=== PATIENT | male | born 1990 | race African-American/Black ===

== ENCOUNTER 2019-09-16 14:11 | Emergency (ER) | payer BC ==
--- OUTSIDE RECORDS SUMMARY | 2019-09-16 14:32 | XMS REPORT | Continuity of Care Document ---
:1990 Author Organization [facility] t Address [address] [place] [address] Care Team Providers Name Role Phone Unavailable Unavailable Unavailable Problems Condition Condition Condition Status Onset Resolution Last Treating Co mments Source Name Details Category Date Date Treatment Clinician Date Morbid Morbid Problem Active [facility] (severe) (severe[facility] obesity obesity Memoria due to due to l excess excess Outpati calories calories ent Clinics Sleep Sleep Problem Active [facility] apnea, apnea, [facility] - unspecifie unspecifie Me moria d type d type l [facility] Body mass Body mass Problem Active [facility] index index [facility] - (BMI) (BMI) Memoria 60.0-69.9, 60.0-69.9, l adult adult Outpati ent Clinics Essential Essential Problem Active [facility] hypertensi hypertensi Sharifa kes - on on Memoria l Outpati ent Clinics Type 2 Type [address] [facility] diabetes diabetes [facility] - mellitus mellitus Memori a with other with other l diabetic diabetic Outpat i kidney kidney ent complicati complicati Cl inics on on [employer] Problem Active [facility] (current) (current) [facility] - use of use of Memoria insulin insulin l Outpati ent Clinics Mixed Mixed Problem Active [facility] hyperlipid hyperlipid Sharifa kes - emia emia [facility]oria l [facility] Allergies, Adverse Reactions, Alerts This patient has no known allergies or adverse reactions. Medications Ordered Filled Start Stop Current Ordering Indication Dosage Frequency Signature Comments Components Source Medication Medication Date Date Medication? Clinician (SIG) Name Name Lisinopril Lisinopril 2020-0 Yes Akash [address] [facility] 08-25 [facility] - 00:00: [facility] 00 l [facility] Lipitor Lipitor 2020-0 Yes Akash [address] 7-09 [facility] - 00:00: Memoria 00 l Outpati ent Clinics Synjardy XR Synjardy XR 2020-0 2020- Yes Akash [address] [facility] 711-23 Pearson with [facility] - 00:00: 00:00 breakfast Memoria 00 :00 l Outpati ent Clinics Carvedilol Carvedilol Yes Akash [address] [facility] Pearson with food [facility] Outpati ent Clinics Amlodipine Amlodipine Yes Akash [address] [facility] Besylate Besylate [facility] Outpati ent Clinics Metoprolol Metoprolol Yes Akash [address] [facility] Tartrate Tartrate Pearson with food L [facility] - [facility] Outpati ent Clinics Procedures This patient has no known procedures. Encounters Start End Encounter Admission Attending Care Care Encounter Source Date/Time Date/Time Type Type Clinicians Facility Department ID 2019-09-14 2019-09-14 Outpatient Austin Caldwell [id number] [facility] 15:48:00 15:48:00 [employer] [facility] Medicine Outpati ent Clinics 2019-08-27 2019-08-27 Outpatient Austin Caldwell [id number] [facility] 13:17:00 13:17:00 [employer] [facility] Medicine Outpati ent Clinics 2019-08-27 2019-08-27 Outpatient Austin Caldwell [id number] [facility] 10:45:00 10:45:00 [employer] [facility] Medicine Outpati ent Clinics 2019-08-06 2019-08-06 Outpatient Austin Caldwell [address] [facility] 10:00:00 10:00:00 [employer] [facility] Medicine Outpati ent Clinics Results This patient has no known results.
--- OUTSIDE RECORDS SUMMARY | 2019-09-16 14:32 | XMS REPORT ---
:1990 Author Organization e[employer] Care Team Providers Name Role Phone Akash Pearson Provider Role Unavailable Allergies, Adverse Reactions, Alerts Substance Reaction Event Type N.K.D.A. Info Not Available Non Drug Allergy Problems Problem Type Condition Code Onset Dates Condition Statu s Assessment Morbid (severe) obesity due to E66.01 Active excess calories Assessment Sleep apnea, unspecified type G47.30 Active Assessment Fatigue, unspecified type R53.83 Ac tive Assessment History of atrial fibrillation Z86.79 Active Assessment Body mass index (BMI) 60.0-69.9, Z68.44 Active adult Problem Morbid (severe) obesity due to E66.01 Active excess calories Problem Body mass index (BMI) 60.0-69.9, Z68.44 Active adult Problem Essential hypertension I10 Activ e Assessment Well adult on routine health check Z00.00 Active Assessment Essential hypertension I10 Activ e Problem Sleep apnea, unspecified type G47.30 Active Medications Medication Code Code Instructions Start End Date Status Dosage System Date Carvedilol [facility] 66927885131 6.25 MG Orally Active 1 tablet Twice a day with food Amlodipine ND 47694992999 10 MG Orally Active 1 ta blet Besylate Once a day Metoprolol [facility] 89088650263 25 MG Orally Active 1 ta blet Tartrate Twice a day with food Results No Known Results Summary Purpose eClinicalWorks Submission
--- OUTSIDE RECORDS SUMMARY | 2019-09-16 14:33 | XMS REPORT ---
:1990 Author Organization [employer] Care Team Providers Name Role Phone Akash Pearson Provider Role Unavailable Allergies, Adverse Reactions, Alerts Substance Reaction Event Type N.K.D.A. Info Not Available Non Drug Allergy Problems Problem Type Condition Code Onset Dates Condition Statu s Assessment Essential hypertension I10 Activ e Assessment Type 2 diabetes mellitus with other E11.29 Active diabetic kidney complication Problem Type 2 diabetes mellitus with other E11.29 Active diabetic kidney complication Problem [employer] (current) use of insulin Z79.4 Active Problem Mixed hyperlipidemia E78.2 Active Problem Morbid (severe) obesity due to E66.01 Active excess calories Problem Body mass index (BMI) 60.0-69.9, Z68.44 Active adult Problem Sleep apnea, unspecified type G47.30 Active Problem Essential hypertension I10 Activ e Assessment History of atrial fibrillation Z86.79 Active Assessment Fatigue, unspecified type R53.83 Ac tive Assessment Gross hematuria R31.0 Active Assessment Mixed hyperlipidemia E78.2 Active Assessment Morbid (severe) obesity due to E66.01 Active excess calories Assessment Proteinuria, unspecified R80.9 Act isael Assessment Body mass index (BMI) 60.0-69.9, Z68.44 Active adult Assessment Sleep apnea, unspecified type G47.30 Active Medications Medication Code Code Instructions Start End Status Dosage System Date Date Lisinopril [facility] 00372338993 5 MG Orally August 25, Active 1 ta blet Once a day 2019 Metoprolol ND 82321301732 25 MG Orally Active 1 ta blet Tartrate Twice a day with food Lipitor ND 26655114697 10 MG Orally August 25, Active 1 tabl et Once a day 2019 Carvedilol [facility] 36408341445 6.25 MG Orally Inactive 1 tablet Twice a day with food Amlodipine ND 67334112580 10 MG Orally Active 1 ta blet Besylate Once a day Synjardy XR [facility] 39028447600 10-1000 MG August 25, Nov 23, Active 1 ta blet Orally Once a 2020 2019 with day breakfast Results No Known Results Summary Purpose eClinicalWorks Submission
--- OUTSIDE RECORDS SUMMARY | 2019-09-16 14:33 | XMS REPORT ---
:1990 Author Organization [employer] Care Team Providers Name Role Phone Michel Akash Provider Role Unavailable Allergies No Known Allergies Problems Problem Type Condition Code Onset Dates Condition Statu s Problem Type 2 diabetes mellitus with other E11.29 Active diabetic kidney complication Problem [facility] (current) use of insulin Z79.4 Active Problem Mixed hyperlipidemia E78.2 Active Problem Morbid (severe) obesity due to E66.01 Active excess calories Problem Body mass index (BMI) 60.0-69.9, Z68.44 Active adult Problem Sleep apnea, unspecified type G47.30 Active Problem Essential hypertension I10 Activ e Medications No Known Medications Results No Known Results Summary Purpose eClinicalWorks Submission
--- OUTSIDE RECORDS SUMMARY | 2019-09-16 14:33 | XMS REPORT ---
:1990 Author Organization [employer] Care Team Providers Name Role Phone Michel Akash Provider Role Unavailable Allergies No Known Allergies Problems Problem Type Condition Code Onset Dates Condition Statu s Problem Type 2 diabetes mellitus with other E11.29 Active diabetic kidney complication Problem [place] (current) use of insulin Z79.4 Active Problem Mixed hyperlipidemia E78.2 Active Problem Morbid (severe) obesity due to E66.01 Active excess calories Problem Body mass index (BMI) 60.0-69.9, Z68.44 Active adult Problem Sleep apnea, unspecified type G47.30 Active Problem Essential hypertension I10 Activ e Medications No Known Medications Results No Known Results Summary Purpose eClinicalWorks Submission
[2019-09-16 15:29] LABS: Absolute Lymphocytes (CBC) 2.2 K/uL (0.7-4.9); Basophils % 0.6 % (0-1.3); Lymphocytes % 33.9 % (15.3-44.8); MPV 11.5 fL (7.6-11.3); RBC Red Blood Cell Count 5.96 M/uL (4.33-5.43)
[2019-09-16 15:34] LABS: Albumin 3.8 g/dL (3.4-5.0); Bilirubin Direct 0.2 mg/dL (0-0.2); Bilirubin Total 0.5 mg/dL (0.2-1.0); Potassium 4.1 mmol/L (3.5-5.1); Protein, Total 7.7 g/dL (6.4-8.2)
[2019-09-16] MEDS ORDERED: INSULIN -REGULAR HUMAN 50 UNIT/0.5 ML ML ONE (15:34)
[2019-09-16] MEDS ORDERED: NA CHLORIDE 0.9% 1,000 ML ONE (15:36)
[2019-09-16] MEDS ORDERED: MORPHINE 4 MG/ML SYR ONE (15:36)
[2019-09-16] MEDS ORDERED: ONDANSETRON 4 MG/2 ML VIAL ONE (15:36)
--- NOTE | 2019-09-16 16:06 | RAD REPORT ---
EXAM DESCRIPTION: US - Abdomen Exam Limited - 09/16/2019 3:58 pm CLINICAL HISTORY: GB pain;Abd pain COMPARISON: No comparisons FINDINGS: The gallbladder demonstrates no gallstones. No pericholecystic fluid or gallbladder wall t hickening. The common bile duct is normal measuring 2 mm. The liver demonstrates no findings of intrahepatic biliary dilatation. IMPRESSION: Unremarkable examination.
[2019-09-16 16:10] LABS: Urine Blood 1+ (NEG); Urine Glucose 2+ (NEG); Urine Protein 3+ (NEG); Urine Specific Gravity 1.015 (1.005-1.030)
--- NOTE | 2019-09-16 17:29 | ER ---
Nurse's Notes [facility] Name: Huber Field Age: 28 yrs Sex: Male : 1990 Arrival Date: 09/16/2019 Time: 14:13 Bed 19 Private MD: Diagnosis: Generalized abdominal pain;Diarrhea, unspecified Presentation: 09/15 14:25 Chief complaint: Patient states: headache, pain to RUQ, sneezed and felt a pop in RUQ, iw has been vomiting for three days, not tolerating fluids, mouth is very dry, heart rate has been fast. Coronavirus screen: Patient denies a cough. Patient reports shortness of breath or difficulty breathing. Patient denies measured and/or subjective temperature greater than 100.4F prior to today's visit. Patient denies travel on a cruise ship or to a country the [facility] currently lists as an affected area. Patient denies contact with known and/or suspected case of COVID-19. Ebola Screen: Patient negative for fever greater than or equal to 101.5 degrees Fahrenheit, and additional compatible Ebola Virus Disease symptoms Patient denies exposure to infectious person. Patient denies travel to an Ebola-affected area in the 21 days before illness onset. No symptoms or risks identified at this time. Initial Sepsis Screen: Does the patient meet any 2 criteria? HR > 90 bpm. Does the patient have a suspected source of infection? No. Patient's initial sepsis screen is negative. Risk Assessment: Do you want to hurt yourself or someone else? Patient reports no desire to harm self or others. Onset of symptoms was September 13, 2019. 14:25 Method Of Arrival: Ambulatory iw 14:25 Acuity: DARCY 3 iw Historical: - Allergies: 14:30 fish; iw - Home Meds: 14:30 metoprolol tartrate 25 mg Oral tab 1 tab 2 times per day [Active]; atorvastatin 10 mg iw oral tab 1 tab once daily [Active]; amlodipine 10 mg tab 1 tab once daily [Active]; lisinopril 5 mg Oral tab 1 tab once daily [Active]; aspirin 325 mg Oral tab 1 tab once daily [Active]; 14:56 multivitamin oral oral [Active]; ProAir HFA inhalation inhalation [Active]; aa5 - PMHx: 14:30 Hypertension; Hyperlipidemia; iw 14:56 Asthma; Diabetes - NIDDM; aa5 - PSHx: 14:30 None; iw - Immunization history:: Adult Immunizations unknown. - Social history:: Smoking status: Patient denies any tobacco usage or history of. Screenin:50 Abuse screen: Denies threats or abuse. Nutritional screening: No deficits noted. aa5 Tuberculosis screening: No symptoms or risk factors identified. Fall Risk None identified. Assessment: 14:50 General: Appears comfortable, Behavior is calm, cooperative. Pain: Complains of pain in aa5 right upper quadrant and epigastric area Pain does not radiate. Pain currently is 5 out of 10 on a pain scale. Quality of pain is described as sharp, Is continuous. Neuro: Level of Consciousness is awake, alert, obeys commands, Oriented to person, place, time, situation. Cardiovascular: Heart tones S1 S2 present Rhythm is regular. Respiratory: Airway is patent Respiratory effort is even, unlabored, Respiratory pattern is regular, symmetrical. GI: Abdomen is obese, Bowel sounds present X 4 quads. Abd is soft X 4 quads Reports diarrhea, nausea, vomiting. : No signs and/or symptoms were reported regarding the genitourinary system. EENT: No signs and/or symptoms were reported regarding the EENT system. Derm: Skin is dry, Skin is normal, Skin temperature is warm. Musculoskeletal: Range of motion: intact in all extremities. 15:30 Neuro: Level of Consciousness is awake, alert, obeys commands, Oriented to person, aa5 place, time, situation. Respiratory: Airway is patent Respiratory effort is even, unlabored, Respiratory pattern is regular, symmetrical. Derm: Skin is dry, Skin is normal, Skin temperature is warm. 15:50 Reassessment: US at bedside . aa5 16:30 Reassessment: Awaiting disposition. . aa5 16:30 Neuro: Level of Consciousness is awake, alert, obeys commands, Oriented to person, aa5 place, time, situation. Respiratory: Airway is patent Respiratory effort is even, unlabored, Respiratory pattern is regular, symmetrical. Derm: Skin is dry, Skin is normal, Skin temperature is warm. 17:35 Neuro: Level of Consciousness is awake, alert, obeys commands, Oriented to person, aa5 place, time, situation. Respiratory: Airway is patent Respiratory effort is even, unlabored, Respiratory pattern is regular, symmetrical. Derm: Skin is dry, Skin is normal, Skin temperature is warm. Vital Signs: 14:25 BP 143 / 98; Pulse 104; Resp 20; Temp 98.2; Pulse Ox 95% on R/A; Weight 190.51 kg; iw Height 6 ft. 1 in. (185.42 cm); Pain 7/10; 15:30 BP 139 / 83; Pulse 98; Resp 22 S; Pulse Ox 97% on R/A; aa5 17:00 BP 138 / 80; Pulse 95; Resp 18 S; Pulse Ox 97% on R/A; aa5 14:25 Body Mass Index 55.41 (190.51 kg, 185.42 cm) iw ED Course: 14:13 Patient arrived in ED. as 14:28 Triage completed. iw 14:30 Arm band placed on. iw 14:37 Alaln Escamilla PA is PHCP. jr8 14:37 Dain Frost MD is Attending Physician. jr8 14:49 Shireen Aponte, RN is Primary Nurse. aa5 14:50 Patient has correct armband on for positive identification. Bed in low position. Call aa5 light in reach. Side rails up X2. Pulse ox on. NIBP on. 14:59 Inserted saline lock: 20 gauge in left antecubital area, using aseptic technique. Blood dh4 collected. 15:58 US Abdomen Limited In Process Unspecified. EDMS 17:28 Enid Walters MD is Referral Physician. jr8 17:35 No provider procedures requiring assistance completed. IV discontinued, intact, aa5 bleeding controlled, No redness/swelling at site. Pressure dressing applied. Administered Medications: 15:30 Drug: NS 0.9% 1000 ml Route: IV; Rate: 1000 ml; Site: right antecubital; aa5 17:49 Follow up: IV Status: Completed infusion; completed at 1630 aa5 15:30 Drug: morphine 4 mg Route: IVP; Site: right antecubital; aa5 15:40 Follow up: Response: No adverse reaction; at 1540 aa5 15:30 Drug: Zofran (Ondansetron) 4 mg Route: IVP; Site: right antecubital; aa5 17:49 Follow up: Response: No adverse reaction; at 1540 aa5 15:30 Drug: Insulin Regular Human 10 units {Co-Signature: aa5 (Shireen Aponte RN).} Route: iw IVP; Site: left antecubital; 15:40 Follow up: Response: No adverse reaction; at 1540 aa5 Intake: Outcome: 17:28 Discharge ordered by MD. culp 17:35 Discharged to home ambulatory. aa5 17:35 Condition: stable 17:35 Discharge instructions given to patient, Instructed on discharge instructions, follow up and referral plans. medication usage, Demonstrated understanding of instructions, follow-up care, medications, Prescriptions given X 4. 17:40 Patient left the ED. aa5 Signatures: Dispatcher [employer] EDMS Shanti Cisneros Irene, RN RN iw Calderon, Audri, RN RN aa5 Allan Escamilla PA PA jr8 Huhn, Donald [facility] Shireen Aponte RN aa5 Corrections: (The following items were deleted from the chart) 17:49 16:30 IV Status: Completed infusion aa5 aa5
--- NOTE | 2019-09-16 17:29 | EDPHYS ---
Physician Documentation [facility] Name: Huber Field Age: 28 yrs Sex: Male : 1990 Arrival Date: 09/16/2019 Time: 14:13 Bed 19 Private MD: ED Physician Dain Frost HPI: 09/15 15:20 This 28 yrs old Black Male presents to ER via Ambulatory with complaints of Epigastric jr8 Pain, Vomiting, dehydration. 15:20 The patient presents with abdominal pain in the epigastric area, in the right upper jr8 quadrant. Onset: The symptoms/episode began/occurred acutely, 3 day(s) ago, and became persistent. The symptoms do not radiate. Associated signs and symptoms: Pertinent positives: nausea, vomiting. The symptoms are described as stabbing. Modifying factors: The symptoms are alleviated by nothing, the symptoms are aggravated by nothing. Severity of pain: At its worst the pain was moderate in the emergency department the pain is unchanged. The patient has not experienced similar symptoms in the past. The patient has not recently seen a physician. 17:05 Patient stated that he has had diarrhea for two weeks and now some nausea and right jr8 upper quadrant and mid abdominal pain . Historical: - Allergies: 14:30 fish; iw - Home Meds: 14:30 metoprolol tartrate 25 mg Oral tab 1 tab 2 times per day [Active]; atorvastatin 10 mg iw oral tab 1 tab once daily [Active]; amlodipine 10 mg tab 1 tab once daily [Active]; lisinopril 5 mg Oral tab 1 tab once daily [Active]; aspirin 325 mg Oral tab 1 tab once daily [Active]; 14:56 multivitamin oral oral [Active]; ProAir HFA inhalation inhalation [Active]; aa5 - PMHx: 14:30 Hypertension; Hyperlipidemia; iw 14:56 Asthma; Diabetes - NIDDM; aa5 - PSHx: 14:30 None; iw - Immunization history:: Adult Immunizations unknown. - Social history:: Smoking status: Patient denies any tobacco usage or history of. ROS: 15:22 Eyes: Negative for injury, pain, redness, and discharge, ENT: Negative for injury, jr8 pain, and discharge, Neck: Negative for injury, pain, and swelling, Cardiovascular: Negative for chest pain, palpitations, and edema, Respiratory: Negative for shortness of breath, cough, wheezing, and pleuritic chest pain, Back: Negative for injury and pain, MS/Extremity: Negative for injury and deformity, Skin: Negative for injury, rash, and discoloration, Neuro: Negative for headache, weakness, numbness, tingling, and seizure. 15:22 Abdomen/GI: Positive for abdominal pain, nausea and vomiting, Negative for diarrhea, constipation, abdominal cramps, abdominal distension. Exam: 15:22 Eyes: Pupils equal round and reactive to light, extra-ocular motions intact. Lids and jr8 lashes normal. Conjunctiva and sclera are non-icteric and not injected. Cornea within normal limits. Periorbital areas with no swelling, redness, or edema. ENT: Nares patent. No nasal discharge, no septal abnormalities noted. Tympanic membranes are normal and external auditory canals are clear. Oropharynx with no redness, swelling, or masses, exudates, or evidence of obstruction, uvula midline. Mucous membranes moist. Neck: Trachea midline, no thyromegaly or masses palpated, and no cervical lymphadenopathy. Supple, full range of motion without nuchal rigidity, or vertebral point tenderness. No Meningismus. Cardiovascular: Regular rate and rhythm with a normal S1 and S2. No gallops, murmurs, or rubs. Normal PMI, no JVD. No pulse deficits. Respiratory: Lungs have equal breath sounds bilaterally, clear to auscultation and percussion. No rales, rhonchi or wheezes noted. No increased work of breathing, no retractions or nasal flaring. Back: No spinal tenderness. No costovertebral tenderness. Full range of motion. Skin: Warm, dry with normal turgor. Normal color with no rashes, no lesions, and no evidence of cellulitis. MS/ Extremity: Pulses equal, no cyanosis. Neurovascular intact. Full, normal range of motion. Neuro: Awake and alert, GCS 15, oriented to person, place, time, and situation. Cranial nerves II-XII grossly intact. Motor strength 5/5 in all extremities. Sensory grossly intact. Cerebellar exam normal. Normal gait. 15:22 Abdomen/GI: Inspection: obese Bowel sounds: active, all quadrants, Palpation: soft, in all quadrants, mild abdominal tenderness, in the epigastric area and right upper quadrant, mass, is not appreciated, rebound tenderness, is not appreciated, voluntary guarding, is not appreciated, involuntary guarding, is not appreciated, no appreciated organomegaly, Indicators: McBurney's point is not tender, Marin's sign is negative, Rovsing's sign is negative, Liver: tenderness, is not appreciated. Vital Signs: 14:25 BP 143 / 98; Pulse 104; Resp 20; Temp 98.2; Pulse Ox 95% on R/A; Weight 190.51 kg; iw Height 6 ft. 1 in. (185.42 cm); Pain 7/10; 15:30 BP 139 / 83; Pulse 98; Resp 22 S; Pulse Ox 97% on R/A; aa5 17:00 BP 138 / 80; Pulse 95; Resp 18 S; Pulse Ox 97% on R/A; aa5 14:25 Body Mass Index 55.41 (190.51 kg, 185.42 cm) iw MDM: 14:38 Patient medically screened. jr8 17:05 Differential diagnosis: appendicitis, bowel obstruction, cholecystitis, Cholelithiasis, jr8 diverticulitis, gastritis, non-specific abd pain, pancreatitis, Peptic Ulcer Disease, Ureterolithiasis. Data reviewed: vital signs, nurses notes, lab test result(s), radiologic studies, ultrasound, and as a result, I will discharge patient. Data interpreted: Pulse oximetry: on room air is 95 %. Interpretation: normal. 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 17:26 Special discussion: Based on the patient's Hx, exam, and Dx evaluation, there is no jr8 indication for emergent surgery or inpatient Tx. It is understood by the patient/guardian that if the Sx's persist or worsen they need to return immediately for re-evaluation. ED course: Patient has had unresolved diarrhea. Benign abdomen with palpation and reassessment. Labs stable. Glucose improved. Will put on Abx. Knows to come back if worse or he starts to run fever. Otherwise will f/u with GI . 09/15 14:38 Order name: Basic Metabolic Panel; Complete Time: 16:40 09/15 14:38 Order name: CBC with Diff; Complete Time: 16:40 09/15 14:38 Order name: Hepatic Function; Complete Time: 16:40 09/15 14:38 Order name: Lipase; Complete Time: 16:40 09/15 15:00 Order name: Urine Dipstick--Ancillary (enter results); Complete Time: 16:40 bd 09/15 15:18 Order name: Glucose, Ancillary Testing; Complete Time: 15:22 EDMS 09/15 14:38 Order name: IV Saline Lock; Complete Time: 14:54 09/15 14:38 Order name: Labs collected and sent; Complete Time: 14:54 09/15 15:23 Order name: US Abdomen Limited; Complete Time: 16:40 Administered Medications: 15:30 Drug: NS 0.9% 1000 ml Route: IV; Rate: 1000 ml; Site: right antecubital; aa5 17:49 Follow up: IV Status: Completed infusion; completed at 1630 aa5 15:30 Drug: morphine 4 mg Route: IVP; Site: right antecubital; aa5 15:40 Follow up: Response: No adverse reaction; at 1540 aa5 15:30 Drug: Zofran (Ondansetron) 4 mg Route: IVP; Site: right antecubital; aa5 17:49 Follow up: Response: No adverse reaction; at 1540 aa5 15:30 Drug: Insulin Regular Human 10 units {Co-Signature: aa5 (Shireen Aponte RN).} Route: iw IVP; Site: left antecubital; 15:40 Follow up: Response: No adverse reaction; at 1540 aa5 Disposition: 09/16 11:36 Co-signature as Attending Physician, Dain Frost MD I agree with the assessment and kdr plan of care. Disposition: 09/16/19 17:28 Discharged to Home. Impression: Generalized abdominal pain, Diarrhea, unspecified. - Condition is Stable. - Discharge Instructions: Diarrhea, Adult. - Prescriptions for Bentyl 20 mg Oral Tablet - take 1 tablet by ORAL route every 6 hours As needed; 20 tablet. Cipro 500 mg Oral Tablet - take 1 tablet by ORAL route every 12 hours for 10 days; 20 tablet. Flagyl 500 mg Oral Tablet - take 1 tablet by ORAL route every 6 hours for 10 days; 40 tablet. Zofran 4 mg Oral Tablet - take 1 tablet by ORAL route every 12 hours As needed; 20 tablet. - Medication Reconciliation Form, Thank You Letter, Antibiotic Education, Prescription Opioid Use form. - Follow up: Enid Walters MD; When: 2 - 3 days; Reason: Recheck today's complaints, Continuance of care, Re-evaluation by your physician. - Problem is new. - Symptoms have improved. Signatures: Dispatcher [employer] EDMS Dain Frost MD MD kdr Barbra Lu RN RN iw Shireen Aponte RN RN aa5 Allan Escamilla PA PA jr8 Shireen Aponte RN aa5 Corrections: (The following items were deleted from the chart) 09/15 17:28 17:05 Differential diagnosis: appendicitis, bowel obstruction, cholecystitis, jr8 Cholelithiasis, diverticulitis, gastritis, jr8 17:40 17:28 09/16/2019 17:28 Discharged to Home. Impression: Generalized abdominal pain; aa5 Diarrhea, unspecified. Condition is Stable. Forms are Medication Reconciliation Form, Thank You Letter, Antibiotic Education, Prescription Opioid Use. Follow up: Enid Walters; When: 2 - 3 days; Reason: Recheck today's complaints, Continuance of care, Re-evaluation by your physician. Problem is new. Symptoms have improved. jr8
[2019-09-16 17:45] VITALS: BP 143/98; TEMP 98.2; O2SAT 95
== END 2019-09-16 17:40 | disposition home or self-care (01) ==
LOC: ER 14:11
DX: R19.7 Diarrhea, unspecified (principal); I10 Essential (primary) hypertension; E78.5 Hyperlipidemia, unspecified; E11.9 Type 2 diabetes mellitus without complications; Z79.82 Long term (current) use of aspirin; Z91.013 Allergy to seafood
CPT/HCPCS: 85025; 80048; 36415; 82947; 80076; 81003; 83690; 76705; 99284; J7030; J2405; 96361; 96374; 96375

== ENCOUNTER 2020-07-19 10:42 | Emergency (ER) | payer BC, SELFPAY ==
--- OUTSIDE RECORDS SUMMARY | 2020-07-19 10:46 | XMS REPORT | Continuity of Care Document ---
:1990 Author Organization [facility] t Address [address] [place] [address] Care Team Providers Name Role Phone Amanda Stiles RN Attending Clinician Adriana Mann Attending Clinician Anjel DUNCAN Attending Clinician Neisha DUNCAN Attending Clinician Pcp, Does Not Have A Attending Clinician Suleiman Young Attending Clinician Ge Montiel MD Attending Clinician Doctor Unassigned, Name Attending Clinician Unavailable Neisha DUNCAN Admitting Clinician Ge Montiel MD Admitting Clinician [phone] Problems This patient has no known problems. Allergies, Adverse Reactions, Alerts This patient has no known allergies or adverse reactions. Medications Ordered Filled Start Stop Current Ordering Indication Dosage Frequency Signature Comments Components Source Medication Medication Date Date Medication? Clinician (SIG) Name Name Lisinopril Lisinopril 2020-0 Yes Akash [address] [facility] Lipitor Lipitor 2020-0 Yes Akash [address] [facility] 08[facility] Synjardy XR Synjardy XR 2019- No Akash [address] [facility] 08[facility] Carvedilol Carvedilol Yes Akash [address] [facility] with [facility] Amlodipine Amlodipine Yes Akash [address] [facility] Besylate Besylate [facility] Metoprolol Metoprolol Yes Akash [address] [facility] Tartrate Tartrate [facility] Procedures This patient has no known procedures. Encounters Start End Encounter Admission Attending Care Care Encounter Source Date/Time Date/Time Type Type Clinicians Facility Department ID 2020-04-07 2020-04-07 Transition Davida Stiles [id number] 00:00:00 00:00:00 of Care Loretta Iglesias [id number] [place] [id number] 2020-03-27 2020-04-05 [facility] Ping Gauthier [id number] 12:27:00 11:30:00 Encounter Socrates Hobbs [id number] [facility] [id number] Socrates Hobbs [id number] 2019-11-12 2019-11-12 [facility] [id number] 2019-10-19 2019-10-19 Letter PEPE Diamond [id number] 00:00:00 00:00:00 (Out) Patient STACY [id number] [facility] [id number] Have A [id number] 2019-09-20 2019-09-22 Emergency Lindsey Solano [facility] [id number] 19:20:00 13:55:00 Tiny Montiel [place] [id number] [place] [id number] [place] [id number] 2019-09-20 2019-09-20 Orders Doctor CANTU [id number] 00:00:00 00:00:00 Only Unassigned, STACY [id number] [place] [id number] 2019-09-16 2019-09-16 [facility] [id number] [facility] 13:28:00 13:28:00 t [employer] [facility] 2019-09-14 2019-09-14 [facility] [id number] [facility] 15:48:00 15:48:00 t [employer] [facility] 2019-08-27 2019-08-27 [facility] [id number] [facility] 13:17:00 13:17:00 [place] [facility] 2019-08-27 2019-08-27 [facility] [id number] [facility] [address] 10:45:00 10:45:00 t [employer] [facility] 2019-08-06 2019-08-06 [facility] [id number] 10:00:00 10:00:00 t [employer] [facility] Results This patient has no known results.
[2020-07-19 11:17] LABS: Absolute Lymphocytes (CBC) 2.6 K/uL (0.7-4.9); Basophils % 0.7 % (0-1.3); Hematocrit 43.2 % (39.6-49.0); Lymphocytes % 28.4 % (15.3-44.8); MPV 9.5 fL (7.6-11.3); RBC Red Blood Cell Count 5.38 M/uL (4.33-5.43)
[2020-07-19 11:18] LABS: Protime INR 1.11
[2020-07-19 11:31] LABS: ALT/SGPT 34 U/L (12-78); AST/SGOT 14 U/L (15-37); Albumin 3.5 g/dL (3.4-5.0); Alkaline Phosphatase 56 U/L (45-117); BUN Blood Urea Nitrogen 17 mg/dL (7-18); Bicarbonate 31 mmol/L (21-32); Bilirubin Direct < 0.1 mg/dL (0-0.2); Bilirubin Total 0.4 mg/dL (0.2-1.0); Glucose Level 109 mg/dL (74-106); Magnesium 2.2 mg/dL (1.8-2.4); NT PRO-BNP 35 pg/mL (<125); Potassium 3.2 mmol/L (3.5-5.1); Protein, Total 7.7 g/dL (6.4-8.2); Sodium Level 140 mmol/L (136-145); Troponin (Emerg Dept Use Only) < 0.02 ng/mL (0.0-0.045)
[2020-07-19] MEDS ORDERED: AMLODIPINE 10 MG TAB ONE (11:32)
--- NOTE | 2020-07-19 12:00 | RAD REPORT ---
EXAM DESCRIPTION: RAD - Chest Single View - 07/19/2020 11:20 am CLINICAL HISTORY: CHEST PAIN Chest pain. COMPARISON: CHEST SINGLE VIEW dated 02/27/2015; CHEST SINGLE VIEW dated 07/05/2014; CHEST SINGLE VIEW dated 07/03/2012 FINDINGS: Portable technique limits examination quality. The lungs are grossly clear. The heart is upper limit of normal in size. No displaced fractures. IMPRESSION: No acute intrathoracic process suspected.
[2020-07-19 12:10] LABS: Urine Blood 2+ (Negative); Urine Glucose Negative (Negative); Urine Protein 3+ (Negative); Urine Specific Gravity >=1.030 (1.005-1.030)
[2020-07-19] MEDS ORDERED: HYDRALAZINE HCL 20 MG/ML VIAL ONE (13:46)
[2020-07-19] MEDS ORDERED: LORazepam 2 MG/ML VIAL ONE (13:46)
--- NOTE | 2020-07-19 14:26 | EDPHYS ---
Physician Documentation [facility] Name: Huber Field Age: 29 yrs Sex: Male : 1990 Arrival Date: 07/19/2020 Time: 10:43 Bed 14 Private MD: ED Physician Glen Ackerman HPI: 07/19 19:36 This 29 yrs old Black Male presents to ER via Ambulatory with complaints of Numbness - kb Hand. 19:36 The patient presents with a history of irregular heart beat. Context: The symptoms kb occur at rest. Onset: The symptoms/episode began/occurred at 02:30. Duration: The patient or guardian reports a single episode. Modifying factors: The symptoms are aggravated by nothing. The symptoms are alleviated by nothing. Associated signs and symptoms: Pertinent positives: anxiety, nausea, SOB. Severity of symptoms: At their worst the symptoms were moderate in the emergency department the symptoms are unchanged. The patient has not experienced similar symptoms in the past. The patient has not recently seen a physician. Pt states "I started feeling bad last night, I vomited 3 times but thought it was something I ate so I went to sleep. I know when I'm in a.fib because I feel the fluttering. I've been in a.fib since 0230.". Historical: - Allergies: 10:53 fish; ph - PMHx: 10:53 Asthma; Diabetes - NIDDM; Hyperlipidemia; Hypertension; ph - PSHx: 10:53 None; ph - Immunization history:: Adult Immunizations not up to date. - Social history:: Smoking status: Patient denies any tobacco usage or history of. Patient uses street drugs, marijuana. ROS: 19:34 Constitutional: Negative for fever, chills, and weight loss. kb 19:34 Cardiovascular: Positive for chest pain, palpitations, Negative for edema, orthopnea, paroxysmal nocturnal dyspnea. 19:34 Respiratory: Positive for shortness of breath, Negative for cough, dyspnea on exertion, hemoptysis, orthopnea, pleurisy, sputum production, wheezing. 19:34 All other systems are negative. 19:36 Constitutional: Positive for fatigue, malaise. kb 19:36 Abdomen/GI: Positive for nausea and vomiting, Negative for abdominal pain, diarrhea, constipation. Exam: 14:25 Constitutional: This is a well developed, well nourished patient who is awake, alert, kb and in no acute distress. Head/Face: Normocephalic, atraumatic. ENT: Moist Mucous membranes Cardiovascular: Regular rate and rhythm with a normal S1 and S2. No gallops, murmurs, or rubs. No pulse deficits. Respiratory: Respirations even and unlabored. No increased work of breathing, no retractions or nasal flaring. Abdomen/GI: Soft, non-tender. No distention Skin: Warm, dry with normal turgor. Normal color. MS/ Extremity: Pulses equal, no cyanosis. Neurovascular intact. Full, normal range of motion. Neuro: Awake and alert, GCS 15, oriented to person, place, time, and situation. Moves all extremities. Normal gait. Psych: Awake, alert, with orientation to person, place and time. Behavior, mood, and affect are within normal limits. 14:25 ECG was reviewed by the Attending Physician. Vital Signs: 10:51 BP 180 / 110; Pulse 81; Resp 18; Temp 97.9; Pulse Ox 97% on R/A; Weight 181.44 kg; ph Height 6 ft. 0 in. (182.88 cm); 11:38 BP 170 / 106; Pulse 76; Resp 20; Pulse Ox 99% on R/A; kg 13:00 BP 176 / 101; Pulse 76; Resp 21; Pulse Ox 99% on R/A; kg 13:25 BP 162 / 110 RA (man/); kg 14:11 BP 150 / 80; Pulse 85; Resp 22; Pulse Ox 96% on R/A; kg 10:51 Body Mass Index 54.25 (181.44 kg, 182.88 cm) ph MDM: 10:51 Patient medically screened. kb 19:33 Data reviewed: vital signs, nurses notes. Data interpreted: Pulse oximetry: on room air kb is 96 %. Interpretation: normal. 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 ED course: significant other states pt has been under a lot of stress lately, got a new job and got "into it" with them there last night. States this all started at the same time and she thinks it is due to anxiety. . 07/19 10:51 Order name: Basic Metabolic Panel kb 07/19 10:51 Order name: CBC with Diff; Complete Time: 11:29 kb 07/19 10:51 Order name: LFT's; Complete Time: 11:36 kb 07/19 10:51 Order name: Magnesium; Complete Time: 11:36 kb 07/19 10:51 Order name: NT PRO-BNP; Complete Time: 11:36 kb 07/19 10:51 Order name: PT-INR; Complete Time: 11:29 kb 07/19 10:51 Order name: Troponin (emerg Dept Use Only); Complete Time: 11:36 kb 07/19 10:51 Order name: XRAY Chest (1 view); Complete Time: 12:03 kb 07/19 10:51 Order name: Basic Metabolic Panel; Complete Time: 11:36 EDMS 07/19 12:10 Order name: Urine Dipstick-Ancillary EDMS 07/19 12:50 Order name: Troponin (emerg Dept Use Only); Complete Time: 13:25 kb 07/19 10:51 Order name: EKG; Complete Time: 10:52 kb 07/19 10:51 Order name: Cardiac monitoring; Complete Time: 11:05 kb 07/19 10:51 Order name: EKG - Nurse/Tech; Complete Time: 11:05 kb 07/19 10:51 Order name: IV Saline Lock; Complete Time: 11:05 kb 07/19 10:51 Order name: Labs collected and sent; Complete Time: 11:05 kb 07/19 10:51 Order name: O2 Per Protocol; Complete Time: 11:05 kb 07/19 10:51 Order name: O2 Sat Monitoring; Complete Time: 11:05 kb 07/19 11:51 Order name: Urine Dipstick-Ancillary (obtain specimen); Complete Time: 14:13 kb 07/19 12:50 Order name: EKG; Complete Time: 12:51 kb 07/19 12:50 Order name: EKG - Nurse/Tech; Complete Time: 14:12 kb EC:25 Rate is 82 beats/min. Rhythm is regular. QRS [place] is Normal. AR interval is normal at kb 180 msec. QRS interval is normal at 98 msec. QT interval is normal at 414 msec. Administered Medications: 11:28 Drug: amLODIPine 10 mg Route: PO; kg 13:32 Follow up: Response: No change in condition; Blood pressure is unchanged kg 13:32 Drug: Ativan (LORazepam) 0.5 mg Route: IVP; Site: right antecubital; kg 14:12 Follow up: Response: No adverse reaction; Anxiety unchanged kg 13:32 Drug: hydrALAZINE 10 mg Route: IVP; Site: right antecubital; kg 14:12 Follow up: Response: No adverse reaction; Marked relief of symptoms; Blood pressure is kg lowered 14:46 Drug: Potassium Chloride 40 mEq Route: PO; kg 14:55 Follow up: Response: No adverse reaction kg Disposition: 18:32 Co-signature as Attending Physician, Glen Ackerman MD I agree with the assessment and tw4 plan of care. Disposition: 07/19/20 14:25 Discharged to Home. Impression: Essential (primary) hypertension, Palpitations. - Condition is Stable. - Discharge Instructions: Hypertension, [id number], Panic Attacks, Ztdf-[id number], Palpitations, Agbt-yr-Bmum. - Medication Reconciliation Form, Thank You Letter, Antibiotic Education, Prescription Opioid Use form. - Follow up: Emergency Department; When: As needed; Reason: Worsening of condition. Follow up: Private Physician; When: 2 - 3 days; Reason: Recheck today's complaints, Continuance of care, Re-evaluation by your physician. Signatures: Dispatcher [employer] [facility] Roseann Gonzales, DON-C ALTERNATIVE FINANCING SPECIALIST-Grecia Gallagher RN RN ph Wadley, Terrence, MD MD tw4 Marilu Duarte kg Corrections: (The following items were deleted from the chart) 14:56 14:25 07/19/2020 14:25 Discharged to Home. Impression: Essential (primary) kg hypertension; Palpitations. Condition is Stable. Forms are Medication Reconciliation Form, Thank You Letter, Antibiotic Education, Prescription Opioid Use. Follow up: Emergency Department; When: As needed; Reason: Worsening of condition. Follow up: Private Physician; When: 2 - 3 days; Reason: Recheck today's complaints, Continuance of care, Re-evaluation by your physician. kb 19:38 19:34 Constitutional: Negative for fever, chills, and weight loss, kb kb
--- NOTE | 2020-07-19 14:26 | ER ---
Nurse's Notes [facility] Name: Huber Field Age: 29 yrs Sex: Male : 1990 Arrival Date: 07/19/2020 Time: 10:43 Bed 14 Private MD: Diagnosis: Essential (primary) hypertension;Palpitations Presentation: 07/19 10:51 Chief complaint: Patient states: " I feel like I'm in a-fib, it's been going on since last night." Reports chest pain, SOB, palpitations, N/V. Taken to exam room 14 and placed on purchasing clerk, HR 81 and regular. Coronavirus screen: Client denies travel out of the [place] in the last 14 days. Ebola Screen: No symptoms or risks identified at this time. Initial Sepsis Screen: Does the patient meet any 2 criteria? No. Patient's initial sepsis screen is negative. Does the patient have a suspected source of infection? No. Patient's initial sepsis screen is negative. Risk Assessment: Do you want to hurt yourself or someone else? Patient reports no desire to harm self or others. Onset of symptoms was July 19, 2020. 10:51 Method Of Arrival: Ambulatory 10:51 Acuity: DARCY 3 ph Historical: - Allergies: 10:53 fish; ph - PMHx: 10:53 Asthma; Diabetes - NIDDM; Hyperlipidemia; Hypertension; ph - PSHx: 10:53 None; ph - Immunization history:: Adult Immunizations not up to date. - Social history:: Smoking status: Patient denies any tobacco usage or history of. Patient uses street drugs, marijuana. Screenin:39 Abuse screen: Denies threats or abuse. Denies injuries from another. Nutritional kg screening: No deficits noted. Tuberculosis screening: No symptoms or risk factors identified. Fall Risk None identified. No fall in past 12 months (0 pts). No secondary diagnosis (0 pts). IV access (20 points). Ambulatory Aid- None/Bed Rest/Nurse Assist (0 pts). Gait- Normal/Bed Rest/Wheelchair (0 pts) Mental Status- Oriented to own ability (0 pts). Total Sanchez Fall Scale indicates No Risk (0-24 pts). Assessment: 11:34 General: Appears in no apparent distress. Behavior is calm, cooperative, appropriate kg for age, quiet. Pain: Complains of pain in anterior aspect of left upper chest, diaphragm and left breast Pain radiates to abdomen Pain currently is 5 out of 10 on a pain scale. at worst was 10 out of 10 on a pain scale. level that patient reports is acceptable is 3 out of 10 on a pain scale. Quality of pain is described as burning, sharp. Neuro: No deficits noted. Level of Consciousness is awake, alert, obeys commands, Oriented to person, place, time, situation, Appropriate for age. Cardiovascular: Reports chest pain, nausea, Denies chest pain, nausea, Heart tones S1 S2 Capillary refill < 3 seconds Pulses are all present. Edema BLE edema non pitting. Respiratory: No deficits noted. Airway is patent Respiratory effort is even, unlabored, relaxed, Respiratory pattern is regular, Breath sounds are clear bilaterally. GI: Reports nausea, vomiting, since last night. Pt reported vomiting bright red blood with clots. : Reports Pt urinating red urine. EENT: No deficits noted. Derm: No deficits noted. Musculoskeletal: No deficits noted. 13:25 Reassessment: Pt called me to the room stating, "I think he's having an anxiety kg attack." I asked the patient how he was feeling, he was shaking and crying a visible upset. He stated, "I haven't slept in like three days. I'm scared that if I fall asleep I'll ." Informed Roseann OCHOA, orders placed in system. . Vital Signs: 10:51 BP 180 / 110; Pulse 81; Resp 18; Temp 97.9; Pulse Ox 97% on R/A; Weight 181.44 kg; ph Height 6 ft. 0 in. (182.88 cm); 11:38 BP 170 / 106; Pulse 76; Resp 20; Pulse Ox 99% on R/A; kg 13:00 BP 176 / 101; Pulse 76; Resp 21; Pulse Ox 99% on R/A; kg 13:25 BP 162 / 110 RA (man/); kg 14:11 BP 150 / 80; Pulse 85; Resp 22; Pulse Ox 96% on R/A; kg 10:51 Body Mass Index 54.25 (181.44 kg, 182.88 cm) ph ED Course: 10:43 Patient arrived in ED. ds1 10:51 Roseann Gonzales FNP-C is [facility]. kb 10:51 Glen Ackerman MD is Attending Physician. kb 10:53 Triage completed. ph 10:53 Arm band placed on Patient placed in an exam room, on a stretcher, on purchasing clerk, ph on pulse oximetry. 11:00 Inserted saline lock: 20 gauge in right antecubital area, using aseptic technique. tw2 Blood collected. 11:05 Marilu Duarte is Primary Nurse. kg 11:20 XRAY Chest (1 view) In Process Unspecified. EDMS 11:41 Patient has correct armband on for positive identification. Bed in low position. Call kg light in reach. Side rails up X2. 14:14 Basic Metabolic Panel Sent. kg 14:54 No provider procedures requiring assistance completed. IV discontinued, intact, kg bleeding controlled, No redness/swelling at site. Pressure dressing applied. Administered Medications: 11:28 Drug: amLODIPine 10 mg Route: PO; kg 13:32 Follow up: Response: No change in condition; Blood pressure is unchanged kg 13:32 Drug: Ativan (LORazepam) 0.5 mg Route: IVP; Site: right antecubital; kg 14:12 Follow up: Response: No adverse reaction; Anxiety unchanged kg 13:32 Drug: hydrALAZINE 10 mg Route: IVP; Site: right antecubital; kg 14:12 Follow up: Response: No adverse reaction; Marked relief of symptoms; Blood pressure is kg lowered 14:46 Drug: Potassium Chloride 40 mEq Route: PO; kg 14:55 Follow up: Response: No adverse reaction kg Outcome: 14:25 Discharge ordered by MD. kb 14:54 Discharged to home ambulatory, with significant other. kg 14:54 Condition: stable 14:54 Discharge instructions given to patient, family, significant other, Instructed on discharge instructions, follow up and referral plans. Demonstrated understanding of instructions, follow-up care. 14:56 Patient left the ED. kg Signatures: Dispatcher [employer] EDMS Roseann Gonzales FNP-C FNP-Lucila De La Rosa ds1 Grecia Gordon, RN RN Savanah Heck RN RN tw2 Marilu Duarte kg
[2020-07-19] MEDS ORDERED: POTASSIUM CL SA 10 MEQ TAB PO ONE (15:04)
[2020-07-19 15:14] VITALS: TEMP 97.9
[2020-07-19 15:21] VITALS: BP 150/80; O2SAT 96
--- NOTE | 2020-07-20 07:53 | EKG ---
Test Date: 2020-07-19 Test Time: 11:56:49 Saturator Operator: IVORY MEASUREMENT RESULTS: Intervals: Rate: 75 NM: 196 QRSD: 104 QT: 404 QTc: 451 [place]: P: 20 NM: 196 QRS: -7 T: 4 INTERPRETIVE STATEMENTS: Normal sinus rhythm Cannot rule out Anterior infarct, age undetermined Abnormal ECG Compared to ECG 02/27/2015 17:13:06 Myocardial infarct finding now present Electronically Signed On 07-20-20 07:50:45 CDT by Rob Negron
--- NOTE | 2020-07-20 07:53 | EKG ---
Test Date: 2020-07-19 Test Time: 13:59:12 Travel Occupational Therapist: IVORY MEASUREMENT RESULTS: Intervals: Rate: 82 VT: 180 QRSD: 98 QT: 414 QTc: 483 [place]: P: 31 VT: 180 QRS: 22 T: 6 INTERPRETIVE STATEMENTS: Normal sinus rhythm Septal infarct, age undetermined Abnormal ECG Compared to ECG 07/19/2020 11:56:49 No significant changes Electronically Signed On 07-20-20 07:50:39 CDT by Rob Negron
== END 2020-07-19 14:56 | disposition home or self-care (01) ==
LOC: ER 10:42
DX: I10 Essential (primary) hypertension (principal); Z91.013 Allergy to seafood
CPT/HCPCS: 36415; 71045; 80048; 80076; 81003; 83735; 83880; 84484; 85025; 85610; 93005; 96374; 96375; 99284; J0360

== ENCOUNTER 2021-01-30 09:25 | Emergency (ER) | payer SELFPAY ==
--- OUTSIDE RECORDS SUMMARY | 2021-01-30 09:34 | XMS REPORT | Continuity of Care Document ---
:1990 Author Organization [facility] t Address [address] [place] [address] Care Team Providers Name Role Phone Adriana Mann Attending Clinician Huber DUNCAN Attending Clinician Lashon DUNCAN Attending Clinician Adriana OSMAN Attending Clinician Unavailable Doctor Unassigned, Name Attending Clinician Unavailable Go JEONG M Attending Clinician Anjel DUNCAN Attending Clinician Neisha DUNCAN Attending Clinician Pcp, Does Not Have A Attending Clinician Suleiman Young Attending Clinician Folyd Ramos MD Attending Clinician [phone] FLOYD RAMOS Attending Clinician Unavailable Lashon DUNCAN Admitting Clinician Neisha DUNCAN Admitting Clinician Floyd Ramos MD Admitting Clinician [phone] FLOYD RAMOS Admitting Clinician Unavailable Payers Payer Name Policy Type Policy Number Effective Date Expiration Date S [facility] - [id number] 2020 00:00:00 OUT OF STATE Problems Condition Condition Condition Status Onset Resolution Last Treating Co mments Source Name Details Category Date Date Treatment Clinician Date MALI on MALI on Disease Active Univers CPAP CPAP 6- ity of 00:00: [place] [facility] Hypertensi Hypertensi Disease Active U nivers ve urgency ve urgency 6- it y of 00:00: [place] [facility] Pneumonia Pneumonia Disease Active Uni vers due to due to 208 ity of COVID-19 COVID-19 00:00: [place] virus virus Medical Branch SOB SOB Disease Active Univers (shortness (shortness 8 it y of of breath) of breath) 00:00: [place] [facility] Morbid Morbid Disease Active 2018-02 Univers obesity obesity 2-28 ity of with body with body 00:00: [facility] s mass index mass index 00 Me dical of 50 or of 50 or Branch higher higher Other Other Disease Active 2018-02 Univers chest pain chest pain 2-28 it y of 00:00: [place] [facility] Essential Essential Disease Active 2018-02 Uni vers hypertensi hypertensi 2-28 it y of on on 00:00: [place] [facility] Hypokalemi Hypokalemi Disease Active 2018-02 U nivers a a 2- ity of 00:00: [place] 00 Medical Branch Type 2 Type 2 Disease Active 2018-02 Univers diabetes diabetes 2-28 ity of mellitus mellitus 00:00: [place] without without 00 Medical complicati complicati Br anch on, on, without without long-term long-term current current use of use of insulin insulin PAF PAF Disease Active 2018-02 Univers (paroxysma (paroxysma 228 it y of l atrial l atrial 00:00: [place] fibrillati fibrillati 00 Me dical on) on) Branch Allergies, Adverse Reactions, Alerts Allergy Allergy Status Severity Reaction(s) Onset Inactive Treating Comm ents Source Name Type Date Date Clinician SEAFOOD/ Food Active Anaphylaxis Uni vers FISH 8- ity of 00:00: [place] 00 Medical Branch Seafood/ Propensi Active Anaphylaxis 2020- U nivers Fish ty to 8 ity of adverse 00:00: [place] reaction 00 Medical s Branch NO KNOWN Drug Active Univers ALLERGIE Class ity of S [place] [facility] Social History Social Habit Start Date Stop Date Quantity Comments Source Exposure to Not sure University of SARS-CoV-2 [place] [facility] (event) Branch History SDNJ 2020-07-19 2020-07-19 15 University o f Education 00:00:00 00:00:00 [facility] Tobacco use and 2020-07-19 2020-07-19 Former user Universi ty of exposure 00:00:00 00:00:00 [facility] Alcohol intake 2020-07-19 2020-07-19 Ex-drinker [facility] 00:00:00 00:00:00 (finding) [place] [facility] History [facility] 2019-02-13 2019-02-13 2 University o f Financial 00:00:00 00:00:00 [place] [facility] History [facility] Food 2019-02-13 2019-02-13 3 Univers ity of Worry 00:00:00 00:00:00 [place] [facility] History [facility] Food 2019-02-13 2019-02-13 3 Univers ity of Scarcity 00:00:00 00:00:00 [place] [facility] History [facility] 2019-02-13 2019-02-13 1 [facility] Med 00:00:00 00:00:00 [place] Medic al [facility] History [facility] 2019-02-13 2019-02-13 1 [facility] Non-Med 00:00:00 00:00:00 [facility] Sex Assigned At [birth year] Universit y of 00:00:00 00:00:00 [facility] Smoking Status Start Date Stop Date Source Current every day 2020-07-19 00:00:00 [facility] smoker [facility] Former smoker 2020-03-28 00:00:00 2020-03-28 00:00:00 Universi ty of [facility] Medications Ordered Filled Start Stop Current Ordering Indication Dosage Frequency Signature Comments Components Source Medication Medication Date Date Medication? Clinician (SIG) Name Name Multivitami Yes Take by Un yelitza ns with 6-04 mouth. ity of Fluoride 18:32: [place] (MULTI-MARIA FERNANDA 53 Medical MIN ORAL) Branch atorvastati Yes 10mg Take 10 mg Univers n 10 mg 6-04 by mouth ity of tablet 18:32: at [place] 53 bedtime. Medical Branch atorvastati Yes 10mg 10 mg, Univ ers n (LIPITOR) 04 Oral, QHS, it y of tablet 10 02:00: [place] mg 00 on [facility] 07/20/20 at Branch 2100, Until Discontinu ed, Routine lisinopriL Yes 20mg 20 mg, Unive rs (PRINIVIL,Z 07-21 Oral, BID, it y of ESTRIL) 01:00: [place] tablet 20 00 (after Medical mg last Branch modificati on) on [facility] 07/20/20 at 2000, Until Discontinu ed, Routine lisinopriL 2020- No [id number] 20mg Take 1 Univers 20 mg 07-21 tablet by ity of tablet 00:00: 04:59 mouth 2 [place] 00 :00 (two) [facility] daily for 30 days. carvediloL 2020- No [id number] 25mg Take 1 Univers 25 mg 07-21 tablet by ity of tablet 00:00: 04:59 mouth 2 [place] 00 :00 (two) [facility] times [place] daily with meals for 30 days. carvediloL Yes 25mg 25 mg, Unive rs (COREG) 07-20 Oral, BID ity of tablet 25 22:00: MEALS, [place] mg 00 First dose Medical on [facility] 07/20/20 at 1700, Until Discontinu ed, Routine sulfur 2020- No [id number] 5mL 5 mL, Unive rs hexafluorid 07-20 06-03 Intravenou i ty of e microsphr 17:00: 17:00 s, ONCE, 1 [place] (LUMASON) 00 :00 dose, [facility] Medic al injection 5 07/20/20 at [facility] mL 1200, Routine
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 approving Restricted medication : BONITA NIÑO amLODIPine Yes 10mg 10 mg, Unive rs (NORVASC) 07-20 Oral, ity of tablet 10 14:00: DAILY, [place] mg 00 First dose Medical on [facility] 07/20/20 at 0900, Until Discontinu ed, Routine aspirin Yes 81mg 81 mg, Univers chewable 07-20 Oral, ity of tablet 81 14:00: DAILY, [place] mg 00 First dose Medical on [place] Branch 07/20/20 at 0900, Until Discontinu ed, Routine enoxaparin Yes 40mg 40 mg, Unive rs (LOVENOX) 07-20 Subcutaneo ity of injection 14:00: us, DAILY, [place] 40 mg 00 First dose Medical on [place] [facility] 07/20/20 at 0900, Until Discontinu ed, Routine metoprolol 2020- No 100mg 100 mg, Un yelitza succinate 07-20 Oral, ity of XL (TOPROL 14:00: 21:59 DAILY, [place] XL) tablet 00 :58 First dose Med ical 100 mg on [facility] Branch 07/20/20 at 0900, Until Discontinu ed, Routine lisinopriL 2020- No 20mg 20 mg, Univ ers (PRINIVIL,Z 07-20 Oral, ity of ESTRIL) 14:00: 21:06 DAILY, [place] tablet 20 00 :11 First dose Medi julia mg on [facility] Branch 07/20/20 at 0900, Until Discontinu ed, Routine benzonatate Yes 100mg 100 mg, Un yelitza (TESSALON 07-20 Oral, ity of PERLES) 08:11: TIDPRN, [place] capsule 100 56 Starting Medi julia mg [facility] 07/20/20 Branch at 0311, Until Discontinu ed, Routine, Cough albuterol Yes 2{puff} 2 Puff, Un yelitza (VENTOLIN) 07-20 Inhalation ity of inhaler 2 08:11: , Q6HPRN, [place] Puff 19 Starting Medical [facility] 07/20/20 Branch at 0311, Until Discontinu ed, Routine, Wheezing, Shortness of Breath
Is this order for a patient with suspected or confirmed COVID-19 infection? No
Does this order have Pulmonary/ Critical Care approval? No ondansetron Yes 4mg 4 mg, Slow Univers (ZOFRAN 07-20 IV Push, ity of (PF)) 03:27: Q6HPRN, [place] injection 4 27 Starting Medi julia mg [facility] 07/19/20 Branch at 2227, Until Discontinu ed, Routine, Nausea and Vomiting (N/V) traMADoL 0 2020- No 50mg 50 mg, Univer s (ULTRAM) 07-2005 Oral, ity of tablet 50 03:27: 03:26 Q8HPRN, [place] mg 10 :10 Starting Medical 07/19/20 Branch at 2227, Until 07/21/20 at 2226, Routine, Pain (scale 4-6) acetaminoph Yes 650mg 650 mg, Un yelitza en 07-20 Oral, ity of (TYLENOL) 03:27: Q6HPRN, [place] tablet 650 08 Starting Medic al mg Fri07/19/20 Branch at 2227, Until Discontinu ed, Routine, Pain (scale 1-3) nitroglycer Yes .4mg 0.4 mg, Uni vers in 07-20 Sublingual ity of (NITROSTAT) 03:04: , Q5MIN [place] sublingual 12 PRN, Medical tablet 0.4 Starting Branc h mg 07/19/20 at 2204, Until Discontinu ed, Routine, Chest pain morpHINE Yes 2mg 2 mg, Slow Uni vers injection 2 07-20 IV Push, ity of mg 03:03: Q4HPRN, [place] 59 Starting Medical [facility] 07/19/20 Branch at 2203, Until Discontinu ed, Routine, Pain (scale 7-10) hydralAZINE Yes 10mg 10 mg, Univ ers (APRESOLINE 07-20 Slow IV ity o f ) injection 03:02: Push, [place] 10 mg 46 Q6HPRN, Medical Starting Branch [facility] 07/19/20 at 2202, Until Discontinu ed, STAT, FOR SBP > 180, DBP > 100
Ind ication: Hypertensi ve Emergency nitroglycer 2020- No .4mg 0.4 mg, Un yelitza in 07-20 Sublingual ity of (NITROSTAT) 01:00: 00:17 , ONCE, 1 [place] sublingual 00 :00 dose, Wed Medi julia tablet 0.4 07/19/20 at Bran ch mg 2000, SUBHA ondansetron 2020- No 4mg 4 mg, Slow Univers (ZOFRAN 07-20 IV Push, ity of (PF)) 01:00: 00:18 ONCE, 1 [place] injection 4 00 :00 dose, Fri Med ical mg 07/19/20 at [place] 1999, SUBHA morpHINE No 4mg 4 mg, Slow Un yelitza injection 4 07-20 IV Push, ity of mg 01:00: 00:19 ONCE, 00 :00 dose, Fri07/19/20 at [place] 1999, STAT aspirin 2020- No 325mg 325 mg, Unive rs tablet 325 07-19 Oral, ity of mg 22:45: 21:56 ONCE, 00 :00 dose, Fri07/19/20 at [place] 1745, STAT nitroglycer No .4mg 0.4 mg, Un yelitza in 07-19 Sublingual ity of (NITROSTAT) 21:40: 22:33 , Q5MIN [place] sublingual 56 :00 PRN, 3 Medical tablet 0.4 doses, Branch mg Starting Fri07/19/20 at 1640, Until Fri07/19/20 at 1733, SUBHA, Chest pain lisinopriL Yes [id number] 20mg Take 1 Univers 20 mg 2-18 [id number] tablet by ity of tablet 00:00: mouth [place] 00 daily. Medical [place] metoprolol Yes [id number] 100mg Take 1 Univers succinate 2-18 [id number] tablet by it y of XL 100 mg 00:00: mouth [place] 24 hr 00 daily. Medical tablet [place] aspirin 81 Yes [id number] 81mg Take 1 Univers mg chewable 2-18 [id number] tablet by ity of tablet 00:00: mouth [place] 00 daily. Medical Branch lisinopriL Yes [id number] 20mg Take 1 Univers 20 mg 2-18 [id number] tablet by ity of tablet 00:00: mouth [place] 00 daily. Medical Branch metoprolol Yes [id number] 100mg Take 1 Univers succinate 2-18 [id number] tablet by it y of XL 100 mg 00:00: mouth [place] 24 hr 00 daily. Medical tablet [place] aspirin 81 Yes [id number] 81mg Take 1 Univers mg chewable 2-18 [id number] tablet by ity of tablet 00:00: mouth [place] 00 daily. Medical Branch lisinopriL Yes [id number] 20mg Take 1 Univers 20 mg 2-18 [id number] tablet by ity of tablet 00:00: mouth [place] 00 daily. Medical Branch metoprolol Yes [id number] 100mg Take 1 Univers succinate 2-18 [id number] tablet by it y of XL 100 mg 00:00: mouth [place] 24 hr 00 daily. Medical tablet Branch aspirin 81 Yes [id number] 81mg Take 1 Univers mg chewable 2-18 [id number] tablet by ity of tablet 00:00: mouth [place] 00 daily. Medical Branch lisinopriL Yes [id number] 20mg Take 1 Univers 20 mg 2-18 [id number] tablet by ity of tablet 00:00: mouth [place] 00 daily. Medical Branch aspirin 81 Yes [id number] 81mg Take 1 Univers mg chewable 2-18 [id number] tablet by ity of tablet 00:00: mouth [place] 00 daily. Medical Branch metoprolol 2020- No [id number] 100mg Take 1 Univers succinate 2-18 06-04 [id number] tablet by i ty of XL 100 mg 00:00: 00:00 mouth [place] 24 hr 00 :00 daily. Medical tablet Branch lisinopriL 2020- No [id number] 20mg Take 1 Univers 20 mg 2-18 -17 [id number] tablet by ity o f tablet 00:00: 00:00 mouth [place] 00 :00 daily. Medical Branch metoprolol 2020- No [id number] 100mg Take 1 Univers succinate 2-18 -17 [id number] tablet by i ty of XL 100 mg 00:00: 00:00 mouth [place] 24 hr 00 :00 daily. Medical tablet Branch aspirin 81 2020- No [id number] 81mg Take 1 Univers mg chewable 2-18 -17 [id number] tablet by ity of tablet 00:00: 00:00 mouth [place] 00 :00 daily for Medical 90 days. Branch Multivitami Yes Take by Un yelitza ns with 2-17 mouth. ity of Fluoride 17:53: [place] (MULTI-MARIA FERNANDA 44 Medical MIN ORAL) Branch atorvastati Yes 10mg Take 10 mg Univers n 10 mg 2-17 by mouth ity of tablet 17:53: at [place] [address] bedtime. Medical Branch Multivitami Yes Take by Un yelitza ns with 2-17 mouth. ity of Fluoride 17:53: [place] (MULTI-MARIA FERNANDA 44 Medical MIN ORAL) Branch atorvastati Yes 10mg Take 10 mg Univers n 10 mg 2-17 by mouth ity of tablet 17:53: at [place] [address] bedtime. Medical Branch Multivitami Yes Take by Un yelitza ns with 2-17 mouth. ity of Fluoride 17:53: [place] (MULTI-MARIA FERNANDA 44 Medical MIN ORAL) Branch atorvastati Yes 10mg Take 10 mg Univers n 10 mg 2-17 by mouth ity of tablet 17:53: at [place] [address] bedtime. Medical Branch albuterol 2020- No 2{puff} Inhale 2 Univers 90 17 02-17 Puffs ity of mcg/actuati 16:58: 00:00 every 6 [place] on inhaler 25 :00 (six) Medical hours as Branch needed for Wheezing or Shortness of Breath. lisinopril 2020- No 5mg Take 5 mg U nivers 5 mg tablet 04-05 by mouth ity of 16:41: 00:00 daily. [place] 18 :00 Medical Branch lisinopriL Yes 20mg 20 mg, Unive rs (PRINIVIL,Z 2-17 Oral, ity of ESTRIL) 15:00: DAILY, [place] tablet 20 00 First dose Medi julia mg (after Branch last modificati on) on Fri04/05/20 at 0900, Until Discontinu ed, Routine albuterol Yes [id number] 2{puff} Inhale 2 Univers 90 2-17 [id number] Puffs ity of mcg/actuati 00:00: every 6 [place] on inhaler 00 (six) Medical hours as Branch needed for Wheezing or Shortness of Breath. benzonatate Yes [id number] 100mg Take 1 Univers 100 mg 2-17 [id number] capsule by ity of capsule 00:00: mouth 3 (three) Medical times Branch daily as needed for Cough. amLODIPine 0 Yes [id number] 10mg Take 1 Univers 10 mg 2-17 tablet by ity of tablet 00:00: mouth [place] 00 daily. Medical Branch albuterol Yes [id number] 2{puff} Inhale 2 Univers 90 2-17 [id number] Puffs ity of mcg/actuati 00:00: every 6 [place] on inhaler 00 (six) Medical hours as Branch needed for Wheezing or Shortness of Breath. benzonatate Yes [id number] 100mg Take 1 Univers 100 mg 2-17 [id number] capsule by ity of capsule 00:00: mouth 3 (three) Medical times Branch daily as needed for Cough. amLODIPine Yes [id number] 10mg Take 1 Univers 10 mg 2-17 tablet by ity of tablet 00:00: mouth 00 daily. Medical Branch albuterol Yes [id number] 2{puff} Inhale 2 Univers 90 2-17 [id number] Puffs ity of mcg/actuati 00:00: every 6 [place] on inhaler 00 (six) Medical hours as Branch needed for Wheezing or Shortness of Breath. benzonatate Yes [id number] 100mg Take 1 Univers 100 mg 2-17 [id number] capsule by ity of capsule 00:00: mouth 3 (three) Medical times Branch daily as needed for Cough. amLODIPine Yes [id number] 10mg Take 1 Univers 10 mg 2-17 tablet by ity of tablet 00:00: mouth [place] 00 daily. Medical Branch albuterol Yes [id number] 2{puff} Inhale 2 Univers 90 2-17 [id number] Puffs ity of mcg/actuati 00:00: every 6 [place] on inhaler 00 (six) Medical hours as Branch needed for Wheezing or Shortness of Breath. benzonatate Yes [id number] 100mg Take 1 Univers 100 mg 2-17 [id number] capsule by ity of capsule 00:00: mouth 3 (three) Medical times Branch daily as needed for Cough. amLODIPine Yes [id number] 10mg Take 1 Univers 10 mg 2-17 tablet by ity of tablet 00:00: mouth [place] 00 daily. Medical Branch benzonatate 2020- No [id number] 100mg Take 1 Univers 100 mg -17 04-05 [id number] capsule by ity of capsule 00:00: 00:00 mouth 3 [place] 00 :00 (three) Medical times Branch daily as needed for Cough. dexamethaso No 4mg 4 mg, IV U nivers ne 04-04 02-20 Piggyback, ity of (DECADRON 19:00: 18:59 Q24H, 4 [place] PHOSPHATE) 00 :00 doses, Medical 4 mg in First dose Branch NaCl 0.9% on Fri (NS) 50 mL 04/04/20 at piggyback 1300, Last dose on Fri04/07/20 at 1300, 50 mL albuterol-i Yes 1{puff} 1 Puff, Univers pratropium -16 Inhalation ity of (COMBIVENT 16:45: , Q6HPRN, [place] RESPIMAT) 00 Starting Medica l 20-100 Fri Branch mcg/actuati 04/04/20 at on inhaler 1045, 1 Puff Until Discontinu ed, Routine, Wheezing, Shortness of Breath
Is this order for a patient with suspected or confirmed COVID-19 infection? Yes hydralAZINE Yes 10mg 10 mg, Univ ers (APRESOLINE 2-15 Slow IV ity o f ) injection 18:16: Push, [place] 10 mg 32 Q6HPRN, Medical Starting Branch 04/03/20 at 1216, Until Discontinu ed, Routine, DBP=>100; SBP=>180<b r>Indicati on: Hypertensi ve Emergency lisinopriL 2020- No 10mg 10 mg, Univ ers (PRINIVIL,Z 2-15 -17 Oral, ity of ESTRIL) 18:15: 13:40 DAILY, [place] tablet 10 00 :39 First dose Medi julia mg on Mon Branch 04/03/20 at 1215, Until Discontinu ed, Routine amLODIPine Yes 10mg 10 mg, Unive rs (NORVASC) 2-15 Oral, ity of tablet 10 15:00: DAILY, [place] mg 00 First dose Medical (after [place] last modificati on) on [facility] 04/03/20 at 0900, Until Discontinu ed, Routine KCL 2020- No 40meq 40 mEq, Univers (KLOR-CON 04-03 Oral, ity of M20) tablet 14:45: 15:15 ONCE, 1 [place] 40 mEq 00 :00 dose, [facility] Medical 04/03/20 at Branch 0845, Routine hydralAZINE 2020- No 10mg 10 mg, Uni vers (APRESOLINE 04-03 Slow IV ity of ) injection 00:45: 23:58 [place], [place] 10 mg 00 :00 ONCE, 1 Medical dose, [facility] 04/02/20 at 1845, STAT
In dication: Hypertensi ve Emergency amLODIPine 2020- No 5mg 5 mg, Unive rs [facility] 04-02 Oral, ity of tablet 5 mg 18:15: 18:21 ONCE, 1 [place] 00 :00 dose, [facility] 04/02/20 at Branch 1215, Routine metoprolol Yes 100mg 100 mg, Uni vers succinate 04-02 Oral, ity of XL (TOPROL 15:00: DAILY, [place] XL) tablet 00 First dose Med ical 100 mg (after [place] last modificati on) on [place] 04/02/20 at 0900, Until Discontinu ed, Routine remdesivir 2020- No 100mg 100 mg, IV Univers 100 mg in 04-01 Infusion, ity of NaCl 0.9% 22:00: 16:13 DAILY AT [place] as (NS) 250 mL 00 :05 1600, 5 Medic al infusion doses, Branch First dose (after last reorder) on 04/01/20 at 1600, Last dose on Fri04/05/20 at 1600, 250 mL
Nicolette ent informed of their inclusion in the [employer] database for 5 years for purposes of emergency use of remdesivir . No
Plea se discuss and complete the [employer] Disaster Informatio n Retention Consent form with the patient: I will discuss and complete the [place] [id number] Disaster Informatio n Retention Consent form with the patient amLODIPine No 5mg 5 mg, [facility] rs (NORVASC) 04-01-14 Oral, ity of tablet 5 mg 16:45: 17:08 DAILY, [place] 00 :13 First dose Medical (after Branch last modificati on) on 04/01/20 at 1045, Until Discontinu ed, Routine hydrOXYzine Yes 25mg 25 mg, [facility] ers (ATARAX) 04-01 Oral, ity of tablet 25 01:34: Q6HPRN, [place] mg 39 Starting Medical Fri Branch 03/31/20 at 1934, Until Discontinu ed, Routine, Anxiety furosemide No 40mg [address], [facility] ers (LASIX) 03-31-12 Slow IV ity of injection 10:19: 11:05 Push, [place] 40 mg 00 :00 ONCE, 1 Medical dose, Fri Branch 03/31/20 at 0430, Routine sodium Yes 1{spray 1 [place], [facility] ers chloride 03-31 } Nasal, ity of (OCEAN MIST 02:03: PRN, [place] NASAL) 0.65 41 Starting Medi julia % nasal Nia Branch spray 1 03/30/20 at [place] 2002, Until Discontinu ed, Routine, nasal irritation benzonatate Yes 100mg 100 mg, Un yelitza (TESSALON 12 Oral, ity of PERLES) 01:54: TIDPRN, [place] capsule 100 50 Starting Medi julia mg Nia Branch 03/30/20 at 1954, Until Discontinu ed, Routine, Cough lactated 2020- No 500mL at 100 [facility] rs ringers IV 03-29 02-10 mL/hr, 500 it y of infusion 17:30: 18:43 mL, IV [place] 500 mL 00 :00 Infusion, Medical ONCE, 1 Branch dose, 03/29/20 at 1130, Routine dexamethaso 2020- No 6mg 6 mg, IV U nivers ne 6 mg in 03-29 02-16 Piggyback, it y of NaCl 0.9% 17:00: 04:36 Q24H, [place] (NS) 25 mL 00 :35 First dose Med ical RTU on Fri03/29/20 at 1100, Until Discontinu ed, 25 mL albuterol-i 2020- No 1{puff} 1 Puff, [facility] pratropium 03-28 Inhalation it y of (COMBIVENT 18:00: 16:40 , Q6H, [place] RESPIMAT) 00 :35 First dose Medi julia 20-100 on Fri mcg/actuati 03/28/20 at on inhaler 1200, 1 Puff Until Discontinu ed, Routine
Is this order for a patient with suspected or confirmed COVID-19 infection? Yes Potassium 2020- No 40meq 40 mEq, Uni vers Bicarb-Citr 03-28 Oral, ity of ic Acid 15:53: 17:01 ONCE, 1 [place] (EFFER-K) 00 :00 dose, [facility] Medic al effervescen 03/28/20 at [facility] t tablet 40 1000, mEq Routine magnesium No 2g 2 g, IV Univ ers sulfate in 03-28 Piggyback, it y of water 2 15:53: 16:58 ONCE, 1 [place] gram/50 mL 00 :00 dose, [facility] Medi julia (4 %) 03/28/20 at [place] infusion 2 1000, g Routine aspirin Yes 81mg 81 mg, Univers chewable 03-28 Oral, ity of tablet 81 15:00: DAILY, [place] mg 00 First dose Medical on Fri03/28/20 at 0900, Until Discontinu ed, Routine enoxaparin Yes 40mg 40 mg, Unive rs (LOVENOX) 03-28 Subcutaneo ity of injection 15:00: us, DAILY, [place] 40 mg 00 First dose Medical on Fri [place] 03/28/20 at 0900, Until Discontinu ed, Routine metoprolol 2020- No 200mg 200 mg, Un yelitza succinate 03-28 Oral, ity of XL (TOPROL 15:00: 19:42 DAILY, [place] XL) tablet 00 :35 First dose Med ical 200 mg on Fri [place] 03/28/20 at 0900, Until Discontinu ed, Routine NaCl 0.9% 2020- No 1000mL at 150 Uni vers (NS) IV 03-28 mL/hr, IV ity of infusion 14:33: 14:51 Infusion, [place] 1,000 mL 00 :00 ONCE, 1 Medical dose, [facility] 03/28/20 at 0845, Routine magnesium 2020- No 1g 1 g, IV [facility] ers sulfate in 03-28 Piggyback, it y of D5W 1 04:30: 07:34 ONCE, 1 [place] gram/100 mL 00 :00 dose, [facility] ical RTU IV 03/27/20 at [place] Piggyback 1 2230, 100 g mL Sliding Yes Subcutaneo [facility] ers Scale 03-28 us, TID ity of Insulin - 03:00: MEALS+HS, [place] as Lispro 00 First dose Medical (HumaLOG) + on [facility] 03/27/20 at Testing 2100, Until Discontinu ed, Routine empaglifloz 2020- No Take by U graceers in-metformi 03-28 mouth. ity o f n (SYNJARDY 02:25: 00:00 [place] XR) 17 :00 Medical 10-1,000 mg Branch TBph dicyclomine 2020- No 20mg Take 20 mg Univers 20 mg 03-28 by mouth 4 ity of tablet 02:25: 00:00 (four) [place] 17 :00 times Medical daily. Branch NaCl 0.9% 2020- No 500mL at 200 Univ ers (NS) IV 03-28 mL/hr, IV ity of infusion 01:45: 03:39 Infusion, [place] 500 mL 00 :00 ONCE, 1 Medical dose, [facility] 03/27/20 at 1945, Routine KCL 2020-2020- No 40meq 40 mEq, Univers (KLOR-CON 03-28 Oral, ity of M20) tablet 01:45: 02:46 ONCE, 1 [place] 40 mEq 00 :00 dose, [facility] 03/27/20 at Branch 1945, Routine guaiFENesin 2020- No 200mg 200 mg, U nivers 100 mg/5 mL 2-09 02-12 Oral, ity of solution 00:35: 01:55 Q4HPRN, [place] 200 mg 14 :33 Starting Medical 03/27/20 Branch at 1835, Until Nia 03/30/20 at 1955, Routine, Cough albuterol Yes 1{puff} 1 Puff, Un yelitza (VENTOLIN) 03-28 Inhalation ity of inhaler 1 00:29: , Q4HPRN, [place] Puff 51 Starting Medical 03/27/20 Branch at 1829, Until Discontinu ed, Routine, Wheezing, Shortness of Breath
Is this order for a patient with suspected or confirmed COVID-19 infection? Yes acetaminoph Yes 650mg 650 mg, Un yelitza en 03-28 Oral, ity of (TYLENOL) 00:11: Q6HPRN, [place] tablet 650 01 Starting Medic al mg [facility] 03/27/20 Branch at 1811, Until Discontinu ed, Routine, Pain (scale 1-3), Fever > 38.0 ibuprofen 2020- No 400mg 400 mg, Uni vers (IBU) 2-08 Oral, ity of tablet 400 21:00: 20:14 ONCE, 1 [place] as mg 00 :00 dose, Mon Medical 03/27/20 at Branch 1500, SUBHA ondansetron 2020- No 4mg 4 mg, Slow Univers (ZOFRAN 03-27 IV Push, ity of (PF)) 20:45: 20:14 ONCE, 1 [place] injection 4 00 :00 dose, Mon Med ical mg 03/27/20 at Branch 1445, SUBHA empaglifloz Yes Take by Un yelitza in-metformi 8-05 mouth. ity of n (SYNJARDY 19:05: [place] XR) 51 Medical 10-1,000 mg Branch TBph dicyclomine 2019-0 Yes 20mg Take 20 mg Univers 20 mg 8-05 by mouth 4 ity of tablet 19:05: (four) [place] 51 times Medical daily. Branch Multivitami 2019-0 Yes Take by Un yelitza ns with 8-05 mouth. ity of Fluoride 19:05: [place] (MULTI-MARIA FERNANDA 51 Medical MIN ORAL) Branch lisinopril 2019-0 Yes 5mg Take 5 mg Un yelitza 5 mg tablet 8-05 by mouth ity of 19:05: daily. [place] [address] Medical Branch albuterol 2020-0 Yes 2{puff} Inhale 2 U nivers 90 8-05 Puffs ity of mcg/actuati 19:05: every 6 [place] as on inhaler 51 (six) Medical hours as Branch needed for Wheezing or Shortness of Breath. atorvastati 2020-0 Yes 10mg Take 10 mg Univers n 10 mg 8-05 by mouth ity of tablet 19:05: at [place] [address] bedtime. Medical Branch empaglifloz 2020-0 Yes Take by Un yelitza in-metformi 8-05 mouth. ity of n (SYNJARDY 19:05: [facility]) Medical 10-1,000 mg Branch TBph dicyclomine 2019-0 Yes 20mg Take 20 mg Univers 20 mg 8-05 by mouth 4 ity of tablet 19:05: (four) [place] [address] times Medical daily. Branch Multivitami 2019-0 Yes Take by Un yelitza ns with 8-05 mouth. ity of Fluoride 19:05: [place] (MULTI-MARIA FERNANDA 51 Medical MIN ORAL) Branch lisinopril 2019-0 Yes 5mg Take 5 mg Un yelitza 5 mg tablet 8-05 by mouth ity of 19:05: daily. [place] [address] Medical Branch albuterol 2019-0 Yes 2{puff} Inhale 2 U nivers 90 8-05 Puffs ity of mcg/actuati 19:05: every 6 [place] as on inhaler 51 (six) Medical hours as Branch needed for Wheezing or Shortness of Breath. atorvastati 2020-0 Yes 10mg Take 10 mg Univers n 10 mg 8-05 by mouth ity of tablet 19:05: at [place] [address] bedtime. Medical Branch metroNIDAZO 2020-0 2020- No 500mg Take 500 Univers LE 500 mg 8-05 08-05 mg by ity of tablet 18:00: 00:00 mouth [place] 01 :00 every 8 Medical (eight) Branch hours. metoprolol 2020-0 2020- No 200mg Take 200 U nivers succinate 8-05 08-05 mg by ity of XL 200 mg 17:19: 00:00 mouth [place] 24 hr 46 :00 daily. Medical tablet Branch ondansetron 2019-0 2020- No 4mg Take 4 mg Univers (ZOFRAN) 4 09-21 by mouth ity of mg tablet 17:19: 00:00 every 8 [place] :00 (eight) Medical hours as Branch needed. metoprolol 2019- No 25mg Take 25 mg Univers tartrate 25 09-21- by mouth 2 i ty of mg tablet 17:19: 00:00 (two) [place] 46 :00 times Medical daily. Branch atorvastati Yes 10mg 10 mg, Univ ers n (LIPITOR) 8-05 Oral, QHS, it y of tablet 10 02:00: [place] dose [place] mg 00 on Fri [facility] 09/21/19 at Branch 2100, Until Discontinu ed, Routine metoprolol 2019- Yes [id number] 200mg Take 1 Univers succinate 8-05 tablet by ity o f XL 200 mg 00:00: mouth [place] 24 hr 00 daily. Medical tablet Branch metoprolol Yes [id number] 200mg Take 1 Univers succinate 8-05 tablet by ity o f XL 200 mg 00:00: mouth [place] 24 hr 00 daily. Medical tablet Branch metoprolol 2020- No [id number] 200mg Take 1 Univers succinate 09-21 02-17 tablet by ity of XL 200 mg 00:00: 00:00 mouth [place] 24 hr 00 :00 daily. Medical tablet Branch benzocaine- Yes 1{lozen 1 Lozenge, Univers menthol 8 ge} Oral, ity of (CEPACOL 20:36: Q4HPRN, [place] SORE THROAT 15 Starting Medi julia (KRISH-MEN)) 09/21/19 Br anch lozenge 1 at 1536, Lozenge Until Discontinu ed, Routine, Sore throat amLODIPine 2019-0 Yes 10mg 10 mg, Unive rs (NORVASC) 8-04 Oral, ity of tablet 10 14:00: DAILY, [place] mg 00 First dose Medical on Fri [place] 09/21/19 at 0900, Until Discontinu ed, Routine lisinopril 2019-0 Yes 20mg 20 mg, Unive rs (PRINIVIL,Z 8-04 Oral, ity of ESTRIL) 14:00: DAILY, [place] tablet 20 00 First dose Medi julia mg on Fri Branch 09/21/19 at 0900, Until Discontinu ed, Routine metoprolol 2019-0 Yes 25mg 25 mg, Unive rs tartrate 09-20 Oral, BID, ity o f (LOPRESSOR) 13:00: First dose [place] tablet 25 00 on Fri Medical mg 09/21/19 at Branch 0800, Until Discontinu ed, Routine Sliding 2020-0 Yes Subcutaneo Univ ers Scale 09-20 us, AC+HS, ity of Insulin-Reg 12:30: First dose [place] ular + Fsbg 00 on Fri Medica l Testing 09/21/19 at Branch 0730, Until Discontinu ed, Routine albuterol 2019-0 Yes 2{puff} 2 Puff, Un yelitza (VENTOLIN) 09-20 Inhalation ity of inhaler 2 10:14: , Q6HPRN, [place] as Puff 59 Starting Medical Fri09/21/19 Branch at 0514, Until Discontinu ed, Routine, Wheezing, Shortness of Breath
Is this order for a patient with suspected or confirmed COVID-19 infection? No
Does this order have Pulmonary/ Critical Care approval? No insulin 2020-0 Yes 10U 10 Units, Unive rs glargine 09-20 Subcutaneo ity o f (LANTUS 07:00: us, DAILY, [place] U-100) 00 First dose Medical injection on Fri Branch 10 Units 09/21/19 at 0200, Until Discontinu ed, Routine hydralAZINE 2019-0 Yes 10mg 10 mg, Univ ers (APRESOLINE 09-20 Intravenou it y of ) injection 06:50: s, Q6HPRN, [place] 10 mg 23 Starting Medical Fri09/21/19 Branch at 0150, Until Discontinu ed, Routine, Hypertensi on glucagon 2019-0 Yes 1mg 1 mg, Univers (GLUCAGEN 09-20 Intramuscu ity of DIAGNOSTIC 06:49: lar, PRN, [place] KIT) 21 Starting Medical injection 1 Fri09/21/19 Br anch mg at 0149, Until Discontinu ed, SUBHA, Blood Glucose < or = 70 mg/dL and patient is unable to swallow or has mental changes. dextrose 50 2020-0 Yes 25mL 25 mL, Univ ers % in water 09-20 Slow IV ity of (D50W) 06:49: Push, PRN, [place] injection 21 Starting Medica l 25 mL 09/21/19 Branch at 0149, Until Discontinu ed, SUBHA, Blood Glucose < or = 70 mg/dL and patient is unable to swallow or has mental status changes. ondansetron 2019-0 Yes 4mg 4 mg, Slow Univers (ZOFRAN 09-20 IV Push, ity of (PF)) 06:32: Q6HPRN, [place] injection 4 28 Starting Medi julia mg Fri09/21/19 Branch at 0132, Until Discontinu ed, Routine, Nausea and Vomiting (N/V) HYDROcodone 2019-0 2020- No 1{tbl} 1 tablet, Univers -acetaminop 09-20 0806 Oral, ity of hen (NORCO 06:32: 06:31 Q6HPRN, [place] as 5) 5-325 mg 15 :15 Starting Medi julia tablet 1 Fri09/21/19 Branc h tablet at 013, Until Nia 09/23/19 at 0131, Routine, Pain (scale 4-6), Hold for SBP<110, DBP<60, RR<12, and/or drowsiness /sedation acetaminoph 2020-0 Yes 650mg 650 mg, Un yelitza en 09-20 Oral, ity of (TYLENOL) 06:31: Q6HPRN, [place] tablet 650 50 Starting Medic al mg [facility] 09/21/19 Branch at 0131, Until Discontinu ed, Routine, Pain (scale 1-3) insulin 2020- No 10U 10 Units, Univ ers regular 09-20- Slow IV ity of human 02:45: 01:59 Push, [place] (HUMULIN R) 00 :00 ONCE, 1 Medic al injection dose, Mon Branc h 10 Units 09/20/19 at 2145, Routine NaCl 0.9% 2019- 2020- No 1000mL at 999 Uni vers (NS) bolus 09-20-04 mL/hr, ity of infusion 01:45: 04:19 1,000 mL, [place] as 1,000 mL 00 :00 IV Medical Infusion, Branch ONCE, 1 dose, 09/20/19 at 2045, SUBHA Lisinopril Lisinopril 2020-0 Yes Akash [address] [facility] Lipitor Lipitor 2019-0 Yes Akash [address] [facility] Synjardy XR Synjardy XR 0 2020- No Akash [address] [facility] - 00:[facility]: 00:00 breakfast Memoria 00 :00 l [facility] amLODIPine 2018-02 Yes [id number] 10mg Take 1 Univers 10 mg 2-28 tablet by ity of tablet 00:00: mouth [place] 00 daily. Medical Branch nitroglycer 2018-[id number] 1 Univers in 0.4 mg 2-28 tablet ity of sublingual 00:00: under the [place] tablet 00 tongue Medical every 5 Branch (five) minutes as needed for Chest pain. nitroglycer 2018-[id number] 1 Univers in 0.4 mg 2-28 tablet ity of sublingual 00:00: under the [place] tablet 00 tongue Medical every 5 Branch (five) minutes as needed for Chest pain. nitroglycer 2018-[id number] 1 Univers in 0.4 mg 2-28 tablet ity of sublingual 00:00: under the [place] tablet 00 tongue Medical every 5 Branch (five) minutes as needed for Chest pain. nitroglycer 2018-[id number] 1 Univers in 0.4 mg 2-28 tablet ity of sublingual 00:00: under the [place] tablet 00 tongue Medical every 5 Branch (five) minutes as needed for Chest pain. nitroglycer 2018-[id number] 1 Univers in 0.4 mg 2-28 tablet ity of sublingual 00:00: under the [place] tablet 00 tongue Medical every 5 Branch (five) minutes as needed for Chest pain. amLODIPine 2018-02 Yes [id number] 10mg Take 1 Univers 10 mg 2-28 tablet by ity of tablet 00:00: mouth [place] 00 daily. Medical Branch carvedilol 2018-02 Yes [id number] 12.5mg Take 1 Univers 12.5 mg 2-28 tablet by ity of tablet 00:00: mouth 2 [place] 00 (two) Medical times Branch daily with meals. nitroglycer 2018-[id number] 1 Univers in 0.4 mg 2-28 tablet ity of sublingual 00:00: under the [place] tablet 00 tongue Medical every 5 Branch (five) minutes as needed for Chest pain. metFORMIN 2018-02 Yes [id number] 500mg Take 1 Univers 500 mg 2-28 tablet by ity of tablet 00:00: mouth 2 [place] 00 (two) Medical times Branch daily with meals. amLODIPine 2018-02 Yes [id number] 10mg Take 1 Univers 10 mg 2-28 tablet by ity of tablet 00:00: mouth [place] 00 daily. Medical Branch nitroglycer 2018-[id number] 1 Univers in 0.4 mg 2-28 tablet ity of sublingual 00:00: under the [place] tablet 00 tongue Medical every 5 Branch (five) minutes as needed for Chest pain. amLODIPine 2018-02- No [id number] 10mg Take 1 Univers 10 mg 2-28 02-17 tablet by ity of tablet 00:00: 00:00 mouth [place] 00 :00 daily. Medical Branch carvedilol 2018-02- No [id number] 12.5mg Take 1 Univers 12.5 mg 2-28 08-05 tablet by ity of tablet 00:00: 00:00 mouth 2 [place] 00 :00 (two) Medical times Branch daily with meals. metFORMIN 2018-02- No [id number] 500mg Take 1 Univers 500 mg 2-28 08-03 tablet by ity of tablet 00:00: 00:00 mouth 2 [place] 00 :00 (two) Medical times Branch daily with meals. Carvedilol Carvedilol Yes Akash [address] [facility] Amlodipine Amlodipine Yes Akash [address] Besylate Besylate [facility] Metoprolol Metoprolol Yes Akash [address] Tartrate Tartrate [facility] with food [facility] Vital Signs Vital Name Observation Time Observation Value Comments Source Systolic blood 2020-07-21 15:34:00 140 mm[Hg] Univer sity of pressure [facility] Diastolic blood 2020-07-21 15:34:00 80 mm[Hg] Unive rsity of pressure [place] [facility] Heart rate 2020-07-21 15:34:00 70 /min Universi ty [facility] [place] [facility] Body temperature 2020-07-21 15:34:00 37.11 Kelley Univ ersity of [place] [facility] Respiratory rate 2020-07-21 15:34:00 20 /min Univ ersity of [place] [facility] Oxygen saturation in 2020-07-21 15:34:00 94 /min University of Arterial blood by [place] [employer] julia Pulse oximetry Branch Body height 2020-07-20 03:29:00 188 cm Universi ty of [place] [facility] Body weight 2020-07-19 21:14:00 226.799 kg Universi ty of [place] [facility] BMI 2020-07-19 21:14:00 64.20 kg/m2 Universi ty [facility] [place] [facility] Systolic blood 2020-04-05 13:18:00 149 mm[Hg] Univer sity of pressure [place] [facility] Diastolic blood 2020-04-05 13:18:00 96 mm[Hg] Unive rsity of pressure [place] [facility] Heart rate 2020-04-05 13:18:00 63 /min Universi ty [facility] [place] [facility] Body temperature 2020-04-05 13:18:00 36.56 [facility] Univ ersity of [place] [facility] Respiratory rate 2020-04-05 13:18:00 18 /min Univ ersity of [place] [facility] Oxygen saturation in 2020-04-05 13:18:00 98 /min University of Arterial blood by [place] [employer] julia Pulse oximetry Branch Body height 2020-03-27 23:51:00 188 cm Universi ty of [place] [facility] Body weight 2020-03-27 23:51:00 195.954 kg Universi ty of [place] [facility] BMI 2020-03-27 23:51:00 55.47 kg/m2 Universi ty of [place] [facility] Systolic blood 2020-04-05 13:18:00 149 mm[Hg] Univer sity of pressure [place] [facility] Diastolic blood 2020-04-05 13:18:00 96 mm[Hg] Unive rsity of pressure [place] [facility] Heart rate 2020-04-05 13:18:00 63 /min Universi ty [facility] [place] [facility] Body temperature 2020-04-05 13:18:00 36.56 [facility] Univ ersity [facility] [place] [facility] Respiratory rate 2020-04-05 13:18:00 18 /min Univ ersity of [place] [facility] Oxygen saturation in 2020-04-05 13:18:00 98 /min University of Arterial blood by [facility] Pulse oximetry Branch Body height 2020-03-27 23:51:00 188 cm Universi ty of [place] [facility] Body weight 2020-03-27 23:51:00 195.954 kg Universi ty [facility] [place] [facility] BMI 2020-03-27 23:51:00 55.47 kg/m2 Universi ty [facility] [place] [facility] Systolic blood 2019-09-22 18:08:00 149 mm[Hg] Univer sity of pressure [place] [facility] Diastolic blood 2019-09-22 18:08:00 85 mm[Hg] Unive rsity of pressure [place] [facility] Heart rate 2019-09-22 17:06:00 78 /min Universi ty [facility] [place] [facility] Body temperature 2019-09-22 17:06:00 36.56 [facility] Univ ersity [facility] [place] [facility] Respiratory rate 2019-09-22 17:06:00 20 /min Univ ersity of [place] [facility] Oxygen saturation in 2019-09-22 17:06:00 98 /min University of Arterial blood by [facility] Pulse oximetry Branch Body weight 2019-09-22 08:31:00 204.482 kg Universi ty [facility] [place] [facility] BMI 2019-09-22 08:31:00 59.48 kg/m2 Universi ty [facility] [place] [facility] Body height 2019-09-21 06:30:00 185.4 cm Universi ty [facility] [place] [facility] Systolic blood 2019-09-22 18:08:00 149 mm[Hg] Univer sity of pressure [place] [facility] Diastolic blood 2019-09-22 18:08:00 85 mm[Hg] Unive rsity of pressure [place] [facility] Heart rate 2019-09-22 17:06:00 78 /min Universi ty [facility] [place] [facility] Body temperature 2019-09-22 17:06:00 36.56 [facility] Univ ersity [facility] [place] [facility] Respiratory rate 2019-09-22 17:06:00 20 /min Univ ersity of [place] [facility] Oxygen saturation in 2019-09-22 17:06:00 98 /min University of Arterial blood by [facility] Pulse oximetry Branch Body weight 2019-09-22 08:31:00 204.482 kg [facility] BMI 2019-09-22 08:31:00 59.48 kg/m2 [facility] Body height 2019-09-21 06:30:00 185.4 cm [facility] Procedures Procedure Date / Time Performing Clinician Source Performed BASIC METABOLIC PANEL 2020-07-21 Reena Polanco [facility] (NA, K, CL, CO2, 10:22:00 Medical Branch GLUCOSE, BUN, CREATININE, CA) CBC WITH DIFF 2020-07-21 Reena Polanco [facility] 10:22:00 [facility] TRANSTHORACIC ECHO (TTE) 2020-07-[facility]/ CONTRAST 16:57:10 Medical [facility] TROPONIN I 2020-07-20 [facility] 07:23:00 [facility] BASIC METABOLIC PANEL 2020-07-20 [facility] (NA, K, CL, CO2, 07:23:00 Medical Branch GLUCOSE, BUN, CREATININE, CA) LIPID PANEL 2020-07-20 [facility] ([id number])(TOTAL 07:23:00 [facility] CHOLESTEROL, TRIGLYCERIDES, HDL) CBC WITH DIFF 2020-07-20 [facility] 07:23:00 [facility] URINALYSIS 2020-07-20 Reena Osman [facility] 01:48:00 [facility] XR CHEST 1 VW 2020-07-[address] [facility] 22:24:55 [facility] COVID-19 (ID NOW RAPID 2020-07-19 Reena Osman [facility] TESTING) 21:54:00 [facility] Branch TROPONIN I 2020-07-19 Reena Osman [facility] 21:52:00 Medical [place] COMP. METABOLIC PANEL 2020-07-19 Reena Osman [facility] ([id number]) 21:52:00 Medical Branch CBC WITH DIFF 2020-07-19 Reena Osman [facility] 21:52:00 Medical Branch PROTHROMBIN TIME / INR 2020-07-19 Reena Osman [facility] 21:52:00 Medical Branch ACTIVATED PARTIAL 2020-07-19 Reena Osman [facility] THRMPLAS ANNETTE 21:52:00 Medical Branch N-TERMINAL PRO-BNP 2020-07-19 Reena Osman [facility] 21:52:00 [facility] Branch HB ECG ROUTINE & RHYTHM 2020-07-19 Reena Osman [facility] STRIP 21:18:23 Medical Branch NOTICE OF PRIVACY 2020-07-19 Doctor Unassigned, No [facility] PRACTICES 21:03:23 Name [facility] CONSENT/REFUSAL FOR 2020-07-19 Doctor Unassigned, No [facility] DIAGNOSIS AND TREATMENT 21:02:36 Name [facility] POCT GLUCOSE (AUTOMATED) 2020-04-05 Anjel [facility] 13:19:00 Medical Branch MAGNESIUM 2020-04-05 [facility] exas 09:46:00 Medical Branch BASIC METABOLIC PANEL 2020-[facility], CL, CO2, 09:46:00 Medical Branch GLUCOSE, BUN, CREATININE, CA) POCT GLUCOSE (AUTOMATED) 2020-04-05 Anjel [facility] 03:02:00 Medical Branch POCT GL[facility]COSE (AUTOMATED) [facility] 23:08[facility] Branch POCT GLUCOSE (AUTOMATED) 2020-04-04 Anjel [facility] 18:22:00 Medical Branch POCT GLUCOSE (AUTOMATED) 2020-04-04 Anjel [facility] 14:44:00 Medical Branch MAGNESIUM 2020-04-04 [facility] exas 09:49:00 Medical Branch BASIC METABOLIC PANEL 2020-04-04 [facility] (NA, K, CL, CO2, 09:49:00 Medical Branch GLUCOSE, BUN, CREATININE, CA) POCT GLUCOSE (AUTOMATED) 2020-04-04 [facility] 02:03[facility]00 Medical Branch POCT GLUCOSE (AUTOMATED) 2020-04-03 [facility] 23:39:00 Medical Branch POCT GLUCOSE (AUTOMATED) 2020-04-03 [facility] 17:49:00 Medical Branch POCT GLUCOSE (AUTOMATED) 2020-04-03 [facility] 13:05:00 Medical Branch MAGNESIUM 2020-04-03 [facility]00 Medical Branch BASIC METABOLIC PANEL 2020-04-03 [facility] ([facility], K, CL, CO2, 10:08:00 Medical Branch GLUCOSE, BUN, CREATININE, CA) POCT GLUCOSE (AUTOMATED) 2020-04-03 [facility] 01:58:00 Medical Branch POCT GLUCOSE (AUTOMATED) 2020-04-02 [facility] 23:26:00 Medical Branch POCT GLUCOSE (AUTOMATED) 2020-04-02 [facility] 17:31:00 Medical Branch POCT GLUCOSE (AUTOMATED) 2020-04-02 [facility] 14:35:00 Medical Branch MAGNESIUM 2020-04-02 [facility] 11[facility]53:00 Medical Branch BASIC METABOLIC PANEL [facility] ([facility], K, CL, CO2, 11:53:00 Medical Branch GLUCOSE, BUN, CREATININE, CA) POCT GLUCOSE (AUTOMATED) 2020-04-02 [facility] 02:36:00 Medical Branch POCT GLUCOSE (AUTOMATED) 2020-04-01 [facility] 23:42:00 Medical Branch POCT GLUCOSE (AUTOMATED) 2020-04-01 [facility] 19:39:00 Medical Branch POCT GLUCOSE (AUTOMATED) 2020-04-01 [facility] 14:34:00 Medical Branch MAGNESIUM 2020-04-01 [facility] 10:02:00 Medical Branch BASIC METABOLIC PANEL 2020[facility]04-[facility] K, CL, CO2, 10:02:00 Medical Branch GLUCOSE, BUN, CREATININE, CA) POCT GLUCOSE (AUTOMATED) 2020-04-01 [facility] 02:21:00 Medical Branch POCT GLUCOSE (AUTOMATED) 2020-03-31 [facility] 23:19:00 Medical Branch POCT GLUCOSE (AUTOMATED) 2020-03-31 [facility] 17:58:00 Medical Branch POCT GLUCOSE (AUTOMATED) 2020-03-31 [facility] 14:10:00 Medical Branch CREATINE KINASE 2020-03-31 [place] Audra [facility] 09:52:00 [facility] Branch MAGNESIUM 2020-03-31 [facility] 09:52:00 [facility] Branch BASIC METABOLIC PANEL 2020-03-31 [facility] (NA, K, CL, CO2, 09:52:00 Medical Branch GLUCOSE, BUN, CREATININE, CA) CBC WITH DIFF 2020-03-31 [facility] 09:52:00 [facility] D-DIMER 2020-03-31 [facility] 09:52:00 [facility] PROCALCITONIN 2020-03-31 [facility] 09:52:00 [facility] XR CHEST 1 VW 2020-03-31 [facility] 09:20:00 Medical Branch POCT GLUCOSE (AUTOMATED) 2020-03-31 [facility] 01:36:00 Medical Branch POCT GLUCOSE (AUTOMATED) 2020-03-30 [facility] 22:31:00 Medical Branch POCT GLUCOSE (AUTOMATED) 2020-03-30 [facility] 17:51:00 Medical Branch POCT GLUCOSE (AUTOMATED) 2020-03-30 [facility] 14:26:00 Medical Branch MAGNESIUM 2020-03-30 [facility] 09:19:00 Medical [place] BASIC METABOLIC PANEL 2020-03-30 [facility] (NA, K, CL, CO2, 09:19:00 Medical Branch GLUCOSE, BUN, CREATININE, CA) POCT GLUCOSE (AUTOMATED) 2020-03-30 [facility] 02:26:00 Medical Branch POCT GLUCOSE (AUTOMATED) 2020-03-29 [facility] 22:03:00 Medical Branch POCT GLUCOSE (AUTOMATED) 2020-03-29 [facility] 14:[facility]:00 Medical Branch CREATINE KINASE 2020-03-29 [place] [facility] 07:58:00 Medical Branch MAGNESIUM 2020-03-29 [facility] 07:58:00 Medical [place] BASIC METABOLIC PANEL 2020-03-29 [facility] (NA, K, CL, CO2, 07:58:00 Medical Branch GLUCOSE, BUN, CREATININE, CA) POCT GLUCOSE (AUTOMATED) 2020-03-29 [facility] 02:48:00 Medical [place] POCT GLUCOSE (AUTOMATED) 2020-03-28 [facility] 23:29:00 Medical Branch POCT GLUCOSE (AUTOMATED) 2020-03-28 [facility] 17:48:00 Medical Branch POCT GLUCOSE (AUTOMATED) 2020-03-28 [facility] 14:22:00 Medical Branch CREATINE KINASE 2020-03-28 [facility] 14:16:00 Medical Branch MAGNESIUM 2020-03-28 [facility] 14:16:00 Medical Branch BASIC METABOLIC PANEL 2020-03-28 [facility] (NA, K, CL, CO2, 14:16:00 Medical Branch GLUCOSE, BUN, CREATININE, CA) CBC WITH DIFF 2020-03-28 [facility] 11:16:00 Medical Branch URINALYSIS 2020-03-28 [facility] 08:28:00 [facility] CREATININE, URINE RANDOM 2020-03-[address] [facility] 08:28:00 Medical [place] SODIUM, URINE RANDOM 2020-03-28 [facility] [place] [facility] 08:28:00 [facility] HB ECG ROUTINE & RHYTHM 2020-03-28 [facility] 02:51:07 [facility] POCT GLUCOSE (AUTOMATED) 2020-03-28 Socrates Hobbs [facility] 02:38:00 [facility] LACTATE DEHYDROGENASE 2020-03-28 [facility] 00:53:00 [facility] MAGNESIUM 2020-03-28 [facility] 00:53:00 [facility] C-REACTIVE PROTEIN 2020-03-28 [facility] 00:53:00 [facility] BASIC METABOLIC PANEL 2020-03-28 [facility] (NA, K, CL, CO2, 00:53:00 [facility] GLUCOSE, BUN, CREATININE, CA) PROCALCITONIN 2020-03-28 [facility] 00:53:00 [facility] D-DIMER 2020-03-28 [facility] 00:52:00 [facility] HB ECG ROUTINE & RHYTHM 2020-03-27 Reena Osman [facility] STRIP 20:21:35 [facility] XR CHEST 1 VW 2020-03-27 Reena [facility] xas 19:35:51 [facility] CREATINE KINASE 2020-03-27 [facility]on [facility] 19:06:00 [facility] LIPASE 2020-03-27 Reena Osman [facility] 19:06:00 [facility] TROPONIN I 2020-03-27 Reena Osman [facility] 19:06:00 [facility] COMP. METABOLIC PANEL 2020-03-27 Reena Osman [facility] ([id number]) 19:06:00 Medical Branch CBC WITH DIFF 2020-03-27 Reena Osman [facility] xas 19:06:00 [facility] GLYCOSYLATED HEMOGLOBIN 2020-03-27 [facility] 19:06:00 [facility] PROTHROMBIN TIME / INR 2020-03-27 Reena Osman [facility] 19:06:00 Medical Branch ACTIVATED PARTIAL 2020-03-27 Reena Osman [facility] THRMPLAS ANNETTE 19:06:00 [facility] COVID-19 (ID NOW RAPID 2020-03-27 Reena Osman [facility] TESTING) 19:06:00 [facility] LAB ONLY COVID 2020-03-27 Reena Osman [facility] INTERPRETATION 19:06:00 [facility] CONSENT/REFUSAL FOR 2020-03-27 Doctor Unassigned, No [facility] DIAGNOSIS AND TREATMENT 18:10:34 Name [facility] HOSPITAL ADMISSION 2020-03-27 Doctor Unassigned, No [facility] 06:01:00 [facility] POCT GLUCOSE (AUTOMATED) 2019-09-22 [facility] 17:09[facility]00 [facility] POCT GLUCOSE (AUTOMATED) 2019-09-22 [facility] 12:25:00 [facility] COMP. METABOLIC PANEL 2019-09-22 [id number] 10:18:00 [facility] CBC WITH DIFF 2019-09-22 [facility] 10:18:00 [facility] POCT GLUCOSE (AUTOMATED) 2019-09-22 [facility] 01:29:00 [facility] TROPONIN I 2019-09-[address] 21:24:00 [facility] EBV-MONONUCLEOSIS SCREEN 2019-09-21 Juan [facility] 21:24:00 [facility] RAPID STREP SCREEN FOR 2019-09-21 [facility] 21:24:00 [facility] POCT GLUCOSE (AUTOMATED) 2019-09-21 [facility] 20:50:00 [facility] POCT GLUCOSE (AUTOMATED) 2019-09-21 [facility] 16:39:00 [facility] POCT GLUCOSE (AUTOMATED) 2019-09-21 [facility] 12:44[facility]00 [facility] TROPONIN I 2019-09-21 [facility] xas 08:57:00 [facility] POCT GLUCOSE (AUTOMATED) 2019-09-21 [facility] 06:51:00 [facility] POCT GLUCOSE (AUTOMATED) 2019-09-[address] [facility] 03:38:00 [facility] US GALL BLADDER 2019-09-21 Russ [facility] ex 02:33:37 [facility] COVID-19 (ID NOW RAPID 2019-09-21 Russ [facility] TESTING) 00:56:00 [facility] LIPASE 2019-09-21 Russ [facility] ex 00:48:00 [facility] TROPONIN I 2019-09-21 Russ [facility] ex 00:48:00 [facility] HEPATIC FUNCTION PANEL 2019-09-21 [facility] ([id number][facility] (ALB,T.PRO,BILI 00:48:00 [facility] T,BU/BC,ALT,AST,ALK PHOS) BASIC METABOLIC PANEL 2019-09-21 Russ [facility] (NA, K, CL, CO2, 00:48:00 [facility] GLUCOSE, BUN, CREATININE, CA) CBC WITH DIFF 2019-09-21 Russ [facility] ex 00:48:00 [facility] GLYCOSYLATED HEMOGLOBIN 2019-09-21 [facility] (A1C) 00:48:00 [facility] PROTHROMBIN TIME / INR 2019-09-21 [facility] 00:48:00 [facility] D-DIMER 2019-09-21 Russ [facility] ex 00:48:00 [facility] ACTIVATED PARTIAL 2019-09-21 Russ [facility] THRMPLAS ANNETTE 00:48:00 [facility] URINALYSIS 2019-09-21 [place], [facility] ex 00:48:00 Medical Branch XR CHEST 1 VW COVID 2019-09-21 Lindsey Solano [facility] 00:45:44 Medical Branch EKG-12 LEAD 2019-09-21 Lindsey Solano [facility] 00:37:42 Medical Branch EKG-12 LEAD 2019-09-21 Lindsey Solano [facility] 00:03:13 Medical Branch NOTICE OF PRIVACY 2019-09-20 Doctor Unassigned, No [facility] [place] [facility] 23:46:20 Name Medical Branch CONSENT/REFUSAL FOR 2019-09-20 Doctor Unassigned, No [facility] DIAGNOSIS AND TREATMENT 23:46:03 Name Medical Branch ASSIGNMENT OF BENEFITS 2019-09-20 Doctor Unassigned, No [facility] 23:45:45 Name Medical Branch Encounters Start End Encounter Admission Attending Care Care Encounter Source Date/Time Date/Time Type Type Clinicians Facility Department ID 2020-07-19 2020-07-21 Emergency Reena Osman [facility] 1.2.840.1 [id number] Univers 16:16:00 13:27:00 Agatha Ngo 350.1.13.10 ity of Basim Oates [place] 4.2.7.2.686 [facility] [id number] [facility] 081 Branch 2020-07-19 2020-07-19 Emergency X DAWSON WIHEAVENLY ERT [id number] Univers 16:16:00 16:16:00 REENA ity of [facility] 2020-07-19 2020-07-19 Orders Doctor CANTU 1.2.840.114 [id number] Univers 00:00:00 00:00:00 Only Unassigned, STACY 350.1.13.10 ity of [place] [facility] 4.2.7.2.686 Lee as [id number] [facility] 009 Branch 2020-04-07 2020-04-07 Transition Davida Stiles 1.2.840.114 [id number] Univers 00:00:00 00:00:00 of Care Loretta Iglesias 350.1.13.10 i [place] [id number] [facility] 403 Branch 2020-04-07 2020-04-07 Transition Davida Stiles 1.2.840.114 [id number] 00:00:00 00:00:00 of Care Loretta Iglesias 350.1.13.10 [place] 4.2.7.2.686 [id number] 403 2020-03-27 2020-04-05 [facility] Reena Osman 1.2.840.[id number] [facility] 12:27:00 11:30:00 Encounter Socrates Hobbs 350.1.13.10 ity [facility] 4.2.7.2.686 [place] Socrates Hobbs [id number] [address] 2020-03-27 2020-04-05 [facility] Reena Osman 1.2.840.11 4 [id number] 12:27:00 11:30:00 Encounter Socrates Hobbs 350.1.13.10 [facility] 4.2.7.2.686 Socrates Hobbs [id number] [facility] 2020-03-27 2020-03-27 Emergency X [facility] ERT [id number] Univers 12:11:00 12:11:00 ity of [facility] 2020-03-15 2020-03-15 [id number] 2019-11-12 2019-11-12 [facility] [id number] 2019-10-19 2019-10-19 Letter PEPE Diamond 1.2.840.114 [id number] Univers 00:00:00 00:00:00 (Out) Patient STACY 350.1.13.10 it y of [facility] [place] [place] 4.2.7.2.686 Te sofia Have A [id number] [facility] 019 Branch 2019-10-19 2019-10-19 Letter PEPE Diamond 1.2.840.114 [id number] 00:00:00 00:00:00 (Out) Patient STACY 350.1.13.10 Does Not HOSPITAL 4.2.7.2.686 Have A [id number] 2019-09-20 2019-09-22 Emergency Lindsey Solano [facility] 1.2.[id number] [facility] 19:20:00 13:55:00 Tiny Ramos 350.1.13.10 ity of [place] 4.2.7.2.686 [facility] [place] [id number] [facility] 081 Branch 2019-09-20 2019-09-22 Emergency Lindsey Solano [facility] 1.2.840 .114 [id number] 19:20:00 13:55:00 Tiny Ramos 350.1.13.10 [place] 4.2.7.2.686 [place] [id number] [facility] 2019-09-20 2019-09-20 Outpatient X [facility] [id number] [facility] [address] [facility] 19:20:00 19:20:00 VERA ity of [facility] 2019-09-20 2019-09-20 Orders Doctor PEPE 1.2.840.114 [id number] Univers 00:00:00 00:00:00 Only Unassigned, STACY 350.1.13.10 ity of [place] [facility] 4.2.7.2.686 [place] [id number] [place] [address] Branch 2019-09-20 2019-09-20 Orders Doctor PEPE 1.2.840.114 [id number] 00:00:00 00:00:00 Only Unassigned, STACY 350.1.13.10 [place] [facility] 4.2.7.2.686 [id number] 2019-09-16 2019-09-16 [facility] [id number] 13:28:00 13:28:[address] [facility] 2019-09-14 2019-09-14 [facility] [id number] 15:48:00 15:48:00 [employer] [facility] 2019-08-27 2019-08-27 Outpatient Austin Moody [id number] [facility] 13:17:00 13:17:00 [employer] [facility] 2019-08-27 2019-08-27 Outpatient Austin Moody [facility] 10:45:00 10:45:00 [facility] [employer] [facility] 2019-08-06 2019-08-06 Outpatient Austin Caldwell [address] 10:00:00 10:00:00 [facility] [employer] [facility] Results Test Description Test Time Test Comments Results Result Comments Source BASIC METABOLIC PANEL (NA, K, CL, CO2, GLUCOSE, BUN, 2020-07 11:20:35 CREATININE, CA) Test Item Value Reference Range Interpretation Comme nts NA (test code = 7911982430) 140 mmol/L 135-145 K (test code = 0370611603) 3.7 mmol/L 3.5-5.0 CL (test code = 9763939704) 104 mmol/L 98-108 CO2 TOTAL (test code = 9241312051) 33 mmol/L 23-31 H AGAP (test code = 0981021075) 2-16 BUN (test code = 6308318393) 17 mg/dL 7-23 GLUCOSE (test code = 1842091673) 130 mg/dL 70-110 H CREATININE (test code = 1.10 mg/dL 0.60-1.25 9167069701) CALCIUM (test code = 4989642173) 9.5 mg/dL 8.6-10.6 eGFR (test code = 7738004118) mL/min/1.73m2 PAULIE (test code = PAULIE) Association of Glomerular Filtration Rate (GFR) and Staging of Kidney Disease* + +-------- + ------+| GFR (mL/min/1.73 m2) ?| With Kidney Damage ?| ?Without Kidney Damage+ +-- + +| ?>90 ?| ?Stage one ?| ? Normal ?+ +------- + -------+| ?60-89 ?| ?Stage two ?| ? Decreased GFR ? + +-------- + ------+| ?30-59 ?| ?Stage three ?| ? Stage three ? + +-------- + ------+| ?15-29 ?| ?Stage four ? | ? Stage four ?+ +------- + -------+| ?<15 (or dialysis) ? ?| ?Stage five ? | ? Stage five ?+ +------- + -------+ *Each stage assumes the associated GFR level has been in effect for at least three months. ?Stages 1 to 5, with or without kidney disease, indicate chronic kidney disease. Notes: Determination of stages one and two (with eGFR >59mL/min/1.73 m2) requires estimation of kidney damage for at least three months as defined by structural or functional abnormalities of the kidney, manifested by either:Pathological abnormalities or Markers of kidney damage (including abnormalities in the composition of the blood or urine or abnormalities in imaging tests). Lab Interpretation (test code = Abnormal 96702-1) [facility] WITH [id number] 11:05:32 Test Item Value Reference Range Interpretation Comments WBC (test code = See_Comment [Automated message] 6690-2) The system [employer] generated this result transmitted ref erence range: 4.20 - 1 0.70 10*3/?L. The re ference range was not u sed to interpret this result as normal/abnor mal. RBC (test code = See_Comment [Automated message] 789-8) The system [employer] generated this result transmitted ref erence range: 4.26 - 5 .52 10*6/?L. The re ference range was not u sed to interpret this result as normal/abnor mal. HGB (test code = 13.0 g/dL 12.2-16.4 718-7) HCT (test code = 40.6 % 38.4-49.3 4544-3) MCV (test code = 82.0 fL 81.7-95.6 787-2) MCH (test code = 26.3 pg 26.1-32.7 785-6) MCHC (test code = 32.0 g/dL 31.2-35.0 786-4) RDW-SD (test code 40.5 fL 38.5-51.6 = 62667-9) RDW-CV (test code 13.5 % 12.1-15.4 = 788-0) PLT (test code = See_Comment [Automated message] 777-3) The system whic h generated this result transmitted ref erence range: 150 - 32 8 10*3/?L. The re ference range was not u sed to interpret this result as normal/abnor mal. MPV (test code = 11.8 fL 9.8-13.0 28297-9) NRBC/100 WBC (test See_Comment [Automat ed message] code = 9867472215) The syste m which generated this result transmitted ref erence range: 0.0 - 10 .0 /100 WBCs. The refer ence range was not u sed to interpret this result as normal/abnor mal. NRBC x10^3 (test <0.01 See_Comment [Automated message] code = 5945076824) The syste m which generated this result transmitted ref erence range: 10*3/?L. The reference range was not used to interpr et this result as normal/abnormal . GRAN MAT (NEUT) % 45.8 % (test code = 770-8) IMM GRAN % (test 0.30 % code = 3246524280) LYMPH % (test code 38.0 % = 736-9) MONO % (test code 11.4 % = 5905-5) EOS % (test code = 4.2 % 713-8) BASO % (test code 0.3 % = 706-2) GRAN MAT 2.73 10*3/uL 1.99-6.95 x10^3(ANC) (test code = 3064182588) IMM GRAN x10^3 <0.03 0.00-0.06 (test code = 0459614621) LYMPH x10^3 (test 2.27 10*3/uL 1.09-3.23 code = 731-0) MONO x10^3 (test 0.68 10*3/uL 0.36-1.02 code = 742-7) EOS x10^3 (test 0.25 10*3/uL 0.06-0.53 code = 711-2) BASO x10^3 (test <0.03 0.01-0.09 code = 704-7) [facility] (Total Cholesterol, Triglycerides, HDL)2020-07-20 10:59:54 Test Item Value Reference Range Interpretation Comments CHOL (test code = 221 mg/dL 120-200 H 3298864313) HDL (test code = 31 mg/dL >40 L 0464958618) HDLC RATIO (test code = See_Comment H [Au tomated message] 1726875806) The system [employer] generated this result transmit jordon reference range : <=5.0. The refe rence range was not u sed to interpret th is result as normal/abnormal . TRIG (test code = 224 mg/dL 30-170 H 0728374049) LDL CHOL (test code = 145 mg/dL See_Comment [Auto mated message] 43990-7) The system [employer] generated this result transmit jordon reference range : <=160. The refe rence range was not u sed to interpret th is result as normal/abnormal . VLDL (test code = 45 mg/dL 5-60 8435030411) Lab Interpretation (test Abnormal code = 25765-2) [facility] [id number] 08:11:00 Test Item Value Reference Range Interpretation Comments TROPONIN I (test 0.009 ng/mL See_Comment [Automated code = 0764155324) message] The system which generated this result transmitted reference range : <=0.034. The reference range was not used to interpret this result as normal/abnormal . PAULIE (test code = Equal or Less than PAULIE) 0.034 ng/ml---Normal ?Note: Cardiac troponin begins to rise 3-4 hours after the onset of ischemia. Repeat in 4-6 hours if the sample was drawn within 3-4 hours of the onset of the symptom and found normal. Between 0.035 and 0.120 ng/mL--- Borderline. Questionable myocardial injury or necrosis ? ?Note: Serial measurement may be necessary to confirm or exclude the diagnosis of myocardial injury or necrosis; Clinical correlation (symptoms, EKGs, imaging studies, and others) required; Repeat in 4-6 hours if clinically indicated. ? Equal or Higher than 0.121 ng/mL---Abnormal. Myocardial Injury or Necrosis Likely ? Biotin has been reported to cause a negative bias, interpret results relative to patient's use of biotin. ? Lab Interpretation Normal (test code = 09271-1) [facility] (NA, K, CL, CO2, GLUCOSE, BUN, CREATININE, CA)2020-07-20 08:00:59 Test Item Value Reference Range Interpretation Comments NA (test code = 136 mmol/L 135-145 5465269837) K (test code = 4.4 mmol/L 3.5-5.0 6155537771) CL (test code = 104 mmol/L 98-108 3908548481) CO2 TOTAL (test code = 28 mmol/L 23-31 3985249846) AGAP (test code = 2-16 8909134359) BUN (test code = 17 mg/dL 7-23 3309105334) GLUCOSE (test code = 126 mg/dL 70-110 H 5901174033) CREATININE (test code = 0.91 mg/dL 0.60-1.25 6551108929) CALCIUM (test code = 9.2 mg/dL 8.6-10.6 8941581949) eGFR (test code = mL/min/1.73m2 4160114228) PAULIE (test code = PAULIE) Association of Glomerular Filtration Rate (GFR) and Staging of Kidney Disease* + --+ --+ ------+| GFR (mL/min/1.73 m2) ?| With Kidney Damage ?| ?Without Kidney Damage+ --------+ --------+ +| ?>90 ?| ?Stage one ?| ? Normal ?+ ---+ ---+ -------+| ?60-89 ?| ?Stage two ?| ? Decreased GFR ? + --+ --+ ------+| ?30-59 ?| ?Stage three ?| ? Stage three ? + --+ --+ ------+| ?15-29 ?| ?Stage four ? | ? Stage four ?+ ---+ ---+ -------+| ?<15 (or dialysis) ? ?| ?Stage five ? | ? Stage five ?+ ---+ ---+ -------+ *Each stage assumes the associated GFR level has been in effect for at least three months. ?Stages 1 to 5, with or without kidney disease, indicate chronic kidney disease. Notes: Determination of stages one and two (with eGFR >59mL/min/1.73 m2) requires estimation of kidney damage for at least three months as defined by structural or functional abnormalities of the kidney, manifested by either:Pathological abnormalities or Markers of kidney damage (including abnormalities in the composition of the blood or urine or abnormalities in imaging tests). Lab Interpretation Abnormal (test code = 83664-5) [facility] with [id number] 07:31:36 Test Item Value Reference Range Interpretation Comments WBC (test code = See_Comment [Automated 7983-2) message] The sy stem which generated this result transmitted reference range : 4.20 - 10.70 10*3/?L. The reference range was not used to interpret this result as normal/abnormal . RBC (test code = See_Comment [Automated 509-8) message] The sy stem which generated this result transmitted reference range : 4.26 - 5.52 10*6/?L. The reference range was not used to interpret this result as normal/abnormal . HGB (test code = 13.8 g/dL 12.2-16.4 718-7) HCT (test code = 43.3 % 38.4-49.3 4544-3) MCV (test code = 81.2 fL 81.7-95.6 L 787-2) MCH (test code = 25.9 pg 26.1-32.7 L 785-6) MCHC (test code = 31.9 g/dL 31.2-35.0 786-4) RDW-SD (test code = 40.1 fL 38.5-51.6 62306-7) RDW-CV (test code = 13.7 % 12.1-15.4 788-0) PLT (test code = See_Comment [Automated 777-3) message] The sy stem which generated this result transmitted reference range : 150 - 328 10*3/ ?L. The reference r lorena was not used to interpret this result as normal/abnormal . MPV (test code = 12.2 fL 9.8-13.0 47071-8) NRBC/100 WBC (test See_Comment [Automat ed code = 3465956503) message] The system which generated this result transmitted reference range : 0.0 - 10.0 /100 WBCs. The refer ence range was not u sed to interpret th is result as normal/abnormal . NRBC x10^3 (test code <0.01 See_Comment [Auto mated = 2044957868) message] The s ystem which generated this result transmitted reference range : 10*3/?L. The reference range was not used to interpret this result as normal/abnormal . GRAN MAT (NEUT) % 46.2 % (test code = 770-8) IMM GRAN % (test code 0.30 % = 0169589942) LYMPH % (test code = 37.1 % 736-9) MONO % (test code = 11.5 % 5905-5) EOS % (test code = 4.5 % 713-8) BASO % (test code = 0.4 % 706-2) GRAN MAT x10^3(ANC) 3.38 10*3/uL 1.99-6.95 (test code = 4529327543) IMM GRAN x10^3 (test <0.03 0.00-0.06 code = 9805325387) LYMPH x10^3 (test code 2.71 10*3/uL 1.09-3.23 = 731-0) MONO x10^3 (test code 0.84 10*3/uL 0.36-1.02 = 742-7) EOS x10^3 (test code = 0.33 10*3/uL 0.06-0.53 711-2) BASO x10^3 (test code 0.03 10*3/uL 0.01-0.09 = 704-7) Lab Interpretation Abnormal (test code = 04285-2) [facility] [id number] 02:06:55 Test Item Value Reference Range Interpretation Comments APPEARANCE (test code = Clear Clear 0752507175) COLOR (test code = Yellow Yellow 3114144393) PH (test code = 4.8-8.0 2749832081) SP GRAVITY (test code = 1.003-1.030 5517378331) GLU U QUAL (test code = Normal Normal 7986823360) BLOOD (test code = Negative Negative 9367012416) KETONES (test code = Negative Negative 0199612290) PROTEIN (test code = 100 mg/dL Negative A 2887-8) UROBILIN (test code = Normal Normal 6695249121) BILIRUBIN (test code = Negative Negative 2737987845) NITRITE (test code = Negative Negative 2176799185) LEUK LACI (test code = Negative Negative 2765252411) RBC/HPF (test code = See_Comment [Autom ated message] 9098993276) The system [employer] generated this result transmit jordon reference range : 0 - 3 HPF. The refe rence range was not u sed to interpret th is result as normal/abnormal . WBC/HPF (test code = See_Comment [Autom ated message] 2807399243) The system [employer] generated this result transmit jordon reference range : 0 - 5 HPF. The refe rence range was not u sed to interpret th is result as normal/abnormal . BACTERIA (test code = Negative Negative 7030852654) MUCOUS (test code = Slight Negative LPF A 7357980577) AMORPHOUS (test code = Rare Rare HPF 4374922941) Lab Interpretation (test Abnormal code = 80514-5) [facility] [id number] 23:50:24 No acute intrathoracic abnormality.PROCEDURE: XR CHEST 1 VW CLINICAL INDICATION: chest pain COMPARISON: 03/31/2020 FINDINGS: The lungs are poor expanded with perihilar vascular crowding. Previous seenbilateral airspace opacities have resolved. Lungs are relative clear.No pleural effusion or pneumothorax is seen. The cardiomediastinal silhouette is normal. No acute bony abnormality. [facility], Radiant Results Inft User - 07/19/2020 6:51 PM CDT PROCEDURE: XR CHEST 1 VWCLINICAL INDICATION: chest pain COMPARISON: 03/31/2020FINDINGS:The lungs are poor expanded with perihilar vascular crowding. Previous seenbilateral airspace opacities have resolved. Lungs are relative clear.No pleural effusion or pneumothorax is seen. The cardiomediastinal silhouette is normal. No acute bony abnormality.IMPRESSIONNo acute intrathoracic abnormality.[facility] 2020-07-19 22:38:45 Test Item Value Reference Range Interpretation Comments TROPONIN I (test 0.002 ng/mL See_Comment [Automated code = 1194965418) message] The system which generated this result transmitted reference range : <=0.034. The reference range was not used to interpret this result as normal/abnormal . PAULIE (test code = Equal or Less than PAULIE) 0.034 ng/ml---Normal ?Note: Cardiac troponin begins to rise 3-4 hours after the onset of ischemia. Repeat in 4-6 hours if the sample was drawn within 3-4 hours of the onset of the symptom and found normal. Between 0.035 and 0.120 ng/mL--- Borderline. Questionable myocardial injury or necrosis ? ?Note: Serial measurement may be necessary to confirm or exclude the diagnosis of myocardial injury or necrosis; Clinical correlation (symptoms, EKGs, imaging studies, and others) required; Repeat in 4-6 hours if clinically indicated. ? Equal or Higher than 0.121 ng/mL---Abnormal. Myocardial Injury or Necrosis Likely ? Biotin has been reported to cause a negative bias, interpret results relative to patient's use of biotin. ? Lab Interpretation Normal (test code = 98150-5) [facility] [id number] 22:35:25 Test Item Value Reference Range Interpretation Comments NT-proBNP (test code 38 pg/mL See_Comment [Autom ated = 3082086022) message] The system which generated this result transmitted reference range : <=125. The reference range was not used to interpret this result as normal/abnormal . PAULIE (test code = PAULIE) Biotin has been reported to cause a negative bias, interpret results relative to patient's use of biotin. Lab Interpretation Normal (test code = 93746-2) [facility]OL[facility] PAN[facility] (54886)2020-07-19 22:27:43 Test Item Value Reference Range Interpretation Comments NA (test code = 140 mmol/L 135-145 3420315246) K (test code = 3.1 mmol/L 3.5-5.0 L 1943492830) CL (test code = 101 mmol/L 98-108 3204393435) CO2 TOTAL (test code = 32 mmol/L 23-31 H 4793917415) AGAP (test code = 2-16 9079227885) BUN (test code = 16 mg/dL 7-23 7372944051) GLUCOSE (test code = 105 mg/dL 70-110 1712937829) CREATININE (test code = 1.05 mg/dL 0.60-1.25 7787839777) TOTAL BILI (test code = 0.6 mg/dL 0.1-1.3 2146984991) CALCIUM (test code = 9.9 mg/dL 8.6-10.6 7035986890) T PROTEIN (test code = 7.7 g/dL 6.3-8.2 0703163739) ALBUMIN (test code = 4.3 g/dL 3.5-5.0 6233755416) ALK PHOS (test code = 59 U/L 34-122 7905193899) ALTv (test code = 28 U/L 5-50 1742-6) AST(SGOT) (test code = 29 U/L 13-40 3755617767) eGFR (test code = mL/min/1.73m2 9603168981) PAULIE (test code = PAULIE) Association of Glomerular Filtration Rate (GFR) and Staging of Kidney Disease* + --+ --+ ------+| GFR (mL/min/1.73 m2) ?| With Kidney Damage ?| ?Without Kidney Damage+ --------+ --------+ +| ?>90 ?| ?Stage one ?| ? Normal ?+ ---+ ---+ -------+| ?60-89 ?| ?Stage two ?| ? Decreased GFR ? + --+ --+ ------+| ?30-59 ?| ?Stage three ?| ? Stage three ? + --+ --+ ------+| ?15-29 ?| ?Stage four ? | ? Stage four ?+ ---+ ---+ -------+| ?<15 (or dialysis) ? ?| ?Stage five ? | ? Stage five ?+ ---+ ---+ -------+ *Each stage assumes the associated GFR level has been in effect for at least three months. ?Stages 1 to 5, with or without kidney disease, indicate chronic kidney disease. Notes: Determination of stages one and two (with eGFR >59mL/min/1.73 m2) requires estimation of kidney damage for at least three months as defined by structural or functional abnormalities of the kidney, manifested by either:Pathological abnormalities or Markers of kidney damage (including abnormalities in the composition of the blood or urine or abnormalities in imaging tests). Lab Interpretation Abnormal (test code = 68890-2) [facility])2020-07-19 22:22:01 Test Item Value Reference Range Interpretation Comments SARS-CoV-2 Rapid ID NOW Not Detected Not Detected (test code = 60004-2) PAULIE (test code = PAULIE) ID NOW COVID-19 Assay is an isothermal nucleic acid amplification test intended for the qualitative detection of nucleic acid from SARS-CoV-2 viral RNA in nasopharyngeal ([employer]) specimens. It is used under Emergency Use Authorization (EUA) by FDA. The limit of detection (LOD) of the assay is 125 Genome Equivalents/mL. A positive result is indicative of the presence of SARS-CoV-2 RNA. ?Clinical correlation with patient history and other diagnostic information is necessary to determine patient infection status. A negative (Not Detected) result does not preclude SARS-CoV-2 infection. In patients with clinical symptoms and other tests that are consistent with SARS-CoV-2 infection, negative results should be treated as presumptive negative and a new specimen should be tested with alternative PCR molecular test. Invalid: Please collect a new specimen for repeat patient testing if clinically indicated. Lab Interpretation Normal (test code = 43544-5) [facility] [id number] 22:17:39 Test Item Value Reference Range Interpretation Comments APTT Patient (test See_Comment [Automat ed code = 3173-2) message] The system which generated this result transmitted reference range : 23 - 38 Seconds . The reference range was not used to interpr et this result as normal/abnormal . PAULIE (test code = PAULIE) The [facility] patient population mean normal value for aPTT is 30 seconds. Lab Interpretation Normal (test code = 61578-0) [facility] CenterPROT[facility] / [id number] 22:15:42 Test Item Value Reference Range Interpretation Comments PROTIME PATIENT (test See_Comment [Auto mated message] code = 5964-2) The system wh ich generated this result transmitted ref erence range: 12.0 - 1 4.7 Seconds. The re ference range was not u sed to interpret this result as normal/abnor mal. INR (test code = 6301-6) Nor mal INR <1.1; Warfarin Therap eutic range 2.0 to 3. 0 or 2.5 to 3.5, dep ending upon the indica tions. Lab Interpretation (test Normal code = 84535-6) [facility] WITH [id number] 22:11:00 Test Item Value Reference Range Interpretation Comments WBC (test code = See_Comment [Automated 7790-2) message] The sy stem which generated this result transmitted reference range : 4.20 - 10.70 10*3/?L. The reference range was not used to interpret this result as normal/abnormal . RBC (test code = See_Comment [Automated 469-8) message] The sy stem which generated this result transmitted reference range : 4.26 - 5.52 10*6/?L. The reference range was not used to interpret this result as normal/abnormal . HGB (test code = 14.2 g/dL 12.2-16.4 718-7) HCT (test code = 43.2 % 38.4-49.3 4544-3) MCV (test code = 80.3 fL 81.7-95.6 L 787-2) MCH (test code = 26.4 pg 26.1-32.7 785-6) MCHC (test code = 32.9 g/dL 31.2-35.0 786-4) RDW-SD (test code = 39.2 fL 38.5-51.6 93247-2) RDW-CV (test code = 13.6 % 12.1-15.4 788-0) PLT (test code = See_Comment [Automated 777-3) message] The sy stem which generated this result transmitted reference range : 150 - 328 10*3/ ?L. The reference r lorena was not used to interpret this result as normal/abnormal . MPV (test code = 11.7 fL 9.8-13.0 67662-7) NRBC/100 WBC (test See_Comment [Automat ed code = 9407849453) message] The system which generated this result transmitted reference range : 0.0 - 10.0 /100 WBCs. The refer ence range was not u sed to interpret th is result as normal/abnormal . NRBC x10^3 (test code <0.01 See_Comment [Auto mated = 3350978672) message] The s ystem which generated this result transmitted reference range : 10*3/?L. The reference range was not used to interpret this result as normal/abnormal . GRAN MAT (NEUT) % 51.1 % (test code = 770-8) IMM GRAN % (test code 0.20 % = 4244385354) LYMPH % (test code = 34.2 % 736-9) MONO % (test code = 10.2 % 5905-5) EOS % (test code = 4.1 % 713-8) BASO % (test code = 0.2 % 706-2) GRAN MAT x10^3(ANC) 4.47 10*3/uL 1.99-6.95 (test code = 6898765303) IMM GRAN x10^3 (test <0.03 0.00-0.06 code = 0622041800) LYMPH x10^3 (test code 3.00 10*3/uL 1.09-3.23 = 731-0) MONO x10^3 (test code 0.89 10*3/uL 0.36-1.02 = 742-7) EOS x10^3 (test code = 0.36 10*3/uL 0.06-0.53 711-2) BASO x10^3 (test code <0.03 0.01-0.09 = 704-7) Lab Interpretation Abnormal (test code = 05161-9) [facility]2020-04-05 13:25:00 Test Item Value Reference Range Interpretation Comments POCT GLU (test code = 9675346156) 100 mg/dL 70-110 Lab Interpretation (test code = Normal 90180-2) [facility] (NA, K, CL, CO2, GLUCOSE, BUN, CREATININE, CA)2020-04-05 10:09:00 Test Item Value Reference Range Interpretation Comments NA (test code = 138 mmol/L 135-145 6951812180) K (test code = 4.4 mmol/L 3.5-5 8782953398) CL (test code = 105 mmol/L 98-108 5865180151) CO2 TOTAL (test code = 31 mmol/L 23-31 5571605690) AGAP (test code = 2-16 6859201622) BUN (test code = 20 mg/dL 7-23 3751700099) GLUCOSE (test code = 125 mg/dL 70-110 H 8492049152) CREATININE (test code = 1.13 mg/dL 0.6-1.25 0094125232) CALCIUM (test code = 8.9 mg/dL 8.6-10.6 8207431321) eGFR Calculation mL/min/1.73m2 (Non-) (test code = 3169897847) eGFR Calculation mL/min/1.73m2 () (test code = 4819907057) PAULIE (test code = PAULIE) Association of Glomerular Filtration Rate (GFR) and Staging of Kidney Disease* + --+ --+ ------+| GFR (mL/min/1.73 m2) ?| With Kidney Damage ?| ?Without Kidney Damage+ --------+ --------+ +| ?>90 ?| ?Stage one ?| ? Normal ?+ ---+ ---+ -------+| ?60-89 ?| ?Stage two ?| ? Decreased GFR ? + --+ --+ ------+| ?30-59 ?| ?Stage three ?| ? Stage three ? + --+ --+ ------+| ?15-29 ?| ?Stage four ? | ? Stage four ?+ ---+ ---+ -------+| ?<15 (or dialysis) ? ?| ?Stage five ? | ? Stage five ?+ ---+ ---+ -------+ *Each stage assumes the associated GFR level has been in effect for at least three months. ?Stages 1 to 5, with or without kidney disease, indicate chronic kidney disease. Notes: Determination of stages one and two (with eGFR >59mL/min/1.73 m2) requires estimation of kidney damage for at least three months as defined by structural or functional abnormalities of the kidney, manifested by either:Pathological abnormalities or Markers of kidney damage (including abnormalities in the composition of the blood or urine or abnormalities in imaging tests). Lab Interpretation Abnormal (test code = 06607-0) [facility]2021-[facility] 10:09:00 Test Item Value Reference Range Interpretation Comments MAGNESIUM (test code = 7750499398) 2.1 mg/dL 1.7-2.4 Lab Interpretation (test code = Normal 43369-1) [facility] GLUCOSE (AUTOMATED)2020-04-05 03:04:00 Test Item Value Reference Range Interpretation Comments POCT GLU (test code = 8111005173) 157 mg/dL 70-110 H Lab Interpretation (test code = Abnormal 98396-9) [facility] GLUCOSE (AUTOMATED)2020-04-04 23:48:00 Test Item Value Reference Range Interpretation Comments POCT GLU (test code = 2219312753) 151 mg/dL 70-110 H Lab Interpretation (test code = Abnormal 48441-1) [facility] GLUCOSE (AUTOMATED)2020-04-04 18:26:00 Test Item Value Reference Range Interpretation Comments POCT GLU (test code = 3521945123) 101 mg/dL 70-110 Lab Interpretation (test code = Normal 34121-6) [facility] GLUCOSE (AUTOMATED)2020-04-04 14:47:00 Test Item Value Reference Range Interpretation Comments POCT GLU (test code = 7823116247) 110 mg/dL 70-110 Lab Interpretation (test code = Normal 04044-8) [facility] (NA, K, CL, CO2, GLUCOSE, BUN, CREATININE, CA)2020-04-04 10:20:00 Test Item Value Reference Range Interpretation Comments NA (test code = 137 mmol/L 135-145 4762680704) K (test code = 4.3 mmol/L 3.5-5 Slight 5429369803) hemolysis CL (test code = 104 mmol/L 98-108 5547196430) CO2 TOTAL (test code 30 mmol/L 23-31 = 9906921924) AGAP (test code = 2-16 2129760565) BUN (test code = 18 mg/dL 7-23 Slight 6068616178) hemolysis GLUCOSE (test code = 117 mg/dL 70-110 H 2386666506) CREATININE (test code 0.97 mg/dL 0.6-1.25 = 7713596545) CALCIUM (test code = 8.8 mg/dL 8.6-10.6 4949710286) eGFR Calculation mL/min/1.73m2 (Non-) (test code = 3670809436) eGFR Calculation mL/min/1.73m2 () (test code = 5940272679) PAULIE (test code = PAULIE) Association of Glomerular Filtration Rate (GFR) and Staging of Kidney Disease* + -----+ --------+ +| GFR (mL/min/1.73 m2) ?| With Kidney Damage ?| ?Without Kidney Damage+ +------- +---- --+| ?>90 ?| ?Stage one ?| ? Normal ?+ ------+ ---------+--------- +| ?60-89 ?| ?Stage two ?| ? Decreased GFR ? + -----+ --------+ +| ?30-59 ?| ?Stage three ?| ? Stage three ? + -----+ --------+ +| ?15-29 ?| ?Stage four ? | ? Stage four ?+ ------+ ---------+--------- +| ?<15 (or dialysis) ? ?| ?Stage five ? | ? Stage five ?+ ------+ ---------+--------- + *Each stage assumes the associated GFR level has been in effect for at least three months. ?Stages 1 to 5, with or without kidney disease, indicate chronic kidney disease. Notes: Determination of stages one and two (with eGFR >59mL/min/1.73 m2) requires estimation of kidney damage for at least three months as defined by structural or functional abnormalities of the kidney, manifested by either:Pathological abnormalities or Markers of kidney damage (including abnormalities in the composition of the blood or urine or abnormalities in imaging tests). Lab Interpretation Abnormal (test code = 36512-1) [facility]15[facility]00 Test Item Value Reference Range Interpretation Comments MAGNESIUM (test code = 8222315925) 2.0 mg/dL 1.7-2.4 Lab Interpretation (test code = Normal 28422-1) [facility] GLUCOSE (AUTOMATED)2020-04-04 02:09:00 Test Item Value Reference Range Interpretation Comments POCT GLU (test code = 1650859650) 141 mg/dL 70-110 H Lab Interpretation (test code = Abnormal 66987-7) [facility] GLUCOSE (AUTOMATED)2020-04-03 23:40:00 Test Item Value Reference Range Interpretation Comments POCT GLU (test code = 1453682754) 144 mg/dL 70-110 H Lab Interpretation (test code = Abnormal 24798-7) [facility] GLUCOSE (AUTOMATED)2020-04-03 17:51:00 Test Item Value Reference Range Interpretation Comments POCT GLU (test code = 2831430008) 93 mg/dL 70-110 Lab Interpretation (test code = Normal 82482-4) [facility] GLUCOSE (AUTOMATED)2020-04-03 13:06:00 Test Item Value Reference Range Interpretation Comments POCT GLU (test code = 5422825369) 102 mg/dL 70-110 Lab Interpretation (test code = Normal 60168-0) [facility] (NA, K, CL, CO2, GLUCOSE, BUN, CREATININE, CA)2020-04-03 10:58:00 Test Item Value Reference Range Interpretation Comments NA (test code = 138 mmol/L 135-145 2573759333) K (test code = 3.6 mmol/L 3.5-5 9643145992) CL (test code = 103 mmol/L 98-108 4137816138) CO2 TOTAL (test code = 31 mmol/L 23-31 2018033154) AGAP (test code = 2-16 4080860475) BUN (test code = 13 mg/dL 7-23 5836965232) GLUCOSE (test code = 110 mg/dL 70-110 6524110929) CREATININE (test code 0.99 mg/dL 0.6-1.25 = 8425003941) CALCIUM (test code = 8.7 mg/dL 8.6-10.6 1790319201) eGFR Calculation mL/min/1.73m2 (Non-) (test code = 2032273891) eGFR Calculation mL/min/1.73m2 () (test code = 1875040060) PAULIE (test code = PAULIE) Association of Glomerular Filtration Rate (GFR) and Staging of Kidney Disease* + -+ + ---+| GFR (mL/min/1.73 m2) ?| With Kidney Damage ?| ?Without Kidney Damage+ -------+ ------+ ---------+| ?>90 ?| ?Stage one ?| ? Normal ?+ --+ -+ ----+| ?60-89 ?| ?Stage two ?| ? Decreased GFR ? + -+ + ---+| ?30-59 ?| ?Stage three ?| ? Stage three ? + -+ + ---+| ?15-29 ?| ?Stage four ? | ? Stage four ?+ --+ -+ ----+| ?<15 (or dialysis) ? ?| ?Stage five ? | ? Stage five ?+ --+ -+ ----+ *Each stage assumes the associated GFR level has been in effect for at least three months. ?Stages 1 to 5, with or without kidney disease, indicate chronic kidney disease. Notes: Determination of stages one and two (with eGFR >59mL/min/1.73 m2) requires estimation of kidney damage for at least three months as defined by structural or functional abnormalities of the kidney, manifested by either:Pathological abnormalities or Markers of kidney damage (including abnormalities in the composition of the blood or urine or abnormalities in imaging tests). [facility] Test Item Value Reference Range Interpretation Comments MAGNESIUM (test code = 9268646319) 1.9 mg/dL 1.7-2.4 Lab Interpretation (test code = Normal 80321-4) [facility] GLUCOSE (AUTOMATED)2020-04-03 01:59:00 Test Item Value Reference Range Interpretation Comments POCT GLU (test code = 0470050054) 153 mg/dL 70-110 H Lab Interpretation (test code = Abnormal 88805-6) [facility] GLUCOSE (AUTOMATED)2020-04-02 23:34:00 Test Item Value Reference Range Interpretation Comments POCT GLU (test code = 3091223758) 155 mg/dL 70-110 H Lab Interpretation (test code = Abnormal 91322-3) [facility] GLUCOSE (AUTOMATED)2020-04-02 17:41:00 Test Item Value Reference Range Interpretation Comments POCT GLU (test code = 6471479386) 92 mg/dL 70-110 Lab Interpretation (test code = Normal 34849-7) [facility] GLUCOSE (AUTOMATED)2020-04-02 14:42:00 Test Item Value Reference Range Interpretation Comments POCT GLU (test code = 7342732296) 99 mg/dL 70-110 Lab Interpretation (test code = Normal 50494-3) [facility] (NA, K, CL, CO2, GLUCOSE, BUN, CREATININE, CA)2020-04-02 12:27:00 Test Item Value Reference Range Interpretation Comments NA (test code = 140 mmol/L 135-145 7235895553) K (test code = 3.6 mmol/L 3.5-5 9173064003) CL (test code = 103 mmol/L 98-108 5611974512) CO2 TOTAL (test code = 33 mmol/L 23-31 H 4218948414) AGAP (test code = 2-16 2096365348) BUN (test code = 15 mg/dL 7-23 4174595291) GLUCOSE (test code = 110 mg/dL 70-110 1401684861) CREATININE (test code = 1.04 mg/dL 0.6-1.25 9594065417) CALCIUM (test code = 8.6 mg/dL 8.6-10.6 2463470805) eGFR Calculation mL/min/1.73m2 (Non-) (test code = 6355991415) eGFR Calculation mL/min/1.73m2 () (test code = 3135893162) PAULIE (test code = PAULIE) Association of Glomerular Filtration Rate (GFR) and Staging of Kidney Disease* + --+ --+ ------+| GFR (mL/min/1.73 m2) ?| With Kidney Damage ?| ?Without Kidney Damage+ --------+ --------+ +| ?>90 ?| ?Stage one ?| ? Normal ?+ ---+ ---+ -------+| ?60-89 ?| ?Stage two ?| ? Decreased GFR ? + --+ --+ ------+| ?30-59 ?| ?Stage three ?| ? Stage three ? + --+ --+ ------+| ?15-29 ?| ?Stage four ? | ? Stage four ?+ ---+ ---+ -------+| ?<15 (or dialysis) ? ?| ?Stage five ? | ? Stage five ?+ ---+ ---+ -------+ *Each stage assumes the associated GFR level has been in effect for at least three months. ?Stages 1 to 5, with or without kidney disease, indicate chronic kidney disease. Notes: Determination of stages one and two (with eGFR >59mL/min/1.73 m2) requires estimation of kidney damage for at least three months as defined by structural or functional abnormalities of the kidney, manifested by either:Pathological abnormalities or Markers of kidney damage (including abnormalities in the composition of the blood or urine or abnormalities in imaging tests). Lab Interpretation Abnormal (test code = 76832-0) [facility] 12[facility]27:00 Test Item Value Reference Range Interpretation Comments MAGNESIUM (test code = 8932564103) 1.9 mg/dL 1.7-2.4 Lab Interpretation (test code = Normal 82308-0) [facility] GLUCOSE (AUTOMATED)2020-04-02 02:37:00 Test Item Value Reference Range Interpretation Comments POCT GLU (test code = 5006111023) 130 mg/dL 70-110 H Lab Interpretation (test code = Abnormal 65025-3) [facility] GLUCOSE (AUTOMATED)2020-04-01 23:45:00 Test Item Value Reference Range Interpretation Comments POCT GLU (test code = 9529828074) 133 mg/dL 70-110 H Lab Interpretation (test code = Abnormal 13592-4) [facility] GLUCOSE (AUTOMATED)2020-04-01 19:46:00 Test Item Value Reference Range Interpretation Comments POCT GLU (test code = 8783286943) 147 mg/dL 70-110 H Lab Interpretation (test code = Abnormal 37664-5) [facility] GLUCOSE (AUTOMATED)2020-04-01 14:45:00 Test Item Value Reference Range Interpretation Comments POCT GLU (test code = 2865682019) 101 mg/dL 70-110 Lab Interpretation (test code = Normal 03882-6) [facility] (NA, K, CL, CO2, GLUCOSE, BUN, CREATININE, CA)2020-04-01 10:30:00 Test Item Value Reference Range Interpretation Comments NA (test code = 138 mmol/L 135-145 6278960874) K (test code = 3.8 mmol/L 3.5-5 2457021924) CL (test code = 102 mmol/L 98-108 8176899684) CO2 TOTAL (test code = 32 mmol/L 23-31 H 2146568344) AGAP (test code = 2-16 9861308277) BUN (test code = 20 mg/dL 7-23 1199626752) GLUCOSE (test code = 111 mg/dL 70-110 H 6840936623) CREATININE (test code = 1.06 mg/dL 0.6-1.25 1760170402) CALCIUM (test code = 8.8 mg/dL 8.6-10.6 2018432933) eGFR Calculation mL/min/1.73m2 (Non-) (test code = 3429490933) eGFR Calculation mL/min/1.73m2 () (test code = 5822922563) PAULIE (test code = PAULIE) Association of Glomerular Filtration Rate (GFR) and Staging of Kidney Disease* + --+ --+ ------+| GFR (mL/min/1.73 m2) ?| With Kidney Damage ?| ?Without Kidney Damage+ --------+ --------+ +| ?>90 ?| ?Stage one ?| ? Normal ?+ ---+ ---+ -------+| ?60-89 ?| ?Stage two ?| ? Decreased GFR ? + --+ --+ ------+| ?30-59 ?| ?Stage three ?| ? Stage three ? + --+ --+ ------+| ?15-29 ?| ?Stage four ? | ? Stage four ?+ ---+ ---+ -------+| ?<15 (or dialysis) ? ?| ?Stage five ? | ? Stage five ?+ ---+ ---+ -------+ *Each stage assumes the associated GFR level has been in effect for at least three months. ?Stages 1 to 5, with or without kidney disease, indicate chronic kidney disease. Notes: Determination of stages one and two (with eGFR >59mL/min/1.73 m2) requires estimation of kidney damage for at least three months as defined by structural or functional abnormalities of the kidney, manifested by either:Pathological abnormalities or Markers of kidney damage (including abnormalities in the composition of the blood or urine or abnormalities in imaging tests). Lab Interpretation Abnormal (test code = 96512-5) [facility] 10[facility]30:00 Test Item Value Reference Range Interpretation Comments MAGNESIUM (test code = 1361282524) 2.1 mg/dL 1.7-2.4 Lab Interpretation (test code = Normal 55905-1) [facility] GLUCOSE (AUTOMATED)2020-04-01 02:24:00 Test Item Value Reference Range Interpretation Comments POCT GLU (test code = 3480674089) 137 mg/dL 70-110 H Lab Interpretation (test code = Abnormal 91844-9) [facility] GLUCOSE (AUTOMATED)2020-03-31 23:21:00 Test Item Value Reference Range Interpretation Comments POCT GLU (test code = 4474469013) 158 mg/dL 70-110 H Lab Interpretation (test code = Abnormal 40693-7) [facility] GLUCOSE (AUTOMATED)2020-03-31 18:14:00 Test Item Value Reference Range Interpretation Comments POCT GLU (test code = 7435183314) 108 mg/dL 70-110 Lab Interpretation (test code = Normal 11860-8) [facility] [id number] 14:58:09EXAM: XR CHEST 1 VW HISTORY: worsened hypoxia COMPARISON: None. FINDINGS: The lungs are poorly expanded. A sizable perihilar infiltration is presenton the left and an area of pulmonary consolidation is present in the rightupper lung. Both of these areas have the appearance of pneumonia. The lungsare clear otherwise. The heart is probably slightly enlarged. ? [facility], Radiant Results Inft User - 03/31/2020 8:59 AM CSTEXAM: XR CHEST 1 VWHISTORY: worsened hypoxia COMPARISON: None.FINDINGS:The lungsare poorly expanded. A sizable perihilar infiltration is presenton the left and an area of pulmonaryconsolidation is present in the rightupper lung. Both of these areas have the appearance of pneumonia. The lungsare clear otherwise. The heart is probably slightly enlarged.[facility]2020-03-31 14:11:00 Test Item Value Reference Range Interpretation Comments POCT GLU (test code = 6796558478) 98 mg/dL 70-110 Lab Interpretation (test code = Normal 13505-7) [facility] [id number] 13:53:00 Test Item Value Reference Range Interpretation Comments CK (test code = 3402525089) 723 U/L 33-194 H Lab Interpretation (test code = Abnormal 40231-9) [facility]2021-[facility]-12 11:52:00 Test Item Value Reference Range Interpretation Comments Procalcitonin (test 0.06 ng/mL <0.07 code = 4154521491) PAULIE (test code = PAULIE) INTERPRETATION OF PROCALCITONIN RESULTS IN ADULTS >= 18 YEARS OF AGE Initiation and discontinuation of antibiotics on patients with suspected or confirmed Lower Respiratory Tract Infection in Adults >= 18 years of age. + +-------- --------+ + -----+|Procalcitonin |Interpretation ?|Antibiotic ? ? |Considerations ? |ng/mL ? | ?|recommendation | ? + +-------- --------+ + -----+| <0.1 ? | Bacterial ? ? ?| Strongly ? ? ?| ? | ?| infection very | discouraged ? | Overruling: ? | ?| unlikely ? ? ? | ? | ? Clinically unstable ? ? ? + +-------- --------+ + ? High risk for adverse ? ? | <0.25 ?| Bacterial ? ? ?| Discouraged ? | ? outcome ? | ?| infection ? ? ?| ? | ? SEE IMPORTANT NOTE ?| ?| unlikely ? ? ? | ? | ? + +-------- --------+ + -----+| >=0.25 ? ? ? | Bacterial ? ? ?| Encouraged ? ?| ? | ?| infection ? ? ?| ? | ? | ?| likely ? | ? | Consider treatment failure ?+ +------- ---------+ -+ if levels does not decrease | >0.5 ? | Bacterial ? ? ?| Strongly ? ? ?| appropriately ? | ?| infection very | encouraged ? ?| ? | ?| likely ? | ? | ? + +-------- --------+ + -----+ Discontinuation of antibiotics in high-acuity patients with suspected or confirmed sepsis in Adults >= 18 years of age. + +-------- --------+ + -----+|Procalcitonin |Interpretation ?|Antibiotic ? ? |Considerations ? |ng/mL ? | ?|recommendation | ? + +-------- --------+ + -----+| <0.25 ?| Bacterial ? ? ?| Strongly ? ? ?| ? | ?| infection very | discouraged ? | Overruling: ? | ?| unlikely ? ? ? | ? | ? Clinically unstable ? ? ? + +-------- --------+ + ? High risk for adverse ? ? | <0.5 or drop | Bacterial ? ? ?| Discouraged ? | ? outcome ? | >80% from ? ?| infection ? ? ?| ? | ? SEE IMPORTANT NOTE ?| highest PCT ?| unlikely ? ? ? | ? | ? | level ?| ?| ? | ? + +-------- --------+ + -----+| >=0.5 ?| Bacterial ? ? ?| Encouraged ? ?| ? | ?| infection ? ? ?| ? | ? | ?| likely ? | ? | Consider treatment failure ?+ +------- ---------+ -+ if levels does not decrease | >1.0 ? | Bacterial ? ? ?| Strongly ? ? ?| appropriately ? | ?| infection very | encouraged ? ?| ? | ?| likely ? | ? | ? + +-------- --------+ + -----+ Percentage of drop of Procalcitonin calculation for Discontinuation of antibiotics in high-acuity patients with suspected or confirmed sepsis in Adults >= 18 years of age. ? Procalcitonin highest{}-Procalcitonin current{}Delta Procalcitonin = x100% ? Procalcitonin current {} IMPORTANT NOTE: Procalcitonin may be elevated without bacterial infection by physiologic stress related to trauma, castillo, chronic dialysis, metastatic cancer, surgery in the past seven days, malaria, some fungal infections, and some forms of vasculitis. The interpretation algorithm may not apply to patients with immunosuppression (equivalent of >10 mg of prednisone daily), HIV with CD4 cell count < 350 cells/mm3, active malignancy on systemic chemotherapy, solid organ transplant or hematopoietic stem cell transplantation, or hospital acquired pneumonia. Additionally, some clinical trials of procalcitonin have excluded patients with shock requiring vasopressor use, acute respiratory failure requiring mechanical ventilation, or those with known lung abscess/empyema. For further information please refer to:[email or web address] Lab Interpretation Normal (test code = 43955-9) [id number] 10:23[facility]00 Test Item Value Reference Interpretation Comments Range D-DIMER (test code = See_Comment H [Autom ated 0828885424) message] The system which generated this result transmitted reference range : <0.50 ?g/mL (FEU). The reference range was not used to interpret this result as normal/abnormal . PAULIE (test code = This test may be PAULIE) used in conjunction with a clinical pretest probability (PTP) assessment model to exclude venous thromboembolism (VTE) in patients suspected of deep venous thrombosis (DVT) and pulmonary embolism (PE) A D-Dimer value less than 0.50 ?g/ml (FEU) has a negative predicative value of 96 to 100% (95% CI)and 97 to 100% (95% CI) as an aid in the diagnosis of deep vein thrombosis (DVT) and pulmonary embolism when there is low or moderate pretest probability of PE or DVT. D-Dimer values are expressed in initial fibrinogen equivalent units (FEU)" The assay results should be used with other information, including the clinical context, in forming a diagnosis. Lab Interpretation Abnormal (test code = 60215-1) [facility] MET[facility]OLIC PANEL (NA, K, CL, CO2, GLUCOSE, BUN, CREATININE, CA)2020-03-31 10:22:00 Test Item Value Reference Range Interpretation Comments NA (test code = 137 mmol/L 135-145 2996578595) K (test code = 3.7 mmol/L 3.5-5 5037601530) CL (test code = 102 mmol/L 98-108 8725828865) CO2 TOTAL (test code = 28 mmol/L 23-31 9226743023) AGAP (test code = 2-16 3785124559) BUN (test code = 18 mg/dL 7-23 5548441036) GLUCOSE (test code = 108 mg/dL 70-110 1798971045) CREATININE (test code 1.10 mg/dL 0.6-1.25 = 7613008250) CALCIUM (test code = 8.7 mg/dL 8.6-10.6 7488160855) eGFR Calculation mL/min/1.73m2 (Non-) (test code = 2465781210) eGFR Calculation mL/min/1.73m2 () (test code = 1276350469) PAULIE (test code = PAULIE) Association of Glomerular Filtration Rate (GFR) and Staging of Kidney Disease* + -+ + ---+| GFR (mL/min/1.73 m2) ?| With Kidney Damage ?| ?Without Kidney Damage+ -------+ ------+ ---------+| ?>90 ?| ?Stage one ?| ? Normal ?+ --+ -+ ----+| ?60-89 ?| ?Stage two ?| ? Decreased GFR ? + -+ + ---+| ?30-59 ?| ?Stage three ?| ? Stage three ? + -+ + ---+| ?15-29 ?| ?Stage four ? | ? Stage four ?+ --+ -+ ----+| ?<15 (or dialysis) ? ?| ?Stage five ? | ? Stage five ?+ --+ -+ ----+ *Each stage assumes the associated GFR level has been in effect for at least three months. ?Stages 1 to 5, with or without kidney disease, indicate chronic kidney disease. Notes: Determination of stages one and two (with eGFR >59mL/min/1.73 m2) requires estimation of kidney damage for at least three months as defined by structural or functional abnormalities of the kidney, manifested by either:Pathological abnormalities or Markers of kidney damage (including abnormalities in the composition of the blood or urine or abnormalities in imaging tests). [facility] 10:22[facility]00 Test Item Value Reference Range Interpretation Comments MAGNESIUM (test code = 8969611060) 2.1 mg/dL 1.7-2.4 Lab Interpretation (test code = Normal 02595-6) [facility] WITH [id number] 10:11:00 Test Item Value Reference Range Interpretation Comments WBC (test code = See_Comment [Automated 5597-2) message] The sy stem which generated this result transmitted reference range : 4.20 - 10.70 10*3/?L. The reference range was not used to interpret this result as normal/abnormal . RBC (test code = See_Comment [Automated 897-8) message] The sy stem which generated this result transmitted reference range : 4.26 - 5.52 10*6/?L. The reference range was not used to interpret this result as normal/abnormal . HGB (test code = 13.3 g/dL 12.2-16.4 718-7) HCT (test code = 40.8 % 38.4-49.3 4544-3) MCV (test code = 79.4 fL 81.7-95.6 L 787-2) MCH (test code = 25.9 pg 26.1-32.7 L 785-6) MCHC (test code = 32.6 g/dL 31.2-35 786-4) RDW-SD (test code = 38.7 fL 38.5-51.6 36647-0) RDW-CV (test code = 13.4 % 12.1-15.4 788-0) PLT (test code = See_Comment [Automated 777-3) message] The sy stem which generated this result transmitted reference range : 150 - 328 10*3/ ?L. The reference r lorena was not used to interpret this result as normal/abnormal . MPV (test code = 12.0 fL 9.8-13 60110-1) NRBC/100 WBC (test See_Comment [Automat ed code = 2400727338) message] The system which generated this result transmitted reference range : 0.0 - 10.0 /100 WBCs. The refer ence range was not u sed to interpret th is result as normal/abnormal . NRBC x10^3 (test code <0.01 See_Comment [Auto mated = 1758508552) message] The s ystem which generated this result transmitted reference range : 10*3/?L. The reference range was not used to interpret this result as normal/abnormal . GRAN MAT (NEUT) % 55.9 % (test code = 770-8) IMM GRAN % (test code 0.20 % = 5375748385) LYMPH % (test code = 36.0 % 736-9) MONO % (test code = 7.7 % 5905-5) EOS % (test code = 0.0 % 713-8) BASO % (test code = 0.2 % 706-2) GRAN MAT x10^3(ANC) 2.70 10*3/uL 1.99-6.95 (test code = 6046786003) IMM GRAN x10^3 (test <0.03 0-0.06 code = 7024641118) LYMPH x10^3 (test code 1.74 10*3/uL 1.09-3.23 = 731-0) MONO x10^3 (test code 0.37 10*3/uL 0.36-1.02 = 742-7) EOS x10^3 (test code = <0.03 0.06-0.53 L 711-2) BASO x10^3 (test code <0.03 0.01-0.09 = 704-7) Lab Interpretation Abnormal (test code = 55875-6) [facility] GLUCOSE (AUTOMATED)2020-03-31 01:46:00 Test Item Value Reference Range Interpretation Comments POCT GLU (test code = 6258641941) 126 mg/dL 70-110 H Lab Interpretation (test code = Abnormal 80505-8) [facility] GLUCOSE (AUTOMATED)2020-03-30 22:32:00 Test Item Value Reference Range Interpretation Comments POCT GLU (test code = 7744060954) 123 mg/dL 70-110 H Lab Interpretation (test code = Abnormal 28679-2) [facility] GLUCOSE (AUTOMATED)2020-03-30 18:04:00 Test Item Value Reference Range Interpretation Comments POCT GLU (test code = 6455341660) 137 mg/dL 70-110 H Lab Interpretation (test code = Abnormal 28958-7) [facility] GLUCOSE (AUTOMATED)2020-03-30 14:44:00 Test Item Value Reference Range Interpretation Comments POCT GLU (test code = 3089469377) 91 mg/dL 70-110 Lab Interpretation (test code = Normal 37902-9) [facility] METABOLIC PANEL (NA, K, CL, CO2, GLUCOSE, BUN, CREATININE, CA)2020-03-30 10:47:00 Test Item Value Reference Range Interpretation Comments NA (test code = 136 mmol/L 135-145 8653833081) K (test code = 3.8 mmol/L 3.5-5 8029471854) CL (test code = 101 mmol/L 98-108 4145994670) CO2 TOTAL (test code = 31 mmol/L 23-31 4997461601) AGAP (test code = 2-16 7737895949) BUN (test code = 20 mg/dL 7-23 6828009306) GLUCOSE (test code = 108 mg/dL 70-110 5587588852) CREATININE (test code = 1.11 mg/dL 0.6-1.25 2217045145) CALCIUM (test code = 8.5 mg/dL 8.6-10.6 L 9441152321) eGFR Calculation mL/min/1.73m2 (Non-) (test code = 5453395625) eGFR Calculation mL/min/1.73m2 () (test code = 0430588462) PAULIE (test code = PAULIE) Association of Glomerular Filtration Rate (GFR) and Staging of Kidney Disease* + --+ --+ ------+| GFR (mL/min/1.73 m2) ?| With Kidney Damage ?| ?Without Kidney Damage+ --------+ --------+ +| ?>90 ?| ?Stage one ?| ? Normal ?+ ---+ ---+ -------+| ?60-89 ?| ?Stage two ?| ? Decreased GFR ? + --+ --+ ------+| ?30-59 ?| ?Stage three ?| ? Stage three ? + --+ --+ ------+| ?15-29 ?| ?Stage four ? | ? Stage four ?+ ---+ ---+ -------+| ?<15 (or dialysis) ? ?| ?Stage five ? | ? Stage five ?+ ---+ ---+ -------+ *Each stage assumes the associated GFR level has been in effect for at least three months. ?Stages 1 to 5, with or without kidney disease, indicate chronic kidney disease. Notes: Determination of stages one and two (with eGFR >59mL/min/1.73 m2) requires estimation of kidney damage for at least three months as defined by structural or functional abnormalities of the kidney, manifested by either:Pathological abnormalities or Markers of kidney damage (including abnormalities in the composition of the blood or urine or abnormalities in imaging tests). Lab Interpretation Abnormal (test code = 45843-3) [facility] Test Item Value Reference Range Interpretation Comments MAGNESIUM (test code = 2462581142) 2.1 mg/dL 1.7-2.4 Lab Interpretation (test code = Normal 62202-7) [facility] GLUCOSE (AUTOMATED)2020-03-30 02:27:00 Test Item Value Reference Range Interpretation Comments POCT GLU (test code = 6178978701) 124 mg/dL 70-110 H Lab Interpretation (test code = Abnormal 93567-7) [facility] GLUCOSE (AUTOMATED)2020-03-29 22:04:00 Test Item Value Reference Range Interpretation Comments POCT GLU (test code = 6325926834) 104 mg/dL 70-110 Lab Interpretation (test code = Normal 15327-3) [facility] GLUCOSE (AUTOMATED)2020-03-29 14:34:00 Test Item Value Reference Range Interpretation Comments POCT GLU (test code = 6158656477) 93 mg/dL 70-110 Lab Interpretation (test code = Normal 12928-8) [facility] [id number] 14:32:00 Test Item Value Reference Range Interpretation Comments CK (test code = 2262138313) 988 U/L 33-194 H Lab Interpretation (test code = Abnormal 88982-7) [facility] (NA, K, CL, CO2, GLUCOSE, BUN, CREATININE, CA)2020-03-29 08:44:00 Test Item Value Reference Range Interpretation Comments NA (test code = 135 mmol/L 135-145 3110797310) K (test code = 3.5 mmol/L 3.5-5 4265861236) CL (test code = 98 mmol/L 98-108 1527800781) CO2 TOTAL (test code = 33 mmol/L 23-31 H 6421152537) AGAP (test code = 2-16 7393849524) BUN (test code = 22 mg/dL 7-23 5483146655) GLUCOSE (test code = 101 mg/dL 70-110 2134928341) CREATININE (test code = 1.54 mg/dL 0.6-1.25 H 5316756917) CALCIUM (test code = 8.2 mg/dL 8.6-10.6 L 6521962747) eGFR Calculation mL/min/1.73m2 (Non-) (test code = 3035589617) eGFR Calculation mL/min/1.73m2 () (test code = 9325958921) PAULIE (test code = PAULIE) Association of Glomerular Filtration Rate (GFR) and Staging of Kidney Disease* + --+ --+ ------+| GFR (mL/min/1.73 m2) ?| With Kidney Damage ?| ?Without Kidney Damage+ --------+ --------+ +| ?>90 ?| ?Stage one ?| ? Normal ?+ ---+ ---+ -------+| ?60-89 ?| ?Stage two ?| ? Decreased GFR ? + --+ --+ ------+| ?30-59 ?| ?Stage three ?| ? Stage three ? + --+ --+ ------+| ?15-29 ?| ?Stage four ? | ? Stage four ?+ ---+ ---+ -------+| ?<15 (or dialysis) ? ?| ?Stage five ? | ? Stage five ?+ ---+ ---+ -------+ *Each stage assumes the associated GFR level has been in effect for at least three months. ?Stages 1 to 5, with or without kidney disease, indicate chronic kidney disease. Notes: Determination of stages one and two (with eGFR >59mL/min/1.73 m2) requires estimation of kidney damage for at least three months as defined by structural or functional abnormalities of the kidney, manifested by either:Pathological abnormalities or Markers of kidney damage (including abnormalities in the composition of the blood or urine or abnormalities in imaging tests). Lab Interpretation Abnormal (test code = 81969-4) [facility] 08:44:00 Test Item Value Reference Range Interpretation Comments MAGNESIUM (test code = 8923923754) 2.1 mg/dL 1.7-2.4 Lab Interpretation (test code = Normal 04543-3) [facility] GLUCOSE (AUTOMATED)2020-03-29 02:59:00 Test Item Value Reference Range Interpretation Comments POCT GLU (test code = 3990485445) 154 mg/dL 70-110 H Lab Interpretation (test code = Abnormal 66001-8) [facility] GLUCOSE (AUTOMATED)2020-03-28 23:37:00 Test Item Value Reference Range Interpretation Comments POCT GLU (test code = 5123633620) 103 mg/dL 70-110 Lab Interpretation (test code = Normal 94221-4) [facility] COVID [id number] 22:34:00COVID DMT InterpretationInterpretation/Recommendations: Molecular NAAT Tests for Active Infection with the SARS-CoV-2 Virus: This result indicates a second test was positive, subsequent to an initial negative test for the SARS-CoV-2 virus that causes COVID-19 illness. This result indicates that the patient has been infected with the SARS-CoV-2 virus. The patient should be considered infectious and able to transmit the virus within the first 10 days after symptom onset in xfmd-bh-rugushiz illness andwithin the first 20 days after symptom onset in critical illness and/or severe immunocompromise. Asym ptomatic patients are considered infectious for the first 10 days subsequent to the initial positivetest result. From the onset of symptoms, if any, this result is likely to remain positive for 2 to 4weeks. Tests for IgM and/or IgG Antibodies to SARS-CoV-2 Virus: Testing for IgM and IgG antibodies1-3 weeks after illness onset will indicate whether the patient has produced antibodies to the virus. At this time, it is not known if the production of antibodies - specifically IgG antibodies - indicates whether the patient is immune to future infections with the SARS-CoV-2 virus. Interpretation Result Comments:These interpretation comments are based upon all COVID-19 testing the patient has had at [facility], including molecularNAAT testing (more commonly known as PCR testing and Rapid ID Now testing) and antibody testing. It does not take into account any testing that a patient has had outside of the [facility] medical record. [facility] LABORATORY SERVICESCOVID XpbrjnaLPEB-JlO-1 Rapid ID NOW (no units) ? ? Date ? Value ? 03/27/2020 ? Positive (A) ? ? ? 09/20/2019 ? Not Detected? [facility] SERVICESUn[facility]PO[facility] 2020-03-28 17:59:00 Test Item Value Reference Range Interpretation Comments POCT GLU (test code = 6679012275) 104 mg/dL 70-110 Lab Interpretation (test code = Normal 40872-5) [facility] [id number] 16:44:00 Test Item Value Reference Range Interpretation Comments CRP (test code = 5036629934) 6.7 mg/dL <0.8 H Lab Interpretation (test code = Abnormal 85533-4) [facility] METABOLIC PANEL (NA, K, CL, CO2, GLUCOSE, BUN, CREATININE, CA)2020-03-28 15:04:00 Test Item Value Reference Range Interpretation Comments NA (test code = 135 mmol/L 135-145 4331062505) K (test code = 3.2 mmol/L 3.5-5 L 7802883274) CL (test code = 100 mmol/L 98-108 6693580896) CO2 TOTAL (test code = 30 mmol/L 23-31 7151086462) AGAP (test code = 2-16 7013397469) BUN (test code = 17 mg/dL 7-23 9745311530) GLUCOSE (test code = 109 mg/dL 70-110 2454340787) CREATININE (test code = 1.49 mg/dL 0.6-1.25 H 0148940671) CALCIUM (test code = 8.0 mg/dL 8.6-10.6 L 6919934722) eGFR Calculation mL/min/1.73m2 (Non-) (test code = 7314259538) eGFR Calculation mL/min/1.73m2 () (test code = 2581946767) PAULIE (test code = PAULIE) Association of Glomerular Filtration Rate (GFR) and Staging of Kidney Disease* + --+ --+ ------+| GFR (mL/min/1.73 m2) ?| With Kidney Damage ?| ?Without Kidney Damage+ --------+ --------+ +| ?>90 ?| ?Stage one ?| ? Normal ?+ ---+ ---+ -------+| ?60-89 ?| ?Stage two ?| ? Decreased GFR ? + --+ --+ ------+| ?30-59 ?| ?Stage three ?| ? Stage three ? + --+ --+ ------+| ?15-29 ?| ?Stage four ? | ? Stage four ?+ ---+ ---+ -------+| ?<15 (or dialysis) ? ?| ?Stage five ? | ? Stage five ?+ ---+ ---+ -------+ *Each stage assumes the associated GFR level has been in effect for at least three months. ?Stages 1 to 5, with or without kidney disease, indicate chronic kidney disease. Notes: Determination of stages one and two (with eGFR >59mL/min/1.73 m2) requires estimation of kidney damage for at least three months as defined by structural or functional abnormalities of the kidney, manifested by either:Pathological abnormalities or Markers of kidney damage (including abnormalities in the composition of the blood or urine or abnormalities in imaging tests). Lab Interpretation Abnormal (test code = 25244-4) [facility] 15:04:00 Test Item Value Reference Range Interpretation Comments MAGNESIUM (test code = 4711493979) 1.8 mg/dL 1.7-2.4 Lab Interpretation (test code = Normal 69854-7) [facility] [id number] 15:04:00 Test Item Value Reference Range Interpretation Comments CK (test code = 7995017385) 874 U/L 33-194 H Lab Interpretation (test code = Abnormal 53456-0) [facility]2020-03-28 14:24:00 Test Item Value Reference Range Interpretation Comments POCT GLU (test code = 3620594375) 112 mg/dL 70-110 H Lab Interpretation (test code = Abnormal 88238-9) [facility] (NA, K, CL, CO2, GLUCOSE, BUN, CREATININE, CA)2020-03-28 12:21:00 Test Item Value Reference Range Interpretation Comments NA (test code = 137 mmol/L 135-145 7890117129) K (test code = 3.3 mmol/L 3.5-5 L 1024773781) CL (test code = 98 mmol/L 98-108 9231777588) CO2 TOTAL (test code = 33 mmol/L 23-31 H 5649421689) AGAP (test code = 2-16 6651346505) BUN (test code = 20 mg/dL 7-23 2116067110) GLUCOSE (test code = 94 mg/dL 70-110 5434058561) CREATININE (test code = 2.00 mg/dL 0.6-1.25 H 1436457895) CALCIUM (test code = 8.4 mg/dL 8.6-10.6 L 0710464776) eGFR Calculation mL/min/1.73m2 (Non-) (test code = 7468359095) eGFR Calculation mL/min/1.73m2 () (test code = 1061177297) PAULIE (test code = PAULIE) Association of Glomerular Filtration Rate (GFR) and Staging of Kidney Disease* + --+ --+ ------+| GFR (mL/min/1.73 m2) ?| With Kidney Damage ?| ?Without Kidney Damage+ --------+ --------+ +| ?>90 ?| ?Stage one ?| ? Normal ?+ ---+ ---+ -------+| ?60-89 ?| ?Stage two ?| ? Decreased GFR ? + --+ --+ ------+| ?30-59 ?| ?Stage three ?| ? Stage three ? + --+ --+ ------+| ?15-29 ?| ?Stage four ? | ? Stage four ?+ ---+ ---+ -------+| ?<15 (or dialysis) ? ?| ?Stage five ? | ? Stage five ?+ ---+ ---+ -------+ *Each stage assumes the associated GFR level has been in effect for at least three months. ?Stages 1 to 5, with or without kidney disease, indicate chronic kidney disease. Notes: Determination of stages one and two (with eGFR >59mL/min/1.73 m2) requires estimation of kidney damage for at least three months as defined by structural or functional abnormalities of the kidney, manifested by either:Pathological abnormalities or Markers of kidney damage (including abnormalities in the composition of the blood or urine or abnormalities in imaging tests). Lab Interpretation Abnormal (test code = 33554-5) [facility] WITH [id number] 11:26:00 Test Item Value Reference Range Interpretation Comments WBC (test code = See_Comment [Automated 0125-2) message] The sy stem which generated this result transmitted reference range : 4.20 - 10.70 10*3/?L. The reference range was not used to interpret this result as normal/abnormal . RBC (test code = See_Comment [Automated 393-0) message] The sy stem which generated this result transmitted reference range : 4.26 - 5.52 10*6/?L. The reference range was not used to interpret this result as normal/abnormal . HGB (test code = 13.4 g/dL 12.2-16.4 718-7) HCT (test code = 41.6 % 38.4-49.3 4544-3) MCV (test code = 80.8 fL 81.7-95.6 L 787-2) MCH (test code = 26.0 pg 26.1-32.7 L 785-6) MCHC (test code = 32.2 g/dL 31.2-35 786-4) RDW-SD (test code = 40.6 fL 38.5-51.6 92780-0) RDW-CV (test code = 13.8 % 12.1-15.4 788-0) PLT (test code = See_Comment L [Automated 777-3) message] The sy stem which generated this result transmitted reference range : 150 - 328 10*3/ ?L. The reference r lorena was not used to interpret this result as normal/abnormal . MPV (test code = 12.1 fL 9.8-13 31225-4) NRBC/100 WBC (test See_Comment [Automat ed code = 3751586584) message] The system which generated this result transmitted reference range : 0.0 - 10.0 /100 WBCs. The refer ence range was not u sed to interpret th is result as normal/abnormal . NRBC x10^3 (test code <0.01 See_Comment [Auto mated = 6870944369) message] The s ystem which generated this result transmitted reference range : 10*3/?L. The reference range was not used to interpret this result as normal/abnormal . GRAN MAT (NEUT) % 71.0 % (test code = 770-8) IMM GRAN % (test code 0.30 % = 1081514014) LYMPH % (test code = 19.4 % 736-9) MONO % (test code = 9.3 % 5905-5) EOS % (test code = 0.0 % 713-8) BASO % (test code = 0.0 % 706-2) GRAN MAT x10^3(ANC) 5.06 10*3/uL 1.99-6.95 (test code = 1822399543) IMM GRAN x10^3 (test <0.03 0-0.06 code = 8903069536) LYMPH x10^3 (test code 1.38 10*3/uL 1.09-3.23 = 731-0) MONO x10^3 (test code 0.66 10*3/uL 0.36-1.02 = 742-7) EOS x10^3 (test code = <0.03 0.06-0.53 L 711-2) BASO x10^3 (test code <0.03 0.01-0.09 = 704-7) Lab Interpretation Abnormal (test code = 09542-5) [facility] 08:58:00 Test Item Value Reference Range Interpretation Comments APPEARANCE (test code = Clear Clear 1352569670) COLOR (test code = Yellow Yellow 7320603068) PH (test code = 4.8-8.0 2953761864) SP GRAVITY (test code = 1.003-1.030 4579648621) GLU U QUAL (test code = Normal Normal 3879085247) BLOOD (test code = 1+ Negative A 3422626406) KETONES (test code = Negative Negative 4378222911) PROTEIN (test code = 100 mg/dL Negative A 2887-8) UROBILIN (test code = Normal Normal 4375196784) BILIRUBIN (test code = Negative Negative 9918224235) NITRITE (test code = Negative Negative 5849448391) LEUK LACI (test code = Negative Negative 0001723075) RBC/HPF (test code = See_Comment [Autom ated message] 2559473581) The system [employer] generated this result transmit jordon reference range : 0 - 3 HPF. The refe rence range was not u sed to interpret th is result as normal/abnormal . WBC/HPF (test code = See_Comment [Autom ated message] 6115468426) The system [employer] generated this result transmit jordon reference range : 0 - 5 HPF. The refe rence range was not u sed to interpret th is result as normal/abnormal . BACTERIA (test code = Negative Negative 3490951963) MUCOUS (test code = Slight Negative LPF A 4605833806) HYAL CAST (test code = See_Comment [Aut omated message] [id number]) The system [employer] generated this result transmit jordon reference range : <=2 LPF. The refere nce range was not u sed to interpret th is result as normal/abnormal . ASCORBIC ACID (test code Negative = 1500723142) Lab Interpretation (test Abnormal code = 85649-6) [facility], URINE [id number] 08:57:00 Test Item Value Reference Range Interpretation Comments NA URINE (test code = 1735444246) 5 mmol/L [facility] CenterCREATININE, URINE [id number] 08:57:00 Test Item Value Reference Range Interpretation Comments CREAT U (test code = 9781710802) 84.3 mg/dL [facility] CenterMAGNESIUM2021-02-09 03:03:00 Test Item Value Reference Range Interpretation Comments MAGNESIUM (test code = 0733447920) 1.7 mg/dL 1.7-2.4 Lab Interpretation (test code = Normal 93826-3) [facility] CenterPOFL GLUCOSE (AUTOMATED)2020-03-28 02:39:00 Test Item Value Reference Range Interpretation Comments POCT GLU (test code = 101 mg/dL 70-110 Notifi ed Provider [id number]) Lab Interpretation (test Normal code = 18880-2) [facility] CenterPROCALCITONIN2021-02-09 02:26:00 Test Item Value Reference Range Interpretation Comments Procalcitonin (test 0.11 ng/mL <0.07 H code = 8070743322) PAULIE (test code = PAULIE) INTERPRETATION OF PROCALCITONIN RESULTS IN ADULTS >= 18 YEARS OF AGE Initiation and discontinuation of antibiotics on patients with suspected or confirmed Lower Respiratory Tract Infection in Adults >= 18 years of age. + +-------- --------+ + -----+|Procalcitonin |Interpretation ?|Antibiotic ? ? |Considerations ? |ng/mL ? | ?|recommendation | ? + +-------- --------+ + -----+| <0.1 ? | Bacterial ? ? ?| Strongly ? ? ?| ? | ?| infection very | discouraged ? | Overruling: ? | ?| unlikely ? ? ? | ? | ? Clinically unstable ? ? ? + +-------- --------+ + ? High risk for adverse ? ? | <0.25 ?| Bacterial ? ? ?| Discouraged ? | ? outcome ? | ?| infection ? ? ?| ? | ? SEE IMPORTANT NOTE ?| ?| unlikely ? ? ? | ? | ? + +-------- --------+ + -----+| >=0.25 ? ? ? | Bacterial ? ? ?| Encouraged ? ?| ? | ?| infection ? ? ?| ? | ? | ?| likely ? | ? | Consider treatment failure ?+ +------- ---------+ -+ if levels does not decrease | >0.5 ? | Bacterial ? ? ?| Strongly ? ? ?| appropriately ? | ?| infection very | encouraged ? ?| ? | ?| likely ? | ? | ? + +-------- --------+ + -----+ Discontinuation of antibiotics in high-acuity patients with suspected or confirmed sepsis in Adults >= 18 years of age. + +-------- --------+ + -----+|Procalcitonin |Interpretation ?|Antibiotic ? ? |Considerations ? |ng/mL ? | ?|recommendation | ? + +-------- --------+ + -----+| <0.25 ?| Bacterial ? ? ?| Strongly ? ? ?| ? | ?| infection very | discouraged ? | Overruling: ? | ?| unlikely ? ? ? | ? | ? Clinically unstable ? ? ? + +-------- --------+ + ? High risk for adverse ? ? | <0.5 or drop | Bacterial ? ? ?| Discouraged ? | ? outcome ? | >80% from ? ?| infection ? ? ?| ? | ? SEE IMPORTANT NOTE ?| highest PCT ?| unlikely ? ? ? | ? | ? | level ?| ?| ? | ? + +-------- --------+ + -----+| >=0.5 ?| Bacterial ? ? ?| Encouraged ? ?| ? | ?| infection ? ? ?| ? | ? | ?| likely ? | ? | Consider treatment failure ?+ +------- ---------+ -+ if levels does not decrease | >1.0 ? | Bacterial ? ? ?| Strongly ? ? ?| appropriately ? | ?| infection very | encouraged ? ?| ? | ?| likely ? | ? | ? + +-------- --------+ + -----+ Percentage of drop of Procalcitonin calculation for Discontinuation of antibiotics in high-acuity patients with suspected or confirmed sepsis in Adults >= 18 years of age. ? Procalcitonin highest{}-Procalcitonin current{}Delta Procalcitonin = x100% ? Procalcitonin current {} IMPORTANT NOTE: Procalcitonin may be elevated without bacterial infection by physiologic stress related to trauma, castillo, chronic dialysis, metastatic cancer, surgery in the past seven days, malaria, some fungal infections, and some forms of vasculitis. The interpretation algorithm may not apply to patients with immunosuppression (equivalent of >10 mg of prednisone daily), HIV with CD4 cell count < 350 cells/mm3, active malignancy on systemic chemotherapy, solid organ transplant or hematopoietic stem cell transplantation, or hospital acquired pneumonia. Additionally, some clinical trials of procalcitonin have excluded patients with shock requiring vasopressor use, acute respiratory failure requiring mechanical ventilation, or those with known lung abscess/empyema. For further information please refer to:[email or web address] Lab Interpretation Abnormal (test code = 28765-7) [facility] CenterGLYCOSYLATED HEMOGLOBIN (A1C)2020-03-28 01:52:00 Test Item Value Reference Range Interpretation Comments HGB A1C (test code = 6.3 % 4-6 H 4548-4) PAULIE (test code = PAULIE) %A1C (NGSP) Interpretation (ADA)4.8-5.6 ? ? Normal or (Non-Diabetic Range)5.7-6.4 ? ? Increased Risk (Pre-Diabetic)>6.5 ?Diabetes Indicated Lab Interpretation Abnormal (test code = 96298-1) [facility] CenterD-[id number] 01:19:00 Test Item Value Reference Interpretation Comments Range D-DIMER (test code = See_Comment [Autom ated 4514238176) message] The system which generated this result transmitted reference range : <0.50 ?g/mL (FEU). The reference range was not used to interpret this result as normal/abnormal . PAULIE (test code = This test may be PAULIE) used in conjunction with a clinical pretest probability (PTP) assessment model to exclude venous thromboembolism (VTE) in patients suspected of deep venous thrombosis (DVT) and pulmonary embolism (PE) A D-Dimer value less than 0.50 ?g/ml (FEU) has a negative predicative value of 96 to 100% (95% CI)and 97 to 100% (95% CI) as an aid in the diagnosis of deep vein thrombosis (DVT) and pulmonary embolism when there is low or moderate pretest probability of PE or DVT. D-Dimer values are expressed in initial fibrinogen equivalent units (FEU)" The assay results should be used with other information, including the clinical context, in forming a diagnosis. Lab Interpretation Normal (test code = 88208-8) [facility] CenterLACTATE [id number] 01:17:00 Test Item Value Reference Range Interpretation Comments LDH (test code = 7995032275) 893 U/L 300-600 H Lab Interpretation (test code = Abnormal 20287-8) [facility] CenterCREATINE [id number] 00:59:00 Test Item Value Reference Range Interpretation Comments CK (test code = 9956697968) 795 U/L 33-194 H Lab Interpretation (test code = Abnormal 81032-6) [facility] CenterXR CHEST 1 [id number] 20:09:13Findings and Impression: ?Suboptimal inspiratory volumes resulting inbronchovascular crowding and subsegmental atelectasis. Increased densityprojecting over the upper lobes is likely related to soft tissuesuperimposition. However, atypical infection can have similar appearance.No discernible focal consolidation, pneumothorax or pleural effusion. Heartsize is normal (albeit exaggerated by suboptimal in spiratory volumes). Noacute osseous abnormality. PORTABLE CHEST RADIOGRAPH History: SOB, TachypneaComparison: 02/13/2019 TECHNIQUE: AP view of the chest. [facility], Radiant Results Inft User - 03/27/2020 2:10 PM CSTPORTABLE CHEST RADIOGRAPHHistory: SOB, Tachypnea Comparison: 02/13/2019TECHNIQUE: AP view of the chest.IMPRESSIONFindings and Impression: Suboptimal inspiratory volumes resulting inbronchovascular crowding and subsegmental atelectasis. Increased densityprojecting over the upper lobes is likely related to soft tissuesuperimposition. However, atypical infection can have similar appearance.N o discernible focal consolidation, pneumothorax or pleural effusion. Heartsize is normal (albeit exaggerated by suboptimal inspiratory volumes). Noacute osseous abnormality.[facility] CenterTROPONIN [id number] 19:58:00 Test Item Value Reference Range Interpretation Comments TROPONIN I (test <0.012 See_Comment [Automated code = 7961082615) message] The system which generated this result transmitted reference range : <=0.034 ng/mL. The reference range was not used to interpr et this result as normal/abnormal . PAULIE (test code = Equal or Less than PAULIE) 0.034 ng/ml---Normal ?Note: Cardiac troponin begins to rise 3-4 hours after the onset of ischemia. Repeat in 4-6 hours if the sample was drawn within 3-4 hours of the onset of the symptom and found normal. Between 0.035 and 0.120 ng/mL--- Borderline. Questionable myocardial injury or necrosis ? ?Note: Serial measurement may be necessary to confirm or exclude the diagnosis of myocardial injury or necrosis; Clinical correlation (symptoms, EKGs, imaging studies, and others) required; Repeat in 4-6 hours if clinically indicated. ? Equal or Higher than 0.121 ng/mL---Abnormal. Myocardial Injury or Necrosis Likely ? Biotin has been reported to cause a negative bias, interpret results relative to patient's use of biotin. ? Lab Interpretation Normal (test code = 80401-2) [facility] WITH [id number] 19:54:00 Test Item Value Reference Range Interpretation Comments WBC (test code = See_Comment [Automated 6690-2) message] The sy stem which generated this result transmitted reference range : 4.20 - 10.70 10*3/?L. The reference range was not used to interpret this result as normal/abnormal . RBC (test code = See_Comment H [Automated 789-8) message] The sy stem which generated this result transmitted reference range : 4.26 - 5.52 10*6/?L. The reference range was not used to interpret this result as normal/abnormal . HGB (test code = 14.9 g/dL 12.2-16.4 718-7) HCT (test code = 45.1 % 38.4-49.3 4544-3) MCV (test code = 79.4 fL 81.7-95.6 L 787-2) MCH (test code = 26.2 pg 26.1-32.7 785-6) MCHC (test code = 33.0 g/dL 31.2-35 786-4) RDW-SD (test code = 39.2 fL 38.5-51.6 77240-7) RDW-CV (test code = 13.7 % 12.1-15.4 788-0) PLT (test code = See_Comment [Automated 777-3) message] The sy stem which generated this result transmitted reference range : 150 - 328 10*3/ ?L. The reference r lorena was not used to interpret this result as normal/abnormal . MPV (test code = 12.3 fL 9.8-13 66998-3) NRBC/100 WBC (test See_Comment [Automat ed code = 7429780574) message] The system which generated this result transmitted reference range : 0.0 - 10.0 /100 WBCs. The refer ence range was not u sed to interpret th is result as normal/abnormal . NRBC x10^3 (test code <0.01 See_Comment [Auto mated = 9839483162) message] The s ystem which generated this result transmitted reference range : 10*3/?L. The reference range was not used to interpret this result as normal/abnormal . GRAN MAT (NEUT) % 56.7 % (test code = 770-8) IMM GRAN % (test code 0.30 % = 6266705058) LYMPH % (test code = 28.8 % 736-9) MONO % (test code = 14.1 % 5905-5) EOS % (test code = 0.0 % 713-8) BASO % (test code = 0.1 % 706-2) GRAN MAT x10^3(ANC) 3.82 10*3/uL 1.99-6.95 (test code = 5638099282) IMM GRAN x10^3 (test <0.03 0-0.06 code = 0505120750) LYMPH x10^3 (test code 1.94 10*3/uL 1.09-3.23 = 731-0) MONO x10^3 (test code 0.95 10*3/uL 0.36-1.02 = 742-7) EOS x10^3 (test code = <0.03 0.06-0.53 L 711-2) BASO x10^3 (test code <0.03 0.01-0.09 = 704-7) Lab Interpretation Abnormal (test code = 09488-2) [facility]. METABOLIC PANEL (49401)2020-03-27 19:49:00 Test Item Value Reference Range Interpretation Comments NA (test code = 136 mmol/L 135-145 0965955738) K (test code = 3.4 mmol/L 3.5-5 L 3420705305) CL (test code = 96 mmol/L 98-108 L 2223471681) CO2 TOTAL (test code = 30 mmol/L 23-31 2737712899) AGAP (test code = 2-16 0604468652) BUN (test code = 15 mg/dL 7-23 3893860509) GLUCOSE (test code = 101 mg/dL 70-110 1713833662) CREATININE (test code = 1.68 mg/dL 0.6-1.25 H 3194322849) TOTAL BILI (test code = 0.6 mg/dL 0.1-1.1 9300307166) CALCIUM (test code = 8.7 mg/dL 8.6-10.6 9526527804) T PROTEIN (test code = 7.4 g/dL 6.3-8.2 7202696983) ALBUMIN (test code = 4.2 g/dL 3.5-5 3431047374) ALK PHOS (test code = 49 U/L 34-122 2463735588) ALTv (test code = 41 U/L 5-50 1742-6) AST(SGOT) (test code = 47 U/L 13-40 H 3327116011) eGFR Calculation mL/min/1.73m2 (Non-) (test code = 2495232790) eGFR Calculation mL/min/1.73m2 () (test code = 5402222113) PAULIE (test code = PAULIE) Association of Glomerular Filtration Rate (GFR) and Staging of Kidney Disease* + --+ --+ ------+| GFR (mL/min/1.73 m2) ?| With Kidney Damage ?| ?Without Kidney Damage+ --------+ --------+ +| ?>90 ?| ?Stage one ?| ? Normal ?+ ---+ ---+ -------+| ?60-89 ?| ?Stage two ?| ? Decreased GFR ? + --+ --+ ------+| ?30-59 ?| ?Stage three ?| ? Stage three ? + --+ --+ ------+| ?15-29 ?| ?Stage four ? | ? Stage four ?+ ---+ ---+ -------+| ?<15 (or dialysis) ? ?| ?Stage five ? | ? Stage five ?+ ---+ ---+ -------+ *Each stage assumes the associated GFR level has been in effect for at least three months. ?Stages 1 to 5, with or without kidney disease, indicate chronic kidney disease. Notes: Determination of stages one and two (with eGFR >59mL/min/1.73 m2) requires estimation of kidney damage for at least three months as defined by structural or functional abnormalities of the kidney, manifested by either:Pathological abnormalities or Markers of kidney damage (including abnormalities in the composition of the blood or urine or abnormalities in imaging tests). Lab Interpretation Abnormal (test code = 54131-7) [facility] CenterLIPASE, [id number] 19:49:00 Test Item Value Reference Range Interpretation Comments LIPASE (test code = 8160193094) 218 U/L 0-220 Lab Interpretation (test code = Normal 04283-3) [facility]eraPTT2021-02-08 19:41:00 Test Item Value Reference Range Interpretation Comments APTT Patient (test See_Comment [Automat ed code = 3173-2) message] The system which generated this result transmitted reference range : 23 - 38 Seconds . The reference range was not used to interpr et this result as normal/abnormal . PAULIE (test code = PAULIE) The [facility] patient population mean normal value for aPTT is 30 seconds. Lab Interpretation Normal (test code = 25349-4) [facility] CenterPROTHROMBIN TIME / [id number] 19:39:00 Test Item Value Reference Range Interpretation Comments PROTIME PATIENT (test See_Comment [Auto mated message] code = 5964-2) The system wh ich generated this result transmitted ref erence range: 12.0 - 1 4.7 Seconds. The re ference range was not u sed to interpret this result as normal/abnor mal. INR (test code = 6301-6) Nor mal INR <1.1; Warfarin Therap eutic range 2.0 to 3. 0 or 2.5 to 3.5, dep ending upon the indica tions. Lab Interpretation (test Normal code = 94906-9) [facility] CenterCOVID-19 (ID NOW RAPID TESTING)2020-03-27 19:34:00 Test Item Value Reference Range Interpretation Comments SARS-CoV-2 Rapid ID NOW Positive Not Detected A (test code = 84690-0) PAULIE (test code = PAULIE) ID NOW COVID-19 Assay is an isothermal nucleic acid amplification test intended for the qualitative detection of nucleic acid from SARS-CoV-2 viral RNA in nasopharyngeal ([employer]) specimens. It is used under Emergency Use Authorization (EUA) by FDA. The limit of detection (LOD) of the assay is 125 Genome Equivalents/mL. A positive result is indicative of the presence of SARS-CoV-2 RNA. ?Clinical correlation with patient history and other diagnostic information is necessary to determine patient infection status. A negative (Not Detected) result does not preclude SARS-CoV-2 infection. In patients with clinical symptoms and other tests that are consistent with SARS-CoV-2 infection, negative results should be treated as presumptive negative and a new specimen should be tested with alternative PCR molecular test. Invalid: Please collect a new specimen for repeat patient testing if clinically indicated. Lab Interpretation Abnormal (test code = 56377-4) [facility] GLUCOSE (AUTOMATED)2019-09-22 17:21:00 Test Item Value Reference Range Interpretation Comments POCT GLU (test code = 8104766949) 413 mg/dL 70-110 H Lab Interpretation (test code = Abnormal 44722-3) [facility] GLUCOSE (AUTOMATED)2019-09-22 13:12:00 Test Item Value Reference Range Interpretation Comments POCT GLU (test code = 4112371144) 276 mg/dL 70-110 H Lab Interpretation (test code = Abnormal 68580-4) [facility] WITH [id number] 11:26:00 Test Item Value Reference Range Interpretation Comments WBC (test code = See_Comment [Automated 6690-2) message] The sy stem which generated this result transmitted reference range : 4.20 - 10.70 10*3/?L. The reference range was not used to interpret this result as normal/abnormal . RBC (test code = See_Comment [Automated 699-8) message] The sy stem which generated this result transmitted reference range : 4.26 - 5.52 10*6/?L. The reference range was not used to interpret this result as normal/abnormal . HGB (test code = 13.8 g/dL 12.2-16.4 718-7) HCT (test code = 41.6 % 38.4-49.3 4544-3) MCV (test code = 80.2 fL 81.7-95.6 L 787-2) MCH (test code = 26.6 pg 26.1-32.7 785-6) MCHC (test code = 33.2 g/dL 31.2-35 786-4) RDW-SD (test code = 40.0 fL 38.5-51.6 96670-8) RDW-CV (test code = 14.1 % 12.1-15.4 788-0) PLT (test code = See_Comment [Automated 777-3) message] The sy stem which generated this result transmitted reference range : 150 - 328 10*3/ ?L. The reference r lorena was not used to interpret this result as normal/abnormal . MPV (test code = 13.8 fL 9.8-13 H 81859-0) IPF % (test code = 16.4 % 1.2-10.7 H Platelet count 5589123769) measured by fluorescence method. NRBC/100 WBC (test See_Comment [Automat ed code = 7522659686) message] The system which generated this result transmitted reference range : 0.0 - 10.0 /100 WBCs. The refer ence range was not u sed to interpret th is result as normal/abnormal . NRBC x10^3 (test code <0.01 See_Comment [Auto mated = 8122816007) message] The s ystem which generated this result transmitted reference range : 10*3/?L. The reference range was not used to interpret this result as normal/abnormal . GRAN MAT (NEUT) % 38.2 % (test code = 770-8) IMM GRAN % (test code 0.20 % = 4609954573) LYMPH % (test code = 46.8 % 736-9) MONO % (test code = 11.6 % 5905-5) EOS % (test code = 2.9 % 713-8) BASO % (test code = 0.3 % 706-2) GRAN MAT x10^3(ANC) 2.20 10*3/uL 1.99-6.95 (test code = 0726545046) IMM GRAN x10^3 (test <0.03 0-0.06 code = 1215341100) LYMPH x10^3 (test code 2.70 10*3/uL 1.09-3.23 = 731-0) MONO x10^3 (test code 0.67 10*3/uL 0.36-1.02 = 742-7) EOS x10^3 (test code = 0.17 10*3/uL 0.06-0.53 711-2) BASO x10^3 (test code <0.03 0.01-0.09 = 704-7) Lab Interpretation Abnormal (test code = 77542-6) [facility]. METABOLIC PANEL (63612)2019-09-22 11:26:00 Test Item Value Reference Range Interpretation Comments NA (test code = 134 mmol/L 135-145 L 4061339653) K (test code = 3.5 mmol/L 3.5-5 4523721411) CL (test code = 101 mmol/L 98-108 1929162696) CO2 TOTAL (test code = 24 mmol/L 23-31 7160354710) AGAP (test code = 2-16 5256129182) BUN (test code = 11 mg/dL 7-23 9918187692) GLUCOSE (test code = 310 mg/dL 70-110 H 1360448523) CREATININE (test code = 0.91 mg/dL 0.6-1.25 4941485000) TOTAL BILI (test code = 0.5 mg/dL 0.1-1.1 4774390801) CALCIUM (test code = 9.0 mg/dL 8.6-10.6 2930444085) T PROTEIN (test code = 6.1 g/dL 6.3-8.2 L 6604795100) ALBUMIN (test code = 3.5 g/dL 3.5-5 4421596350) ALK PHOS (test code = 70 U/L 34-122 7132841591) ALTv (test code = 40 U/L 5-50 1742-6) AST(SGOT) (test code = 27 U/L 13-40 5693145591) eGFR Calculation mL/min/1.73m2 (Non-) (test code = 5309370228) eGFR Calculation mL/min/1.73m2 () (test code = 5392693078) PAULIE (test code = PAULIE) Association of Glomerular Filtration Rate (GFR) and Staging of Kidney Disease* + --+ --+ ------+| GFR (mL/min/1.73 m2) ?| With Kidney Damage ?| ?Without Kidney Damage+ --------+ --------+ +| ?>90 ?| ?Stage one ?| ? Normal ?+ ---+ ---+ -------+| ?60-89 ?| ?Stage two ?| ? Decreased GFR ? + --+ --+ ------+| ?30-59 ?| ?Stage three ?| ? Stage three ? + --+ --+ ------+| ?15-29 ?| ?Stage four ? | ? Stage four ?+ ---+ ---+ -------+| ?<15 (or dialysis) ? ?| ?Stage five ? | ? Stage five ?+ ---+ ---+ -------+ *Each stage assumes the associated GFR level has been in effect for at least three months. ?Stages 1 to 5, with or without kidney disease, indicate chronic kidney disease. Notes: Determination of stages one and two (with eGFR >59mL/min/1.73 m2) requires estimation of kidney damage for at least three months as defined by structural or functional abnormalities of the kidney, manifested by either:Pathological abnormalities or Markers of kidney damage (including abnormalities in the composition of the blood or urine or abnormalities in imaging tests). Lab Interpretation Abnormal (test code = 13239-7) [facility]PO[facility])2019-09-22 01:47:00 Test Item Value Reference Range Interpretation Comments POCT GLU (test code = 8549108620) 387 mg/dL 70-110 H Lab Interpretation (test code = Abnormal 22536-9) [facility] CenterTROPONIN [id number] 22:32:00 Test Item Value Reference Range Interpretation Comments TROPONIN I (test <0.012 See_Comment [Automated code = 5348208870) message] The system which generated this result transmitted reference range : <=0.034 ng/mL. The reference range was not used to interpr et this result as normal/abnormal . PAULIE (test code = Equal or Less than PAULIE) 0.034 ng/ml---Normal ?Note: Cardiac troponin begins to rise 3-4 hours after the onset of ischemia. Repeat in 4-6 hours if the sample was drawn within 3-4 hours of the onset of the symptom and found normal. Between 0.035 and 0.120 ng/mL--- Borderline. Questionable myocardial injury or necrosis ? ?Note: Serial measurement may be necessary to confirm or exclude the diagnosis of myocardial injury or necrosis; Clinical correlation (symptoms, EKGs, imaging studies, and others) required; Repeat in 4-6 hours if clinically indicated. ? Equal or Higher than 0.121 ng/mL---Abnormal. Myocardial Injury or Necrosis Likely ? Biotin has been reported to cause a negative bias, interpret results relative to patient's use of biotin. ? Lab Interpretation Normal (test code = 11347-4) [facility] CenterEBV-MONONUCLEOSIS [id number] 22:25:00 Test Item Value Reference Range Interpretation Comments EBV Mononucleosis Screen (test code Negative Negative = 1205856716) Lab Interpretation (test code = Normal 28711-6) [facility] [id number] 22:13:00 Test Item Value Reference Range Interpretation Comments Streptococcus pyogenes (group A) Negative Negative antigen (test code = 71958-0) Lab Interpretation (test code = Normal 69935-3) [facility] GLUCOSE (AUTOMATED)2019-09-21 21:12:00 Test Item Value Reference Range Interpretation Comments POCT GLU (test code = 8189641939) 390 mg/dL 70-110 H Lab Interpretation (test code = Abnormal 69075-2) [facility] GLUCOSE (AUTOMATED)2019-09-21 17:30:00 Test Item Value Reference Range Interpretation Comments POCT GLU (test code = 4368570390) 369 mg/dL 70-110 H Lab Interpretation (test code = Abnormal 81436-1) [facility] GLUCOSE (AUTOMATED)2019-09-21 13:21:00 Test Item Value Reference Range Interpretation Comments POCT GLU (test code = 2790753869) 394 mg/dL 70-110 H Lab Interpretation (test code = Abnormal 02635-4) [facility]TR[facility] [id number] 12:22:00 Test Item Value Reference Range Interpretation Comments TROPONIN I (test <0.012 See_Comment [Automated code = 2737348893) message] The system which generated this result transmitted reference range : <=0.034 ng/mL. The reference range was not used to interpr et this result as normal/abnormal . PAULIE (test code = Equal or Less than PAULIE) 0.034 ng/ml---Normal ?Note: Cardiac troponin begins to rise 3-4 hours after the onset of ischemia. Repeat in 4-6 hours if the sample was drawn within 3-4 hours of the onset of the symptom and found normal. Between 0.035 and 0.120 ng/mL--- Borderline. Questionable myocardial injury or necrosis ? ?Note: Serial measurement may be necessary to confirm or exclude the diagnosis of myocardial injury or necrosis; Clinical correlation (symptoms, EKGs, imaging studies, and others) required; Repeat in 4-6 hours if clinically indicated. ? Equal or Higher than 0.121 ng/mL---Abnormal. Myocardial Injury or Necrosis Likely ? Biotin has been reported to cause a negative bias, interpret results relative to patient's use of biotin. ? Lab Interpretation Normal (test code = 10259-2) [facility]cos[facility] Hemoglobin (A1C)2019-09-21 07:33:00 Test Item Value Reference Range Interpretation Comments HGB A1C (test code = 12.1 % 4-6 H 4548-4) PAULIE (test code = PAULIE) %A1C (NGSP) Interpretation (ADA)4.8-5.6 ? ? Normal or (Non-Diabetic Range)5.7-6.4 ? ? Increased Risk (Pre-Diabetic)>6.5 ?Diabetes Indicated Lab Interpretation Abnormal (test code = 43892-8) [facility])2019-09-21 06:54:00 Test Item Value Reference Range Interpretation Comments POCT GLU (test code = 5045843435) 364 mg/dL 70-110 H Lab Interpretation (test code = Abnormal 27277-1) [facility] CenterUS GALL [id number] 03:58:29 Suboptimal evaluation due to patient's body habitus. Suspected cholelithiasis without sonographic evidence of acutecholecystitis. Diffuse hepatic steatosis. Preliminary Report Dictated by Resident: Shaylee Cardozo MD., have reviewed this study and agree with the abovereport. RIGHT UPPER QUADRANT ULTRASOUND HISTORY: RUQ pain COMPARISON: None. NOTE: The examination was performed by the radiologic technologist mammogram. I wasnot directly involved in the acquisition of the images, which weresubsequently submitted to PACS for my interpretation. FINDINGS: Patient's body habitus degrades imagequality and limits evaluation. LIVER: The liver is diffusely hyperechoic, normal size and contour,measures 15.7 cm. No focal hepatic lesion. ?Normal hepatopetal ?flow withinthe main portal vein. GALLBLADDER: The gallbladder is physiologically distended withoutpericholecystic fluid or gallbladder distention. However, an echogenicfocus is seen within the gallbladder without definitive posterior acousticshadowing, which raises the possibility of a layering stone. Thegallbladder wall measures 0.3 cm. No sonographic Marin's sign. The commonbile duct measures 0.5 cm. PANCREAS: Incompletely visualized due to overlying bowel gas. RIGHT KIDNEY: The visualized portion of the right kidney is unremarkable.[facility], Radiant Results Inft User - 09/20/2019 10:59 PM CDTRIGHT UPPER QUADRANT ULTRASOUND HISTORY: RUQ pain COMPARISON: None.NOTE: The examination was performed by the radiologic technologist mammogram. I wasnot directly involved in the acquisition of the images, which weresubsequently submitted to PACS for my interpretation.FINDINGS: Patient's body habitus degrades image quality and limits evaluation. LIVER: The liver is diffusely hyperechoic, normal size and contour,measures 15.7 cm. No focal hepatic lesion. Normal hepatopetal flow withinthe main portal vein. GALLBLADDER: The gallbladder is physiologically distended withoutpericholecystic fluid or gallbladder distention. However, an echogenicfocus is seen within the gallbladder without definitive posterior acousticshadowing, which raises the possibilityof a layering stone. Thegallbladder wall measures 0.3 cm. No sonographic Marin's sign. The commonbil e duct measures 0.5 cm.PANCREAS: Incompletely visualized due to overlying bowel gas.RIGHT KIDNEY: The visualized portion of the right kidney is unremarkable.IMPRESSIONSuboptimal evaluation due to patient's body habitus.Suspected cholelithiasis without sonographic evidence of acutecholecystitis.Diffusehepatic steatosis. Preliminary Report Dictated by Resident: Shaylee Ugarte MD., have reviewed this study and agree with the abovereport.[facility] GLUCOSE (AUTOMATED)2019-09-21 03:44:00 Test Item Value Reference Range Interpretation Comments POCT GLU (test code = 3742599638) 355 mg/dL 70-110 H Lab Interpretation (test code = Abnormal 45917-6) [facility] CenterCOVID-19 (ID NOW RAPID TESTING)2019-09-21 01:51:00 Test Item Value Reference Range Interpretation Comments SARS-CoV-2 Rapid ID NOW Not Detected Not Detected (test code = 37026-0) PAULIE (test code = PAULIE) ID NOW COVID-19 Assay is an isothermal nucleic acid amplification test intended for the qualitative detection of nucleic acid from SARS-CoV-2 viral RNA in nasopharyngeal ([employer]) specimens. It is used under Emergency Use Authorization (EUA) by FDA. The limit of detection (LOD) of the assay is 125 Genome Equivalents/mL. A positive result is indicative of the presence of SARS-CoV-2 RNA. ?Clinical correlation with patient history and other diagnostic information is necessary to determine patient infection status. A negative (Not Detected) result does not preclude SARS-CoV-2 infection. In patients with clinical symptoms and other tests that are consistent with SARS-CoV-2 infection, negative results should be treated as presumptive negative and a new specimen should be tested with alternative PCR molecular test. Invalid: Please collect a new specimen for repeat patient testing if clinically indicated. Lab Interpretation Normal (test code = 48470-2) [facility] CenterTroponin [id number] 01:41:00 Test Item Value Reference Range Interpretation Comments TROPONIN I (test <0.012 See_Comment [Automated code = 3271613943) message] The system which generated this result transmitted reference range : <=0.034 ng/mL. The reference range was not used to interpr et this result as normal/abnormal . PAULIE (test code = Equal or Less than PAULIE) 0.034 ng/ml---Normal ?Note: Cardiac troponin begins to rise 3-4 hours after the onset of ischemia. Repeat in 4-6 hours if the sample was drawn within 3-4 hours of the onset of the symptom and found normal. Between 0.035 and 0.120 ng/mL--- Borderline. Questionable myocardial injury or necrosis ? ?Note: Serial measurement may be necessary to confirm or exclude the diagnosis of myocardial injury or necrosis; Clinical correlation (symptoms, EKGs, imaging studies, and others) required; Repeat in 4-6 hours if clinically indicated. ? Equal or Higher than 0.121 ng/mL---Abnormal. Myocardial Injury or Necrosis Likely ? Biotin has been reported to cause a negative bias, interpret results relative to patient's use of biotin. ? Lab Interpretation Normal (test code = 79476-4) [facility] CenterBasaint [facility] [place] Metabolic Panel (NA, K, CL, CO2, GLUCOSE, BUN, CREATININE, CA)2019-09-21 01:37:00 Test Item Value Reference Range Interpretation Comments NA (test code = 132 mmol/L 135-145 L 6733283408) K (test code = 4.1 mmol/L 3.5-5 7882504352) CL (test code = 95 mmol/L 98-108 L 0859806250) CO2 TOTAL (test code = 23 mmol/L 23-31 8953875352) AGAP (test code = 2-16 7590548738) BUN (test code = 15 mg/dL 7-23 5857517154) GLUCOSE (test code = 526 mg/dL 70-110 HH 9004868950) CREATININE (test code = 1.13 mg/dL 0.6-1.25 6783312027) CALCIUM (test code = 9.9 mg/dL 8.6-10.6 3869187693) eGFR Calculation mL/min/1.73m2 (Non-) (test code = 8867167354) eGFR Calculation mL/min/1.73m2 () (test code = 3834438817) PAULIE (test code = PAULIE) Association of Glomerular Filtration Rate (GFR) and Staging of Kidney Disease* + --+ --+ ------+| GFR (mL/min/1.73 m2) ?| With Kidney Damage ?| ?Without Kidney Damage+ --------+ --------+ +| ?>90 ?| ?Stage one ?| ? Normal ?+ ---+ ---+ -------+| ?60-89 ?| ?Stage two ?| ? Decreased GFR ? + --+ --+ ------+| ?30-59 ?| ?Stage three ?| ? Stage three ? + --+ --+ ------+| ?15-29 ?| ?Stage four ? | ? Stage four ?+ ---+ ---+ -------+| ?<15 (or dialysis) ? ?| ?Stage five ? | ? Stage five ?+ ---+ ---+ -------+ *Each stage assumes the associated GFR level has been in effect for at least three months. ?Stages 1 to 5, with or without kidney disease, indicate chronic kidney disease. Notes: Determination of stages one and two (with eGFR >59mL/min/1.73 m2) requires estimation of kidney damage for at least three months as defined by structural or functional abnormalities of the kidney, manifested by either:Pathological abnormalities or Markers of kidney damage (including abnormalities in the composition of the blood or urine or abnormalities in imaging tests). Lab Interpretation Abnormal (test code = 83735-2) [facility] CenterD-[id number] 01:37:00 Test Item Value Reference Interpretation Comments Range D-DIMER (test code = See_Comment [Autom ated 9930668204) message] The system which generated this result transmitted reference range : <0.41 ?g/mL (FEU). The reference range was not used to interpret this result as normal/abnormal . PAULIE (test code = This test may be PAULIE) used in conjunction with a clinical pretest probability (PTP) assessment model to exclude venous thromboembolism (VTE) in patients suspected of deep venous thrombosis (DVT) and pulmonary embolism (PE) A D-Dimer value less than 0.50 ?g/ml (FEU) has a negative predicative value of 96 to 100% (95% CI)and 97 to 100% (95% CI) as an aid in the diagnosis of deep vein thrombosis (DVT) and pulmonary embolism when there is low or moderate pretest probability of PE or DVT. D-Dimer values are expressed in initial fibrinogen equivalent units (FEU)" The assay results should be used with other information, including the clinical context, in forming a diagnosis. Lab Interpretation Normal (test code = 51428-5) [facility] CenterProthrombin Time (PT) / [id number] 01:33:00 Test Item Value Reference Range Interpretation Comments PROTIME PATIENT (test See_Comment [Auto mated message] code = 5964-2) The system [employer] generated this result transmitted ref erence range: 12.0 - 1 4.7 Seconds. The re ference range was not u sed to interpret this result as normal/abnor mal. INR (test code = 6301-6) Nor mal INR <1.1; Warfarin Therap eutic range 2.0 to 3. 0 or 2.5 to 3.5, dep ending upon the indica tions. Lab Interpretation (test Normal code = 42379-5) [facility] CenterHepatic Function Panel (ALB, T.PRO, BILI T, BU/BC, ALT, AST, ALK PHOS)2019-09-21 01:30:00 Test Item Value Reference Range Interpretation Comments TOTAL BILI (test code = 4116687483) 0.5 mg/dL 0.1-1.1 BILI UNCON (test code = 8064864872) 0.5 mg/dL 0.1-1.1 BILI CONJ (test code = 7747236156) 0.0 mg/dL 0-0.3 T PROTEIN (test code = 4511481040) 7.1 g/dL 6.3-8.2 ALBUMIN (test code = 1634317426) 4.2 g/dL 3.5-5 ALK PHOS (test code = 9766742197) 88 U/L 34-122 ALTv (test code = 1742-6) 44 U/L 5-50 AST(SGOT) (test code = 2393358875) 37 U/L 13-40 Lab Interpretation (test code = Normal 12549-5) [facility] CenterLIPASE2020-08-04 01:30:00 Test Item Value Reference Range Interpretation Comments LIPASE (test code = 0946219730) 175 U/L 0-220 Lab Interpretation (test code = Normal 39166-9) [facility] CenteraPTT2020-08-04 01:29:00 Test Item Value Reference Range Interpretation Comments APTT Patient (test See_Comment L [Automat ed code = 3173-2) message] The system which generated this result transmitted reference range : 23 - 38 Seconds . The reference range was not used to interpr et this result as normal/abnormal . PAULIE (test code = PAULIE) The [facility] patient population mean normal value for aPTT is 30 seconds. Lab Interpretation Abnormal (test code = 59030-6) [facility] CenterUrinalysis2020-08-04 01:25:00 Test Item Value Reference Range Interpretation Comments APPEARANCE (test code = Clear Clear 1334937247) COLOR (test code = Straw Yellow A 9430251109) PH (test code = 4.8-8.0 5654632308) SP GRAVITY (test code = 1.003-1.030 6660774212) GLU U QUAL (test code = 500 mg/dL Normal A 6937446123) BLOOD (test code = 1+ Negative A 0932420983) KETONES (test code = 80 mg/dL Negative A 5682982701) PROTEIN (test code = 100 mg/dL Negative A 2887-8) UROBILIN (test code = Normal Normal 2360475403) BILIRUBIN (test code = Negative Negative 0283216485) NITRITE (test code = Negative Negative 7947197077) LEUK LACI (test code = Negative Negative 0700426471) RBC/HPF (test code = See_Comment [Autom ated message] 5754422230) The system [employer] generated this result transmit jordon reference range : 0 - 3 HPF. The refe rence range was not u sed to interpret th is result as normal/abnormal . WBC/HPF (test code = <1 See_Comment [Autom ated message] 4851060272) The system [employer] generated this result transmit jordon reference range : 0 - 5 HPF. The refe rence range was not u sed to interpret th is result as normal/abnormal . BACTERIA (test code = Negative Negative 1199843283) MUCOUS (test code = Slight Negative LPF A 7637079490) Lab Interpretation (test Abnormal code = 85463-8) [facility] CenterXR CHEST 1 VW [id number] 01:22:15 No acute intrathoracic abnormality, specifically no detectable radiographicfindings to suggest COVID-19 pneumonia. Disclaimer: Generally, the findings on chest imaging in COVID-19 are notspecific, and overlap with other infections, including influenza, H1N1,SARS and MERS.According to the Centers forDisease Control (CDC) and recent statement ofthe [employer], viral testing remains the only specificmethod of diagnosis. Confirmation with the viral test is required, even ifradiologic findings are suggestive of COVID-[address]. Preliminary Report Dictated by Resident: Shaylee Cardozo MD., have reviewed this study and agree with the abovereport. PROCEDURE: CHEST, SINGLE VIEW . CLINICAL INDICATION: sob COMPARISON: Chest x- ray dated 02/05/2019. FINDINGS:The lungs are clear. No pleural effusion or pneumothorax is seen. The cardiomediastinalsilhouette isnormal. No acute bony abnormality. [facility], Radiant Results Inft User - 09/20/2019 8:23 PM CDTPROCEDURE: CHEST, SINGLE VIEW .CLINICAL INDICATION: sob COMPARISON: Chest x-ray dated 02/05/2019.FINDINGS:Thelungs are clear.No pleural effusion or pneumothorax is seen. The cardiomediastinalsilhouette is normal.No acute bony abnormality.IMPRESSIONNo acute intrathoracic abnormality, specifically no detectableradiographicfindings to suggest COVID-19 pneumonia.Disclaimer: Generally, the findings on chest imaging in COVID-19 are notspecific, and overlap with other infections, including influenza, H1N1,SARS and MERS.According to the Centers for Disease Control (CDC) and recent statement ofthe [employer], viral testing remains the only specificmethod of diagnosis. Confirmation with the viral test is required, even ifradiologic findings are suggestive of COVID-[address]Preliminary Report Dictated by Resident: Jose Antonio Mary, Shaylee Manning MD., have reviewed this study and agree with the abovereport.[facility] with [id number] 01:22:00 Test Item Value Reference Range Interpretation Comments WBC (test code = See_Comment [Automated 2990-2) message] The sy stem which generated this result transmitted reference range : 4.20 - 10.70 10*3/?L. The reference range was not used to interpret this result as normal/abnormal . RBC (test code = See_Comment H [Automated 639-8) message] The sy stem which generated this result transmitted reference range : 4.26 - 5.52 10*6/?L. The reference range was not used to interpret this result as normal/abnormal . HGB (test code = 14.9 g/dL 12.2-16.4 718-7) HCT (test code = 45.0 % 38.4-49.3 4544-3) MCV (test code = 79.8 fL 81.7-95.6 L 787-2) MCH (test code = 26.4 pg 26.1-32.7 785-6) MCHC (test code = 33.1 g/dL 31.2-35 786-4) RDW-SD (test code = 39.2 fL 38.5-51.6 77978-7) RDW-CV (test code = 13.8 % 12.1-15.4 788-0) PLT (test code = See_Comment [Automated 777-3) message] The sy stem which generated this result transmitted reference range : 150 - 328 10*3/ ?L. The reference r lorena was not used to interpret this result as normal/abnormal . MPV (test code = 13.4 fL 9.8-13 H 62870-6) IPF % (test code = 16.6 % 1.2-10.7 H Platelet count 4520951109) measured by fluorescence method. NRBC/100 WBC (test See_Comment [Automat ed code = 8847220058) message] The system which generated this result transmitted reference range : 0.0 - 10.0 /100 WBCs. The refer ence range was not u sed to interpret th is result as normal/abnormal . NRBC x10^3 (test code <0.01 See_Comment [Auto mated = 9454724807) message] The s ystem which generated this result transmitted reference range : 10*3/?L. The reference range was not used to interpret this result as normal/abnormal . GRAN MAT (NEUT) % 43.7 % (test code = 770-8) IMM GRAN % (test code 0.50 % = 1349799397) LYMPH % (test code = 43.1 % 736-9) MONO % (test code = 10.4 % 5905-5) EOS % (test code = 1.8 % 713-8) BASO % (test code = 0.5 % 706-2) GRAN MAT x10^3(ANC) 2.64 10*3/uL 1.99-6.95 (test code = 5651676638) IMM GRAN x10^3 (test 0.03 10*3/uL 0-0.06 code = 2973713093) LYMPH x10^3 (test code 2.61 10*3/uL 1.09-3.23 = 731-0) MONO x10^3 (test code 0.63 10*3/uL 0.36-1.02 = 742-7) EOS x10^3 (test code = 0.11 10*3/uL 0.06-0.53 711-2) BASO x10^3 (test code 0.03 10*3/uL 0.01-0.09 = 704-7) Lab Interpretation Abnormal (test code = 46454-7) [facility]
[2021-01-30] MEDS ORDERED: NA CHLORIDE 0.9% 500 ML ONE (10:38)
[2021-01-30 10:52] LABS: Absolute Lymphocytes (CBC) 1.9 K/uL (0.7-4.9); Basophils % 0.7 % (0-1.3); Hematocrit 45.6 % (39.6-49.0); Lymphocytes % 38.1 % (15.3-44.8); MPV 10.4 fL (7.6-11.3); RBC Red Blood Cell Count 5.69 M/uL (4.33-5.43)
[2021-01-30 10:57] LABS: Protime INR 1.15
[2021-01-30 11:10] LABS: ALT/SGPT 57 U/L (12-78); AST/SGOT 26 U/L (15-37); Albumin 3.8 g/dL (3.4-5.0); Alkaline Phosphatase 56 U/L (45-117); BUN Blood Urea Nitrogen 12 mg/dL (7-18); Bicarbonate 27 mmol/L (21-32); Bilirubin Direct 0.3 mg/dL (0-0.2); Bilirubin Total 0.7 mg/dL (0.2-1.0); Glucose Level 80 mg/dL (74-106); NT PRO-BNP 14 pg/mL (<125); Potassium 3.3 mmol/L (3.5-5.1); Protein, Total 7.9 g/dL (6.4-8.2); Sodium Level 142 mmol/L (136-145); Troponin (Emerg Dept Use Only) < 0.02 ng/mL (0.0-0.045)
[2021-01-30 11:42] LABS: Urine Blood Trace-intact (Negative); Urine Glucose Negative (Negative); Urine Protein 3+ (Negative); Urine Specific Gravity >=1.030 (1.005-1.030); Urine pH 5.5 (5.0-7.0)
--- NOTE | 2021-01-30 11:43 | RAD REPORT ---
EXAM DESCRIPTION: CT - Abdomen Pelvis W Contrast - 01/30/2021 11:28 am CLINICAL HISTORY: Abd pain;Constipation COMPARISON: No comparisons TECHNIQUE: Biphasic, helical CT imaging of the abdomen and pelvis was performed following 100 ml non -ionic IV contrast. No oral contrast administered. All CT scans are performed using dose optimization technique as appropriate and may include automated exposure control or mA/KV adjustment according to patient size. FINDINGS: No suspicious findings in the lung bases. Fatty infiltration present in a normal size liver. No focal liver parenchymal lesion. No portal vein abnormality. Pancreas and spleen show no suspicious findings. Gallbladder and biliary tree are also w ithout suspicious finding. Symmetric renal function is seen with no hydronephrosis or suspicious renal mass. No pyelonephritis o r acute parenchymal process. Urinary bladder is fully contracted limiting assessment. No bladder calc adam seen. Prostate gland and seminal vesicles are normal range. No adrenal abnormalities. Gastric sleeve surgical changes are present with no acute gastric finding. Small bowel loops are unre markable. The appendix is normal. No acute colon finding. No abnormal colon stool volume. There is ve ry little stool present in the colon. No free air, free fluid or inflammatory stranding. No mass or bulky lymphadenopathy. Small fat onl y umbilical hernia is present with no acute component. No suspicious bony findings. IMPRESSION: Contrast enhanced CT abdomen and pelvis showing no acute or emergent finding. Patient has little stool in the colon. No acute GI finding. Fatty infiltration of the liver.
[2021-01-30 11:53] LABS: Urine White Blood Cell Casts 0-5 /LPF (NONE SEEN)
[2021-01-30 11:54] LABS: Urine Bacteria <20 /HPF (NONE SEEN); Urine Mucus SLIGHT /HPF (NONE SEEN); Urine RBC <5 /HPF (NONE SEEN)
[2021-01-30] MEDS ORDERED: MORPHINE 4 MG/ML SYR ONE (12:46)
[2021-01-30] MEDS ORDERED: NA CHLORIDE 0.9% 1,000 ML ONE (12:46)
[2021-01-30] MEDS ORDERED: ONDANSETRON 4 MG/2 ML VIAL ONE (12:46)
--- NOTE | 2021-01-30 12:48 | RAD REPORT ---
EXAM DESCRIPTION: RAD - Chest Single View - 01/30/2021 12:35 pm CLINICAL HISTORY: Chest pain;Dyspnea Chest pain. COMPARISON: Chest Single View dated 07/19/2020; CHEST SINGLE VIEW dated 02/27/2015; CHEST SINGLE VIEW d ated 07/05/2014; CHEST SINGLE VIEW dated 07/03/2012 FINDINGS: Portable technique limits examination quality. Interstitial lung markings are mildly prominent, nonspecific but may indicate viral infection or mild interstitial pulmonary edema. The heart is normal in size. No displaced fractures.
--- NOTE | 2021-01-30 13:47 | EDPHYS ---
Physician Documentation [facility] Name: Huber Field Age: 30 yrs Sex: Male : 1990 Arrival Date: 01/30/2021 Time: 09:27 Bed 7 Private MD: ED Physician Santiago Huitron HPI: 01/30 10:38 This 30 yrs old Black Male presents to ER via Ambulatory with complaints of Chest Pain, rn nausea, abd pain, constipation, Dark Urine. 10:39 The patient presents with abdominal pain in the epigastric area, in the upper abdomen. rn The symptoms radiate to chest. Associated signs and symptoms: Pertinent positives: anorexia, constipation, Pertinent negatives: blood in stools. The symptoms are described as crampy. Modifying factors: The symptoms are alleviated by nothing, the symptoms are aggravated by touching the area. Severity of pain: At its worst the pain was mild in the emergency department the pain is unchanged. The patient has not experienced similar symptoms in the past. The patient has been recently seen by a physician:. Patient reports had gastric sleeve surgery 1 month ago. Since surgery has been feeling nausea, upper abdominal pain, gagging, feels like cannot eat or drink water. Also reports constipation with no bowel movement for 2 weeks. No fever. Also reports left-sided chest pain and mild shortness of breath. Reports chronic hypertension that has been difficult to control.. Historical: - Allergies: 11:42 Fish Containing Products; vg1 - Immunization history:: Adult Immunizations up to date. - Social history:: Smoking status: Patient denies any tobacco usage or history of. - Family history:: not pertinent. - Hospitalizations: : No recent hospitalization is reported. ROS: 10:39 Constitutional: Negative for fever, chills, and weight loss, Eyes: Negative for injury, rn pain, redness, and discharge, Neck: Negative for injury, pain, and swelling, Cardiovascular: Negative for palpitations, and edema Respiratory: Negative for wheezing, and pleuritic chest pain Abdomen/GI: Negative for vomiting, diarrhea, and constipation, Back: Negative for injury and pain, : Negative for injury, bleeding, discharge, and swelling, MS/Extremity: Negative for injury and deformity, Skin: Negative for injury, rash, and discoloration, Neuro: Negative for headache, weakness, numbness, tingling, and seizure. Exam: 10:39 Constitutional: Obese male, ambulatory to room without difficulty or distress rn Head/Face: Normocephalic, atraumatic. Eyes: Periorbital areas with no swelling, redness, or edema. Cardiovascular: Regular rate and rhythm. No pulse deficits. Respiratory: Mild tachypnea Abdomen/GI: Soft, mild epigastric tenderness, no masses, no peritoneal signs or guarding. Skin: Warm, dry MS/ Extremity: Pulses equal, no cyanosis. Neuro: Awake and alert, GCS 15 Vital Signs: 09:48 BP 165 / 107; Pulse 69; Resp 17; Temp 97.7(T); Pulse Ox 99% on R/A; Weight 171 kg; 6 Height 6 ft. 2 in. (187.96 cm); Pain 2/10; 10:30 BP 154 / 92; Pulse 69; Resp 20; Pulse Ox 99% ; vg1 11:42 BP 152 / 90; Pulse 61; Resp 18; Pulse Ox 99% ; vg1 12:39 BP 164 / 95; Pulse 62; Resp 18; Pulse Ox 98% ; vg1 14:11 BP 143 / 70; Pulse 63; Resp 20; Pulse Ox 98% ; vg1 09:48 Body Mass Index 48.40 (171.00 kg, 187.96 cm) [facility] MDM: 10:27 Patient medically screened. rn 13:43 Differential diagnosis: bowel obstruction, diverticulitis, gastritis, gastroesophageal rn reflux disease, non-specific abd pain, pancreatitis, Peptic Ulcer Disease, Ureterolithiasis, urinary tract infection. Data reviewed: vital signs, nurses notes, lab test result(s), radiologic studies, CT scan, plain films, and as a result, I will discharge patient. Counseling: I had a detailed discussion with the patient and/or guardian regarding: the historical points, exam findings, and any diagnostic results supporting the discharge/admit diagnosis, lab results, radiology results, the need for outpatient follow up, to return to the emergency department if symptoms worsen or persist or if there are any questions or concerns that arise at home. Response to treatment: the patient's symptoms have mildly improved after treatment, and as a result, I will discharge patient. Special discussion: I discussed with the patient/guardian in detail that at this point there is no indication for admission to the hospital. It is understood, however, that if the symptoms persist or worsen the patient needs to return immediately for re-evaluation. Based on the history and exam findings, there is no indication for further emergent testing or inpatient evaluation. ED course: Patient improved, sleeping comfortably. No acute findings and CT abdomen and pelvis or chest x-ray. Patient with dehydration, evident by hemoconcentration and 2+ ketones in the urine. Will discharge home with instructions for hydration and return precautions.. 01/30 10:35 Order name: Basic Metabolic Panel rn 01/30 10:35 Order name: CBC with Diff; Complete Time: 12:41 rn 01/30 10:35 Order name: LFT's; Complete Time: 12:41 rn 01/30 10:35 Order name: NT PRO-BNP; Complete Time: 12:41 rn 01/30 10:35 Order name: PT-INR; Complete Time: 12:41 rn 01/30 10:35 Order name: Troponin (emerg Dept Use Only); Complete Time: 12:41 rn 01/30 10:35 Order name: XRAY Chest (1 view); Complete Time: 12:52 rn 01/30 10:35 Order name: CT Abd/Pelvis - IV Contrast Only; Complete Time: 12:41 rn 01/30 10:35 Order name: Urine Microscopic Only; Complete Time: 12:41 rn 01/30 10:35 Order name: Basic Metabolic Panel; Complete Time: 12:41 EDMS 01/30 11:42 Order name: Urine Dipstick-Ancillary; Complete Time: 12:41 EDMS 01/30 10:35 Order name: EKG; Complete Time: 10:36 rn 01/30 10:35 Order name: Cardiac monitoring; Complete Time: 10:46 rn 01/30 10:35 Order name: EKG - Nurse/Tech; Complete Time: 10:46 rn 01/30 10:35 Order name: IV Saline Lock; Complete Time: 10:46 rn 01/30 10:35 Order name: Labs collected and sent; Complete Time: 10:46 rn 01/30 10:35 Order name: O2 Per Protocol; Complete Time: 10:46 rn 01/30 10:35 Order name: O2 Sat Monitoring; Complete Time: 10:46 rn 01/30 10:35 Order name: Urine Dipstick-Ancillary (obtain specimen); Complete Time: 11:42 rn Administered Medications: 10:41 Drug: NS 0.9% 500 ml Route: IV; Rate: bolus; Site: left antecubital; vg1 12:44 Follow up: IV Status: Completed infusion; IV Intake: 500ml vg1 12:50 Drug: NS 0.9% 1000 ml Route: IV; Rate: 1000 ml; Site: left antecubital; vg1 14:10 Follow up: IV Status: Completed infusion; IV Intake: 1000ml vg1 12:50 Drug: Zofran (Ondansetron) 4 mg Route: IVP; Site: left antecubital; vg1 14:11 Follow up: Response: No adverse reaction; Marked relief of symptoms vg1 12:53 Drug: morphine 4 mg Route: IVP; Site: left antecubital; vg1 14:10 Follow up: Response: No adverse reaction; Marked relief of symptoms vg1 Disposition Summary: 01/30/21 13:46 Discharge Ordered Location: Home rn Problem: new rn Symptoms: have improved rn Condition: Stable rn Diagnosis - Dehydration rn - Nausea rn Followup: rn - With: Private Physician - When: As needed - Reason: Recheck today's complaints, Re-evaluation by your physician Discharge Instructions: - Discharge Summary Sheet rn - Dehydration, Adult rn - Nausea, Adult rn Forms: - Medication Reconciliation Form rn - Thank You Letter rn - Antibiotic rn admit - Prescription Opioid Use rn - Work release form [email or web address] Signatures: Dispatcher [employer] Santiago Hernandez MD MD rn Garcia, Victoria RN RN [email or web address] Althea Katz RN RN [facility] Corrections: (The following items were deleted from the chart) 09:49 09:49 PMHx: Hypertension; [place] [address] 09:49 09:49 PMHx: Hyperlipidemia; [place] [address] 09:49 09:49 PMHx: Asthma; [place] [address] 09:49 09:49 PMHx: Diabetes - NIDDM; [place] [address]
--- NOTE | 2021-01-30 13:47 | ER ---
Nurse's Notes [facility] Name: Huber Field Age: 30 yrs Sex: Male : 1990 Arrival Date: 01/30/2021 Time: 09:27 Bed 7 Private MD: Diagnosis: Dehydration;Nausea Presentation: 01/30 09:45 Chief complaint: Patient states: reporting feeling weak and headache and dark urine x jh6 1wk. states that he has hx of htn and had agastric sleeve placed 12/31/20. Coronavirus screen: Vaccine status: Patient reports being unvaccinated. 09:45 Method Of Arrival: Ambulatory [facility] 09:48 Ebola Screen: No symptoms or risks identified at this time. Initial Sepsis Screen: Does jh6 the patient meet any 2 criteria? No. Patient's initial sepsis screen is negative. Does the patient have a suspected source of infection? No. Patient's initial sepsis screen is negative. Risk Assessment: Do you want to hurt yourself or someone else? Patient reports no desire to harm self or others. Onset of symptoms was January 23, 2021. 09:48 Acuity: DARCY 3 6 Triage Assessment: 09:49 General: Appears in no apparent distress. Behavior is calm, cooperative. Pain: 6 Complains of pain in abdomen. Cardiovascular: No deficits noted. Historical: - Allergies: 11:42 Fish Containing Products; vg1 - Immunization history:: Adult Immunizations up to date. - Social history:: Smoking status: Patient denies any tobacco usage or history of. - Family history:: not pertinent. - Hospitalizations: : No recent hospitalization is reported. Screenin:31 Abuse screen: Denies threats or abuse. Nutritional screening: Has had N/V for 3 or more vg1 days. Tuberculosis screening: No symptoms or risk factors identified. Fall Risk No fall in past 12 months (0 pts). No secondary diagnosis (0 pts). IV access (20 points). Ambulatory Aid- None/Bed Rest/Nurse Assist (0 pts). Gait- Normal/Bed Rest/Wheelchair (0 pts) Mental Status- Oriented to own ability (0 pts). Total Sanchez Fall Scale indicates No Risk (0-24 pts). Assessment: 10:27 General: Appears in no apparent distress. uncomfortable, Behavior is calm, cooperative. vg1 Pain: Complains of pain in chest, right upper quadrant and left upper quadrant Pain radiates to neck Pain currently is 5 out of 10 on a pain scale. at worst was 10 out of 10 on a pain scale. Quality of pain is described as sharp, Pain began x 1 week. Neuro: Level of Consciousness is awake, alert, obeys commands, Oriented to person, place, time, situation. Cardiovascular: Patient's skin is warm and dry. Respiratory: Airway is patent Respiratory effort is even, unlabored. GI: Abdomen is round non-distended, obese, Pt is actively vomiting Last BM was January 16, 2021. Reports constipation, nausea, vomiting, Pt states gastric sleeve about a month ago. : Reports pain with urination, 'only able to urinate once a day'. EENT: No signs and/or symptoms were reported regarding the EENT system. Derm: Skin is intact, is healthy with good turgor. Musculoskeletal: Circulation, motion, and sensation intact. 11:42 Reassessment: Patient appears in no apparent distress at this time. No changes from vg1 previously documented assessment. Patient and/or family updated on plan of care and expected duration. Pain level reassessed. Patient is alert, oriented x 3, equal unlabored respirations, skin warm/dry/pink. 12:39 Reassessment: Patient appears in no apparent distress at this time. No changes from vg1 previously documented assessment. Patient is alert, oriented x 3, equal unlabored respirations, skin warm/dry/pink. Vital Signs: 09:48 BP 165 / 107; Pulse 69; Resp 17; Temp 97.7(T); Pulse Ox 99% on R/A; Weight 171 kg; [facility] Height 6 ft. 2 in. (187.96 cm); Pain 2/10; 10:30 BP 154 / 92; Pulse 69; Resp 20; Pulse Ox 99% ; vg1 11:42 BP 152 / 90; Pulse 61; Resp 18; Pulse Ox 99% ; vg1 12:39 BP 164 / 95; Pulse 62; Resp 18; Pulse Ox 98% ; vg1 14:11 BP 143 / 70; Pulse 63; Resp 20; Pulse Ox 98% ; vg1 09:48 Body Mass Index 48.40 (171.00 kg, 187.96 cm) [facility] ED Course: 09:27 Patient arrived in ED. ds1 09:49 Triage completed. jh6 09:50 Arm band placed on right wrist. jh6 10:26 Skye Avendano, RN is Primary Nurse. mk 10:27 Claudia Morales, ADENIKE is Primary Nurse. vg1 10:27 Santiago Huitron MD is Attending Physician. rn 10:31 Patient has correct armband on for positive identification. Bed in low position. Side vg1 rails up X 1. laboratory monitor on. Pulse ox on. NIBP on. 10:31 Patient maintains SpO2 saturation greater than 95% on room air. vg1 10:46 Initial lab(s) drawn, by ED staff, sent to lab. Inserted saline lock: 20 gauge in left vg1 antecubital area, using aseptic technique. ,using aseptic technique. Completed by Skye JEONG Blood collected. 11:29 CT Abd/Pelvis - IV Contrast Only In Process Unspecified. EDMS 12:35 XRAY Chest (1 view) In Process Unspecified. EDMS 14:12 No provider procedures requiring assistance completed. IV discontinued, intact, vg1 bleeding controlled, No redness/swelling at site. Pressure dressing applied. Administered Medications: 10:41 Drug: NS 0.9% 500 ml Route: IV; Rate: bolus; Site: left antecubital; vg1 12:44 Follow up: IV Status: Completed infusion; IV Intake: 500ml vg1 12:50 Drug: NS 0.9% 1000 ml Route: IV; Rate: 1000 ml; Site: left antecubital; vg1 14:10 Follow up: IV Status: Completed infusion; IV Intake: 1000ml vg1 12:50 Drug: Zofran (Ondansetron) 4 mg Route: IVP; Site: left antecubital; vg1 14:11 Follow up: Response: No adverse reaction; Marked relief of symptoms vg1 12:53 Drug: morphine 4 mg Route: IVP; Site: left antecubital; vg1 14:10 Follow up: Response: No adverse reaction; Marked relief of symptoms vg1 Intake: 12:44 IV: 500ml; Total: 500ml. vg1 14:10 IV: 1000ml; Total: 1500ml. vg1 Outcome: 13:46 Discharge ordered by . rn 14:11 Discharged to home ambulatory. vg1 14:11 Condition: good 14:11 Discharge instructions given to patient, Instructed on discharge instructions, follow up and referral plans. Demonstrated understanding of instructions, follow-up care. 14:12 Patient left the ED. vg1 Signatures: Dispatcher [employer] EDRI Lucila Trejo ds1 Santiago Huitron MD MD rn Garcia, Victoria RN RN vg1 Althea Katz RN RN 6 Skye Avendano RN RN Corrections: (The following items were deleted from the chart) 09:49 09:49 PMHx: Hypertension; [place] [address] 09:49 09:49 PMHx: Hyperlipidemia; [place] [address] 09:49 09:49 PMHx: Asthma; [place] [address] 09:49 09:49 PMHx: Diabetes - NIDDM; [place] [address]
[2021-01-30 14:22] VITALS: TEMP 97.7
[2021-01-30 14:26] VITALS: O2SAT 98
[2021-01-30 14:29] VITALS: BP 143/70
--- NOTE | 2021-01-31 07:51 | EKG ---
Test Date: 2021-01-30 Test Time: 10:30:40 Manager: MEASUREMENT RESULTS: Intervals: Rate: 67 AL: 186 QRSD: 106 QT: 392 QTc: 414 [place]: P: 29 AL: 186 QRS: 6 T: 10 INTERPRETIVE STATEMENTS: Normal sinus rhythm Normal ECG Compared to ECG 01/30/2021 10:28:52 No significant changes Electronically Signed On 01-31-21 07:48:14 BATH DESIGN SALES CONSULTANT by Rob Negron
--- NOTE | 2021-01-31 07:51 | EKG ---
Test Date: 2021-01-30 Test Time: 10:28:52 Property Economist: MEASUREMENT RESULTS: Intervals: Rate: 68 CO: 184 QRSD: 100 QT: 392 QTc: 416 [place]: P: 83 CO: 184 QRS: 7 T: 8 INTERPRETIVE STATEMENTS: Normal sinus rhythm Normal ECG Compared to ECG 07/19/2020 13:59:12 Myocardial infarct finding no longer present Electronically Signed On 01-31-21 07:48:15 LEVER TENDER by Rob Negron
== END 2021-01-30 14:12 | disposition home or self-care (01) ==
LOC: ER 09:25
DX: E86.0 Dehydration (principal); R11.0 Nausea; Z91.013 Allergy to seafood
CPT/HCPCS: 36415; 71045; 74177; 80048; 80076; 81003; 81015; 83880; 84484; 85025; 85610; 93005; 96361; 96374; 96375; 99285; J2405; J7030; J7040; Q9967

== ENCOUNTER 2021-01-31 11:52 | Inpatient (IN) | payer SELFPAY ==
--- OUTSIDE RECORDS SUMMARY | 2021-01-31 12:00 | XMS REPORT | Continuity of Care Document ---
:1990 Author Organization [facility] t Address [address] [place] [address] Care Team Providers Name Role Phone PCP, DOES NOT HAVE A Primary Care Physician Unavailable Adriana Mann Attending Clinician Huber DUNCAN Attending Clinician Lashon DUNCAN Attending Clinician Adriana OSMAN Attending Clinician Unavailable Doctor Unassigned, Name Attending Clinician Unavailable Amanda Stiles RN Attending Clinician Anjel DUNCAN Attending Clinician Neisha DUNCAN Attending Clinician Pcp, Does Not Have A Attending Clinician Suleiman Young Attending Clinician Floyd Ramos MD Attending Clinician [phone] FLOYD RAMOS Attending Clinician Unavailable RIKKI Attending Clinician Unavailable Lashon DUNCAN Admitting Clinician Neisha DUNCAN Admitting Clinician Floyd Ramos MD Admitting Clinician [phone] FLOYD RAMOS Admitting Clinician Unavailable RIKKI Admitting Clinician Unavailable Payers Payer Name Policy Type Policy Number Effective Date Expiration Date S [place] [employer] [place] - [id number] 2020 00:00:00 OUT OF STATE Problems Condition Condition Condition Status Onset Resolution Last Treating Co mments Source Name Details Category Date Date Treatment Clinician Date MALI on MALI on Disease Active Univers CPAP CPAP 6-04 ity of 00:00: [place] 00 Medical Branch Hypertensi Hypertensi Disease Active U nivers ve urgency ve urgency 6- it y of 00:00: [place] [facility] Pneumonia Pneumonia Disease Active Uni vers due to due to 2-08 ity of COVID-19 COVID-19 00:00: [place] virus virus Medical Branch SOB SOB Disease Active Univers (shortness (shortness 8 it y of of breath) of breath) 00:00: [place] [facility] Morbid Morbid Disease Active 2018-02 Univers obesity obesity 2-28 ity of with body with body 00:00: [facility] s mass index mass index 00 Me dical of 50 or of 50 or Branch higher higher Other Other Disease Active 2018-02 Univers chest pain chest pain 2-28 it y of 00:00: [place] 00 Medical Branch Essential Essential Disease Active 2018-02 Uni vers hypertensi hypertensi 2-28 it y of on on 00:00: [place] 00 Medical Branch Hypokalemi Hypokalemi Disease Active 2018-02 U nivers a a 2-28 ity of 00:00: [place] 00 Medical Branch Type 2 Type 2 Disease Active 2018-02 Univers diabetes diabetes 2-28 ity of mellitus mellitus 00:00: [place] without without 00 Medical complicati complicati Br anch on, on, without without long-term long-term current current use of use of insulin insulin PAF PAF Disease Active 2018-02 Univers (paroxysma (paroxysma 2-28 it y of l atrial l atrial 00:00: [place] fibrillati fibrillati 00 Me dical on) on) Branch Allergies, Adverse Reactions, Alerts Allergy Allergy Status Severity Reaction(s) Onset Inactive Treating Comm ents Source Name Type Date Date Clinician SEAFOOD/ Food Active Anaphylaxis Uni vers FISH 8- ity of 00:00: [place] 00 Medical Branch Seafood/ Propensi Active Anaphylaxis U nivers Fish ty to 8- ity of adverse 00:00: [place] reaction 00 Medical s Branch NO KNOWN Drug Active Univers ALLERGIE Class ity of S [place] [facility] Social History Social Habit Start Date Stop Date Quantity Comments Source Exposure to Not sure University SARS-CoV-2 [place] [facility] (event) Branch History SDOH 2020-07-19 2020-07-19 15 University o f Education 00:00:00 00:00:00 [place] [facility] Tobacco use and 2020-07-19 2020-07-19 Former user Universi ty of exposure 00:00:00 00:00:00 [place] [facility] Alcohol intake 2020-07-19 2020-07-19 Ex-drinker [facility] 00:00:00 00:00:00 (finding) [place] [facility] History [facility] 2019-02-13 2019-02-13 2 University o f Financial 00:00:00 00:00:00 [place] [facility] History [facility] Food 2019-02-13 2019-02-13 3 Univers ity of Worry 00:00:00 00:00:00 [place] [facility] History [facility] Food 2019-02-13 2019-02-13 3 Univers ity of Scarcity 00:00:00 00:00:00 [place] [facility] History [facility] 2019-02-13 2019-02-13 1 University o f Transport Med 00:00:00 00:00:00 [place] Medic al Branch History [facility] 2019-02-13 2019-02-13 1 [place] o f Transport Non-Med 00:00:00 [facility]:00:00 [facility] Sex Assigned At [birth year] Universit y of 00:00:00 00:00:00 [facility] [place] [facility] Smoking Status Start Date Stop Date Source Current every day 2020-07-19 00:00:00 [facility] smoker Medical Branch Former smoker 2020-03-28 00:00:00 2020-03-28 00:00:00 Universi ty of [place] [facility] Medications Ordered Filled Start Stop Current Ordering Indication Dosage Frequency Signature Comments Components Source Medication Medication Date Date Medication? Clinician (SIG) Name Name Multivitami Yes Take by Un yelitza ns with 6-04 mouth. ity of Fluoride 18:32: [place] (MULTI-MARIA FERNANDA 53 Medical MIN ORAL) Branch atorvastati Yes 10mg Take 10 mg Univers n 10 mg 6-04 by mouth ity of tablet 18:32: at [place] 53 bedtime. Medical Branch atorvastati Yes 10mg 10 mg, Univ ers n (LIPITOR) 04 Oral, QHS, it y of tablet 10 02:00: [place] mg 00 on [facility] 07/20/20 at Branch 2100, Until Discontinu ed, Routine lisinopriL Yes 20mg 20 mg, Unive rs (PRINIVIL,Z 07-21 Oral, BID, it y of ESTRIL) 01:00: [place] tablet 20 00 (after Medical mg last Branch modificati on) on [facility] 07/20/20 at 2000, Until Discontinu ed, Routine lisinopriL 2020- No [id number] 20mg Take 1 Univers 20 mg 07-2105 tablet by ity of tablet 00:00: 04:59 mouth 2 [place] 00 :00 (two) Medical times [place] daily for 30 days. carvediloL 2020- No [id number] 25mg Take 1 Univers 25 mg 07-21-05 tablet by ity of tablet 00:00: 04:59 mouth 2 [place] 00 :00 (two) Medical times [place] daily with meals for 30 days. carvediloL Yes 25mg 25 mg, Unive rs (COREG) 07-20 Oral, BID ity of tablet 25 22:00: MEALS, [place] mg 00 First dose Medical on [facility] Branch 07/20/20 at 1700, Until Discontinu ed, Routine sulfur 2020- No [id number] 5mL 5 mL, Unive rs hexafluorid 07-2003 Intravenou i ty of e microsphr 17:00: 17:00 s, ONCE, 1 [place] (LUMASON) 00 :00 dose, [facility] Medic al injection 5 07/20/20 at [facility] mL 1200, Routine
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 approving Restricted medication : BONITA NIÑO amLODIPine Yes 10mg 10 mg, Unive rs (NORVASC) 07-20 Oral, ity of tablet 10 14:00: DAILY, [place] mg 00 First dose Medical on [facility] Branch 07/20/20 at 0900, Until Discontinu ed, Routine aspirin 2021-0 Yes 81mg 81 mg, Univers chewable 07-20 Oral, ity of tablet 81 14:00: DAILY, [place] mg 00 First dose Medical on [facility] Branch 07/20/20 at 0900, Until Discontinu ed, Routine enoxaparin Yes 40mg 40 mg, Unive rs (LOVENOX) 07-20 Subcutaneo ity of injection 14:00: [place], DAILY, [place] 40 mg 00 First dose Medical on [facility] Branch 07/20/20 at 0900, Until Discontinu ed, Routine metoprolol 2020- No 100mg 100 mg, Un yelitza succinate 07-20 Oral, ity of XL (TOPROL 14:00: 21:59 DAILY, [place] XL) tablet 00 :58 First dose Med ical 100 mg on [facility] Branch 07/20/20 at 0900, Until Discontinu ed, Routine lisinopriL No 20mg 20 mg, Univ ers (PRINIVIL,Z 07-20 Oral, ity of ESTRIL) 14:00: 21:06 DAILY, [place] tablet 20 00 :11 First dose Medi julia mg on [facility] Branch 07/20/20 at 0900, Until Discontinu ed, Routine benzonatate Yes 100mg 100 mg, Un yelitza (TESSALON 07-20 Oral, ity of PERLES) 08:11: TIDPRN, [place] capsule 100 56 Starting Medi julia mg [facility] 07/20/20 Branch at 0311, Until Discontinu ed, Routine, Cough albuterol Yes 2{puff} 2 Puff, Un yelitza (VENTOLIN) 07-20 Inhalation ity of inhaler 2 08:11: , Q6HPRN, [place] Puff 19 Starting Medical [facility] 07/20/20 Branch at 0311, Until Discontinu ed, Routine, Wheezing, Shortness of Breath
Is this order for a patient with suspected or confirmed COVID-19 infection? No
Does this order have Pulmonary/ Critical Care approval? No ondansetron Yes 4mg 4 mg, Slow Univers (ZOFRAN 07-20 IV Push, ity of (PF)) 03:27: Q6HPRN, [place] injection 4 27 Starting Medi julia mg Fri07/19/20 Branch at 2227, Until Discontinu ed, Routine, Nausea and Vomiting (N/V) traMADoL 0 2020- No 50mg 50 mg, Univer s (ULTRAM) 07-20 Oral, ity of tablet 50 03:27: 03:26 Q8HPRN, [place] mg 10 :10 Starting Medical Fri07/19/20 Branch at 2227, Until 07/21/20 at 2226, Routine, Pain (scale 4-6) acetaminoph 0 Yes 650mg 650 mg, Un yelitza en 07-20 Oral, ity of (TYLENOL) 03:27: Q6HPRN, [place] tablet 650 08 Starting Medic al mg Fri07/19/20 Branch at 2227, Until Discontinu ed, Routine, Pain (scale 1-3) nitroglycer 0 Yes .4mg 0.4 mg, Uni vers in 07-20 Sublingual ity of (NITROSTAT) 03:04: , Q5MIN [place] sublingual 12 PRN, Medical tablet 0.4 Starting Branc h mg Fri07/19/20 at 2204, Until Discontinu ed, Routine, Chest pain morpHINE Yes 2mg 2 mg, Slow Uni vers injection 2 07-20 IV Push, ity of mg 03:03: Q4HPRN, [place] 59 Starting Medical [facility] 07/19/20 Branch at 2203, Until Discontinu ed, Routine, Pain (scale 7-10) hydralAZINE Yes 10mg 10 mg, Univ ers (APRESOLINE 07-20 Slow IV ity o f ) injection 03:02: Push, [place] 10 mg 46 Q6HPRN, Medical Starting Branch Fri07/19/20 at 2202, Until Discontinu ed, STAT, FOR SBP > 180, DBP > 100
Ind ication: Hypertensi ve Emergency nitroglycer 2020- No .4mg 0.4 mg, Un yelitza in 07-2003 Sublingual ity of (NITROSTAT) 01:00: 00:17 , ONCE, 1 [place] sublingual 00 :00 dose, Wed Medi julia tablet 0.4 07/19/20 at Bran ch mg 2000, SUBHA ondansetron 2020- No 4mg 4 mg, Slow Univers (ZOFRAN 07-20 IV Push, ity of (PF)) 01:00: 00:18 ONCE, 1 injection 4 00 :00 dose, Fri Med ical mg 07/19/20 at [place] 2000, SUBHA morpHINE 2020- No 4mg 4 mg, Slow Un yelitza injection 4 07-20 IV Push, ity of mg 01:00: 00:19 ONCE, 00 :00 dose, Fri Medical 07/19/20 at Branch 2000, STAT aspirin 2020- No 325mg 325 mg, Unive rs tablet 325 07-19 Oral, ity of mg 22:45: 21:56 ONCE, 00 :00 dose, Fri07/19/20 at [place] 1745, STAT nitroglycer 2020- No .4mg 0.4 mg, Un yelitza in 07-19 Sublingual ity of (NITROSTAT) 21:40: 22:33 , Q5MIN [place] sublingual 56 :00 PRN, 3 Medical tablet 0.4 doses, Branch mg Starting Fri07/19/20 at 1640, Until Fri07/19/20 at 1733, SUBHA, Chest pain lisinopriL Yes [id number] 20mg Take 1 Univers 20 mg 2-18 [id number] tablet by ity of tablet 00:00: mouth [place] 00 daily. Medical Branch metoprolol Yes [id number] 100mg Take 1 Univers succinate 2-18 [id number] tablet by it y of XL 100 mg 00:00: mouth [place] 24 hr 00 daily. Medical [facility] aspirin 81 Yes [id number] 81mg Take 1 Univers mg chewable 2-18 [id number] tablet by ity of tablet 00:00: mouth [place] 00 daily. Medical Branch lisinopriL Yes [id number] 20mg Take 1 Univers 20 mg 2-18 [id number] tablet by ity of tablet 00:00: mouth [place] 00 daily. Medical Branch metoprolol Yes [id number] 100mg Take 1 Univers succinate 2-18 [id number] tablet by it y of XL 100 mg 00:00: mouth [place] 24 hr 00 daily. Medical tablet Branch aspirin 81 Yes [id number] 81mg Take 1 Univers mg chewable 2-18 [id number] tablet by ity of tablet 00:00: mouth [place] 00 daily. Medical Branch lisinopriL Yes [id number] 20mg Take 1 Univers 20 mg 2-18 [id number] tablet by ity of tablet 00:00: mouth [place] 00 daily. Medical Branch metoprolol Yes [id number] 100mg Take 1 Univers succinate 2-18 [id number] tablet by it y of XL 100 mg 00:00: mouth [place] 24 hr 00 daily. Medical tablet Branch aspirin 81 Yes [id number] 81mg Take 1 Univers mg chewable 2-18 [id number] tablet by ity of tablet 00:00: mouth [place] 00 daily. Medical Branch lisinopriL Yes [id number] 20mg Take 1 Univers 20 mg 2-18 [id number] tablet by ity of tablet 00:00: mouth [place] 00 daily. Medical Branch aspirin 81 Yes [id number] 81mg Take 1 Univers mg chewable 2-18 [id number] tablet by ity of tablet 00:00: mouth [place] 00 daily. Medical Branch metoprolol 2020- No [id number] 100mg Take 1 Univers succinate 2-18 06-04 [id number] tablet by i ty of XL 100 mg 00:00: 00:00 mouth [place] 24 hr 00 :00 daily. Medical tablet Branch lisinopriL 2020- No [id number] 20mg Take 1 Univers 20 mg 2-18 -17 [id number] tablet by ity o f tablet 00:00: 00:00 mouth [place] 00 :00 daily. Medical Branch metoprolol 2020- No [id number] 100mg Take 1 Univers succinate 2-18 -17 [id number] tablet by i ty of XL 100 mg 00:00: 00:00 mouth [place] 24 hr 00 :00 daily. Medical tablet Branch aspirin 81 2020- No [id number] 81mg Take 1 Univers mg chewable 2-18 -17 [id number] tablet by ity of tablet 00:00: 00:00 mouth [place] 00 :00 daily for Medical 90 days. Branch Multivitami Yes Take by Un yelitza ns with 2-17 mouth. ity of Fluoride 17:53: [place] (MULTI-MARIA FERNANDA 44 Medical MIN ORAL) Branch atorvastati Yes 10mg Take 10 mg Univers n 10 mg 2-17 by mouth ity of tablet 17:53: at [place] [address] bedtime. Medical Branch Multivitami Yes Take by Un yelitza ns with 2-17 mouth. ity of Fluoride 17:53: [place] (MULTI-MARIA FERNANDA 44 Medical MIN ORAL) Branch atorvastati Yes 10mg Take 10 mg Univers n 10 mg 2-17 by mouth ity of tablet 17:53: at [place] [address] bedtime. Medical Branch Multivitami Yes Take by Un yelitza ns with 2-17 mouth. ity of Fluoride 17:53: [place] (MULTI-MARIA FERNANDA 44 Medical MIN ORAL) Branch atorvastati Yes 10mg Take 10 mg Univers n 10 mg 2-17 by mouth ity of tablet 17:53: at [place] [address] bedtime. Medical Branch albuterol 202- No 2{puff} Inhale 2 Univers 90 2-17 02-17 Puffs ity of mcg/actuati 16:58: 00:00 every 6 [place] on inhaler 25 :00 (six) Medical hours as Branch needed for Wheezing or Shortness of Breath. lisinopril 2020- No 5mg Take 5 mg U nivers 5 mg tablet 17 02-17 by mouth ity of 16:41: 00:00 daily. [place] 18 :00 Medical Branch lisinopriL Yes 20mg 20 mg, Unive rs (PRINIVIL,Z 2-17 Oral, ity of ESTRIL) 15:00: DAILY, [place] tablet 20 00 First dose Medi julia mg (after Branch last modificati on) on Fri04/05/20 at 0900, Until Discontinu ed, Routine albuterol Yes [id number] 2{puff} Inhale 2 Univers 90 2-17 [id number] Puffs ity of mcg/actuati 00:00: every 6 [place] on inhaler 00 (six) Medical hours as Branch needed for Wheezing or Shortness of Breath. benzonatate Yes [id number] 100mg Take 1 Univers 100 mg 2-17 [id number] capsule by ity of capsule 00:00: mouth 3 [place] 00 (three) Medical times Branch daily as needed for Cough. amLODIPine Yes [id number] 10mg Take 1 Univers 10 mg 2-17 tablet by ity of tablet 00:00: mouth [place] 00 daily. Medical Branch albuterol Yes [id number] 2{puff} Inhale 2 Univers 90 2-17 [id number] Puffs ity of mcg/actuati 00:00: every 6 [place] on inhaler 00 (six) Medical hours as Branch needed for Wheezing or Shortness of Breath. benzonatate Yes [id number] 100mg Take 1 Univers 100 mg 2-17 [id number] capsule by ity of capsule 00:00: mouth 3 00 (three) Medical times Branch daily as needed for Cough. amLODIPine Yes [id number] 10mg Take 1 Univers 10 mg 2-17 tablet by ity of tablet 00:00: mouth [place] 00 daily. Medical Branch albuterol Yes [id number] 2{puff} Inhale 2 Univers 90 2-17 [id number] Puffs ity of mcg/actuati 00:00: every 6 [place] on inhaler 00 (six) Medical hours as Branch needed for Wheezing or Shortness of Breath. benzonatate Yes [id number] 100mg Take 1 Univers 100 mg 2-17 [id number] capsule by ity of capsule 00:00: mouth 3 00 (three) Medical times Branch daily as needed for Cough. amLODIPine Yes [id number] 10mg Take 1 Univers 10 mg 2-17 tablet by ity of tablet 00:00: mouth [place] 00 daily. Medical Branch albuterol Yes [id number] 2{puff} Inhale 2 Univers 90 2-17 [id number] Puffs ity of mcg/actuati 00:00: every 6 [place] on inhaler 00 (six) Medical hours as Branch needed for Wheezing or Shortness of Breath. benzonatate Yes [id number] 100mg Take 1 Univers 100 mg 2-17 [id number] capsule by ity of capsule 00:00: mouth 3 [place] 00 (three) Medical times Branch daily as needed for Cough. amLODIPine Yes [id number] 10mg Take 1 Univers 10 mg 2-17 tablet by ity of tablet 00:00: mouth [place] 00 daily. Medical Branch benzonatate 2020- No [id number] 100mg Take 1 Univers 100 mg 2-17 02-17 [id number] capsule by ity of capsule 00:00: 00:00 [...] 50 mL albuterol-i Yes 1{puff} 1 Puff, [facility] pratropium 16 Inhalation ity of (COMBIVENT 16:45: , Q6HPRN, [...] SBP=>180<b r>Indicati on: Hypertensi ve Emergency lisinopriL No 10mg 10 mg, Univ ers (PRINIVIL,Z 2-15 02-17 Oral, ity of ESTRIL) 18:15: 13:40 DAILY, [place] tablet 10 00 :39 First dose Medi julia mg on Mon Branch 04/03/20 at 1215, Until Discontinu ed, Routine amLODIPine Yes 10mg 10 mg, Unive rs [facility] 04-03 Oral, ity of tablet 10 15:00: DAILY, [place] mg 00 First dose Medical (after Branch last modificati on) on [facility] 04/03/20 at 0900, Until Discontinu ed, Routine KCL 2020- No 40meq 40 mEq, Univers (KLOR-CON 04-03 Oral, ity of M20) tablet 14:45: 15:15 ONCE, 1 [place] 40 mEq 00 :00 dose, [facility] Medical 04/03/20 at Branch 0845, Routine hydralAZINE 2020- No 10mg 10 mg, Uni vers (APRESOLINE 04-03 Slow IV ity of ) injection 00:45: 23:58 Push, [place] 10 mg 00 :00 ONCE, 1 Medical dose, [facility] 04/02/20 at 1845, STAT
In dication: Hypertensi ve Emergency amLODIPine 2020- No 5mg 5 mg, Unive rs ([facility] 04-02 Oral, ity of tablet 5 mg 18:15: 18:21 ONCE, 1 [place] 00 :00 dose, [facility] 04/02/20 at Branch 1215, Routine metoprolol Yes 100mg 100 mg, Uni vers succinate 04-02 Oral, ity of XL (TOPROL 15:00: DAILY, [place] XL) tablet 00 First dose Med ical 100 mg (after [place] last modificati on) on [place] 04/02/20 at 0900, Until Discontinu ed, Routine remdesivir No 100mg 100 mg, IV Univers 100 mg in 04-01 Infusion, ity of NaCl 0.9% 22:00: 16:13 DAILY AT [place] as (NS) 250 mL 00 :05 1600, 5 Medic al infusion doses, Branch First dose (after last reorder) on 04/01/20 at 1600, Last dose on Fri04/05/20 at 1600, 250 mL
Nicolette ent informed of their inclusion in the [employer] database for 5 years for purposes of emergency use of remdesivir . No
Plea se discuss and complete the [employer] Disaster Informatio n Retention Consent form with the patient: I will discuss and complete the [facility] Retention Consent form with the patient amLODIPine No 5mg 5 mg, [facility] ([facility] 04-01 02-14 Oral, ity of tablet 5 mg 16:45: 17:08 DAILY, [place] as 00 :13 First dose Medical (after Branch last modificati on) on 04/01/20 at 1045, Until Discontinu ed, Routine hydrOXYzine Yes 25mg 25 mg, [facility] ers (ATARAX) 04-01 Oral, ity of tablet 25 01:34: Q6HPRN, [place] mg 39 Starting Medical Fri Branch 03/31/20 at 1934, Until Discontinu ed, Routine, Anxiety furosemide 2020- No 40mg 40 mg, [facility] ers (LASIX) 03-31 02-12 Slow IV ity of injection 10:19: 11:05 Push, [place] 40 mg 00 :00 ONCE, 1 Medical dose, Fri Branch 03/31/20 at 0430, Routine sodium Yes 1{spray 1 [place], [facility] ers chloride 12 } Nasal, ity of (OCEAN MIST 02:03: PRN, [place] NASAL) 0.65 41 Starting Medi julia % nasal [facility] spray 1 03/30/20 at [place] 2002, Until Discontinu ed, Routine, nasal irritation benzonatate Yes 100mg 100 mg, Un yelitza (TESSALON 212 Oral, ity of PERLES) 01:54: TIDPRN, [place] capsule 100 50 Starting Medi julia mg [facility] Branch 03/30/20 at 1954, Until Discontinu ed, Routine, Cough lactated 2020- No 500mL at 100 [facility] rs ringers IV 03-29 02-10 mL/hr, 500 it y of infusion 17:30: 18:43 mL, IV [place] 500 mL 00 :00 Infusion, Medical ONCE, 1 Branch dose, 03/29/20 at 1130, Routine dexamethaso 2020- No 6mg 6 mg, IV U nivers ne 6 mg in 03-29-16 Piggyback, it y of NaCl 0.9% 17:00: 04:36 Q24H, [place] (NS) 25 mL 00 :35 First dose Med ical RTU on Fri [place] 03/29/20 at 1100, Until Discontinu ed, 25 mL albuterol-i 2020- No 1{puff} 1 Puff, [facility] pratropium 03-28 Inhalation it y of (COMBIVENT 18:00: 16:40 , Q6H, [place] RESPIMAT) 00 :35 First dose Medi julia 20-100 on [place] mcg/actuati 03/28/20 at on inhaler 1200, 1 Puff Until Discontinu ed, Routine
Is this order for a patient with suspected or confirmed COVID-19 infection? Yes Potassium 2020- No 40meq 40 mEq, Uni vers Bicarb-Citr 03-28 Oral, ity of ic Acid 15:53: 17:01 ONCE, 1 [place] (EFFER-K) 00 :00 dose, [facility] Medic al effervescen 03/28/20 at [facility] t tablet 40 1000, mEq Routine magnesium 2020- No 2g 2 g, IV Univ ers sulfate in 03-28 Piggyback, it y of water 2 15:53: 16:58 ONCE, 1 [place] gram/50 mL 00 :00 dose, [facility] Medi julia (4 %) 03/28/20 at [place] infusion 2 1000, g Routine aspirin Yes 81mg 81 mg, Univers chewable 03-28 Oral, ity of tablet 81 15:00: DAILY, [place] mg 00 First dose Medical on [place] 03/28/20 at 0900, Until Discontinu ed, Routine enoxaparin Yes 40mg 40 mg, Unive rs (LOVENOX) 03-28 Subcutaneo ity of injection 15:00: us, DAILY, [place] 40 mg 00 First dose Medical on Fri [place] 03/28/20 at 0900, Until Discontinu ed, Routine metoprolol 2020- No 200mg 200 mg, Un yelitza succinate 03-28 Oral, ity of XL (TOPROL 15:00: 19:42 DAILY, [place] XL) tablet 00 :35 First dose Med ical 200 mg on [place] 03/28/20 at 0900, Until Discontinu ed, Routine NaCl 0.9% 2020- No 1000mL at 150 Uni vers (NS) IV 03-28 mL/hr, IV ity of infusion 14:33: 14:51 Infusion, [place] 1,000 mL 00 :00 ONCE, 1 Medical dose, [facility] 03/28/20 at 0845, Routine magnesium 2020- No 1g 1 g, IV Univ ers sulfate in 03-28 Piggyback, it y of D5W 1 04:30: 07:34 ONCE, 1 [place] gram/100 mL 00 :00 dose, [facility] ical RTU IV 03/27/20 at [place] Piggyback 1 2230, 100 g mL Sliding Yes Subcutaneo [facility] ers Scale - us, TID ity of Insulin - 03:00: MEALS+HS, [place] as Lispro 00 First dose Medical (HumaLOG) + on [facility] 03/27/20 at Testing 2100, Until Discontinu ed, Routine empaglifloz 2020- No Take by Chandrakant harding in-metformi 03-2808 mouth. ity o f n (SYNJARDY 02:25: 00:00 [place] XR) 17 :00 Medical 10-1,000 mg [place] TBph dicyclomine 2020- No 20mg Take 20 mg Univers 20 mg 03-28 by mouth 4 ity of tablet 02:25: 00:00 (four) [place] 17 :00 times Medical daily. Branch NaCl 0.9% 2020- No 500mL at 200 Univ ers (NS) IV 03-28 mL/hr, IV ity of infusion 01:45: 03:39 Infusion, [place] 500 mL 00 :00 ONCE, 1 Medical dose, [facility] 03/27/20 at 1945, Routine KCL 2020- No 40meq 40 mEq, Univers (KLOR-CON 03-28 Oral, ity of M20) tablet 01:45: 02:46 ONCE, 1 [place] 40 mEq 00 :00 dose, [facility] Medical 03/27/20 at Branch 1945, Routine guaiFENesin 2020- No 200mg 200 mg, U nivers 100 mg/5 mL 03-28 02-12 Oral, ity of solution 00:35: 01:55 Q4HPRN, [place] 200 mg 14 :33 Starting Medical [facility] 03/27/20 Branch at 1835, Until Nia 03/30/20 at 1955, Routine, Cough albuterol Yes 1{puff} 1 Puff, Un yelitza (VENTOLIN) 2 Inhalation ity of inhaler 1 00:29: , Q4HPRN, [place] Puff 51 Starting Medical [facility] 03/27/20 Branch at 1829, Until Discontinu ed, Routine, Wheezing, Shortness of Breath
Is this order for a patient with suspected or confirmed COVID-19 infection? Yes acetaminoph Yes 650mg 650 mg, Un yelitza en 209 Oral, ity of (TYLENOL) 00:11: Q6HPRN, [place] tablet 650 01 Starting Medic al mg [facility] 03/27/20 Branch at 1811, Until Discontinu ed, Routine, Pain (scale 1-3), Fever > 38.0 ibuprofen 2020- No 400mg 400 mg, Uni vers (IBU) 2 02-08 Oral, ity of tablet 400 21:00: 20:14 ONCE, 1 [place] as mg 00 :00 dose, [facility] Medical 03/27/20 at Branch 1500, SUBHA ondansetron 2020- No 4mg 4 mg, Slow Univers (ZOFRAN 03-27-08 IV Push, ity of (PF)) 20:45: 20:14 ONCE, 1 [place] injection 4 00 :00 dose, [facility] Med ical mg 03/27/20 at Branch 1445, SUBHA empaglifloz Yes Take by Un yelitza in-metformi 8-05 mouth. ity of n (SYNJARDY 19:05: [place] XR) 51 Medical 10-1,000 mg [facility] dicyclomine 0 Yes 20mg Take 20 mg Univers 20 mg 8-05 by mouth 4 ity of tablet 19:05: (four) [place] 51 times Medical daily. Branch Multivitami 0 Yes Take by Un yelitza ns with 8-05 mouth. ity of Fluoride 19:05: [place] (MULTI-MARIA FERNANDA 51 Medical MIN ORAL) Branch lisinopril 2020-0 Yes 5mg Take 5 mg Un yelitza 5 mg tablet 8-05 by mouth ity of 19:05: daily. [place] [address] Medical Branch albuterol 2020-0 Yes 2{puff} Inhale 2 U nivers 90 8-05 Puffs ity of mcg/actuati 19:05: every 6 [place] as on inhaler 51 (six) Medical hours as Branch needed for Wheezing or Shortness of Breath. atorvastati 2020-0 Yes 10mg Take 10 mg Univers n 10 mg 8-05 by mouth ity of tablet 19:05: at [place] [address] bedtime. Medical Branch empaglifloz 2019-0 Yes Take by Un yelitza in-metformi 8-05 mouth. ity of n (SYNJARDY 19:05: [place] [address] Medical 10-1,000 mg Branch TBph dicyclomine 2019-0 Yes 20mg Take 20 mg Univers 20 mg 8-05 by mouth 4 ity of tablet 19:05: (four) [place] [address] times Medical daily. Branch Multivitami 2019-0 Yes Take by Un yelitza ns with 8-05 mouth. ity of Fluoride 19:05: [place] (MULTI-MARIA FERNANDA 51 Medical MIN ORAL) Branch lisinopril 2020-0 Yes 5mg Take 5 mg Un yelitza 5 mg tablet 8-05 by mouth ity of 19:05: daily. [place] [address] Medical Branch albuterol 2020-0 Yes 2{puff} Inhale 2 U nivers 90 8-05 Puffs ity of mcg/actuati 19:05: every 6 [place] as on inhaler (six) Medical hours as Branch needed for Wheezing or Shortness of Breath. atorvastati 2020-0 Yes 10mg Take 10 mg Univers n 10 mg 8-05 by mouth ity of tablet 19:05: at [place] [address] bedtime. Medical Branch metroNIDAZO 2020-0 2020- No [...] 46 :00 daily. Medical tablet Branch ondansetron 2019- No 4mg Take 4 mg Univers (ZOFRAN) 4 09-21- by mouth ity of mg tablet 17:19: 00:00 every 8 [place] (eight) Medical hours as Branch needed. metoprolol 2019- No 25mg Take 25 mg Univers tartrate 25 09-21- by mouth 2 i ty of mg tablet 17:19: 00:00 (two) [place] 46 :00 times Medical daily. Branch atorvastati Yes 10mg 10 mg, Univ ers n (LIPITOR) 8-05 Oral, QHS, it y of tablet 10 02:00: [place] mg 00 on Fri [facility] 09/21/19 at Branch 2100, Until Discontinu ed, Routine metoprolol 2019- Yes [id number] 200mg Take 1 Univers succinate 8-05 tablet by ity o f XL 200 mg 00:00: mouth [place] 24 hr 00 daily. Medical tablet Branch metoprolol Yes [id number] 200mg Take 1 Univers succinate 8-05 tablet by ity o f XL 200 mg 00:00: mouth [place] 24 hr 00 daily. Medical tablet Branch metoprolol 2020- No [id number] 200mg Take 1 Univers succinate 8- 02-17 tablet by ity of XL 200 mg 00:00: 00:00 mouth [place] 24 hr 00 :00 daily. Medical tablet Branch benzocaine- Yes 1{lozen 1 Lozenge, Univers menthol 09-20 ge} Oral, ity of (CEPACOL 20:36: Q4HPRN, [place] SORE THROAT 15 Starting Medi julia (KRISH-MEN)) 09/21/19 Br anch lozenge 1 at 1536, Lozenge Until Discontinu ed, Routine, Sore throat amLODIPine 2019-0 Yes 10mg 10 mg, Unive rs (NORVASC) 8-04 Oral, ity of tablet 10 14:00: DAILY, [place] mg 00 First dose Medical on Fri [place] 09/21/19 at 0900, Until Discontinu ed, Routine lisinopril 2019-0 Yes 20mg 20 mg, Unive rs (PRINIVIL,Z 8- Oral, ity of ESTRIL) 14:00: DAILY, [place] [...] Sliding 2020-0 Yes Subcutaneo Univ ers Scale 8 us, AC+HS, ity of Insulin-Reg 12:30: First [...] have Pulmonary/ Critical Care approval? No insulin 2019-0 Yes 10U 10 Units, Unive rs glargine [...] swallow or has mental changes. dextrose 50 2019-0 Yes 25mL 25 mL, Univ ers % in water 09-20 Slow IV ity of (D50W) 06:49: Push, PRN, [place] injection 21 Starting Medica l 25 mL Fri09/21/19 Branch at 0149, Until Discontinu ed, SUBHA, Blood Glucose < or = 70 mg/dL and patient is unable to swallow or has mental status changes. ondansetron 2019-0 Yes 4mg 4 mg, Slow Univers (ZOFRAN 09-20 IV Push, ity of (PF)) 06:32: Q6HPRN, [place] injection 4 28 Starting Medi julia mg Fri09/21/19 Branch at 0132, Until Discontinu ed, Routine, Nausea and Vomiting (N/V) HYDROcodone 2019- 2020- No 1{tbl} 1 tablet, Univers -acetaminop [...] 09-20 Oral, ity of (TYLENOL) 06:31: Q6HPRN, [place] tablet 650 50 Starting Medic al mg Fri09/21/19 Branch at 0131, Until Discontinu ed, Routine, Pain (scale 1-3) insulin 2019-0 2020- No 10U 10 Units, Univ ers regular 09-20- Slow IV ity of human 02:45: 01:59 Push, [place] (HUMULIN R) 00 :00 ONCE, 1 Medic al injection dose, [facility] Branc h 10 Units 09/20/19 at 2145, Routine NaCl 0.9% 2019-0 2020- No 1000mL at 999 Uni vers (NS) bolus 09-20 08-04 mL/hr, ity of infusion 01:45: 04:19 1,000 mL, [place] as 1,000 mL 00 :00 IV Medical Infusion, Branch ONCE, 1 dose, 09/20/19 at 2045, SUBHA Lisinopril Lisinopril 2019-0 Yes Akash [address] [facility] 00[facility]: [facility] 00 l [facility] Lipitor Lipitor 2019-0 Yes Akash [address] [facility] - 00:[facility]: [facility] 00 [facility] Synjardy XR Synjardy XR 2019-0 2020- No Akash [facility] tablet [facility] - [facility]: [facility]:00 breakfast Memoria 00 :00 l [facility] amLODIPine 2018-02 Yes [id number] 10mg Take 1 Univers 10 mg 2-28 tablet by ity of tablet 00:00: mouth [place] 00 daily. Medical Branch nitroglycer 2018-[id number] 1 Univers in 0.4 mg 2-28 tablet ity of sublingual 00:00: under the [place] tablet 00 tongue Medical every 5 Branch (five) minutes as needed for Chest pain. nitroglycer 2018-[id number] 1 Univers in 0.4 mg 2-28 tablet ity of sublingual 00:00: under the [place] tablet 00 tongue Medical every 5 Branch (five) minutes as needed for Chest pain. nitroglycer 2018-[id number] 1 Univers in 0.4 mg 2-28 tablet ity of sublingual 00:00: under the [place] tablet 00 tongue Medical every 5 Branch (five) minutes as needed for Chest pain. nitroglycer 2018-[id number] 1 Univers in 0.4 mg 2-28 tablet ity of sublingual 00:00: under the [place] tablet 00 tongue Medical every 5 Branch (five) minutes as needed for Chest pain. nitroglycer 2018-[id number] 1 Univers in 0.4 mg 2-28 tablet ity of sublingual 00:00: under the [place] tablet 00 tongue Medical every 5 Branch (five) minutes as needed for Chest pain. amLODIPine 2018-02 Yes [id number] 10mg Take 1 Univers 10 mg 2-28 tablet by ity of tablet 00:00: mouth [place] 00 daily. Medical Branch carvedilol 2018-02 Yes [id number] 12.5mg Take 1 Univers 12.5 mg 2-28 tablet by ity of tablet 00:00: mouth 2 [place] 00 (two) Medical times Branch daily with meals. nitroglycer 2018-[id number] 1 Univers in 0.4 mg 2-28 tablet ity of sublingual 00:00: under the [place] tablet 00 tongue Medical every 5 Branch (five) minutes as needed for Chest pain. metFORMIN 2018-02 Yes [id number] 500mg Take 1 Univers 500 mg 2-28 tablet by ity of tablet 00:00: mouth 2 [place] 00 (two) Medical times Branch daily with meals. amLODIPine 2018-02 Yes [id number] 10mg Take 1 Univers 10 mg 2-28 tablet by ity of tablet 00:00: mouth [place] 00 daily. Medical Branch nitroglycer 2018-[id number] 1 Univers in 0.4 mg 2-28 tablet ity of sublingual 00:00: under the [place] tablet 00 tongue Medical every 5 Branch (five) minutes as needed for Chest pain. amLODIPine 2018-02- No [id number] 10mg Take 1 Univers 10 mg 2-28 02-17 tablet by ity of tablet 00:00: 00:00 mouth [place] 00 :00 daily. Medical Branch carvedilol 2018-02- No [id number] 12.5mg Take 1 Univers 12.5 mg 2-28 08-05 tablet by ity of tablet 00:00: 00:00 mouth 2 [place] 00 :00 (two) Medical times Branch daily with meals. metFORMIN 2018-02- No [id number] 500mg Take 1 Univers 500 mg 2-28 08-03 tablet by ity of tablet 00:00: 00:00 mouth 2 [place] 00 :00 (two) Medical times Branch daily [...] [facility] Vital Signs Vital Name Observation Time Observation Value Comments Source Systolic blood 2020-07-21 15:34:00 140 mm[Hg] Univer sity of pressure [place] [facility] Diastolic blood 2020-07-21 15:34:00 80 mm[Hg] Unive rsity of pressure [place] [facility] Heart rate 2020-07-21 15:34:00 70 /min Universi ty of [place] [facility] Body temperature 2020-07-21 15:34:00 37.11 Kelley Univ ersity of [place] [facility] Respiratory rate 2020-07-21 15:34:00 20 /min Univ ersity of [place] [facility] Oxygen saturation in 2020-07-21 15:34:00 94 /min University of Arterial blood by [place] [employer] julia Pulse oximetry Branch Body height 2020-07-20 03:29:00 188 cm Universi ty of [place] [facility] Body weight 2020-07-19 21:14:00 226.799 kg Universi ty [facility] [place] [facility] BMI 2020-07-19 21:14:00 64.20 kg/m2 Universi ty of [place] [facility] Systolic blood 2020-04-05 13:18:00 149 mm[Hg] Univer sity of pressure [place] [facility] Diastolic blood 2020-04-05 13:18:00 96 mm[Hg] Unive rsity of pressure [place] [facility] Heart rate 2020-04-05 13:18:00 63 /min Universi ty [facility] [place] [facility] Body temperature 2020-04-05 13:18:00 36.56 [place] Univ ersity of [place] [facility] Respiratory rate 2020-04-05 13:18:00 18 /min Univ ersity of [place] [facility] Oxygen saturation in 2020-04-05 13:18:00 98 /min University of Arterial blood by [place] [employer] julia Pulse oximetry Branch Body height 2020-03-27 23:51:00 188 cm Universi ty of [place] [facility] Body weight 2020-03-27 23:51:00 195.954 kg Universi ty of [place] [facility] BMI 2020-03-27 23:51:00 55.47 kg/m2 Universi ty of [place] [facility] Systolic blood 2020-04-05 13:18:00 149 mm[Hg] Univer sity of pressure [place] [facility] Diastolic blood 2020-04-05 13:18:00 96 mm[Hg] Unive rsity of pressure [place] [facility] Heart rate 2020-04-05 13:18:00 63 /min Universi ty [facility] [place] [facility] Body temperature 2020-04-05 13:18:00 36.56 [place] Univ ersity of [place] [facility] Respiratory rate 2020-04-05 13:18:00 18 /min Univ ersity of [place] [facility] Oxygen saturation in 2020-04-05 13:18:00 98 /min University of Arterial blood by [facility] Pulse oximetry Branch Body height 2020-03-27 23:51:00 188 cm Universi ty of [place] [facility] Body weight 2020-03-27 23:51:00 195.954 kg Universi ty of [place] [facility] BMI 2020-03-27 23:51:00 55.47 kg/m2 Universi ty [facility] [place] [facility] Systolic blood 2019-09-22 18:08:00 149 mm[Hg] Univer sity of pressure [place] [facility] Diastolic blood 2019-09-22 18:08:00 85 mm[Hg] Unive rsity of pressure [place] [facility] Heart rate 2019-09-22 17:06:00 78 /min Universi ty [facility] [place] [facility] Body temperature 2019-09-22 17:06:00 36.56 [place] Univ ersity of [place] [facility] Respiratory rate 2019-09-22 17:06:00 20 /min Univ ersity of [place] [facility] Oxygen saturation in 2019-09-22 17:06:00 98 /min University of Arterial blood by [facility] Pulse oximetry Branch Body weight 2019-09-22 08:31:00 204.482 kg Universi ty of [place] [facility] BMI 2019-09-22 08:31:00 59.48 kg/m2 Universi ty [facility] [place] [facility] Body height 2019-09-21 06:30:00 185.4 cm Universi ty of [place] [facility] Systolic blood 2019-09-22 18:08:00 149 mm[Hg] Univer sity of pressure [place] [facility] Diastolic blood 2019-09-22 18:08:00 85 mm[Hg] Unive rsity of pressure [place] [facility] Heart rate 2019-09-22 17:06:00 78 /min Universi ty [facility] [place] [facility] Body temperature 2019-09-22 17:06:00 36.56 [place] Univ ersity of [place] [facility] Respiratory rate 2019-09-22 17:06:00 20 /min Univ ersity of [place] [facility] Oxygen saturation in 2019-09-22 17:06:00 98 /min University of Arterial blood by [facility] Pulse oximetry Branch Body weight 2019-09-22 08:31:00 204.482 kg [facility] BMI 2019-09-22 08:31:00 59.48 kg/m2 [facility] Body height 2019-09-21 06:30:00 185.4 cm [facility] Procedures Procedure Date / Time Performing Clinician Source Performed BASIC METABOLIC PANEL 2020-07-21 Reena Polanco [facility] (NA, K, CL, CO2, 10:22:00 [facility] GLUCOSE, BUN, CREATININE, CA) CBC WITH DIFF 2020-07-21 Reena Polanco [facility] 10:22:00 [facility] TRANSTHORACIC ECHO (TTE) 2020[facility]07-[facility]/ [facility]AST 16:57:10 [facility] TROPONIN I 2020-07-20 [facility] 07:23[facility]00 [facility] BASIC METABOLIC PANEL 2020-07-20 [facility] (NA, K, CL, CO2, 07:23:00 [facility] GLUCOSE, BUN, CREATININE, CA) LIPID PANEL 2020-07-20 [facility] ([id number])(TOTAL 07:23:00 [facility] CHOLESTEROL, TRIGLYCERIDES, HDL) CBC WITH DIFF 2020-07-20 [facility] 07:23:00 [facility] URINALYSIS 2020-07-20 Reena Osman [facility] 01:48:00 [facility] XR CHEST 1 VW 2020-07-19 Reena Osman [facility] 22:24:55 [facility] COVID-19 (ID NOW RAPID 2020-07-19 Reena Osman [facility] TESTING) 21:54:00 [facility] TROPONIN I 2020-07-19 Reena Osman [facility] 21:52:00 [facility] COMP. METABOLIC PANEL 2020-07-19 Reena Osman [facility] ([id number]) 21:52:00 Medical Branch CBC WITH DIFF 2020-07-19 [place] [facility] [place] 21:52:00 Medical Branch PROTHROMBIN TIME / INR 2020-07-19 Reena Osman [facility] 21:52:00 Medical Branch ACTIVATED PARTIAL 2020-07-19 Reena Osman [facility] THRMPLAS ANNETTE 21:52:00 Medical Branch N-TERMINAL PRO-BNP 2020-07-19 Reena Osman [facility] 21:52:00 Medical Branch HB ECG ROUTINE & RHYTHM 2020-07-19 Reena Osman [facility] STRIP 21:18:23 Medical Branch NOTICE OF PRIVACY 2020-07-19 Doctor Unassigned, No [facility] PRACTICES 21:03:23 Name [facility] CONSENT/REFUSAL FOR 2020-07-19 Doctor Unassigned, No [facility] DIAGNOSIS AND TREATMENT 21:02:36 Name [facility] POCT GLUCOSE (AUTOMATED) [facility] 13:19[facility] Medical Branch MAGNESIUM 2020-04-05 [facility] exas 09:46:00 [facility] Branch BASIC METABOLIC PANEL 2020-04-05 [facility] (NA, K, CL, CO2, 09:46:00 Medical Branch GLUCOSE, BUN, CREATININE, CA) POCT GLUCOSE (AUTOMATED) 2020-04-05 [facility] 03:02:00 Medical Branch POCT GLUCOSE (AUTOMATED) 2020-04-04 [facility] 23:08:00 Medical Branch POCT GLUCOSE (AUTOMATED) 2020-04-04 [facility] 18:22:00 Medical Branch POCT GLUCOSE (AUTOMATED) 2020-04-04 [facility] 14:44:00 Medical Branch MAGNESIUM 2020-04-04 [facility] exas 09:49:00 Medical [place] BASIC METABOLIC PANEL 2020-04-04 [facility] (NA, K, CL, CO2, 09:49:00 Medical Branch GLUCOSE, BUN, CREATININE, CA) POCT GLUCOSE (AUTOMATED) 2020[facility]04-[facility] 02:03[facility]00 Medical Branch POCT GLUCOSE (AUTOMATED) 2020-04-03 [facility] 23:39:00 Medical Branch POCT GLUCOSE (AUTOMATED) 2020-04-03 [facility] 17:49:00 Medical Branch POCT GLUCOSE (AUTOMATED) 2020-04-03 [facility] 13:05:00 Medical Branch MAGNESIUM 2020-04-03 [facility] ex 10:08:00 Medical Branch BASIC METABOLIC PANEL 2020-04-03 [facility] (NA, K, CL, CO2, 10:08:00 Medical Branch GLUCOSE, BUN, CREATININE, CA) POCT GLUCOSE (AUTOMATED) 2020-04-03 [facility] 01:58:00 Medical Branch POCT GLUCOSE (AUTOMATED) 2020-04-02 [facility] 23:26:00 Medical Branch POCT GLUCOSE (AUTOMATED) 2020-04-02 [facility] 17:31:00 Medical Branch POCT GLUCOSE (AUTOMATED) 2020-04-02 [facility] 14:35:00 Medical Branch MAGNESIUM 2020-04-02 [facility] 11:53:00 Medical Branch BASIC METABOLIC PANEL 2020-04-02 [facility] (NA, K, CL, CO2, 11:53:00 Medical Branch GLUCOSE, BUN, CREATININE, CA) POCT GLUCOSE (AUTOMATED) 2020-04-02 Anjel [facility] 02:36:00 Medical Branch POCT GLUCOSE (AUTOMATED) 2020-04-01 [facility] 23:42:00 Medical Branch POCT GLUCOSE (AUTOMATED) 2020-04-01 [facility] 19:39:00 Medical Branch POCT GLUCOSE (AUTOMATED) 2020-04-01 [facility] 14:34:00 Medical Branch MAGNESIUM 2020-04-01 [facility] 10:02:00 Medical Branch BASIC METABOLIC PANEL 2020-04-01 [facility] (NA, K, CL, CO2, 10:02:00 Medical Branch GLUCOSE, BUN, CREATININE, CA) POCT GLUCOSE (AUTOMATED) 2020-04-01 [facility] 02:21:00 Medical Branch POCT GLUCOSE (AUTOMATED) 2020-03-31 [facility] 23:19:00 Medical Branch POCT GLUCOSE (AUTOMATED) 2020-03-31 [facility] 17:58:00 Medical Branch POCT GLUCOSE (AUTOMATED) 2020-03-31 [facility] 14:10:00 Medical Branch CREATINE KINASE 2020-03-31 [place] [facility] 09:52:00 Medical Branch MAGNESIUM 2020-03-31 [facility] exas 09:52:00 Medical Branch BASIC METABOLIC PANEL 2020-03-31 [facility] (NA, K, CL, CO2, 09:52:00 Medical Branch GLUCOSE, BUN, CREATININE, CA) CBC WITH DIFF 2020-03-31 [facility] 09:52:00 [facility] D-DIMER 2020-03-31 [facility] 09:52:00 [facility] PROCALCITONIN 2020-03-31 [facility] 09:52:00 [facility] XR CHEST 1 VW 2020-03-31 [facility] 09:20:00 [facility] POCT GLUCOSE (AUTOMATED) 2020-03-31 [facility] 01:36:00 Medical Branch POCT GLUCOSE (AUTOMATED) 2020-03-30 [facility] 22:31:00 Medical Branch POCT GLUCOSE (AUTOMATED) 2020-03-30 [facility] 17:51:00 Medical [place] POCT GLUCOSE (AUTOMATED) 2020-03-30 [facility] 14:26:00 Medical Branch MAGNESIUM 2020-03-30 [facility] ex 09:19:00 [facility] BASIC METABOLIC PANEL 2020-03-30 [facility] (NA, K, CL, CO2, 09:19:00 Medical Branch GLUCOSE, BUN, CREATININE, CA) POCT GLUCOSE (AUTOMATED) 2020-03-30 [facility] 02:26:00 Medical Branch POCT GLUCOSE (AUTOMATED) 2020-03-29 [facility] 22:03:00 Medical Branch POCT GLUCOSE (AUTOMATED) 2020-03-29 [facility] 14:23:00 Medical Branch CREATINE KINASE 2020-03-29 [place] Audra [facility] 07:58:00 Medical Branch MAGNESIUM 2020-03-29 [facility] 07:58:00 [facility] BASIC METABOLIC PANEL 2020-03-29 [facility] (NA, K, CL, CO2, 07:58:00 Medical Branch GLUCOSE, BUN, CREATININE, CA) POCT GLUCOSE (AUTOMATED) 2020-03-29 [facility] 02:48:00 Medical [place] POCT GLUCOSE (AUTOMATED) 2020-03-28 [facility] 23:29:00 Medical [place] POCT GLUCOSE (AUTOMATED) 2020-03-28 [facility] 17:48:00 Medical Branch POCT GLUCOSE (AUTOMATED) 2020-03-28 [facility] 14:22:00 Medical Branch CREATINE KINASE 2020-03-28 [facility] 14:16:00 Medical Branch MAGNESIUM 2020-03-28 [facility] 14:16:00 Medical Branch BASIC METABOLIC PANEL 2020-03-28 [facility] (NA, K, CL, CO2, 14:16:00 Medical Branch GLUCOSE, BUN, CREATININE, CA) CBC WITH DIFF 2020-03-28 [facility] 11:16:00 Medical Branch URINALYSIS 2020-03-28 [facility] 08:28:00 [facility] CREATININE, URINE RANDOM 2020-03-28 [facility] 08:28:00 [facility] SODIUM, URINE RANDOM 2020-03-28 [facility] 08:28:00 [facility] HB ECG ROUTINE & RHYTHM 2020-03-28 [facility] STRIP 02:51:07 [facility] POCT GLUCOSE (AUTOMATED) 2020-03-28 Anjel [facility] 02:38:00 [facility] LACTATE DEHYDROGENASE 2020-03-28 [facility] 00:53:00 [facility] MAGNESIUM 2020-03-28 [facility] 00:53:00 [facility] C-REACTIVE PROTEIN 2020-03-28 [facility] 00:53:00 [facility] BASIC METABOLIC PANEL 2020-03-28 [facility] (NA, K, CL, CO2, 00:53:00 [facility] GLUCOSE, BUN, CREATININE, CA) PROCALCITONIN 2020-03-28 [facility] 00:53:00 [facility] D-DIMER 2020-03-28 [facility] 00:52:00 [facility] HB ECG ROUTINE & RHYTHM 2020-03-27 Reena Osman [facility] STRIP 20:21:35 [facility] XR CHEST 1 VW 2020-03-27 Reena Osman [facility] xa 19:35:51 [facility] Branch CREATINE KINASE 2020-03-27 [facility] 19:06:00 [facility] LIPASE 2020-03-27 Reena Osman [facility] xas 19:06:00 [facility] Branch TROPONIN I 2020-03-27 Reena Osman [facility] xa 19:06:00 [facility] COMP. METABOLIC PANEL 2020-03-27 Reena Osman [facility] ([id number]) 19:06:00 [facility] CBC WITH DIFF 2020-03-27 Reena Osman [facility] xas 19:06:00 Medical Branch GLYCOSYLATED HEMOGLOBIN 2020-03-27 [facility] ([facility] 19:06:00 [facility] PROTHROMBIN TIME / INR 2020-03-27 Reena Osman [facility] 19:06:00 [facility] Branch ACTIVATED PARTIAL 2020-03-27 Reena Osman [facility] THRMPLAS ANNETTE 19:06:00 [facility] COVID-19 (ID NOW RAPID 2020-03-27 Reena Osman [facility] TESTING) 19:06:00 [facility] LAB ONLY COVID 2020-03-27 Reena Osman [facility] INTERPRETATION 19:06:00 [facility] CONSENT/REFUSAL FOR 2020-03-27 Doctor Unassigned, No [facility] DIAGNOSIS AND TREATMENT 18:10:34 Name [facility] HOSPITAL ADMISSION 2020-03-27 Doctor Unassigned, No [facility] 06:01:00 [facility] POCT GLUCOSE (AUTOMATED) 2019-09-22 [facility] 17:09:00 [facility] POCT GLUCOSE (AUTOMATED) 2019-09-22 [facility] 12:25:00 [facility] COMP. METABOLIC PANEL 2019-09-22 [id number] 10:18:00 [facility] CBC WITH DIFF 2019-09-22 [facility] 10:18:00 [facility] POCT GLUCOSE (AUTOMATED) 2019-09-22 [facility] 01:29:00 [facility] TROPONIN I 2019-09-21 [facility] 21:24:00 [facility] EBV-MONONUCLEOSIS SCREEN 2019-09-21 [facility] 21:24:00 [facility] RAPID STREP SCREEN FOR 2019-09-21 [facility] GROUP [facility] 21:24:00 [facility] POCT GLUCOSE (AUTOMATED) 2019-09-21 [facility] 20:50:00 [facility] POCT GLUCOSE (AUTOMATED) 2019[facility]00 [facility] POCT GLUCOSE (AUTOMATED) 2019-09-21 [facility] 12:44[facility]00 [facility] TROPONIN I 2019[facility]00 [facility] POCT GLUCOSE (AUTOMATED) 2019-09-21 [facility] 06:51:00 [facility] POCT GLUCOSE (AUTOMATED) 2019-09-[address] [facility] 03:38:00 [facility] US GALL BLADDER 2019-09-21 [facility] 02:33:37 [facility] COVID-19 (ID NOW RAPID 2019-09-21 Russ [facility] TESTING) 00:56:00 [facility] LIPASE 2019-09-21 Russ [facility] ex 00:48:00 [facility] TROPONIN I 2019-09-21 Russ [facility] ex 00:48:00 [facility] HEPATIC FUNCTION PANEL 2019-09-21 Russ [facility] ([id number]) (ALB,T.PRO,BILI 00:48:00 [facility] T,BU/BC,ALT,AST,ALK PHOS) BASIC METABOLIC PANEL 2019-09-21 [facility] (NA, K, CL, CO2, 00:48:00 [facility] GLUCOSE, BUN, CREATININE, CA) CBC WITH DIFF 2019-09-21 [facility] ex 00:48:00 [facility] GLYCOSYLATED HEMOGLOBIN 2019-09-21 [facility] (A1C) 00:48:00 [facility] PROTHROMBIN TIME / INR 2019-09-21 Russ [facility] 00:48:00 [facility] D-DIMER 2019-09-21 [facility] 00:48:00 [facility] ACTIVATED PARTIAL 2019-09-21 Russ [facility] THRMPLAS ANNETTE 00:48:00 [facility] URINALYSIS 2019-09-21 Lindsey Solano [facility] [place] 00:48:00 Medical [facility] XR CHEST 1 VW COVID 2019-09-21 Lindsey Solano [facility] 00:45:44 Medical Branch EKG-12 LEAD 2019-09-21 Lindsey Solano [facility]as 00:37:42 Medical Branch EKG-12 LEAD 2019-09-21 Lindsey Solano [facility] ex 00:03:13 Medical Branch NOTICE OF PRIVACY 2019-09-20 Doctor Unassigned, No [facility] [place] [facility] 23:46:20 Name Medical Branch CONSENT/REFUSAL FOR 2019-09-20 Doctor Unassigned, No [facility] DIAGNOSIS AND TREATMENT 23:46:03 Name Medical Branch ASSIGNMENT OF BENEFITS 2019-09-20 Doctor Unassigned, No [facility] 23:45:45 Name [facility] Encounters Start End Encounter Admission Attending Care Care Encounter Source Date/Time Date/Time Type Type Clinicians Facility Department ID 2020-07-19 2020-07-21 Emergency Reena Osman S [facility] 1.2.840.1 14 [id number] Univers 16:16:00 13:27:00 Agatha Ngo 350.1.13.10 ity of [place] 4.2.7.[address] [facility] [id number] [facility] 081 Branch 2020-07-19 2020-07-19 Emergency X DAWSON [facility] ERT [id number] Univers 16:16:00 16:16:00 REENA ity of [facility] 2020-07-19 2020-07-19 Orders Doctor CANTU 1.2.840.114 [id number] Univers 00:00:00 00:00:00 Only UnassignedSTACY 350.1.13.10 ity of [place] [facility] 4.2.7.2.686 [facility] [id number] [facility] 009 Branch 2020-04-07 2020-04-07 Transition Davida Stiles 1.2.840.114 [id number] Univers 00:00:00 00:00:00 of Care Loretta Iglesias 350.1.13.10 i ty of [place] 4.2.7.2.686 Hansel hyde [id number] [facility] 403 Branch 2020-04-07 2020-04-07 Transition Davida Stiles 1.2.840.114 [id number] 00:00:00 00:00:00 of Care Loretta Iglesias 350.1.13.10 [place] 4.2.7.2.686 [id number] 403 2020-03-27 2020-04-05 [facility] Reena Osman 1.2.840.11 4 [id number] [facility] 12:27:00 11:30:00 Encounter Socrates Hobbs Stacy 350.1.13.10 ity [facility] 4.2.7.2.686 [place] Socrates Hobbs [id number] [address] 2020-03-27 2020-04-05 [facility] Reena Osman 1.2.840.11 4 [id number] 12:27:00 11:30:00 Encounter Renettaacesuleiman Socrates Stacy 350.1.13.10 [facility] 4.2.7.2.686 Socrates Hobbs [id number] [facility] 2020-03-27 2020-03-27 Emergency X [facility] ERT [id number] Univers 12:11:00 12:11:00 ity of [facility] 2020-03-15 2020-03-15 [facility] [id number] 2019-11-12 2019-11-12 [facility] [id number] 2019-10-19 2019-10-19 Letter PEPE Diamond 1.2.840.114 [id number] Univers 00:00:00 00:00:00 (Out) Patient STACY 350.1.13.10 [facility] [place].2.[place] Have A [id number] [facility] 019 Branch 2019-10-19 2019-10-19 Letter PEPE Diamond 1.2.840.114 [id number] 00:00:00 00:00:00 (Out) Patient STACY 350.1.13.10 Does Not HOSPITAL 4.2.7.2.686 Have A [id number] 019 2019-09-20 2019-09-22 Emergency Lindsey Solano [facility] 1.2.840 .114 [id number] Univers 19:20:00 13:55:00 OTiny georgeflower [place] 350.1.13.10 ity of [place] 4.2.7.2.686 [facility] [id number] [facility] 081 Branch 2019-09-20 2019-09-22 Emergency Lindsey Solano [facility] 1.2.840 .114 [id number] 19:20:00 13:55:00 OTiny george [place] 350.1.13.10 [place] 4.2.7.2.686 [place] [id number] [facility] 2019-09-20 2019-09-20 Outpatient X RACHEL [facility] [id number] Univers 19:20:00 19:20:00 VERA itzenon of [facility] 2019-09-20 2019-09-20 Orders Doctor PEPE Reeves.2.840.114 [id number] Univers 00:00:00 00:00:00 Only Unassigned, STACY 350.1.13.10 ity of [place] [facility] 4.2.7.2.686 [place] [id number] [place] [address] Branch 2019-09-20 2019-09-20 Orders Doctor PEPE Reeves.2.840.114 [id number] 00:00:00 00:00:00 Only Unassigned, STACY 350.1.13.10 [place] 4.2.7.2.686 [id number] 009 2019-09-16 2019-09-16 Outpatient Austin Caldwell [id number] 13:28:00 13:28:00 t [employer] [facility] Medicine Outpati ent Clinics 2019-09-14 2019-09-14 Outpatient Austin Caldwell [id number] 15:48:00 15:48:00 t [employer] gurpreet s [facility] ent Clinics 2019-08-27 2019-08-27 Outpatient Austin Paulette [id number] 13:17:00 13:17:00 [facility] [employer] software Juda s [facility] ent [facility] 2019-08-27 2019-08-27 Outpatient Harmanjoesph Austint [address] 10:45:00 10:45:00 [facility] s [facility] 2019-08-06 2019-08-06 Outpatient Harmanjoesph Ausitnt [address] 10:00:00 10:00:00 [facility] 2019-02-13 2019-02-13 Outpatient MELANIE DEL TORO [facility] [id number] Univers 00:34:24 13:28:00 [facility] Results Test Description Test Time Test Comments Results Result Comments Source BASIC METABOLIC PANEL (NA, K, CL, CO2, GLUCOSE, BUN, 2020-07 11:20:35 CREATININE, CA) Test Item Value Reference Range Interpretation Comme nts NA (test code = 7378706475) 140 mmol/L 135-145 K (test code = 7007004576) 3.7 mmol/L 3.5-5.0 CL (test code = 8716990755) 104 mmol/L 98-108 CO2 TOTAL (test code = 9671662713) 33 mmol/L 23-31 H AGAP (test code = 7686595886) 2-16 BUN (test code = 7738466627) 17 mg/dL 7-23 GLUCOSE (test code = 2985103427) 130 mg/dL 70-110 H CREATININE (test code = 1.10 mg/dL 0.60-1.25 9772706048) CALCIUM (test code = 4912802469) 9.5 mg/dL 8.6-10.6 eGFR (test code = 9377181892) mL/min/1.73m2 PAULIE (test code = PAULIE) Association [...] tests). Lab Interpretation (test code = Abnormal 00075-0) [facility] WITH [id number] 11:05:32 Test Item Value Reference Range Interpretation Comments WBC (test code = See_Comment [Automated message] 6690-2) The system [employer] generated this result transmitted ref erence range: 4.20 - 1 0.70 10*3/?L. The re ference range was not u sed to interpret this result as normal/abnor mal. RBC (test code = See_Comment [Automated message] 789-8) The system [employer] generated this result transmitted ref erence range: [...] RDW-SD (test code 40.5 fL 38.5-51.6 = 18739-0) RDW-CV (test code 13.5 % 12.1-15.4 = 788-0) PLT (test code = See_Comment [Automated message] 777-3) The system whic h generated this result transmitted ref erence range: 150 - 32 8 10*3/?L. The re ference range was not u sed to interpret this result as normal/abnor mal. MPV (test code = 11.8 fL 9.8-13.0 62084-1) NRBC/100 WBC (test See_Comment [Automat ed message] code = 3781175064) The syste m which generated this result transmitted ref erence range: 0.0 - 10 .0 /100 WBCs. The refer ence range was not u sed to interpret this result as normal/abnor mal. NRBC x10^3 (test <0.01 See_Comment [Automated message] code = 7622536094) The syste m which generated this result transmitted ref erence range: 10*3/?L. The reference range was not used to interpr et this result as normal/abnormal . GRAN MAT (NEUT) % 45.8 % (test code = 770-8) IMM GRAN % (test 0.30 % code = 0058193313) LYMPH % (test code 38.0 % = 736-9) MONO % (test code 11.4 % = 5905-5) EOS % (test code = 4.2 % 713-8) BASO % (test code 0.3 % = 706-2) GRAN MAT 2.73 10*3/uL 1.99-6.95 x10^3(ANC) (test code = 1856162335) IMM GRAN x10^3 <0.03 0.00-0.06 (test code = 2392321028) LYMPH x10^3 (test 2.27 10*3/uL 1.09-3.23 code = 731-0) MONO x10^3 (test 0.68 10*3/uL 0.36-1.02 code = 742-7) EOS x10^3 (test 0.25 10*3/uL 0.06-0.53 code = 711-2) BASO x10^3 (test <0.03 0.01-0.09 code = 704-7) [facility] (Total Cholesterol, Triglycerides, HDL)2020-07-20 10:59:54 Test Item Value Reference Range Interpretation Comments CHOL (test code = 221 mg/dL 120-200 H 7564033013) HDL (test code = 31 mg/dL >40 L 5298522918) HDLC RATIO (test code = See_Comment H [Au tomated message] 5668953459) The system [employer] generated this result transmit jordon reference range : <=5.0. The refe rence range was not u sed to interpret th is result as normal/abnormal . TRIG (test code = 224 mg/dL 30-170 H 7582846971) LDL CHOL (test code = 145 mg/dL See_Comment [Auto mated message] 97863-6) The system [employer] generated this result transmit jordon reference range : <=160. The refe rence range was not u sed to interpret th is result as normal/abnormal . VLDL (test code = 45 mg/dL 5-60 3670089426) Lab Interpretation (test Abnormal code = 69858-3) [facility] [id number] 08:11:00 Test Item Value Reference Range Interpretation Comments TROPONIN I (test 0.009 ng/mL See_Comment [Automated code = 4259992076) message] The system which generated this result [...] ? Lab Interpretation Normal (test code = 54025-4) [facility] (NA, K, CL, CO2, GLUCOSE, BUN, CREATININE, CA)2020-07-20 08:00:59 Test Item Value Reference Range Interpretation Comments NA (test code = 136 mmol/L 135-145 1330088874) K (test code = 4.4 mmol/L 3.5-5.0 2167014697) CL (test code = 104 mmol/L 98-108 9317039253) CO2 TOTAL (test code = 28 mmol/L 23-31 6368284869) AGAP (test code = 2-16 6785021337) BUN (test code = 17 mg/dL 7-23 7069582187) GLUCOSE (test code = 126 mg/dL 70-110 H 0872853625) CREATININE (test code = 0.91 mg/dL 0.60-1.25 5145172547) CALCIUM (test code = 9.2 mg/dL 8.6-10.6 9408978676) eGFR (test code = mL/min/1.73m2 4710911034) PAULIE (test code = PAULIE) Association of [...] tests). Lab Interpretation Abnormal (test code = 95013-7) [facility] with [id number] 07:31:36 Test Item Value Reference Range Interpretation Comments WBC (test code = See_Comment [Automated 2390-2) message] The sy stem which generated this result transmitted reference range : 4.20 - 10.70 10*3/?L. The reference range was not used to interpret this result as normal/abnormal . RBC (test code = See_Comment [Automated 9-8) message] The sy stem which generated this [...] RDW-SD (test code = 40.1 fL 38.5-51.6 34912-6) RDW-CV (test code = 13.7 % 12.1-15.4 788-0) PLT (test code = See_Comment [Automated 777-3) message] The sy stem which generated this result transmitted reference range : 150 - 328 10*3/ ?L. The reference r lorena was not used to interpret this result as normal/abnormal . MPV (test code = 12.2 fL 9.8-13.0 73799-8) NRBC/100 WBC (test See_Comment [Automat ed code = 1731182541) message] The system which generated this result transmitted reference range : 0.0 - 10.0 /100 WBCs. The refer ence range was not u sed to interpret th is result as normal/abnormal . NRBC x10^3 (test code <0.01 See_Comment [Auto mated = 6792334117) message] The s ystem which generated this result transmitted reference range : 10*3/?L. The reference range was not used to interpret this result as normal/abnormal . GRAN MAT (NEUT) % 46.2 % (test code = 770-8) IMM GRAN % (test code 0.30 % = 7161265562) LYMPH % (test code = 37.1 % 736-9) MONO % (test code = 11.5 % 5905-5) EOS % (test code = 4.5 % 713-8) BASO % (test code = 0.4 % 706-2) GRAN MAT x10^3(ANC) 3.38 10*3/uL 1.99-6.95 (test code = 8419356438) IMM GRAN x10^3 (test <0.03 0.00-0.06 code = 8659717100) LYMPH x10^3 (test code 2.71 10*3/uL 1.09-3.23 = 731-0) MONO x10^3 (test code 0.84 10*3/uL 0.36-1.02 = 742-7) EOS x10^3 (test code = 0.33 10*3/uL 0.06-0.53 711-2) BASO x10^3 (test code 0.03 10*3/uL 0.01-0.09 = 704-7) Lab Interpretation Abnormal (test code = 96577-4) [facility] 02:06:55 Test Item Value Reference Range Interpretation Comments APPEARANCE (test code = Clear Clear 5597235352) COLOR (test code = Yellow Yellow 3067671262) PH (test code = 4.8-8.0 5361734564) SP GRAVITY (test code = 1.003-1.030 5799432793) GLU U QUAL (test code = Normal Normal 4326439438) BLOOD (test code = Negative Negative 7460507324) KETONES (test code = Negative Negative 4698688067) PROTEIN (test code = 100 mg/dL Negative A 2887-8) UROBILIN (test code = Normal Normal 2756148334) BILIRUBIN (test code = Negative Negative 9990223205) NITRITE (test code = Negative Negative 2988405173) LEUK LACI (test code = Negative Negative 5944237713) RBC/HPF (test code = See_Comment [Autom ated message] 6933594763) The system [employer] generated this result transmit jordon reference range : 0 - 3 HPF. The refe rence range was not u sed to interpret th is result as normal/abnormal . WBC/HPF (test code = See_Comment [Autom ated message] 3528156155) The system [employer] generated this result transmit jordon reference range : 0 - 5 HPF. The refe rence range was not u sed to interpret th is result as normal/abnormal . BACTERIA (test code = Negative Negative 4559952603) MUCOUS (test code = Slight Negative LPF A 3352189279) AMORPHOUS (test code = Rare Rare HPF 8836055050) Lab Interpretation (test Abnormal code = 66801-2) [facility] 1 [id number] 23:50:24 No acute intrathoracic abnormality.PROCEDURE: XR CHEST [...] normal. No acute bony abnormality.IMPRESSIONNo acute intrathoracic abnormality.[facility] 2020-07-19 22:38:45 Test Item Value Reference Range Interpretation Comments TROPONIN I (test 0.002 ng/mL See_Comment [Automated code = 8482217373) message] The system which generated this result [...] ? Lab Interpretation Normal (test code = 50414-0) [facility]AL [id number] 22:35:25 Test Item Value Reference Range Interpretation Comments NT-proBNP (test code 38 pg/mL See_Comment [Autom ated = 8998656941) message] The system which generated this result transmitted reference range : <=125. The reference range was not used to interpret this result as normal/abnormal . PALUIE (test code = PAULIE) Biotin has been reported to cause a negative bias, interpret results relative to patient's use of biotin. Lab Interpretation Normal (test code = 29342-9) [facility]. METABOLIC PANEL (01821)2020-07-19 22:27:43 Test Item Value Reference Range Interpretation Comments NA (test code = 140 mmol/L 135-145 0138312003) K (test code = 3.1 mmol/L 3.5-5.0 L 2515868242) CL (test code = 101 mmol/L 98-108 5798252828) CO2 TOTAL (test code = 32 mmol/L 23-31 H 8478489592) AGAP (test code = 2-16 5941253230) BUN (test code = 16 mg/dL 7-23 7240405118) GLUCOSE (test code = 105 mg/dL 70-110 2170323953) CREATININE (test code = 1.05 mg/dL 0.60-1.25 7172551734) TOTAL BILI (test code = 0.6 mg/dL 0.1-1.6 5142062694) CALCIUM (test code = 9.9 mg/dL 8.6-10.6 4967148265) T PROTEIN (test code = 7.7 g/dL 6.3-8.2 0283856098) ALBUMIN (test code = 4.3 g/dL 3.5-5.0 7611539665) ALK PHOS (test code = 59 U/L 34-122 9980191108) ALTv (test code = 28 U/L 5-50 1742-6) AST(SGOT) (test code = 29 U/L 13-40 6618151555) eGFR (test code = mL/min/1.73m2 9611579526) PAULIE (test code = PAULIE) Association of [...] tests). Lab Interpretation Abnormal (test code = 71106-8) [facility] (ID NOW RAPID TESTING)2020-07-19 22:22:01 Test Item Value Reference Range Interpretation Comments SARS-CoV-2 Rapid ID NOW Not Detected Not Detected (test code = 74509-8) PAULIE (test code = PAULIE) ID NOW COVID-19 Assay is an isothermal nucleic acid amplification test intended for the qualitative detection of nucleic acid from SARS-CoV-2 viral RNA in nasopharyngeal (EQUIPMENT WASHER) specimens. It is used under Emergency Use [...] indicated. Lab Interpretation Normal (test code = 44422-2) [facility] THRM[facility]AS [id number] 22:17:39 Test Item Value Reference Range Interpretation Comments APTT Patient (test See_Comment [Automat ed code = 3173-2) message] The system which generated this result transmitted reference range : 23 - 38 Seconds . The reference range was not used to interpr et this result as normal/abnormal . PAULIE (test code = PAULIE) The [facility] patient population mean normal value for aPTT is 30 seconds. Lab Interpretation Normal (test code = 49168-3) [facility] CenterPROTHROMBIN TIME / [id number] 22:15:42 Test Item Value Reference Range Interpretation [...] tions. Lab Interpretation (test Normal code = 37402-1) [facility] Center[facility] WITH [id number] 22:11:00 Test Item Value Reference Range Interpretation Comments WBC (test code = See_Comment [Automated 4490-2) message] The sy stem which generated this result transmitted reference range : 4.20 - 10.70 10*3/?L. The reference range was not used to interpret this result as normal/abnormal . RBC (test code = See_Comment [Automated 749-8) message] The sy stem which generated this [...] RDW-SD (test code = 39.2 fL 38.5-51.6 25728-2) RDW-CV (test code = 13.6 % 12.1-15.4 788-0) PLT (test code = See_Comment [Automated 777-3) message] The sy stem which generated this result transmitted reference range : 150 - 328 10*3/ ?L. The reference r lorena was not used to interpret this result as normal/abnormal . MPV (test code = 11.7 fL 9.8-13.0 16366-6) NRBC/100 WBC (test See_Comment [Automat ed code = 9833196397) message] The system which generated this result transmitted reference range : 0.0 - 10.0 /100 WBCs. The refer ence range was not u sed to interpret th is result as normal/abnormal . NRBC x10^3 (test code <0.01 See_Comment [Auto mated = 7705246917) message] The s ystem which generated this result transmitted reference range : 10*3/?L. The reference range was not used to interpret this result as normal/abnormal . GRAN MAT (NEUT) % 51.1 % (test code = 770-8) IMM GRAN % (test code 0.20 % = 1212341598) LYMPH % (test code = 34.2 % 736-9) MONO % (test code = 10.2 % 5905-5) EOS % (test code = 4.1 % 713-8) BASO % (test code = 0.2 % 706-2) GRAN MAT x10^3(ANC) 4.47 10*3/uL 1.99-6.95 (test code = 9400372255) IMM GRAN x10^3 (test <0.03 0.00-0.06 code = 7243315463) LYMPH x10^3 (test code 3.00 10*3/uL 1.09-3.23 = 731-0) MONO x10^3 (test code 0.89 10*3/uL 0.36-1.02 = 742-7) EOS x10^3 (test code = 0.36 10*3/uL 0.06-0.53 711-2) BASO x10^3 (test code <0.03 0.01-0.09 = 704-7) Lab Interpretation Abnormal (test code = 37665-8) [facility] GLUCOSE (AUTOMATED)2020-04-05 13:25:00 Test Item Value Reference Range Interpretation Comments POCT GLU (test code = 9785621981) 100 mg/dL 70-110 Lab Interpretation (test code = Normal 53503-7) [facility] METABOLIC PANEL (NA, K, CL, CO2, GLUCOSE, BUN, CREATININE, CA)2020-04-05 10:09:00 Test Item Value Reference Range Interpretation Comments NA (test code = 138 mmol/L 135-145 8368879372) K (test code = 4.4 mmol/L 3.5-5 6971457379) CL (test code = 105 mmol/L 98-108 1324410878) CO2 TOTAL (test code = 31 mmol/L 23-31 7125303443) AGAP (test code = 2-16 8454013053) BUN (test code = 20 mg/dL 7-23 1014300132) GLUCOSE (test code = 125 mg/dL 70-110 H 4604265131) CREATININE (test code = 1.13 mg/dL 0.6-1.25 5627643833) CALCIUM (test code = 8.9 mg/dL 8.6-10.6 2146360071) eGFR Calculation mL/min/1.73m2 (Non-) (test code = 2402609613) eGFR Calculation mL/min/1.73m2 () (test code = 8727319242) PAULIE (test code = PAULIE) Association of [...] tests). Lab Interpretation Abnormal (test code = 05000-5) [facility]UM2021-02-17 10:09:00 Test Item Value Reference Range Interpretation Comments MAGNESIUM (test code = 1952807904) 2.1 mg/dL 1.7-2.4 Lab Interpretation (test code = Normal 61642-1) [facility] GLUCOSE (AUTOMATED)2020-04-05 03:04:00 Test Item Value Reference Range Interpretation Comments POCT GLU (test code = 8703057793) 157 mg/dL 70-110 H Lab Interpretation (test code = Abnormal 75100-1) [facility] GLUCOSE (AUTOMATED)2020-04-04 23:48:00 Test Item Value Reference Range Interpretation Comments POCT GLU (test code = 2886128141) 151 mg/dL 70-110 H Lab Interpretation (test code = Abnormal 94670-8) [facility] GLUCOSE (AUTOMATED)2020-04-04 18:26:00 Test Item Value Reference Range Interpretation Comments POCT GLU (test code = 3121231733) 101 mg/dL 70-110 Lab Interpretation (test code = Normal 35394-2) [facility] GLUCOSE (AUTOMATED)2020-04-04 14:47:00 Test Item Value Reference Range Interpretation Comments POCT GLU (test code = 1933895102) 110 mg/dL 70-110 Lab Interpretation (test code = Normal 72804-0) [facility] (NA, K, CL, CO2, GLUCOSE, BUN, CREATININE, CA)2020-04-04 10:20:00 Test Item Value Reference Range Interpretation Comments NA (test code = 137 mmol/L 135-145 8466247214) K (test code = 4.3 mmol/L 3.5-5 Slight 7145624883) hemolysis CL (test code = 104 mmol/L 98-108 3312602902) CO2 TOTAL (test code 30 mmol/L 23-31 = 7978417199) AGAP (test code = 2-16 0879828802) BUN (test code = 18 mg/dL 7-23 Slight 4564427363) hemolysis GLUCOSE (test code = 117 mg/dL 70-110 H 3788890871) CREATININE (test code 0.97 mg/dL 0.6-1.25 = 0679098475) CALCIUM (test code = 8.8 mg/dL 8.6-10.6 4049539304) eGFR Calculation mL/min/1.73m2 (Non-) (test code = 1272917172) eGFR Calculation mL/min/1.73m2 () (test code = 6408851027) PAULIE (test code = PAULIE) Association of [...] tests). Lab Interpretation Abnormal (test code = 96179-1) [facility]2021-02-16 10:15:00 Test Item Value Reference Range Interpretation Comments MAGNESIUM (test code = 9878392066) 2.0 mg/dL 1.7-2.4 Lab Interpretation (test code = Normal 94902-0) [facility] GLUCOSE (AUTOMATED)2020-04-04 02:09:00 Test Item Value Reference Range Interpretation Comments POCT GLU (test code = 9673248991) 141 mg/dL 70-110 H Lab Interpretation (test code = Abnormal 70672-6) [facility] GLUCOSE (AUTOMATED)2020-04-03 23:40:00 Test Item Value Reference Range Interpretation Comments POCT GLU (test code = 8491865154) 144 mg/dL 70-110 H Lab Interpretation (test code = Abnormal 55966-0) [facility] GLUCOSE (AUTOMATED)2020-04-03 17:51:00 Test Item Value Reference Range Interpretation Comments POCT GLU (test code = 9956351922) 93 mg/dL 70-110 Lab Interpretation (test code = Normal 50030-4) [facility] GLUCOSE (AUTOMATED)2020-04-03 13:06:00 Test Item Value Reference Range Interpretation Comments POCT GLU (test code = 8124806463) 102 mg/dL 70-110 Lab Interpretation (test code = Normal 88644-2) [facility] (NA, K, CL, CO2, GLUCOSE, BUN, CREATININE, CA)2020-04-03 10:58:00 Test Item Value Reference Range Interpretation Comments NA (test code = 138 mmol/L 135-145 5112412638) K (test code = 3.6 mmol/L 3.5-5 3053799164) CL (test code = 103 mmol/L 98-108 4901351455) CO2 TOTAL (test code = 31 mmol/L 23-31 3841736850) AGAP (test code = 2-16 6770263102) BUN (test code = 13 mg/dL 7-23 5748710795) GLUCOSE (test code = 110 mg/dL 70-110 2892848846) CREATININE (test code 0.99 mg/dL 0.6-1.25 = 6029300077) CALCIUM (test code = 8.7 mg/dL 8.6-10.6 7811045999) eGFR Calculation mL/min/1.73m2 (Non-) (test code = 9707437188) eGFR Calculation mL/min/1.73m2 () (test code = 2144462717) PAULIE (test code = PAULIE) Association of [...] or urine or abnormalities in imaging tests). [facility] 10:58:00 Test Item Value Reference Range Interpretation Comments MAGNESIUM (test code = 5687334358) 1.9 mg/dL 1.7-2.4 Lab Interpretation (test code = Normal 22885-8) [facility]2020-04-03 01:59:00 Test Item Value Reference Range Interpretation Comments POCT GLU (test code = 9292273157) 153 mg/dL 70-110 H Lab Interpretation (test code = Abnormal 36741-5) [facility] GLUCOSE (AUTOMATED)2020-04-02 23:34:00 Test Item Value Reference Range Interpretation Comments POCT GLU (test code = 0595746366) 155 mg/dL 70-110 H Lab Interpretation (test code = Abnormal 26936-2) [facility] GLUCOSE (AUTOMATED)2020-04-02 17:41:00 Test Item Value Reference Range Interpretation Comments POCT GLU (test code = 7772361483) 92 mg/dL 70-110 Lab Interpretation (test code = Normal 58878-0) [facility] GLUCOSE (AUTOMATED)2020-04-02 14:42:00 Test Item Value Reference Range Interpretation Comments POCT GLU (test code = 1730306824) 99 mg/dL 70-110 Lab Interpretation (test code = Normal 65969-1) [facility] METABOLIC PANEL (NA, K, CL, CO2, GLUCOSE, BUN, CREATININE, CA)2020-04-02 12:27:00 Test Item Value Reference Range Interpretation Comments NA (test code = 140 mmol/L 135-145 1660061047) K (test code = 3.6 mmol/L 3.5-5 1538220514) CL (test code = 103 mmol/L 98-108 3952602866) CO2 TOTAL (test code = 33 mmol/L 23-31 H 0549783456) AGAP (test code = 2-16 2626609352) BUN (test code = 15 mg/dL 7-23 4319188291) GLUCOSE (test code = 110 mg/dL 70-110 3457219083) CREATININE (test code = 1.04 mg/dL 0.6-1.25 5291886643) CALCIUM (test code = 8.6 mg/dL 8.6-10.6 3131583987) eGFR Calculation mL/min/1.73m2 (Non-) (test code = 5614148148) eGFR Calculation mL/min/1.73m2 () (test code = 4377971548) PAULIE (test code = PAULIE) Association of [...] tests). Lab Interpretation Abnormal (test code = 57282-9) [facility] Test Item Value Reference Range Interpretation Comments MAGNESIUM (test code = 7483284037) 1.9 mg/dL 1.7-2.4 Lab Interpretation (test code = Normal 81073-2) [facility] GLUCOSE (AUTOMATED)2020-04-02 02:37:00 Test Item Value Reference Range Interpretation Comments POCT GLU (test code = 8976694492) 130 mg/dL 70-110 H Lab Interpretation (test code = Abnormal 55743-6) [facility] GLUCOSE (AUTOMATED)2020-04-01 23:45:00 Test Item Value Reference Range Interpretation Comments POCT GLU (test code = 6430096387) 133 mg/dL 70-110 H Lab Interpretation (test code = Abnormal 34610-0) [facility] GLUCOSE (AUTOMATED)2020-04-01 19:46:00 Test Item Value Reference Range Interpretation Comments POCT GLU (test code = 9985461276) 147 mg/dL 70-110 H Lab Interpretation (test code = Abnormal 88838-9) [facility]2020-04-01 14:45:00 Test Item Value Reference Range Interpretation Comments POCT GLU (test code = 1402044042) 101 mg/dL 70-110 Lab Interpretation (test code = Normal 84337-0) [facility] METABOLIC PANEL (NA, K, CL, CO2, GLUCOSE, BUN, CREATININE, CA)2020-04-01 10:30:00 Test Item Value Reference Range Interpretation Comments NA (test code = 138 mmol/L 135-145 2561919403) K (test code = 3.8 mmol/L 3.5-5 9980078111) CL (test code = 102 mmol/L 98-108 1925684386) CO2 TOTAL (test code = 32 mmol/L 23-31 H 6891833473) AGAP (test code = 2-16 0661096652) BUN (test code = 20 mg/dL 7-23 7285049893) GLUCOSE (test code = 111 mg/dL 70-110 H 7489698027) CREATININE (test code = 1.06 mg/dL 0.6-1.25 6670658119) CALCIUM (test code = 8.8 mg/dL 8.6-10.6 0532259937) eGFR Calculation mL/min/1.73m2 (Non-) (test code = 5888317470) eGFR Calculation mL/min/1.73m2 () (test code = 7300938847) PAULIE (test code = PAULIE) Association of [...] tests). Lab Interpretation Abnormal (test code = 47967-0) [facility] 10:30:00 Test Item Value Reference Range Interpretation Comments MAGNESIUM (test code = 1562742699) 2.1 mg/dL 1.7-2.4 Lab Interpretation (test code = Normal 51379-6) [facility] GLUCOSE (AUTOMATED)2020-04-01 02:24:00 Test Item Value Reference Range Interpretation Comments POCT GLU (test code = 2265397709) 137 mg/dL 70-110 H Lab Interpretation (test code = Abnormal 65444-9) [facility] GLUCOSE (AUTOMATED)2020-03-31 23:21:00 Test Item Value Reference Range Interpretation Comments POCT GLU (test code = 0338298075) 158 mg/dL 70-110 H Lab Interpretation (test code = Abnormal 09155-1) [facility] GLUCOSE (AUTOMATED)2020-03-31 18:14:00 Test Item Value Reference Range Interpretation Comments POCT GLU (test code = 3191243808) 108 mg/dL 70-110 Lab Interpretation (test code = Normal 20828-5) [facility] 1 [id number] 14:58:09EXAM: XR CHEST 1 VW HISTORY: worsened [...] clear otherwise. The heart is probably slightly enlarged.[facility]2020-03-31 14:11:00 Test Item Value Reference Range Interpretation Comments POCT GLU (test code = 5012841019) 98 mg/dL 70-110 Lab Interpretation (test code = Normal 57536-6) [facility]CREAT[facility] [id number] 13:53:00 Test Item Value Reference Range Interpretation Comments CK (test code = 4750661921) 723 U/L 33-194 H Lab Interpretation (test code = Abnormal 73181-9) [facility]PROCAL[facility]IN2021-[facility]-12 11:52:00 Test Item Value Reference Range Interpretation Comments Procalcitonin (test 0.06 ng/mL <0.07 code = 1141521478) PAULIE (test code = PAULIE) INTERPRETATION OF [...] lung abscess/empyema. For further information please refer to:[email or web address] Lab Interpretation Normal (test code = 74895-8) [facility] CenterD-MMUMS4553-02-29 10:23:00 Test Item Value Reference Interpretation Comments Range D-DIMER (test code = See_Comment H [Autom ated 5835981773) message] The system which generated this result [...] diagnosis. Lab Interpretation Abnormal (test code = 23308-0) [facility] METABOLIC PANEL (NA, K, CL, CO2, GLUCOSE, BUN, CREATININE, CA)2020-03-31 10:22:00 Test Item Value Reference Range Interpretation Comments NA (test code = 137 mmol/L 135-145 4737819631) K (test code = 3.7 mmol/L 3.5-5 9555476361) CL (test code = 102 mmol/L 98-108 2025217858) CO2 TOTAL (test code = 28 mmol/L 23-31 2313936461) AGAP (test code = 2-16 2159959138) BUN (test code = 18 mg/dL 7-23 0095061585) GLUCOSE (test code = 108 mg/dL 70-110 0936549599) CREATININE (test code 1.10 mg/dL 0.6-1.25 = 1406754371) CALCIUM (test code = 8.7 mg/dL 8.6-10.6 3513921436) eGFR Calculation mL/min/1.73m2 (Non-) (test code = 0514144862) eGFR Calculation mL/min/1.73m2 () (test code = 7500448416) PAULIE (test code = PAULIE) Association of [...] or urine or abnormalities in imaging tests). [facility] 10:22:00 Test Item Value Reference Range Interpretation Comments MAGNESIUM (test code = 7189848208) 2.1 mg/dL 1.7-2.4 Lab Interpretation (test code = Normal 94661-8) [facility] WITH [id number] 10:11:00 Test Item Value Reference Range Interpretation Comments WBC (test code = See_Comment [Automated 3203-2) message] The sy stem which generated this result transmitted reference range : 4.20 - 10.70 10*3/?L. The reference range was not used to interpret this result as normal/abnormal . RBC (test code = See_Comment [Automated 742-8) message] The sy stem which generated this [...] RDW-SD (test code = 38.7 fL 38.5-51.6 23220-0) RDW-CV (test code = 13.4 % 12.1-15.4 788-0) PLT (test code = See_Comment [Automated 777-3) message] The sy stem which generated this result transmitted reference range : 150 - 328 10*3/ ?L. The reference r lorena was not used to interpret this result as normal/abnormal . MPV (test code = 12.0 fL 9.8-13 16204-3) NRBC/100 WBC (test See_Comment [Automat ed code = 3776351343) message] The system which generated this result transmitted reference range : 0.0 - 10.0 /100 WBCs. The refer ence range was not u sed to interpret th is result as normal/abnormal . NRBC x10^3 (test code <0.01 See_Comment [Auto mated = 7502683991) message] The s ystem which generated this result transmitted reference range : 10*3/?L. The reference range was not used to interpret this result as normal/abnormal . GRAN MAT (NEUT) % 55.9 % (test code = 770-8) IMM GRAN % (test code 0.20 % = 5044660907) LYMPH % (test code = 36.0 % 736-9) MONO % (test code = 7.7 % 5905-5) EOS % (test code = 0.0 % 713-8) BASO % (test code = 0.2 % 706-2) GRAN MAT x10^3(ANC) 2.70 10*3/uL 1.99-6.95 (test code = 4880075651) IMM GRAN x10^3 (test <0.03 0-0.06 code = 9526650032) LYMPH x10^3 (test code 1.74 10*3/uL 1.09-3.23 = 731-0) MONO x10^3 (test code 0.37 10*3/uL 0.36-1.02 = 742-7) EOS x10^3 (test code = <0.03 0.06-0.53 L 711-2) BASO x10^3 (test code <0.03 0.01-0.09 = 704-7) Lab Interpretation Abnormal (test code = 11030-9) [facility] GLUCOSE (AUTOMATED)2020-03-31 01:46:00 Test Item Value Reference Range Interpretation Comments POCT GLU (test code = 8714818761) 126 mg/dL 70-110 H Lab Interpretation (test code = Abnormal 33850-1) [facility] GLUCOSE (AUTOMATED)2020-03-30 22:32:00 Test Item Value Reference Range Interpretation Comments POCT GLU (test code = 9842820068) 123 mg/dL 70-110 H Lab Interpretation (test code = Abnormal 44770-5) [facility] GLUCOSE (AUTOMATED)2020-03-30 18:04:00 Test Item Value Reference Range Interpretation Comments POCT GLU (test code = 4102205210) 137 mg/dL 70-110 H Lab Interpretation (test code = Abnormal 70245-7) [facility] GLUCOSE (AUTOMATED)2020-03-30 14:44:00 Test Item Value Reference Range Interpretation Comments POCT GLU (test code = 6718154006) 91 mg/dL 70-110 Lab Interpretation (test code = Normal 63701-6) [facility] METABOLIC PANEL (NA, K, CL, CO2, GLUCOSE, BUN, CREATININE, CA)2020-03-30 10:47:00 Test Item Value Reference Range Interpretation Comments NA (test code = 136 mmol/L 135-145 6313888197) K (test code = 3.8 mmol/L 3.5-5 9058451110) CL (test code = 101 mmol/L 98-108 8518027587) CO2 TOTAL (test code = 31 mmol/L 23-31 7918698903) AGAP (test code = 2-16 9171031311) BUN (test code = 20 mg/dL 7-23 6916020833) GLUCOSE (test code = 108 mg/dL 70-110 7194598086) CREATININE (test code = 1.11 mg/dL 0.6-1.25 1828674724) CALCIUM (test code = 8.5 mg/dL 8.6-10.6 L 1320862969) eGFR Calculation mL/min/1.73m2 (Non-) (test code = 5953336341) eGFR Calculation mL/min/1.73m2 () (test code = 4308364209) PAULIE (test code = PAULIE) Association of [...] tests). Lab Interpretation Abnormal (test code = 37887-5) [facility] 10:47:00 Test Item Value Reference Range Interpretation Comments MAGNESIUM (test code = 2363333617) 2.1 mg/dL 1.7-2.4 Lab Interpretation (test code = Normal 38930-8) [facility] GLUCOSE (AUTOMATED)2020-03-30 02:27:00 Test Item Value Reference Range Interpretation Comments POCT GLU (test code = 7039782209) 124 mg/dL 70-110 H Lab Interpretation (test code = Abnormal 34732-6) [facility] GLUCOSE (AUTOMATED)2020-03-29 22:04:00 Test Item Value Reference Range Interpretation Comments POCT GLU (test code = 2258607728) 104 mg/dL 70-110 Lab Interpretation (test code = Normal 88133-2) [facility]2020-03-29 14:34:00 Test Item Value Reference Range Interpretation Comments POCT GLU (test code = 0046194128) 93 mg/dL 70-110 Lab Interpretation (test code = Normal 86354-9) [facility] CenterCREATINE [id number] 14:32:00 Test Item Value Reference Range Interpretation Comments CK (test code = 8989252875) 988 U/L 33-194 H Lab Interpretation (test code = Abnormal 21108-7) [facility] (NA, K, CL, CO2, GLUCOSE, BUN, CREATININE, CA)2020-03-29 08:44:00 Test Item Value Reference Range Interpretation Comments NA (test code = 135 mmol/L 135-145 8007790897) K (test code = 3.5 mmol/L 3.5-5 5577607691) CL (test code = 98 mmol/L 98-108 3439814843) CO2 TOTAL (test code = 33 mmol/L 23-31 H 0110421930) AGAP (test code = 2-16 2166458912) BUN (test code = 22 mg/dL 7-23 1153385221) GLUCOSE (test code = 101 mg/dL 70-110 0368616080) CREATININE (test code = 1.54 mg/dL 0.6-1.25 H 2799738479) CALCIUM (test code = 8.2 mg/dL 8.6-10.6 L 7929167119) eGFR Calculation mL/min/1.73m2 (Non-) (test code = 6649381181) eGFR Calculation mL/min/1.73m2 () (test code = 8536667603) PAULIE (test code = PAULIE) Association of [...] tests). Lab Interpretation Abnormal (test code = 84778-8) [facility]-10 08:44:00 Test Item Value Reference Range Interpretation Comments MAGNESIUM (test code = 9216099650) 2.1 mg/dL 1.7-2.4 Lab Interpretation (test code = Normal 33483-7) [facility] GLUCOSE (AUTOMATED)2020-03-29 02:59:00 Test Item Value Reference Range Interpretation Comments POCT GLU (test code = 5328180750) 154 mg/dL 70-110 H Lab Interpretation (test code = Abnormal 92116-0) [facility] GLUCOSE (AUTOMATED)2020-03-28 23:37:00 Test Item Value Reference Range Interpretation Comments POCT GLU (test code = 1676393456) 103 mg/dL 70-110 Lab Interpretation (test code = Normal 92184-3) [facility] Center[facility] ONLY COVID [id number] 22:34:00COVID DMT InterpretationInterpretation/Recommendations: Molecular NAAT Tests for [...] first 10 days after symptom onset in kqgp-ol-axugnyde illness andwithin the first 20 days after [...] COVID-19 testing the patient has had at [facility], including molecularNAAT testing (more commonly known as PCR testing and Rapid ID Now testing) and antibody testing. It does not take into account any testing that a patient has had outside of the [facility] medical record. [facility] LABORATORY SERVICESCOVID PfcfmagGJGX-CyQ-1 Rapid ID NOW (no units) ? ? Date ? Value ? 03/27/2020 ? Positive (A) ? ? ? 09/20/2019 ? Not Detected? [facility] SERVICESUn[facility] 2020-03-28 17:59:00 Test Item Value Reference Range Interpretation Comments POCT GLU (test code = 6886502637) 104 mg/dL 70-110 Lab Interpretation (test code = Normal 59496-7) [facility] CenterC-REACTIVE [id number] 16:44:00 Test Item Value Reference Range Interpretation Comments CRP (test code = 8630837145) 6.7 mg/dL <0.8 H Lab Interpretation (test code = Abnormal 73406-9) [facility] METABOLIC PANEL (NA, K, CL, CO2, GLUCOSE, BUN, CREATININE, CA)2020-03-28 15:04:00 Test Item Value Reference Range Interpretation Comments NA (test code = 135 mmol/L 135-145 1954474267) K (test code = 3.2 mmol/L 3.5-5 L 1337010141) CL (test code = 100 mmol/L 98-108 9843280767) CO2 TOTAL (test code = 30 mmol/L 23-31 4653505894) AGAP (test code = 2-16 8981940961) BUN (test code = 17 mg/dL 7-23 2930385856) GLUCOSE (test code = 109 mg/dL 70-110 2032959596) CREATININE (test code = 1.49 mg/dL 0.6-1.25 H 7945148701) CALCIUM (test code = 8.0 mg/dL 8.6-10.6 L 3814428155) eGFR Calculation mL/min/1.73m2 (Non-) (test code = 0927848123) eGFR Calculation mL/min/1.73m2 () (test code = 5974087253) PAULIE (test code = PAULIE) Association of [...] tests). Lab Interpretation Abnormal (test code = 52712-0) [facility]20[facility] 15:04:00 Test Item Value Reference Range Interpretation Comments MAGNESIUM (test code = 9318901145) 1.8 mg/dL 1.7-2.4 Lab Interpretation (test code = Normal 74733-9) [facility] CenterCREATINE [id number] 15:04:00 Test Item Value Reference Range Interpretation Comments CK (test code = 3855161622) 874 U/L 33-194 H Lab Interpretation (test code = Abnormal 64833-0) [facility]2020-03-28 14:24:00 Test Item Value Reference Range Interpretation Comments POCT GLU (test code = 3095096096) 112 mg/dL 70-110 H Lab Interpretation (test code = Abnormal 01224-5) [facility] CenterBAS[facility] PAN[facility] (NA, K, CL, CO2, GLUCOSE, BUN, CREATININE, CA)2020-03-28 12:21:00 Test Item Value Reference Range Interpretation Comments NA (test code = 137 mmol/L 135-145 9179874630) K (test code = 3.3 mmol/L 3.5-5 L 6652409685) CL (test code = 98 mmol/L 98-108 4065241985) CO2 TOTAL (test code = 33 mmol/L 23-31 H 0939203762) AGAP (test code = 2-16 3243743588) BUN (test code = 20 mg/dL 7-23 1239525193) GLUCOSE (test code = 94 mg/dL 70-110 9536884906) CREATININE (test code = 2.00 mg/dL 0.6-1.25 H 9832541234) CALCIUM (test code = 8.4 mg/dL 8.6-10.6 L 6510707832) eGFR Calculation mL/min/1.73m2 (Non-) (test code = 0706282985) eGFR Calculation mL/min/1.73m2 () (test code = 5362402307) PAULIE (test code = PAULIE) Association of [...] tests). Lab Interpretation Abnormal (test code = 43698-6) [facility] WITH [id number] 11:26:00 Test Item Value Reference Range Interpretation Comments WBC (test code = See_Comment [Automated 4144-2) message] The sy stem which generated this result transmitted reference range : 4.20 - 10.70 10*3/?L. The reference range was not used to interpret this result as normal/abnormal . RBC (test code = See_Comment [Automated 217-2) message] The sy stem which generated this [...] RDW-SD (test code = 40.6 fL 38.5-51.6 58231-6) RDW-CV (test code = 13.8 % 12.1-15.4 788-0) PLT (test code = See_Comment L [Automated 777-3) message] The sy stem which generated this result transmitted reference range : 150 - 328 10*3/ ?L. The reference r lorena was not used to interpret this result as normal/abnormal . MPV (test code = 12.1 fL 9.8-13 36053-6) NRBC/100 WBC (test See_Comment [Automat ed code = 3905530502) message] The system which generated this result transmitted reference range : 0.0 - 10.0 /100 WBCs. The refer ence range was not u sed to interpret th is result as normal/abnormal . NRBC x10^3 (test code <0.01 See_Comment [Auto mated = 0296714346) message] The s ystem which generated this result transmitted reference range : 10*3/?L. The reference range was not used to interpret this result as normal/abnormal . GRAN MAT (NEUT) % 71.0 % (test code = 770-8) IMM GRAN % (test code 0.30 % = 7903566380) LYMPH % (test code = 19.4 % 736-9) MONO % (test code = 9.3 % 5905-5) EOS % (test code = 0.0 % 713-8) BASO % (test code = 0.0 % 706-2) GRAN MAT x10^3(ANC) 5.06 10*3/uL 1.99-6.95 (test code = 0346384137) IMM GRAN x10^3 (test <0.03 0-0.06 code = 4678420580) LYMPH x10^3 (test code 1.38 10*3/uL 1.09-3.23 = 731-0) MONO x10^3 (test code 0.66 10*3/uL 0.36-1.02 = 742-7) EOS x10^3 (test code = <0.03 0.06-0.53 L 711-2) BASO x10^3 (test code <0.03 0.01-0.09 = 704-7) Lab Interpretation Abnormal (test code = 55359-2) [facility]URINAL[facility]IS[facility] 08:58:00 Test Item Value Reference Range Interpretation Comments APPEARANCE (test code = Clear Clear 1999321297) COLOR (test code = Yellow Yellow 5317767560) PH (test code = 4.8-8.0 5655316118) SP GRAVITY (test code = 1.003-1.030 8167513799) GLU U QUAL (test code = Normal Normal 5559565066) BLOOD (test code = 1+ Negative A 7377193753) KETONES (test code = Negative Negative 7031303759) PROTEIN (test code = 100 mg/dL Negative A 2887-8) UROBILIN (test code = Normal Normal 0844172308) BILIRUBIN (test code = Negative Negative 9906173230) NITRITE (test code = Negative Negative 4861374594) LEUK LACI (test code = Negative Negative 9971636101) RBC/HPF (test code = See_Comment [Autom ated message] 6719553781) The system [employer] generated this result transmit jordon reference range : 0 - 3 HPF. The refe rence range was not u sed to interpret th is result as normal/abnormal . WBC/HPF (test code = See_Comment [Autom ated message] 6350650870) The system [employer] generated this result transmit jordon reference range : 0 - 5 HPF. The refe rence range was not u sed to interpret th is result as normal/abnormal . BACTERIA (test code = Negative Negative 2792431206) MUCOUS (test code = Slight Negative LPF A 1592687862) HYAL CAST (test code = See_Comment [Aut omated message] 0572897231) The system [employer] generated this result transmit jordon reference range : <=2 LPF. The refere nce range was not u sed to interpret th is result as normal/abnormal . ASCORBIC ACID (test code Negative = 0013177025) Lab Interpretation (test Abnormal code = 85586-5) [facility] CenterSODI[facility], URINE [id number] 08:57:00 Test Item Value Reference Range Interpretation Comments NA URINE (test code = 2451803370) 5 mmol/L [facility] CenterCREATININE, URINE [id number] 08:57:00 Test Item Value Reference Range Interpretation Comments CREAT U (test code = 7124585909) 84.3 mg/dL [facility]MAGNESIUM2021-02-09 03:03:00 Test Item Value Reference Range Interpretation Comments MAGNESIUM (test code = 9528920139) 1.7 mg/dL 1.7-2.4 Lab Interpretation (test code = Normal 07652-5) [facility]2020-03-28 02:39:00 Test Item Value Reference Range Interpretation Comments POCT GLU (test code = 101 mg/dL 70-110 Notifi ed Provider [id number]) Lab Interpretation (test Normal code = 48963-6) [facility] CenterPROCALCITONIN2021-02-09 02:26:00 Test Item Value Reference Range Interpretation Comments Procalcitonin (test 0.11 ng/mL <0.07 H code = 5469162187) PAULIE (test code = PAULIE) INTERPRETATION OF [...] lung abscess/empyema. For further information please refer to:[email or web address] Lab Interpretation Abnormal (test code = 78862-8) [facility] CenterGLYCOSYLATED HEMOGLOBIN (A1C)2020-03-28 01:52:00 Test Item Value Reference Range Interpretation Comments HGB A1C (test code = 6.3 % 4-6 H 4548-4) PAULIE (test code = PAULIE) %A1C (NGSP) Interpretation (ADA)4.8-5.6 ? ? Normal or (Non-Diabetic Range)5.7-6.4 ? ? Increased Risk (Pre-Diabetic)>6.5 ?Diabetes Indicated Lab Interpretation Abnormal (test code = 27762-3) [id number] 01:19:00 Test Item Value Reference Interpretation Comments Range D-DIMER (test code = See_Comment [Autom ated 2638039312) message] The system which generated this result [...] diagnosis. Lab Interpretation Normal (test code = 48658-2) [facility] CenterLACTATE [id number] 01:17:00 Test Item Value Reference Range Interpretation Comments LDH (test code = 0111492833) 893 U/L 300-600 H Lab Interpretation (test code = Abnormal 13402-4) [facility] CenterCREATINE [id number] 00:59:00 Test Item Value Reference Range Interpretation Comments CK (test code = 7794430951) 795 U/L 33-194 H Lab Interpretation (test code = Abnormal 35431-2) [facility]XR CHEST 1 [id number] 20:09:13Findings and Impression: ?Suboptimal inspiratory volumes resulting [...] exaggerated by suboptimal inspiratory volumes). Noacute osseous abnormality.[facility] [id number] 19:58:00 Test Item Value Reference Range Interpretation Comments TROPONIN I (test <0.012 See_Comment [Automated code = 8604608321) message] The system which generated this result [...] ? Lab Interpretation Normal (test code = 40573-1) [facility] WITH [id number] 19:54:00 Test Item Value Reference Range Interpretation Comments WBC (test code = See_Comment [Automated 0890-2) message] The sy stem which generated this [...] RDW-SD (test code = 39.2 fL 38.5-51.6 22142-8) RDW-CV (test code = 13.7 % 12.1-15.4 788-0) PLT (test code = See_Comment [Automated 777-3) message] The sy stem which generated this result transmitted reference range : 150 - 328 10*3/ ?L. The reference r lorena was not used to interpret this result as normal/abnormal . MPV (test code = 12.3 fL 9.8-13 22489-2) NRBC/100 WBC (test See_Comment [Automat ed code = 6560012290) message] The system which generated this result transmitted reference range : 0.0 - 10.0 /100 WBCs. The refer ence range was not u sed to interpret th is result as normal/abnormal . NRBC x10^3 (test code <0.01 See_Comment [Auto mated = 1825547959) message] The s ystem which generated this result transmitted reference range : 10*3/?L. The reference range was not used to interpret this result as normal/abnormal . GRAN MAT (NEUT) % 56.7 % (test code = 770-8) IMM GRAN % (test code 0.30 % = 0527689817) LYMPH % (test code = 28.8 % 736-9) MONO % (test code = 14.1 % 5905-5) EOS % (test code = 0.0 % 713-8) BASO % (test code = 0.1 % 706-2) GRAN MAT x10^3(ANC) 3.82 10*3/uL 1.99-6.95 (test code = 5052925943) IMM GRAN x10^3 (test <0.03 0-0.06 code = 8787156454) LYMPH x10^3 (test code 1.94 10*3/uL 1.09-3.23 = 731-0) MONO x10^3 (test code 0.95 10*3/uL 0.36-1.02 = 742-7) EOS x10^3 (test code = <0.03 0.06-0.53 L 711-2) BASO x10^3 (test code <0.03 0.01-0.09 = 704-7) Lab Interpretation Abnormal (test code = 63858-2) [facility]. METABOLIC PANEL ([id number])2020-03-27 19:49:00 Test Item Value Reference Range Interpretation Comments NA (test code = 136 mmol/L 135-145 5119140749) K (test code = 3.4 mmol/L 3.5-5 L 5918763667) CL (test code = 96 mmol/L 98-108 L 0572450772) CO2 TOTAL (test code = 30 mmol/L 23-31 1300679024) AGAP (test code = 2-16 3576406722) BUN (test code = 15 mg/dL 7-23 6937266717) GLUCOSE (test code = 101 mg/dL 70-110 9138287177) CREATININE (test code = 1.68 mg/dL 0.6-1.25 H 7855146470) TOTAL BILI (test code = 0.6 mg/dL 0.1-1.4 0315111428) CALCIUM (test code = 8.7 mg/dL 8.6-10.6 6841678005) T PROTEIN (test code = 7.4 g/dL 6.3-8.2 7428258714) ALBUMIN (test code = 4.2 g/dL 3.5-5 8022000035) ALK PHOS (test code = 49 U/L 34-122 2587982589) ALTv (test code = 41 U/L 5-50 1742-6) AST(SGOT) (test code = 47 U/L 13-40 H 5715330678) eGFR Calculation mL/min/1.73m2 (Non-) (test code = 8981935333) eGFR Calculation mL/min/1.73m2 () (test code = 2060437260) PAULIE (test code = PAULIE) Association of [...] tests). Lab Interpretation Abnormal (test code = 63734-1) [facility] CenterLIPASE, [id number] 19:49:00 Test Item Value Reference Range Interpretation Comments LIPASE (test code = 5572690668) 218 U/L 0-220 Lab Interpretation (test code = Normal 61292-7) [facility] CenteraPTT2021-02-08 19:41:00 Test Item Value Reference Range Interpretation Comments APTT Patient (test See_Comment [Automat ed code = 3173-2) message] The system which generated this result transmitted reference range : 23 - 38 Seconds . The reference range was not used to interpr et this result as normal/abnormal . PAULIE (test code = PAULIE) The [facility] patient population mean normal value for aPTT is 30 seconds. Lab Interpretation Normal (test code = 49045-6) [facility] CenterPROTHROMBIN TIME / [id number] 19:39:00 Test Item Value Reference Range Interpretation [...] tions. Lab Interpretation (test Normal code = 40715-9) [facility] CenterCOVID-19 (ID NOW RAPID TESTING)2020-03-27 19:34:00 Test Item Value Reference Range Interpretation Comments SARS-CoV-2 Rapid ID NOW Positive Not Detected A (test code = 83376-9) PAULIE (test code = PAULIE) ID NOW COVID-19 Assay is an isothermal nucleic acid amplification test intended for the qualitative detection of nucleic acid from SARS-CoV-2 viral RNA in nasopharyngeal (EQUIPMENT WASHER) specimens. It is used under Emergency Use [...] indicated. Lab Interpretation Abnormal (test code = 14306-2) [facility] GLUCOSE (AUTOMATED)2019-09-22 17:21:00 Test Item Value Reference Range Interpretation Comments POCT GLU (test code = 9124951950) 413 mg/dL 70-110 H Lab Interpretation (test code = Abnormal 23328-4) [facility] GLUCOSE (AUTOMATED)2019-09-22 13:12:00 Test Item Value Reference Range Interpretation Comments POCT GLU (test code = 3792543306) 276 mg/dL 70-110 H Lab Interpretation (test code = Abnormal 31178-0) [facility] WITH [id number] 11:26:00 Test Item Value Reference Range Interpretation [...] RDW-SD (test code = 40.0 fL 38.5-51.6 20610-1) RDW-CV (test code = 14.1 % 12.1-15.4 788-0) PLT (test code = See_Comment [Automated 777-3) message] The sy stem which generated this result transmitted reference range : 150 - 328 10*3/ ?L. The reference r lorena was not used to interpret this result as normal/abnormal . MPV (test code = 13.8 fL 9.8-13 H 29802-4) IPF % (test code = 16.4 % 1.2-10.7 H Platelet count 1326170040) measured by fluorescence method. NRBC/100 WBC (test See_Comment [Automat ed code = 7257767812) message] The system which generated this result transmitted reference range : 0.0 - 10.0 /100 WBCs. The refer ence range was not u sed to interpret th is result as normal/abnormal . NRBC x10^3 (test code <0.01 See_Comment [Auto mated = 7915987571) message] The s ystem which generated this result transmitted reference range : 10*3/?L. The reference range was not used to interpret this result as normal/abnormal . GRAN MAT (NEUT) % 38.2 % (test code = 770-8) IMM GRAN % (test code 0.20 % = 7226955809) LYMPH % (test code = 46.8 % 736-9) MONO % (test code = 11.6 % 5905-5) EOS % (test code = 2.9 % 713-8) BASO % (test code = 0.3 % 706-2) GRAN MAT x10^3(ANC) 2.20 10*3/uL 1.99-6.95 (test code = 3496843280) IMM GRAN x10^3 (test <0.03 0-0.06 code = 7689523725) LYMPH x10^3 (test code 2.70 10*3/uL 1.09-3.23 = 731-0) MONO x10^3 (test code 0.67 10*3/uL 0.36-1.02 = 742-7) EOS x10^3 (test code = 0.17 10*3/uL 0.06-0.53 711-2) BASO x10^3 (test code <0.03 0.01-0.09 = 704-7) Lab Interpretation Abnormal (test code = 92532-8) [facility]. METABOLIC PANEL (72907)2019-09-22 11:26:00 Test Item Value Reference Range Interpretation Comments NA (test code = 134 mmol/L 135-145 L 5979081741) K (test code = 3.5 mmol/L 3.5-5 5460363616) CL (test code = 101 mmol/L 98-108 6055937916) CO2 TOTAL (test code = 24 mmol/L 23-31 8310924178) AGAP (test code = 2-16 2469891179) BUN (test code = 11 mg/dL 7-23 7878501355) GLUCOSE (test code = 310 mg/dL 70-110 H 5865163897) CREATININE (test code = 0.91 mg/dL 0.6-1.25 9984912969) TOTAL BILI (test code = 0.5 mg/dL 0.1-1.4 1711165623) CALCIUM (test code = 9.0 mg/dL 8.6-10.6 5460028601) T PROTEIN (test code = 6.1 g/dL 6.3-8.2 L 7350894353) ALBUMIN (test code = 3.5 g/dL 3.5-5 9782322499) ALK PHOS (test code = 70 U/L 34-122 8283653805) ALTv (test code = 40 U/L 5-50 1742-6) AST(SGOT) (test code = 27 U/L 13-40 5029351006) eGFR Calculation mL/min/1.73m2 (Non-) (test code = 4498818845) eGFR Calculation mL/min/1.73m2 () (test code = 9854617034) PAULIE (test code = PAULIE) Association of [...] tests). Lab Interpretation Abnormal (test code = 67478-7) [facility] CenterPOCT [facility] (AUT[facility]ATED)2019-09-22 01:47:00 Test Item Value Reference Range Interpretation Comments POCT GLU (test code = 2550225451) 387 mg/dL 70-110 H Lab Interpretation (test code = Abnormal 51256-8) [facility] CenterTROPONIN [id number] 22:32:00 Test Item Value Reference Range Interpretation Comments TROPONIN I (test <0.012 See_Comment [Automated code = 2742053496) message] The system which generated this result [...] ? Lab Interpretation Normal (test code = 20363-5) [facility] CenterEBV-MONONUCLEOSIS [id number] 22:25:00 Test Item Value Reference Range Interpretation Comments EBV Mononucleosis Screen (test code Negative Negative = 4318491127) Lab Interpretation (test code = Normal 45807-0) [facility] STREP SCREEN FOR GROUP [id number] 22:13:00 Test Item Value Reference Range Interpretation Comments Streptococcus pyogenes (group A) Negative Negative antigen (test code = 99618-9) Lab Interpretation (test code = Normal 02966-0) [facility] GLUCOSE (AUTOMATED)2019-09-21 21:12:00 Test Item Value Reference Range Interpretation Comments POCT GLU (test code = 2325452898) 390 mg/dL 70-110 H Lab Interpretation (test code = Abnormal 56662-1) [facility] GLUCOSE (AUTOMATED)2019-09-21 17:30:00 Test Item Value Reference Range Interpretation Comments POCT GLU (test code = 9510059435) 369 mg/dL 70-110 H Lab Interpretation (test code = Abnormal 41089-8) [facility] GLUCOSE (AUTOMATED)2019-09-21 13:21:00 Test Item Value Reference Range Interpretation Comments POCT GLU (test code = 8833263427) 394 mg/dL 70-110 H Lab Interpretation (test code = Abnormal 55267-0) [facility] CenterTROPONIN [id number] 12:22:00 Test Item Value Reference Range Interpretation Comments TROPONIN I (test <0.012 See_Comment [Automated code = 5960671260) message] The system which generated this result [...] ? Lab Interpretation Normal (test code = 95606-9) [facility] CenterGlycosylated Hemoglobin (A1C)2019-09-21 07:33:00 Test Item Value Reference Range Interpretation Comments HGB A1C (test code = 12.1 % 4-6 H 4548-4) PAULIE (test code = PAULIE) %A1C (NGSP) Interpretation (ADA)4.8-5.6 ? ? Normal or (Non-Diabetic Range)5.7-6.4 ? ? Increased Risk (Pre-Diabetic)>6.5 ?Diabetes Indicated Lab Interpretation Abnormal (test code = 36015-6) [facility]PO[facility])2019-09-21 06:54:00 Test Item Value Reference Range Interpretation Comments POCT GLU (test code = 1050261423) 364 mg/dL 70-110 H Lab Interpretation (test code = Abnormal 35548-0) [facility] CenterUS GALL [id number] 03:58:29 Suboptimal evaluation due to patient's body habitus. Suspected cholelithiasis without sonographic evidence of acutecholecystitis. Diffuse hepatic steatosis. Preliminary Report Dictated by Resident: Shaylee Cardozo MD., have reviewed this study and agree with the abovereport. RIGHT UPPER QUADRANT ULTRASOUND HISTORY: RUQ pain COMPARISON: None. NOTE: The examination was performed by the manufacturing engineering technologist. I wasnot directly involved in the acquisition [...] visualized portion of the right kidney is unremarkable.[facility], Radiant Results Inft User - 09/20/2019 10:59 PM CDTRIGHT UPPER QUADRANT ULTRASOUND HISTORY: RUQ pain COMPARISON: None.NOTE: The examination was performed by the manufacturing engineering technologist. I wasnot directly involved in the acquisition [...] reviewed this study and agree with the abovereport.[facility] CenterPOCT [facility]UCOSE (AUT[facility]ATED)2019-09-21 03:44:00 Test Item Value Reference Range Interpretation Comments POCT GLU (test code = 0235678065) 355 mg/dL 70-110 H Lab Interpretation (test code = Abnormal 15531-6) [facility] CenterCOVID-19 (ID NOW RAPID TESTING)2019-09-21 01:51:00 Test Item Value Reference Range Interpretation Comments SARS-CoV-2 Rapid ID NOW Not Detected Not Detected (test code = 47266-2) PAULIE (test code = PAULIE) ID NOW COVID-19 Assay is an isothermal nucleic acid amplification test intended for the qualitative detection of nucleic acid from SARS-CoV-2 viral RNA in nasopharyngeal (EQUIPMENT WASHER) specimens. It is used under Emergency Use [...] indicated. Lab Interpretation Normal (test code = 98834-9) [facility] CenterTroponin [id number] 01:41:00 Test Item Value Reference Range Interpretation Comments TROPONIN I (test <0.012 See_Comment [Automated code = 7155985414) message] The system which generated this result [...] ? Lab Interpretation Normal (test code = 13629-5) [facility] (NA, K, CL, CO2, GLUCOSE, BUN, CREATININE, CA)2019-09-21 01:37:00 Test Item Value Reference Range Interpretation Comments NA (test code = 132 mmol/L 135-145 L 2532540906) K (test code = 4.1 mmol/L 3.5-5 2633481395) CL (test code = 95 mmol/L 98-108 L 6178895936) CO2 TOTAL (test code = 23 mmol/L 23-31 3279986513) AGAP (test code = 2-16 6062227557) BUN (test code = 15 mg/dL 7-23 1324036123) GLUCOSE (test code = 526 mg/dL 70-110 HH 7031972413) CREATININE (test code = 1.13 mg/dL 0.6-1.25 8934825398) CALCIUM (test code = 9.9 mg/dL 8.6-10.6 6562134454) eGFR Calculation mL/min/1.73m2 (Non-) (test code = 3931431741) eGFR Calculation mL/min/1.73m2 () (test code = 3274735921) PAULIE (test code = PAULIE) Association of [...] tests). Lab Interpretation Abnormal (test code = 11371-4) [facility] CenterD-[id number] 01:37:00 Test Item Value Reference Interpretation Comments Range D-DIMER (test code = See_Comment [Autom ated 9535151075) message] The system which generated this result [...] diagnosis. Lab Interpretation Normal (test code = 14876-6) [facility] CenterProthrombin Time (PT) / [id number] 01:33:00 Test Item Value Reference Range Interpretation [...] tions. Lab Interpretation (test Normal code = 90141-5) [facility] CenterHepatic Function Panel (ALB, T.PRO, BILI T, BU/BC, ALT, AST, ALK PHOS)2019-09-21 01:30:00 Test Item Value Reference Range Interpretation Comments TOTAL BILI (test code = 4559525003) 0.5 mg/dL 0.1-1.1 BILI UNCON (test code = 4645160859) 0.5 mg/dL 0.1-1.1 BILI CONJ (test code = 8635908199) 0.0 mg/dL 0-0.3 T PROTEIN (test code = 0541384926) 7.1 g/dL 6.3-8.2 ALBUMIN (test code = 3350262699) 4.2 g/dL 3.5-5 ALK PHOS (test code = 3705468829) 88 U/L 34-122 ALTv (test code = 1742-6) 44 U/L 5-50 AST(SGOT) (test code = 1330412726) 37 U/L 13-40 Lab Interpretation (test code = Normal 49861-3) [facility] CenterLIPASE2020-08-04 01:30:00 Test Item Value Reference Range Interpretation Comments LIPASE (test code = 9190717617) 175 U/L 0-220 Lab Interpretation (test code = Normal 02894-6) [facility] CenteraPTT2020-08-04 01:29:00 Test Item Value Reference Range Interpretation Comments APTT Patient (test See_Comment L [Automat ed code = 3173-2) message] The system which generated this result transmitted reference range : 23 - 38 Seconds . The reference range was not used to interpr et this result as normal/abnormal . PAULIE (test code = PAULIE) The [facility] patient population mean normal value for aPTT is 30 seconds. Lab Interpretation Abnormal (test code = 00092-8) [facility] CenterUrinalysis2020-08-04 01:25:00 Test Item Value Reference Range Interpretation Comments APPEARANCE (test code = Clear Clear 8999758402) COLOR (test code = Straw Yellow A 2045553105) PH (test code = 4.8-8.0 3376404072) SP GRAVITY (test code = 1.003-1.030 4108738500) GLU U QUAL (test code = 500 mg/dL Normal A 7791611926) BLOOD (test code = 1+ Negative A 3378711648) KETONES (test code = 80 mg/dL Negative A 4287933421) PROTEIN (test code = 100 mg/dL Negative A 2887-8) UROBILIN (test code = Normal Normal 8931417680) BILIRUBIN (test code = Negative Negative 2036577997) NITRITE (test code = Negative Negative 3456785910) LEUK LACI (test code = Negative Negative 9977975748) RBC/HPF (test code = See_Comment [Autom ated message] 6052960894) The system [employer] generated this result transmit jordon reference range : 0 - 3 HPF. The refe rence range was not u sed to interpret th is result as normal/abnormal . WBC/HPF (test code = <1 See_Comment [Autom ated message] 7267881958) The system [employer] generated this result transmit jordon reference range : 0 - 5 HPF. The refe rence range was not u sed to interpret th is result as normal/abnormal . BACTERIA (test code = Negative Negative 5487866091) MUCOUS (test code = Slight Negative LPF A 4382181232) Lab Interpretation (test Abnormal code = 64563-4) [facility] CenterXR CHEST 1 VW [id number] 01:22:15 No acute intrathoracic abnormality, specifically no detectable radiographicfindings to suggest COVID-19 pneumonia. Disclaimer: Generally, the findings on chest imaging in COVID-19 are notspecific, and overlap with other infections, including influenza, H1N1,SARS and MERS.According to the Centers forDisease Control (CDC) and recent statement ofthe [employer], viral testing remains the [...] The cardiomediastinalsilhouette isnormal. No acute bony abnormality. [facility], Radiant Results Inft User - 09/20/2019 8:23 [...] Disease Control (CDC) and recent statement ofthe [employer], viral testing remains the only specificmethod of diagnosis. Confirmation with the viral test is required, even ifradiologic findings are suggestive of COVID-[address]Preliminary Report Dictated by Resident: Shaylee Ugarte MD., have reviewed this study and agree with the abovereport.[facility] with [id number] 01:22:00 Test Item Value Reference Range Interpretation Comments WBC (test code = See_Comment [Automated 3145-2) message] The sy stem which generated this result transmitted reference range : 4.20 - 10.70 10*3/?L. The reference range was not used to interpret this result as normal/abnormal . RBC (test code = See_Comment H [Automated 9-8) message] The sy stem which generated this [...] RDW-SD (test code = 39.2 fL 38.5-51.6 41726-8) RDW-CV (test code = 13.8 % 12.1-15.4 788-0) PLT (test code = See_Comment [Automated 777-3) message] The sy stem which generated this result transmitted reference range : 150 - 328 10*3/ ?L. The reference r lorena was not used to interpret this result as normal/abnormal . MPV (test code = 13.4 fL 9.8-13 H 94534-0) IPF % (test code = 16.6 % 1.2-10.7 H Platelet count 2817496207) measured by fluorescence method. NRBC/100 WBC (test See_Comment [Automat ed code = 5098449177) message] The system which generated this result transmitted reference range : 0.0 - 10.0 /100 WBCs. The refer ence range was not u sed to interpret th is result as normal/abnormal . NRBC x10^3 (test code <0.01 See_Comment [Auto mated = 8783597131) message] The s ystem which generated this result transmitted reference range : 10*3/?L. The reference range was not used to interpret this result as normal/abnormal . GRAN MAT (NEUT) % 43.7 % (test code = 770-8) IMM GRAN % (test code 0.50 % = 0807278891) LYMPH % (test code = 43.1 % 736-9) MONO % (test code = 10.4 % 5905-5) EOS % (test code = 1.8 % 713-8) BASO % (test code = 0.5 % 706-2) GRAN MAT x10^3(ANC) 2.64 10*3/uL 1.99-6.95 (test code = 8935859867) IMM GRAN x10^3 (test 0.03 10*3/uL 0-0.06 code = 8096805780) LYMPH x10^3 (test code 2.61 10*3/uL 1.09-3.23 = 731-0) MONO x10^3 (test code 0.63 10*3/uL 0.36-1.02 = 742-7) EOS x10^3 (test code = 0.11 10*3/uL 0.06-0.53 711-2) BASO x10^3 (test code 0.03 10*3/uL 0.01-0.09 = 704-7) Lab Interpretation Abnormal (test code = 33015-8) [facility]
[2021-01-31] MEDS ORDERED: NA CHLORIDE 0.9% 1,000 ML ONE ×2 (14:43→20:07)
[2021-01-31] MEDS ORDERED: ONDANSETRON 4 MG/2 ML VIAL ONE (14:43)
[2021-01-31 15:02] LABS: Basophils % 0.8 % (0-1.3); Hematocrit 42.3 % (39.6-49.0); Lymphocytes % 37.4 % (15.3-44.8); MPV 10.3 fL (7.6-11.3); RBC Red Blood Cell Count 5.24 M/uL (4.33-5.43)
[2021-01-31 15:16] LABS: Potassium 3.1 mmol/L (3.5-5.1)
[2021-01-31 17:33] LABS: Urine Blood 1+ (Negative); Urine Glucose Trace (Negative); Urine Protein 2+ (Negative)
--- NOTE | 2021-01-31 18:45 | EDPHYS ---
Physician Documentation [facility] Name: Huber Field Age: 30 yrs Sex: Male : 1990 Arrival Date: 01/31/2021 Time: 11:54 Bed 7 Private MD: ED Physician Santiago Huitron HPI: 01/31 18:12 This 30 yrs old Black Male presents to ER via Ambulatory with complaints of sent by tr perdue for kidney failure. 18:12 Pt seen here yesterday for dark urine, hydrated and felt better, followed up today with rn pcp and sent back for reeval as still had dark urine in clinic and told could be in kidney failure. Pt reports generalized fatigue and malaise with nausea since his gastric sleeve last month. . Onset: The symptoms/episode began/occurred 1 month(s) ago. Severity of symptoms: At their worst the symptoms were moderate in the emergency department the symptoms have improved. The patient has not experienced similar symptoms in the past. The patient has been recently seen at the [facility] Emergency Department, yesterday. Historical: - Allergies: 12:20 Fish Containing Products; ll1 - PMHx: 12:20 Hypertensive disorder; Diabetes mellitus; ll1 - PSHx: 12:20 vertical sleeve; ll1 - Immunization history:: Client reports having NOT received the Covid vaccine. Flu vaccine status is unknown. - Social history:: Smoking status: Patient denies any tobacco usage or history of. - Family history:: not pertinent. - Hospitalizations: : No recent hospitalization is reported. ROS: 18:12 Constitutional: Negative for fever, chills, and weight loss, Eyes: Negative for injury, rn pain, redness, and discharge, Neck: Negative for injury, pain, and swelling, Cardiovascular: Negative for chest pain, palpitations, and edema, Respiratory: Negative for shortness of breath, cough, wheezing, and pleuritic chest pain, Abdomen/GI: Negative for diarrhea, and constipation, Back: Negative for injury and pain, : Negative for injury, bleeding, discharge, and swelling, MS/Extremity: Negative for injury and deformity, Skin: Negative for injury, rash, and discoloration, Neuro: Negative for headache, numbness, tingling, and seizure. Exam: 18:12 Constitutional: Overweight male, no acute distress, appears even better than yesterday rn Head/Face: Normocephalic, atraumatic. Eyes: Periorbital areas with no swelling, redness, or edema. Cardiovascular: Regular rate and rhythm . No pulse deficits. Respiratory: No increased work of breathing, no retractions or nasal flaring. Abdomen/GI: Soft, non-tender Skin: Warm, dry MS/ Extremity: Pulses equal, no cyanosis. Neuro: Awake and alert, GCS 15 Vital Signs: 12:18 BP 165 / 98; Pulse 68; Resp 18; Temp 97.6; Pulse Ox 98% ; Weight 172.37 kg; Height 6 ll1 ft. 2 in. (187.96 cm); Pain 0/10; 15:04 BP 140 / 90; Pulse 67; Resp 18; Pulse Ox 98% on R/A; barnard 16:23 BP 144 / 84; Pulse 80; Resp 18; Pulse Ox 97% on R/A; ap3 17:20 BP 157 / 92; Pulse 62; Resp 18; Pulse Ox 100% ; barnard 18:23 BP 166 / 100; Pulse 67; Resp 18; Pulse Ox 100% on R/A; barnard 19:31 BP 163 / 99; Pulse 56; Resp 17; Pulse Ox 97% on R/A; ap3 20:30 BP 117 / 78; Pulse 65; Resp 20; Pulse Ox 98% on R/A; mk 21:27 BP 115 / 67; Pulse 66; Resp 18; Pulse Ox 99% on R/A; mk 12:18 Body Mass Index 48.79 (172.37 kg, 187.96 cm) ll1 [place] Coma Score: 20:30 Eye Response: spontaneous(4). Verbal Response: oriented(5). Motor Response: obeys mk commands(6). Total: 15. 21:27 Eye Response: spontaneous(4). Verbal Response: oriented(5). Motor Response: obeys mk commands(6). Total: 15. MDM: 14:18 Patient medically screened. rn 18:43 Differential Diagnosis Acute kidney injury, dehydration, uncontrolled HTN, rn complications of gastric sleeve.. Data reviewed: vital signs, nurses notes, old medical records, lab test result(s), radiologic studies, CT scan, and as a result, I will admit patient. Counseling: I had a detailed discussion with the patient and/or guardian regarding: the historical points, exam findings, and any diagnostic results supporting the discharge/admit diagnosis, the presence of at least one elevated blood pressure reading (>120/80) during this emergency department visit, lab results, radiology results, the need for further work-up and treatment in the hospital. Response to treatment: the patient's symptoms have mildly improved after treatment, and as a result, I will admit patient. ED course: Creatinine has actually improved, still has 3+ ketones in the urine and failed p.o. challenge here. Most likely just not used to his gastric sleeve versus viral syndrome as CT abdomen pelvis was negative yesterday. Patient states unable to drink and feels nauseated with some vomiting. Will observe in hospital overnight, admitted to hospitalist service.. 01/31 14:27 Order name: CBC with Diff; Complete Time: 15:44 rn 01/31 14:27 Order name: Basic Metabolic Panel; Complete Time: 15:44 rn 01/31 14:27 Order name: SARS-COV-2 RT PCR (Document "Date of Onset" if Symptomatic); Complete Time: rn 17:18 01/31 17:32 Order name: Urine Dipstick-Ancillary; Complete Time: 17:41 EDND 01/31 14:27 Order name: IV Start; Complete Time: 15:03 rn 01/31 14:27 Order name: Urine Dipstick-Ancillary (obtain specimen); Complete Time: 17:36 rn Administered Medications: 15:03 Drug: NS 0.9% 1000 ml Route: IV; Rate: 1000 ml; Site: right antecubital; barnard 21:40 Follow up: Response: No adverse reaction; IV Status: Completed infusion; IV Intake: mk 1000ml 15:03 Drug: Zofran (Ondansetron) 4 mg Route: IVP; Site: right antecubital; barnard 17:44 Follow up: Response: No adverse reaction ap3 21:41 Follow up: Response: No adverse reaction mk 20:13 Drug: NS 0.9% 1000 ml Route: IV; Rate: 1000 ml; Site: right antecubital; mk 21:39 Follow up: Response: No adverse reaction; IV Status: Completed infusion; IV Intake: mk 1000ml 20:14 Drug: Potassium Chloride 10 mEq Route: IV; Rate: calculated rate; Site: right mk antecubital; 21:40 Follow up: Response: No adverse reaction; IV Status: Completed infusion; IV Intake: mk 1000ml Disposition Summary: 01/31/21 18:45 Hospitalization Ordered Hospitalization Status: Observation rn Provider: Dre Worley rn Location: Telemetry/MedSurg (observation) rn Condition: Stable rn Problem: new rn Symptoms: have improved rn Bed/Room Type: Standard rn Room Assignment: 429(01/31/21 20:04) eb1 Diagnosis - Dehydration rn - Vomiting, unspecified rn Forms: - Medication Reconciliation Form rn - SBAR form rn Signatures: Dispatcher [employer] EDMS Ino Cuellar PA PA jmm Nieto, Roman, MD MD rn Leal, Jahala RN RN [email or web address] Bina Linda RN RN eb1 Danilo Wright RN RN ll1 [place]ber[place] Madeline RN Jamaica Hilton RN ap3 Corrections: (The following items were deleted from the chart) 20:04 18:45 rn eb1
--- NOTE | 2021-01-31 18:45 | ER ---
Nurse's Notes [facility] Name: Huber Field Age: 30 yrs Sex: Male : 1990 Arrival Date: 01/31/2021 Time: 11:54 Bed 7 Private MD: Diagnosis: Dehydration;Vomiting, unspecified Presentation: 01/31 12:18 Chief complaint: Patient states: Weak, tired, itchy all over for at least 2 weeks. Seen ll1 here yesterday. Saw Dr. Garcia today, was sent back in for further eval. Coronavirus screen: Vaccine status: Patient reports being unvaccinated. Client denies travel out of the [place] in the last 14 days. At this time, the client does not indicate any symptoms associated with coronavirus-19. Ebola Screen: Patient denies travel to an Ebola-affected area in the 21 days before illness onset. Initial Sepsis Screen: Does the patient meet any 2 criteria? No. Patient's initial sepsis screen is negative. Does the patient have a suspected source of infection? No. Patient's initial sepsis screen is negative. Risk Assessment: Do you want to hurt yourself or someone else? Patient reports no desire to harm self or others. Onset of symptoms was January 17, 2021. 12:18 Method Of Arrival: Ambulatory 1 12:18 Acuity: DARCY 3 ll1 Triage Assessment: 15:20 General: Behavior is calm, cooperative. barnard Historical: - Allergies: 12:20 Fish Containing Products; ll1 - PMHx: 12:20 Hypertensive disorder; Diabetes mellitus; ll1 - PSHx: 12:20 vertical sleeve; ll1 - Immunization history:: Client reports having NOT received the Covid vaccine. Flu vaccine status is unknown. - Social history:: Smoking status: Patient denies any tobacco usage or history of. - Family history:: not pertinent. - Hospitalizations: : No recent hospitalization is reported. Screenin:04 Abuse screen: Denies threats or abuse. Denies injuries from another. Nutritional barnard screening: No deficits noted. Tuberculosis screening: No symptoms or risk factors identified. Fall Risk None identified. Assessment: 15:04 General: Appears comfortable. Pain: Denies pain. GI: Reports nausea. barnard 19:15 Reassessment: hospitalist is at the bedside. patient is requesting nursing staff to ap3 remove his IV because he states he wants to leave. Patient states that he has been here long enough and is tired of waiting. Nurse educated the patient on leavinig against medical advise. patient states that he will leave, but will not sign anything. Provider remains at bedside speaking with patient in regards to admission. 19:30 Reassessment: patient has now agreed to stay. 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 21:30 General: Appears in no apparent distress. comfortable. Pain: Denies pain. Neuro: Level mk of Consciousness is Oriented to person, place, time, situation. Cardiovascular: Heart tones S1 S2 present Capillary refill < 3 seconds fingers toes Pulses are 2+ in right radial artery, right dorsalis pedis artery, left radial artery and left dorsalis pedis artery Rhythm is regular. Respiratory: Airway is patent Breath sounds are clear bilaterally. Respiratory: Respiratory: Breath sounds are clear. GI:. GI:. GI: Bowel sounds Abd is soft Abd is non tender X 4 quads Abdomen is tender to palpation in right lower quadrant and left lower quadrant Reports lower abdominal pain, nausea. : No signs and/or symptoms were reported regarding the genitourinary system. Derm: Skin. Derm: Derm: Skin is intact, Skin is dry, Skin temperature is warm. Musculoskeletal: No deficits noted. Vital Signs: 12:18 BP 165 / 98; Pulse 68; Resp 18; Temp 97.6; Pulse Ox 98% ; Weight 172.37 kg; Height 6 ll1 ft. 2 in. (187.96 cm); Pain 0/10; 15:04 BP 140 / 90; Pulse 67; Resp 18; Pulse Ox 98% on R/A; barnard 16:23 BP 144 / 84; Pulse 80; Resp 18; Pulse Ox 97% on R/A; ap3 17:20 BP 157 / 92; Pulse 62; Resp 18; Pulse Ox 100% ; barnard 18:23 BP 166 / 100; Pulse 67; Resp 18; Pulse Ox 100% on R/A; barnard 19:31 BP 163 / 99; Pulse 56; Resp 17; Pulse Ox 97% on R/A; ap3 20:30 BP 117 / 78; Pulse 65; Resp 20; Pulse Ox 98% on R/A; mk 21:27 BP 115 / 67; Pulse 66; Resp 18; Pulse Ox 99% on R/A; mk 12:18 Body Mass Index 48.79 (172.37 kg, 187.96 cm) ll1 [place] Coma Score: 20:30 Eye Response: spontaneous(4). Verbal Response: oriented(5). Motor Response: obeys mk commands(6). Total: 15. 21:27 Eye Response: spontaneous(4). Verbal Response: oriented(5). Motor Response: obeys mk commands(6). Total: 15. ED Course: 11:54 Patient arrived in ED. as 12:20 Triage completed. ll1 12:22 Arm band placed on. ll1 14:18 Santiago Huitron MD is Attending Physician. rn 14:39 Jamaica Muniz RN is Primary Nurse. ap3 15:03 SARS-COV-2 RT PCR (Document "Date of Onset" if Symptomatic) Sent. barnard 15:03 Basic Metabolic Panel Sent. barnard 15:03 CBC with Diff Sent. barnard 15:04 Patient has correct armband on for positive identification. Bed in low position. barnard 15:04 No provider procedures requiring assistance completed. Inserted saline lock: 20 gauge barnard in right antecubital area, using aseptic technique. 16:41 SARS-COV-2 RT PCR (Document "Date of Onset" if Symptomatic) Sent. barnard 18:45 Dre Worley is Hospitalizing Provider. rn 19:57 Joseph Cui, ADENIKE is Primary Nurse. as6 22:20 Patient admitted, IV remains in place. sm5 Administered Medications: 15:03 Drug: NS 0.9% 1000 ml Route: IV; Rate: 1000 ml; Site: right antecubital; barnard 21:40 Follow up: Response: No adverse reaction; IV Status: Completed infusion; IV Intake: mk 1000ml 15:03 Drug: Zofran (Ondansetron) 4 mg Route: IVP; Site: right antecubital; barnard 17:44 Follow up: Response: No adverse reaction ap3 21:41 Follow up: Response: No adverse reaction mk 20:13 Drug: NS 0.9% 1000 ml Route: IV; Rate: 1000 ml; Site: right antecubital; mk 21:39 Follow up: Response: No adverse reaction; IV Status: Completed infusion; IV Intake: mk 1000ml 20:14 Drug: Potassium Chloride 10 mEq Route: IV; Rate: calculated rate; Site: right mk antecubital; 21:40 Follow up: Response: No adverse reaction; IV Status: Completed infusion; IV Intake: mk 1000ml Intake: 21:39 IV: 1000ml; Total: 1000ml. mk 21:40 IV: 1000ml; Total: 2000ml. mk 21:40 IV: 1000ml; Total: 3000ml. mk Outcome: 18:45 Decision to Hospitalize by Provider. rn 22:20 Admitted to Tele accompanied by tech, via wheelchair, with chart. [facility] 22:20 Condition: stable 22:20 Instructed on the need for admit. 22:21 Patient left the ED. 5 Signatures: Shanti Cisneros Roman, MD MD rn Prokisch, Amanda RN RN [email or web address] Danilo Wright RN RN [email or web address] Joseph Cui RN RN as6 Karolyn Richardson RN RN sm5 [place] Madeline RN ADENIKE bravo
--- NOTE | 2021-01-31 19:56 | P.HP ---
Certification for Inpatient Patient admitted to: Observation With expected LOS: <2 Midnights Patient will require the following post-hospital care: None Practitioner: I am a practitioner with admitting privileges, knowledge of patient current condition, hospital course, and medical plan of care. Services: Services provided to patient in accordance with Admission requirements found in Title 42 Section 412.3 of the Code of Federal Regulations Patient History Date of Service: 01/31/21 Primary Care Provider: La Garcia Reason for admission: intractable N/V, dehydration History of Present Illness: Mr. Field is a 30 yo M with HTN, prediabetes, s/p gastric vertical sleeve on 12/31/20 in [place] who presents with intractable nausea and vomiting and uncontrolled blood pressure. His PCP sent him to the ED for dark urine and high blood pressure. He failed the PO challenge in the ED, and was thus admitted for observation. He says for the past two weeks he has not been able to hold anything down. At most, he can tolerate apple sauce, small sips of tea or peanut butter crackers. He has intractable nausea and vomiting with all other foods. According to his doctor, he should have advanced to solids by now. He says he was able to drink water before leaving the facility in [place], but now he cannot tolerate gatorade, water, etc. No abdominal pain unless he is actively vomiting. 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 He feels like he did not adapt his diet like he was instructed to during that time. K 3.1 GFR 83 CTAP without acute findings. Allergies Fish Containing Products Allergy (Unverified 07/06/14 05:56) Unknown Home Medications: Ibuprofen [Motrin*] 800 mg PO TID PRN #60 tab 07/03/12 Pantoprazole [Protonix Tab*] 40 mg PO DAILY #30 tab 07/03/12 - Past Medical/Surgical History Diabetic: Yes -: HTN -: prediabetes -: history of afib -: vertical gastric sleeve 12/2020 - Family History Father -: Hypertension, Diabetes, Stroke - Social History Smoking Status: Never smoker Alcohol use: No CD- Drugs: Yes Caffeine use: No Place of Residence: Home Review of Systems 10-point ROS is otherwise unremarkable General: Unremarkable Eyes: Unremarkable ENT: Unremarkable Respiratory: Unremarkable Cardiovascular: Unremarkable Gastrointestinal: Nausea, Vomiting, Abdominal Pain Genitourinary: Unremarkable Musculoskeletal: Unremarkable Integumentary: Unremarkable Neurological: Unremarkable Lymphatics: Unremarkable Physical Examination - Physical Exam General: Alert, In no apparent distress, Obese HEENT: Atraumatic, PERRLA, Mucous membr. moist/pink, EOMI, Sclerae nonicteric Neck: Supple, 2+ carotid pulse no bruit, No LAD, Without JVD or thyroid abnormality Respiratory: Clear to auscultation bilaterally, Normal air movement Cardiovascular: Regular rate/rhythm, Normal S1 S2 Gastrointestinal: Normal bowel sounds, No tenderness Musculoskeletal: No tenderness Integumentary: No rashes Neurological: Normal speech, Normal strength at 5/5 x4 extr, Normal tone, Normal affect Lymphatics: No axilla or inguinal lymphadenopathy - Studies Laboratory Data (last 24 hrs) 01/31/21 12:50: Sodium 143, Potassium 3.1 L, BUN 9, Creatinine 1.23, Glucose 100 01/31/21 12:50: WBC 5.20, Hgb 14.1, Hct 42.3, Plt Count 168 Assessment and Plan - Problems (Diagnosis) (1) S/P gastric sleeve procedure Current Visit: Yes Status: Chronic (2) Intractable nausea and vomiting Current Visit: Yes Status: Acute (3) HTN (hypertension) Current Visit: Yes Status: Chronic Qualifiers: Hypertension type: primary hypertension Qualified Code(s): I10 - Essential (primary) hypertension (4) Dehydration Current Visit: Yes Status: Acute - Plan continue IVF hydration continue antiemetics as needed advance diet from clear liquids as tolerated continue IV hydralazine PRN for BP spikes potassium replacement protocol DVT ppx Discharge Plan: Home Plan to discharge in: 24 Hours - Advance Directives Does patient have a Living Will: No Does patient have a Durable POA for Healthcare: No - Code Status/Comfort Care Code Status Assessed: Yes (full code ) Critical Care: No Time Spent Managing Pts Care (In Minutes): 70
[2021-01-31] MEDS ORDERED: KCL 20 MEQ/100 mL IVPB 100 ML IV ONE (20:05)
[2021-01-31] MEDS ORDERED: HYDRALAZINE HCL 20 MG/ML VIAL IV PRN (22:50)
[2021-01-31] MEDS ORDERED: PROMETHAZINE INJ 25 MG/ML AMP IV PRN (22:50)
[2021-01-31] MEDS ORDERED: LORazepam 2 MG/ML VIAL IV PRN (22:50)
[2021-01-31] MEDS: NA CHLORIDE 0.9% 1,000 ML IV SCH (23:23)
[2021-01-31] MEDS: KCL 20 MEQ/100 mL IVPB 20 MEQ/100 ML BAG IV SCH (23:23)
[2021-01-31 23:51] VITALS: BMI 48.9
[2021-02-01] MEDS: KCL 20 MEQ/100 mL IVPB 20 MEQ/100 ML BAG IV SCH (02:49)
[2021-02-01 04:14] LABS: Basophils % 0.5 % (0-1.3); Hematocrit 41.2 % (39.6-49.0); Lymphocytes % 42.5 % (15.3-44.8); MPV 10.1 fL (7.6-11.3); RBC Red Blood Cell Count 5.07 M/uL (4.33-5.43)
[2021-02-01 04:41] LABS: ALT/SGPT 48 U/L (12-78); AST/SGOT 22 U/L (15-37); Albumin 3.1 g/dL (3.4-5.0); Alkaline Phosphatase 48 U/L (45-117); BUN Blood Urea Nitrogen 7 mg/dL (7-18); Bicarbonate 28 mmol/L (21-32); Bilirubin Total 0.5 mg/dL (0.2-1.0); Glucose Level 75 mg/dL (74-106); HDL Cholesterol 29 mg/dL (40-60); LDL Cholesterol, Calculated 107 (<130); Magnesium 1.7 mg/dL (1.8-2.4); Phosphorus 3.3 mg/dL (2.5-4.9); Potassium 3.5 mmol/L (3.5-5.1); Protein, Total 6.4 g/dL (6.4-8.2); Sodium Level 146 mmol/L (136-145)
[2021-02-01 05:08] LABS: Blood Morphology Comment NOT SEEN (NOT SEEN); Platelet Estimate ADEQ
[2021-02-01] MEDS ORDERED: MAGNESIUM SULFATE 1 gm IVPB 1 GM/100 ML BAG IV ONE (06:32)
[2021-02-01] MEDS ORDERED: INFLUENZA VACCINE (for 6+ mo) 0.5 ML DOSE IMVAC ONE (08:00)
[2021-02-01] MEDS: ONDANSETRON 4 MG/2 ML VIAL IV PRN (08:38)
[2021-02-01] MEDS ORDERED: SODIUM CHLORIDE 0.9% 10ML INJ IV PRN (09:16)
[2021-02-01] MEDS: NA CHLORIDE 0.9% 1,000 ML IV SCH ×2 (10:42→18:37)
[2021-02-01] MEDS: PANTOPRAZOLE 40 MG INJ IVP SCH ×2 (10:43→21:11)
[2021-02-01] MEDS: SUCRALFATE 1GM/10ML UCUP PO SCH ×3 (10:44→21:11)
[2021-02-01 11:18] LABS: Urine Appearance CLEAR (Clear); Urine Bilirubin NEGATIVE (Negative); Urine Blood TRACE (Negative); Urine Color YELLOW (Yellow); Urine Glucose NEGATIVE (Negative); Urine Protein NEGATIVE (Negative)
[2021-02-01 11:20] LABS: Urine Microscopic Reflex ORDER UMIC
[2021-02-01 11:32] LABS: Urine Bacteria NONE SEEN /HPF (NONE SEEN); Urine RBC <5 /HPF (NONE SEEN)
--- NOTE | 2021-02-01 12:29 | P.PN ---
Subjective Date of Service: 02/01/21 Primary Care Provider: La Garcia Chief Complaint: intractable N/V, dehydration Patient complains of persistent nausea and vomiting. Stated he has not been able to tolerate any food or drink. He reports no bowel movement for several days. Physical Examination - Vital Signs Temperature: 97.2 F Blood Pressure: 156/99 Pulse: 56 Respirations: 14 Pulse Ox (%): 97 - Physical Exam General: Alert, In no apparent distress, Oriented x3, Obese HEENT: Mucous membr. moist/pink Neck: JVD not distended Respiratory: Clear to auscultation bilaterally, Normal air movement Cardiovascular: No edema, Regular rate/rhythm, Normal S1 S2 Gastrointestinal: Soft and benign, Non-distended, No tenderness Musculoskeletal: No swelling Integumentary: No rashes - Studies Laboratory Data (last 24 hrs) 01/31/21 12:50: Sodium 143, Potassium 3.1 L, BUN 9, Creatinine 1.23, Glucose 100 01/31/21 12:50: WBC 5.20, Hgb 14.1, Hct 42.3, Plt Count 168 Assessment And Plan - Current Problems (Diagnosis) (1) Intractable nausea and vomiting Current Visit: Yes Status: Acute (2) HTN (hypertension) Current Visit: Yes Status: Chronic Qualifiers: Hypertension type: primary hypertension Qualified Code(s): I10 - Essential (primary) hypertension (3) S/P gastric sleeve procedure Current Visit: Yes Status: Chronic - Plan Continue supportive measures. IV fluid. Start IV Protonix and sucralfate for possible gastritis. Will obtain CT abdomen and pelvis to rule out obstruction and assess for constipation. Monitor and optimize electrolytes. Magnesium replacement. Start amlodipine for blood pressure control.
--- NOTE | 2021-02-01 13:57 | RAD REPORT ---
EXAM DESCRIPTION: CTAbdomen Pelvis W Contrast - 02/01/2021 1:33 pm CLINICAL HISTORY: Nausea and vomiting COMPARISON: Abdomen Pelvis W Contrast dated 01/30/2021; Chest Single View dated 01/30/2021 TECHNIQUE: CT of the abdomen and pelvis was performed. All CT scans are performed using dose optimization technique as appropriate and may include automated exposure control or mA/KV adjustment according to patient size. FINDINGS: Lower chest: No acute abnormality. Liver: Hepatic steatosis. Biliary: No biliary ductal dilatation. Stomach: Surgical changes from recent partial gastrectomy Duodenum: No significant focal abnormality. Pancreas: No significant abnormality. Spleen: No significant abnormality. Adrenal: No suspicious lesions. Kidney/ureter: No hydronephrosis. No renal calculi. Retroperitoneum: No retroperitoneal adenopathy. Vascular: No aneurysm. Bowel: No significant focal abnormality. Peritoneum: No ascites or free air. Bladder: Grossly unremarkable. Reproductive: No adnexal masses. Bones: No acute fracture. Other: n/a IMPRESSION: No acute intra-abdominal or pelvic finding. Surgical changes from recent partial gastrec valeriy. No free fluid or free air identified to suggest leak or dehiscence. No significant change john red 01/30/2021.
[2021-02-02] MEDS: NA CHLORIDE 0.9% 1,000 ML IV SCH ×2 (03:50→13:24)
[2021-02-02 05:35] LABS: BUN Blood Urea Nitrogen 4 mg/dL (7-18); Bicarbonate 30 mmol/L (21-32); Glucose Level 81 mg/dL (74-106); Magnesium 1.8 mg/dL (1.8-2.4); Potassium 3.6 mmol/L (3.5-5.1); Sodium Level 145 mmol/L (136-145)
[2021-02-02] MEDS ORDERED: POTASSIUM CL SA 10 MEQ TAB PO ONE (06:50)
[2021-02-02] MEDS ORDERED: MAGNESIUM SULFATE 1 gm IVPB 1 GM/100 ML BAG IV ONE (06:51)
[2021-02-02] MEDS: SUCRALFATE 1GM/10ML UCUP PO SCH ×3 (07:37→16:22)
[2021-02-02] MEDS: PANTOPRAZOLE 40 MG INJ IVP SCH (07:39)
[2021-02-02 07:57] VITALS: O2SAT 98
[2021-02-02] MEDS: ONDANSETRON 4 MG/2 ML VIAL IV PRN (08:00)
--- NOTE | 2021-02-02 13:28 | P.DS ---
Admission Date: 01/31/21 Discharge Date: 02/02/21 Primary Care Provider: La Meyers Disposition: ROUTINE DISCHARGE Discharge Condition: FAIR Reason for Admission: intractable N/V, dehydration - Problems (1) Intractable nausea and vomiting Current Visit: Yes Status: Acute (2) HTN (hypertension) Current Visit: Yes Status: Chronic Qualifiers: Hypertension type: primary hypertension Qualified Code(s): I10 - Essential (primary) hypertension (3) S/P gastric sleeve procedure Current Visit: Yes Status: Chronic Brief History of Present Illness: Mr. Field is a 30 yo M with HTN, prediabetes, s/p gastric vertical sleeve on 12/31/20 in [place] who presented with intractable nausea and vomiting and uncontrolled blood pressure. His PCP sent him to the ED for dark urine and high blood pressure. He failed the PO challenge in the ED, and was thus admitted for observation. He reported not been able to hold any food down for 2 weeks. At most, he can tolerate apple sauce, small sips of tea or peanut butter crackers. He has intractable nausea and vomiting with all other foods. According to his doctor, he should have advanced to solids by now. No abdominal pain unless he is actively vomiting. 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 He feels like he did not adapt his diet like he was instructed to during that time. K 3.1 GFR 83 CTAP without acute findings. Patient hospitalized for further management. Hospital Course: Patient admitted to the medical floor and hydrated with IV fluid. He was also placed on IV Protonix and sucralfate before meals. Patient tolerated clear liquid diet with this regimen. I suspect the possibility of gastritis exacerbating his symptoms. Diet advanced to soft which he tolerated. Patient deemed stable for discharge. He is prescribed sucralfate before meals. He is informed to follow-up with his PCP for further monitoring. Vital Signs/Physical Exam: Temp Pulse Resp BP Pulse Ox 97.0 F 63 18 131/98 H 98 02/02/21 07:45 02/02/21 07:45 02/02/21 07:45 02/02/21 07:45 02/02/21 07:45 General: Alert, In no apparent distress, Obese HEENT: Mucous membr. moist/pink Neck: JVD not distended Respiratory: Clear to auscultation bilaterally, Normal air movement Cardiovascular: No edema, Regular rate/rhythm, Normal S1 S2 Gastrointestinal: Soft and benign, Non-distended, No tenderness, Other (Obese abdomen) Musculoskeletal: No swelling Integumentary: No rashes Neurological: Normal strength at 5/5 x4 extr Laboratory Data at Discharge: WBC 4.70 K/uL (4.3-10.9) 02/01/21 03:40 Hgb 13.3 g/dL (13.6-17.9) L 02/01/21 03:40 Hct 41.2 % (39.6-49.0) 02/01/21 03:40 Plt Count 146 K/uL (152-406) L 02/01/21 03:40 Sodium 145 mmol/L (136-145) 02/02/21 04:59 Potassium 3.6 mmol/L (3.5-5.1) 02/02/21 04:59 BUN 4 mg/dL (7-18) L 02/02/21 04:59 Creatinine 1.08 mg/dL (0.55-1.3) 02/02/21 04:59 Glucose 81 mg/dL (74-106) 02/02/21 04:59 Phosphorus 3.3 mg/dL (2.5-4.9) 02/01/21 03:40 Magnesium 1.8 mg/dL (1.8-2.4) 02/02/21 04:59 Total Bilirubin 0.5 mg/dL (0.2-1.0) 02/01/21 03:40 AST 22 U/L (15-37) 02/01/21 03:40 ALT 48 U/L (12-78) 02/01/21 03:40 Alkaline Phosphatase 48 U/L (45-117) 02/01/21 03:40 Triglycerides 86 mg/dL (<150) 02/01/21 03:40 Cholesterol 153 mg/dL (<200) 02/01/21 03:40 HDL Cholesterol 29 mg/dL (40-60) L 02/01/21 03:40 Cholesterol/HDL Ratio 5.28 02/01/21 03:40 Home Medications: Amlodipine [Norvasc*] 1 tab PO DAILY 02/02/21 Metoprolol Tartrate [Lopressor*] 1 tab PO DAILY 02/02/21 Pantoprazole [Protonix Tab*] 40 mg PO BID #60 tab 02/02/21 Sucralfate [Carafate*] 10 ml PO ACHS #300 ml 02/02/21 New Medications: Sucralfate [Carafate*] 10 ml PO ACHS #300 ml Pantoprazole [Protonix Tab*] 40 mg PO BID #60 tab Diet: Soft Activity: Ad treasure Followup: STACIE MEYERS [Primary Care Provider] - Time spent managing pt's care (in minutes): 36
[2021-02-02 15:17] VITALS: BP 145/85; TEMP 97
== END 2021-02-02 16:58 | disposition home or self-care (01) | DRG 392 ==
LOC: ER 11:52 → ERHOLD 19:13 → 4TH 21:55
PROVIDERS: ADMIT Internal Medicine; ATTEND Internal Medicine
DX: K29.70 Gastritis, unspecified, without bleeding (principal); E11.9 Type 2 diabetes mellitus without complications; E86.0 Dehydration; I10 Essential (primary) hypertension; Z91.013 Allergy to seafood; Z79.899 Other long term (current) drug therapy; Z98.84 Bariatric surgery status; Z20.822 Contact with and (suspected) exposure to COVID-19
CPT/HCPCS: 36415; 74177; 80048; 80053; 80061; 81003; 81015; 83735; 84100; 84439; 84443; 85025; 96361; 96365; 96375; 99285; C9113; J2405; J3475; J3480; J7030; Q2035; Q9967; U0003

== ENCOUNTER 2021-05-20 21:09 | Observation (INO) | payer SELFPAY ==
[2021-05-20] MEDS ORDERED: FAMOTIDINE 20 MG/2 ML VIAL IV ONE (21:20)
[2021-05-20] MEDS ORDERED: METHYLPREDNISOLONE 125 MG INJ ONE (21:20)
[2021-05-20] MEDS ORDERED: ALBUTEROL 2.5 MG/3 ML NEB SOL ONE ×2 (21:20→21:53)
--- OUTSIDE RECORDS SUMMARY | 2021-05-20 21:20 | XMS REPORT | Continuity of Care Document ---
:[address] [facility] t Address [address] [place] [address] Care Team Providers Name Role Phone PCP, DOES NOT HAVE A Primary Care Physician Unavailable Amanda Pearson Attending Clinician Unavailable Dawson KRAUSE S Attending Clinician Huber DUNCAN Attending Clinician Lashon DUNCAN Attending Clinician Adriana OSMAN Attending Clinician Unavailable Doctor Unassigned, Name Attending Clinician Unavailable Amanda Stiles RN Attending Clinician Anjel DUNCAN Attending Clinician Neisha DUNCAN Attending Clinician Pcp, Does Not Have A Attending Clinician Suleiman Young Attending Clinician Floyd Ramos MD Attending Clinician [phone] FLOYD RAMOS Attending Clinician Unavailable RIKKI Attending Clinician Unavailable Lashon DUNCAN Admitting Clinician Neisha DUNCAN Admitting Clinician Floyd Ramos MD Admitting Clinician [phone] FLOYD RAMOS Admitting Clinician Unavailable RIKKI Admitting Clinician Unavailable Payers Payer Name Policy Type Policy Number Effective Date Expiration Date S mom[place] [employer] [place] - [id number] 2020 00:00:00 OUT OF STATE Problems Condition Condition Condition Status Onset Resolution Last Treating Co mments Source Name Details Category Date Date Treatment Clinician Date MALI on MALI on Disease Active Univers CPAP CPAP 6-04 ity of 00:00: [place] [facility] Hypertensi Hypertensi Disease Active U nivers ve urgency ve urgency 6- it y of 00:00: [place] [address] Medical Branch Pneumonia Pneumonia Disease Active Uni vers due to due to 208 ity of COVID-19 COVID-19 00:00: [place] virus virus Medical Branch SOB SOB Disease Active Univers (shortness (shortness 8 it y of of breath) of breath) 00:00[place] [facility] Morbid Morbid Disease Active 2018-02 Univers obesity obesity 2-28 ity of with body with body 00:00: [facility] s mass index mass index 00 Me dical of 50 or of 50 or Branch higher higher Other Other Disease Active 2018-02 Univers chest pain chest pain 2-28 it y of 00:00: [place] [address] Medical Branch Essential Essential Disease Active 2018-02 Uni vers hypertensi hypertensi 2-28 it y of on on 00:00: [place] [address] Medical Branch Hypokalemi Hypokalemi Disease Active 2018-02 U nivers a a 2-28 ity of 00:00: [place] [facility] Type 2 Type 2 Disease Active 2018-02 Univers diabetes diabetes 2-28 ity of mellitus mellitus 00:00: [place] without without 00 Medical complicati complicati Br [...] Uni vers FISH 8- ity of 00:00: [place] [address] Medical Branch Seafood/ Propensi Active Anaphylaxis U nivers Fish ty to 8-03 ity of adverse 00:00: [place] reaction 00 Medical s Branch NO KNOWN Drug Active Univers ALLERGIE Class ity of S [place] [facility] Social History Social Habit Start Date Stop Date Quantity Comments Source Exposure to Not sure University SARS-CoV-2 [place] [facility] (event) Branch History SDOH 2020-07-19 2020-07-19 15 University o f Education 00:00:00 00:00:00 [facility] Tobacco use and 2020-07-19 2020-07-19 Former user Universi ty of exposure 00:00:00 00:00:00 [facility] Branch Alcohol intake 2020-07-19 2020-07-19 Ex-drinker [facility] 00:00:00 00:00:00 (finding) [place] [facility] History [facility] 2019-02-13 2019-02-13 2 University o f Financial 00:00:00 00:00:00 [place] [facility] History [facility] Food 2019-02-13 2019-02-13 3 Univers ity of Worry 00:00:00 00:00:00 [place] [facility] History [facility] Food 2019-02-13 2019-02-13 3 Univers ity of Scarcity 00:00:00 00:00:00 [place] [facility] History [facility] 2019-02-13 2019-02-13 1 University o f Transport Med 00:00:00 00:00:00 [place] Medic al [facility] History [facility] 2019-02-13 2019-02-13 1 [place] o f Transport Non-Med 00:00:00 00:00:00 [facility] edical [place] Sex Assigned At [birth year] Universit y of 00:00:00 00:00:00 [facility] Smoking Status Start Date Stop Date Source Current every day 2020-07-19 00:00:00 [facility] smoker Medical [place] Former smoker 2020-03-28 00:00:00 2020-03-28 00:00:00 Universi ty of [place] [facility] Medications Ordered Filled Start Stop Current Ordering Indication Dosage Frequency Signature Comments Components Source Medication Medication Date Date Medication? Clinician (SIG) Name Name Multivitami Yes Take by Un yelitza ns with 6-04 mouth. ity of Fluoride 18:32: [place] (MULTI-MARIA FERNANDA 53 Medical MIN ORAL) Branch atorvastati Yes 10mg Take 10 mg Univers n 10 mg 6-04 by mouth ity of tablet 18:32: at [place] 53 bedtime. Medical Branch atorvastati Yes 10mg 10 mg, Univ ers n (LIPITOR) 04 Oral, QHS, it y of tablet 10 02:00: [place] dose [place] mg 00 on [facility] 07/20/20 at Branch 2100, Until Discontinu ed, Routine lisinopriL Yes 20mg 20 mg, Unive rs (PRINIVIL,Z 07-21 Oral, BID, it y of ESTRIL) 01:00: [place] tablet 20 00 (after Medical mg last Branch modificati on) on [facility] 07/20/20 at 2000, Until Discontinu ed, Routine lisinopriL 2020- No [id number] 20mg Take 1 Univers 20 mg 07-2105 tablet by ity of tablet 00:00: 04:59 mouth 2 [place] 00 :00 (two) Medical times [place] daily for 30 days. carvediloL 2020- No [id number] 25mg Take 1 Univers 25 mg 07-21-05 tablet by ity of tablet 00:00: 04:59 mouth 2 [place] 00 :00 (two) Medical times [place] daily with meals for 30 days. carvediloL Yes 25mg 25 mg, Unive rs (COREG) 07-20 Oral, BID ity of tablet 25 22:00: MEALS, [place] mg 00 First dose Medical on [facility] Branch 07/20/20 at 1700, Until Discontinu ed, Routine sulfur 2020- No [id number] 5mL 5 mL, Unive rs hexafluorid 07-20 0603 Intravenou i ty of e microsphr 17:00: 17:00 s, ONCE, 1 [place] (LUMASON) 00 :00 dose, [facility] Medic al injection 5 07/20/20 at [facility] mL 1200, Routine
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 07/20/20 at 0900, Until Discontinu ed, Routine aspirin Yes 81mg 81 mg, Univers chewable 07-20 Oral, ity of tablet 81 14:00: DAILY, [place] mg 00 First dose Medical on [place] Branch 07/20/20 at 0900, Until Discontinu ed, Routine enoxaparin Yes 40mg 40 mg, Unive rs (LOVENOX) 07-20 Subcutaneo ity of injection 14:00: us, DAILY, [place] 40 mg 00 First dose Medical on [facility] Branch 07/20/20 at 0900, Until Discontinu ed, Routine metoprolol 2020- No 100mg 100 mg, Un yelitza succinate 07-20 Oral, ity of XL (TOPROL 14:00: 21:59 DAILY, [place] XL) tablet 00 :58 First dose Med ical 100 mg on [facility] Branch 07/20/20 at 0900, Until Discontinu ed, Routine lisinopriL No 20mg 20 mg, Univ ers (PRINIVIL,Z 07-20 Oral, ity of ESTRIL) 14:00: 21:06 DAILY, [place] tablet 20 00 :11 First dose Medi julia mg on [facility] Branch 07/20/20 at 0900, Until Discontinu ed, Routine benzonatate Yes 100mg 100 mg, Un yelitza (TESSALON 07-20 Oral, ity of PERLES) 08:11: TIDPRN, [place] capsule 100 56 Starting Medi julia mg [facility] 07/20/20 Branch at 0311, Until Discontinu ed, Routine, Cough albuterol Yes 2{puff} 2 Puff, Un yelitza (VENTOLIN) 07-20 Inhalation ity of inhaler 2 08:11: , Q6HPRN, [place] Puff 19 Starting Medical [facility] 07/20/20 Branch at 0311, Until Discontinu [...] 50mg 50 mg, Univer s (ULTRAM) 07-20 0605 Oral, ity of tablet 50 03:27: 03:26 Q8HPRN, [place] mg 10 :10 Starting Medical Fri07/19/20 Branch at 2227, Until Fri07/21/20 at 2226, Routine, Pain (scale 4-6) acetaminoph 0 Yes 650mg 650 mg, Un yelitza en 07-20 Oral, ity of (TYLENOL) 03:27: Q6HPRN, [place] tablet 650 08 Starting Medic al mg Fri07/19/20 Branch at 2227, Until Discontinu ed, Routine, Pain (scale 1-3) nitroglycer 0 Yes .4mg 0.4 mg, Uni vers in 07-20 Sublingual ity of (NITROSTAT) 03:04: , Q5MIN [place] sublingual 12 PRN, Medical tablet 0.4 Starting Branc h mg Fri07/19/20 at 2204, Until Discontinu ed, Routine, Chest pain morpHINE 0 Yes 2mg 2 mg, Slow Uni vers injection 2 07-20 IV Push, ity of mg 03:03: Q4HPRN, [place] 59 Starting Medical Fri07/19/20 Branch at 2203, Until Discontinu ed, Routine, Pain (scale 7-10) hydralAZINE 0 Yes 10mg 10 mg, Univ ers (APRESOLINE [...] ONCE, 1 [place] sublingual 00 :00 dose, Fri Medi julia tablet 0.4 07/19/20 at Bran ch mg 2000, SUBHA ondansetron 2020- No 4mg 4 mg, Slow Univers (ZOFRAN 07-20 IV Push, ity of (PF)) 01:00: 00:18 ONCE, 1 [place] injection 4 00 :00 dose, Fri Med ical mg 07/19/20 at [place] 1999, SUBHA morpHINE 0 2020- No 4mg 4 mg, Slow Un yelitza injection 4 07-20 IV Push, ity of mg 01:00: 00:19 ONCE, 00 :00 dose, Fri Medical 07/19/20 at [place] 1999, STAT aspirin 2020- No 325mg 325 mg, Unive rs tablet 325 07-19 Oral, ity of mg 22:45: 21:56 ONCE, 00 :00 dose, Fri07/19/20 at [place] 1745, STAT nitroglycer 2020- No .4mg 0.4 mg, Un yelitza in 07-19 Sublingual ity of (NITROSTAT) 21:40: 22:33 , Q5MIN [place] sublingual 56 :00 PRN, 3 Medical tablet 0.4 doses, Branch mg Starting Fri07/19/20 at 1640, Until Fri07/19/20 at 1733, SUBHA, Chest pain lisinopriL Yes [id number] 20mg Take 1 Univers 20 mg 2-18 [id number] tablet by ity of tablet 00:00: mouth [place] 00 daily. Medical Branch metoprolol Yes [id number] 100mg Take 1 Univers succinate 2-18 [id number] tablet by it y of XL 100 mg 00:00: mouth [place] 24 hr 00 daily. Medical tablet Branch aspirin 81 Yes [id number] 81mg Take 1 Univers mg chewable 2-18 [id number] tablet by ity of tablet 00:00: mouth [place] 00 daily. Medical Branch lisinopriL Yes [id number] 20mg Take 1 Univers 20 mg 2-18 [id number] tablet by ity of tablet 00:00: mouth [place] 00 daily. Medical Branch metoprolol Yes [id number] 100mg Take 1 Univers succinate 2-18 [id number] tablet by it y of XL 100 mg 00:00: mouth [place] 24 hr 00 daily. Medical tablet Branch aspirin 81 Yes [id number] 81mg Take 1 Univers mg chewable 2-18 [id number] tablet by ity of tablet 00:00: mouth [place] 00 daily. Medical Branch lisinopriL Yes [id number] 20mg Take 1 Univers 20 mg 2-18 [id number] tablet by ity of tablet 00:00: mouth [place] 00 daily. Medical Branch metoprolol Yes [id number] 100mg Take 1 Univers succinate 2-18 [id number] tablet by it y of XL 100 mg 00:00: mouth [place] 24 hr 00 daily. Medical tablet Branch aspirin 81 Yes [id number] 81mg Take 1 Univers mg chewable 2-18 [id number] tablet by ity of tablet 00:00: mouth [place] 00 daily. Medical Branch lisinopriL Yes [id number] 20mg Take 1 Univers 20 mg 2-18 [id number] tablet by ity of tablet 00:00: mouth [place] 00 daily. Medical Branch aspirin 81 Yes [id number] 81mg Take 1 Univers mg chewable 2-18 [id number] tablet by ity of tablet 00:00: mouth [place] 00 daily. Medical Branch metoprolol 2020- No [id number] 100mg Take 1 Univers succinate 2-18 06-04 [id number] tablet by i ty of XL 100 mg 00:00: 00:00 mouth [place] 24 hr 00 :00 daily. Medical tablet Branch lisinopriL 2020- No [id number] 20mg Take 1 Univers 20 mg 2-18 -17 [id number] tablet by ity o f tablet 00:00: 00:00 mouth [place] 00 :00 daily. Medical Branch metoprolol 2020- No [id number] 100mg Take 1 Univers succinate 2-18 -17 [id number] tablet by i ty of XL 100 mg 00:00: 00:00 mouth [place] 24 hr 00 :00 daily. Medical tablet Branch aspirin 81 2020- No [id number] 81mg Take 1 Univers mg chewable 2-18 -17 [id number] tablet by ity of tablet 00:00: 00:00 mouth [place] 00 :00 daily for Medical 90 days. Branch Multivitami Yes Take by Un yelitza ns with 2-17 mouth. ity of Fluoride 17:53: [place] (MULTI-MARIA FERNANDA 44 Medical MIN ORAL) Branch atorvastati Yes 10mg Take 10 mg Univers n 10 mg 2-17 by mouth ity of tablet 17:53: at [place] [address] bedtime. Medical Branch Multivitami Yes Take by Un yelitza ns with 2-17 mouth. ity of Fluoride 17:53: [place] (MULTI-MARIA FERNANDA 44 Medical MIN ORAL) Branch atorvastati Yes 10mg Take 10 mg Univers n 10 mg 2-17 by mouth ity of tablet 17:53: at [place] [address] bedtime. Medical Branch Multivitami Yes Take by Un yelitza ns with 2-17 mouth. ity of Fluoride 17:53: [place] (MULTI-MARIA FERNANDA 44 Medical MIN ORAL) Branch atorvastati Yes 10mg Take 10 mg Univers n 10 mg 2-17 by mouth ity of tablet 17:53: at [place] [address] bedtime. Medical Branch albuterol 2020- No 2{puff} Inhale 2 [facility] 90 -17 02-17 Puffs ity of mcg/actuati 16:58: 00:00 every 6 [place] on inhaler 25 :00 (six) Medical hours as Branch needed for Wheezing or Shortness of Breath. lisinopril 2020- No 5mg Take 5 mg U nivers 5 mg tablet 04-05-17 by mouth ity of 16:41: 00:00 daily. [place] 18 :00 Medical Branch lisinopriL Yes 20mg 20 mg, Unive rs (PRINIVIL,Z 2-17 Oral, ity of ESTRIL) 15:00: DAILY, [place] tablet 20 00 First dose Medi julia mg (after Branch last modificati on) on Fri04/05/20 at 0900, Until Discontinu ed, Routine albuterol Yes [id number] 2{puff} Inhale 2 Univers 90 2-17 [id number] Puffs ity of mcg/actuati 00:00: every 6 [place] on inhaler 00 (six) Medical hours as Branch needed for Wheezing or Shortness of Breath. benzonatate Yes [id number] 100mg Take 1 Univers 100 mg 2-17 [id number] capsule by ity of capsule 00:00: mouth 3 (three) Medical times Branch daily as needed for Cough. amLODIPine Yes [id number] 10mg Take 1 Univers 10 mg 2-17 tablet by ity of tablet 00:00: mouth [place] 00 daily. Medical Branch albuterol Yes [id number] 2{puff} Inhale 2 Univers 90 2-17 [id number] Puffs ity of mcg/actuati 00:00: every 6 [place] on inhaler 00 (six) Medical hours as Branch needed for Wheezing or Shortness of Breath. benzonatate Yes [id number] 100mg Take 1 Univers 100 mg 2-17 [id number] capsule by ity of capsule 00:00: mouth 3 (three) Medical times Branch daily as needed for Cough. amLODIPine Yes [id number] 10mg Take 1 Univers 10 mg 2-17 tablet by ity of tablet 00:00: mouth [place] 00 daily. Medical Branch albuterol Yes [id number] 2{puff} Inhale 2 Univers 90 2-17 [id number] Puffs ity of mcg/actuati 00:00: every 6 [place] on inhaler 00 (six) Medical hours as Branch needed for Wheezing or Shortness of Breath. benzonatate Yes [id number] 100mg Take 1 Univers 100 mg 2-17 [id number] capsule by ity of capsule 00:00: mouth 3 (three) Medical times Branch daily as needed for Cough. amLODIPine Yes [id number] 10mg Take 1 Univers 10 mg 2-17 tablet by ity of tablet 00:00: mouth [place] 00 daily. Medical Branch albuterol Yes [id number] 2{puff} Inhale 2 Univers 90 2-17 [id number] Puffs ity of mcg/actuati 00:00: every 6 [place] on inhaler 00 (six) Medical hours as Branch needed for Wheezing or Shortness of Breath. benzonatate Yes [id number] 100mg Take 1 Univers 100 mg 2-17 [id number] capsule by ity of capsule 00:00: mouth 3 [place] 00 (three) Medical times Branch daily as needed for Cough. amLODIPine Yes [id number] 10mg Take 1 Univers 10 mg 2-17 tablet by ity of tablet 00:00: mouth [place] 00 daily. Medical Branch benzonatate 2020- No [id number] 100mg Take 1 Univers 100 mg 2-17 -17 [id number] capsule by ity of capsule 00:00: 00:00 mouth 3 [place] 00 :00 (three) Medical times Branch daily as needed for Cough. dexamethaso No 4mg 4 mg, IV U nivers ne 04-0420 Piggyback, ity of (DECADRON 19:00: 18:59 Q24H, 4 [place] PHOSPHATE) 00 :00 doses, Medical 4 mg in First dose Branch NaCl 0.9% on Fri (NS) 50 mL 04/04/20 at piggyback 1300, Last dose on Fri04/07/20 at 1300, 50 mL albuterol-i Yes 1{puff} 1 Puff, [facility] pratropium -16 Inhalation ity of (COMBIVENT 16:45: [...] amLODIPine Yes 10mg 10 mg, Unive rs ([facility]) 04-03 Oral, ity of tablet 10 15:00: DAILY, [place] mg 00 First dose Medical (after Branch last modificati on) on [facility] 04/03/20 at 0900, Until Discontinu ed, Routine KCL 2020- No 40meq 40 mEq, Univers (KLOR-CON 04-03 Oral, ity of M20) tablet 14:45: 15:15 ONCE, 1 [place] 40 mEq 00 :00 dose, [facility] Medical 04/03/20 at Branch 0845, Routine hydralAZINE 2020- No 10mg 10 mg, Uni vers (APRESOLINE 04-03 Slow IV ity of ) injection 00:45: 23:58 [place], [place] 10 mg 00 :00 ONCE, 1 Medical dose, [facility] 04/02/20 at 1845, STAT
In dication: Hypertensi ve Emergency amLODIPine 2020- No 5mg 5 mg, Unive rs (NORVAS) 04-02 Oral, ity of tablet 5 mg 18:15: 18:21 ONCE, 1 [place] 00 :00 dose, [facility] 04/02/20 at Branch 1215, Routine metoprolol Yes 100mg 100 mg, Uni vers succinate 04-02 Oral, ity of XL (TOPROL 15:00: DAILY, [place] XL) tablet 00 First dose Med ical 100 mg (after [place] last modificati on) on [place] 04/02/20 at 0900, Until Discontinu ed, Routine remdesivir No 100mg 100 mg, IV Univers 100 mg in 04-01 Infusion, ity of NaCl 0.9% 22:00: 16:13 DAILY AT [place] (NS) 250 mL 00 :05 1600, 5 Medic al infusion doses, Branch First dose (after last reorder) on 04/01/20 at 1600, Last dose on 04/05/20 at 1600, 250 mL
Nicolette ent informed of their inclusion in the [employer] database for 5 years for purposes of emergency use of remdesivir . No
Plea se discuss and complete the [employer] Disaster Informatio n Retention Consent form with the patient: I will discuss and complete the [employer] Disaster Informatio n Retention Consent form with the patient amLODIPine No 5mg 5 mg, [facility] (NORVASC) 04-0114 Oral, ity of tablet 5 mg 16:45: 17:08 DAILY, [place] 00 :13 First dose Medical (after Branch last modificati on) on 04/01/20 at 1045, Until Discontinu ed, Routine hydrOXYzine Yes 25mg 25 mg, [facility] ers (ATARAX) 04-01 Oral, ity of tablet 25 01:34: Q6HPRN, [place] mg 39 Starting Medical [facility] Branch 03/31/20 at 1934, Until Discontinu ed, Routine, Anxiety furosemide 2020- No 40mg 40 mg, [facility] ers (LASIX) 03-3112 Slow IV ity of injection 10:19: 11:05 Push, [place] 40 mg 00 :00 ONCE, 1 Medical dose, Fri Branch 03/31/20 at 0430, Routine sodium Yes 1{spray 1 [place], [facility] ers chloride 12 } Nasal, ity of (OCEAN MIST 02:03: PRN, [place] NASAL) 0.65 41 Starting Medi julia % nasal [facility] spray 1 03/30/20 at [place] 2002, Until Discontinu ed, Routine, nasal irritation benzonatate Yes 100mg 100 mg, Un yelitza (TESSALON 212 Oral, ity of PERLES) 01:54: TIDPRN, [place] capsule 100 50 Starting Medi julia mg [facility] Branch 03/30/20 at 1954, Until Discontinu ed, Routine, Cough lactated 2020- No 500mL at 100 [facility] rs ringers IV 03-29 02-10 mL/hr, 500 it y of infusion 17:30: 18:43 mL, IV [place] 500 mL 00 :00 Infusion, Medical ONCE, 1 Branch dose, 03/29/20 at 1130, Routine dexamethaso 2020- No 6mg 6 mg, IV U nivers ne 6 mg in 03-29-16 Piggyback, it y of NaCl 0.9% 17:00: 04:36 Q24H, [place] (NS) 25 mL 00 :35 First dose Med ical RTU on Fri03/29/20 at 1100, Until Discontinu ed, 25 mL albuterol-i 2020- No 1{puff} 1 Puff, [facility] pratropium 03-28 Inhalation it y of (COMBIVENT 18:00: 16:40 , Q6H, [place] RESPIMAT) 00 :35 First dose Medi julia 20-100 on Fri [place] mcg/actuati 03/28/20 at on inhaler 1200, 1 Puff Until Discontinu ed, Routine
Is this order for a patient with suspected or confirmed COVID-19 infection? Yes Potassium 2020- No 40meq 40 mEq, Uni vers Bicarb-Citr 03-28 Oral, ity of ic Acid 15:53: 17:01 ONCE, 1 [place] (EFFER-K) 00 :00 dose, [facility] Medic al effervescen 03/28/20 at [facility] t tablet 40 1000, mEq Routine magnesium 2020- No 2g 2 g, IV Univ ers sulfate in 03-28 Piggyback, it y of water 2 15:53: 16:58 ONCE, 1 [place] gram/50 mL 00 :00 dose, [facility] Medi julia (4 %) 03/28/20 at [place] infusion 2 1000, g Routine aspirin Yes 81mg 81 mg, Univers chewable 03-28 Oral, ity of tablet 81 15:00: DAILY, [place] mg 00 First dose Medical on Fri [place] 03/28/20 at 0900, Until Discontinu ed, Routine enoxaparin Yes 40mg 40 mg, Unive rs (LOVENOX) 03-28 Subcutaneo ity of injection 15:00: us, DAILY, [place] 40 mg 00 First dose Medical on Fri [place] 03/28/20 at 0900, Until Discontinu ed, Routine metoprolol 2020- No 200mg 200 mg, Un yelitza succinate 03-28 Oral, ity of XL (TOPROL 15:00: 19:42 DAILY, [place] XL) tablet 00 :35 First dose Med ical 200 mg on [facility] Branch 03/28/20 at 0900, Until Discontinu ed, Routine NaCl 0.9% 2020- No 1000mL at 150 Uni vers (NS) IV 03-28 mL/hr, IV ity of infusion 14:33: 14:51 Infusion, [place] 1,000 mL 00 :00 ONCE, 1 Medical dose, [facility] 03/28/20 at 0845, Routine magnesium No 1g 1 g, IV [facility] ers sulfate in 03-28 Piggyback, it y of D5W 1 04:30: 07:34 ONCE, 1 [place] gram/100 mL 00 :00 dose, [facility] Med ical RTU IV 03/27/20 at [place] Piggyback 1 2230, 100 g mL Sliding Yes Subcutaneo [facility] ers Scale 03-28 us, TID ity of Insulin - 03:00: MEALS+HS, [place] Lispro 00 First dose Medical (HumaLOG) + on [facility] 03/27/20 at Testing 2100, Until Discontinu ed, Routine empaglifloz 2020- No Take by Chandrakant harding in-metformi 03-2808 mouth. ity o f n (SYNJARDY 02:25: 00:00 [place] XR) 17 :00 Medical 10-1,000 mg [place] TBph dicyclomine No 20mg Take 20 mg Univers 20 mg 03-28 by mouth 4 ity of tablet 02:25: 00:00 (four) [place] 17 :00 times Medical daily. Branch NaCl 0.9% 2020- No 500mL at 200 Univ ers (NS) IV 03-28 mL/hr, IV ity of infusion 01:45: 03:39 Infusion, [place] 500 mL 00 :00 ONCE, 1 Medical dose, [facility] 03/27/20 at 1945, Routine KCL 2020- No 40meq 40 mEq, Univers (KLOR-CON 03-28 Oral, ity of M20) tablet 01:45: 02:46 ONCE, 1 [place] 40 mEq 00 :00 dose, [facility] Medical 03/27/20 at Branch 1945, Routine guaiFENesin 2020- No 200mg 200 mg, U nivers 100 mg/5 mL 03-28 02-12 Oral, ity of solution 00:35: 01:55 Q4HPRN, [place] 200 mg 14 :33 Starting Medical [facility] 03/27/20 Branch at 1835, Until [place] 03/30/20 at 1955, Routine, Cough albuterol Yes 1{puff} 1 Puff, Un yelitza (VENTOLIN) 2 Inhalation ity of inhaler 1 00:29: , Q4HPRN, [place] Puff 51 Starting Medical [facility] 03/27/20 Branch at 1829, Until Discontinu ed, Routine, Wheezing, Shortness of Breath
Is this order for a patient with suspected or confirmed COVID-19 infection? Yes acetaminoph Yes 650mg 650 mg, Un yelitza en 03-28 Oral, ity of (TYLENOL) 00:11: Q6HPRN, [place] tablet 650 01 Starting Medic al mg [facility] 03/27/20 Branch at 1811, Until Discontinu [...] 51 Medical 10-1,000 mg Branch TBph dicyclomine Yes 20mg Take 20 mg Univers 20 mg 8-05 by mouth 4 ity of tablet 19:05: (four) [place] 51 times Medical daily. Branch Multivitami Yes Take by Un yelitza ns with 8-05 mouth. ity of Fluoride 19:05: [place] (MULTI-MARIA FERNANDA 51 Medical MIN ORAL) Branch lisinopril 2020-0 Yes 5mg Take 5 mg Un yelitza 5 mg tablet 8-05 by mouth ity of 19:05: daily. [place] [address] Medical Branch albuterol 2020-0 Yes 2{puff} Inhale 2 U nivers 90 8-05 Puffs ity of mcg/actuati 19:05: every 6 [place] on inhaler (six) Medical hours as Branch needed for Wheezing or Shortness of Breath. atorvastati 2020-0 Yes 10mg Take 10 mg Univers n 10 mg 8-05 by mouth ity of tablet 19:05: at [place] [address] bedtime. Medical Branch empaglifloz 2020-0 Yes Take by Un yelitza in-metformi 8-05 mouth. ity of n (SYNJARDY 19:05: [place] [address] Medical 10-1,000 mg Branch TBph dicyclomine 2019-0 Yes 20mg Take 20 mg Univers 20 mg 8-05 by mouth 4 ity of tablet 19:05: (four) [place] [address] times Medical daily. Branch Multivitami 2019-0 Yes Take by Un yelitza ns with 8-05 mouth. ity of Fluoride 19:05: [place] (MULTI-MARIA FERNANDA 51 Medical MIN ORAL) Branch lisinopril 2020-0 Yes 5mg Take 5 mg Un yelitza 5 mg tablet 8-05 by mouth ity of 19:05: daily. [place] [address] Medical Branch albuterol 2020-0 Yes 2{puff} Inhale 2 U nivers 90 8-05 Puffs ity of mcg/actuati 19:05: every 6 [place] as on inhaler (six) Medical hours as Branch needed for Wheezing or Shortness of Breath. atorvastati 2020-0 Yes 10mg Take 10 mg Univers n 10 mg 8-05 by mouth ity of tablet 19:05: at [place] [id number] bedtime. Medical Branch metroNIDAZO 2020-0 2020- No [...] 10mg 10 mg, Univ ers n (LIPITOR) 8 Oral, QHS, it y of tablet 10 02:00: [place] mg 00 on Fri [facility] 09/21/19 at Branch 2100, Until Discontinu ed, Routine metoprolol Yes [id number] 200mg Take 1 Univers succinate 8-05 tablet by ity o f XL 200 mg 00:00: mouth [place] 24 hr 00 daily. Medical tablet Branch metoprolol Yes [id number] 200mg Take 1 Univers succinate 8-05 tablet by ity o f XL 200 mg 00:00: mouth [place] 24 hr 00 daily. Medical tablet Branch metoprolol 2020- No [id number] 200mg Take 1 Univers succinate 8-06 18-17 tablet by ity of XL 200 mg 00:00: 00:00 mouth [place] 24 hr 00 :00 daily. Medical tablet Branch benzocaine- Yes 1{lozen 1 Lozenge, Univers menthol 09-20 ge} Oral, ity of (CEPACOL 20:36: Q4HPRN, [place] SORE THROAT 15 Starting Medi julia (KRISH-MEN)) 09/21/19 Br anch lozenge 1 at 1536, Lozenge Until Discontinu ed, Routine, Sore throat amLODIPine 2019- Yes 10mg 10 mg, Unive rs (NORVASC) 8- Oral, ity of tablet 10 14:00: DAILY, [place] mg 00 First dose Medical on Fri [place] 09/21/19 at 0900, Until Discontinu ed, Routine lisinopril Yes 20mg 20 mg, Unive rs (PRINIVIL,Z 8 Oral, ity of ESTRIL) 14:00: DAILY, [place] tablet 20 00 First dose Medi julia mg on Fri Branch 09/21/19 at 0900, Until Discontinu ed, Routine metoprolol 2020-0 Yes 25mg 25 mg, Unive rs tartrate 09-20 Oral, BID, ity o f (LOPRESSOR) 13:00: First dose [place] tablet 25 00 on Fri Medical mg 09/21/19 at Branch 0800, Until Discontinu ed, Routine Sliding 2019-0 Yes Subcutaneo Univ ers Scale 8 us, [...] No insulin 2020-0 Yes 10U 10 Units, [facility] 09-20 Subcutaneo ity o f (LANTUS 07:00: us, DAILY, [place] U-100) 00 First dose Medical injection on Fri 10 Units 09/21/19 at 0200, Until Discontinu ed, Routine hydralAZINE 2019-0 Yes 10mg 10 mg, Univ ers (APRESOLINE 09-20 Intravenou it y of ) injection 06:50: s, Q6HPRN, [place] 10 mg 23 Starting Medical Fri09/21/19 Branch at 0150, Until Discontinu ed, Routine, Hypertensi on glucagon 2020-0 Yes 1mg 1 mg, Univers (GLUCAGEN 09-20 [...] IV ity of (D50W) 06:49: Push, PRN, [place] injection 21 Starting Medica l 25 mL Fri09/21/19 Branch at 0149, Until Discontinu ed, SUBHA, Blood Glucose < or = 70 mg/dL and patient is unable to swallow or has mental status changes. ondansetron 2019-0 Yes 4mg 4 mg, Slow Univers (ZOFRAN 8 IV Push, ity of (PF)) 06:32: Q6HPRN, [place] injection 4 28 Starting Medi julia mg Fri09/21/19 Branch at 0132, Until Discontinu ed, Routine, Nausea and Vomiting (N/V) HYDROcodone 2020- No 1{tbl} 1 tablet, Univers -acetaminop 09-20 08-06 Oral, ity of hen (NORCO 06:32: 06:31 Q6HPRN, [place] as 5) 5-325 mg 15 :15 Starting Medi julia tablet 1 Fri09/21/19 Branc h tablet at 013, Until Nia 09/23/19 at 0131, Routine, Pain (scale 4-6), Hold for SBP<110, DBP<60, RR<12, and/or drowsiness /sedation acetaminoph 2019-0 Yes 650mg 650 mg, Un yelitza en 09-20 Oral, ity of (TYLENOL) 06:31: Q6HPRN, [place] tablet 650 50 Starting Medic al mg Fri09/21/19 Branch at 0131, Until Discontinu ed, Routine, Pain (scale 1-3) insulin 2019-0 2020- No 10U 10 Units, Univ ers regular 09-20 08-04 Slow IV ity of human 02:45: 01:59 Push, [place] (HUMULIN R) 00 :00 ONCE, 1 Medic [...] [facility] Lipitor Lipitor 2019-0 Yes Akash [address] 08-25 [facility] - 00:[facility]: Mem[facility] 00 l [facility] Clinics Synjardy XR Synjardy XR 2019-0 2020- No Akash [address] [facility] 08-25 [facility] - 00:[facility]: 00:00 breakfast Memoria 00 :00 l [facility] ent Clinics amLODIPine 2018-02 Yes [id number] 10mg Take 1 Univers 10 mg 2-28 tablet by ity of tablet 00:00: mouth [place] 00 daily. Medical Branch nitroglycer 2018-[id number] 1 Univers in 0.4 mg 2-28 tablet ity of sublingual 00:00: under the [place] tablet 00 tongue Medical every 5 Branch (five) minutes as needed for Chest pain. nitroglycer 2018-[id number] 1 Univers in 0.4 mg 2-28 tablet ity of sublingual 00:00: under the [place] tablet 00 tongue Medical every 5 Branch (five) minutes as needed for Chest pain. nitroglycer 2018-[id number] 1 Univers in 0.4 mg 2-28 tablet ity of sublingual 00:00: under the [place] tablet 00 tongue Medical every 5 Branch (five) minutes as needed for Chest pain. nitroglycer 2018-[id number] 1 Univers in 0.4 mg 2-28 tablet ity of sublingual 00:00: under the [place] tablet 00 tongue Medical every 5 Branch (five) minutes as needed for Chest pain. nitroglycer 2018-[id number] 1 Univers in 0.4 mg 2-28 tablet ity of sublingual 00:00: under the [place] tablet 00 tongue Medical every 5 Branch (five) minutes as needed for Chest pain. amLODIPine 2018-02 Yes [id number] 10mg Take 1 Univers 10 mg 2-28 tablet by ity of tablet 00:00: mouth [place] 00 daily. Medical Branch carvedilol 2018-02 Yes [id number] 12.5mg Take 1 Univers 12.5 mg 2-28 tablet by ity of tablet 00:00: mouth 2 [place] 00 (two) Medical times Branch daily with meals. nitroglycer 2018-[id number] 1 Univers in 0.4 mg 2-28 tablet ity of sublingual 00:00: under the [place] tablet 00 tongue Medical every 5 Branch (five) minutes as needed for Chest pain. metFORMIN 2018-02 Yes [id number] 500mg Take 1 Univers 500 mg 2-28 tablet by ity of tablet 00:00: mouth 2 [place] 00 (two) Medical times Branch daily with meals. amLODIPine 2018-02 Yes [id number] 10mg Take 1 Univers 10 mg 2-28 tablet by ity of tablet 00:00: mouth [place] 00 daily. Medical Branch nitroglycer 2018-[id number] 1 Univers in 0.4 mg 2-28 tablet ity of sublingual 00:00: under the [place] tablet 00 tongue Medical every 5 Branch (five) minutes as needed for Chest pain. amLODIPine 2018-02- No [id number] 10mg Take 1 Univers 10 mg 2-28 02-17 tablet by ity of tablet 00:00: 00:00 mouth [place] 00 :00 daily. Medical Branch carvedilol 2018-02- No [id number] 12.5mg Take 1 Univers 12.5 mg 2-28 08-05 tablet by ity of tablet 00:00: 00:00 mouth 2 [place] 00 :00 (two) Medical times Branch daily with meals. metFORMIN 2018-02- No [id number] 500mg Take 1 Univers 500 mg 2-28 [...] 15:34:00 140 mm[Hg] Univer sity of pressure [place] [facility] Diastolic blood 2020-07-21 15:34:00 80 mm[Hg] Unive rsity of pressure [place] [facility] Heart rate 2020-07-21 15:34:00 70 /min Universi ty of [place] [facility] Body temperature 2020-07-21 15:34:00 37.11 [place] Univ ersity of [place] [facility] Respiratory rate 2020-07-21 15:34:00 20 /min Univ ersity of [place] [facility] Oxygen saturation in 2020-07-21 15:34:00 94 /min University of Arterial blood by [place] [employer] Pulse oximetry Branch Body height 2020-07-20 03:29:00 188 cm [facility]i ty [facility] [place] [facility] Body weight 2020-07-19 21:14:00 226.799 kg Universi ty [facility] [place] [facility] BMI 2020-07-19 21:14:00 64.20 kg/m2 [facility] [place] [facility] Systolic blood 2020-04-05 13:18:00 149 mm[Hg] Univer sity of pressure [place] [facility] Diastolic blood 2020-04-05 13:18:00 96 mm[Hg] Unive rsity of pressure [place] [facility] Heart rate 2020-04-05 13:18:00 63 /min [facility]i ty [facility] [place] [facility] Body temperature 2020-04-05 13:18:00 36.56 [facility] Univ ersity of [place] [facility] Respiratory rate 2020-04-05 13:18:00 18 /min Univ ersity of [place] [facility] Oxygen saturation in 2020-04-05 13:18:00 98 /min University of Arterial blood by [employer] Pulse oximetry Branch Body height 2020-03-27 23:51:00 188 cm [facility] [place] [facility] Body weight 2020-03-27 23:51:00 195.954 kg [facility] [place] [facility] BMI 2020-03-27 23:51:00 55.47 kg/m2 [facility] [place] [facility] Systolic blood 2020-04-05 13:18:00 149 mm[Hg] Univer sity of pressure [place] [facility] Diastolic blood 2020-04-05 13:18:00 96 mm[Hg] Unive rsity of pressure [place] [facility] Heart rate 2020-04-05 13:18:00 63 /min [facility] [place] [facility] Body temperature 2020-04-05 13:18:00 36.56 [facility] Univ ers[facility] [place] [facility] Respiratory rate 2020-04-05 13:18:00 18 /min Univ ersity of [place] [facility] Oxygen saturation in 2020-04-05 13:18:00 98 /min University of Arterial blood by [facility] Pulse oximetry Branch Body height 2020-03-27 23:51:00 188 cm [facility]i ty [facility] [place] [facility] Body weight 2020-03-27 23:51:00 195.954 kg [facility] [place] [facility] BMI 2020-03-27 23:51:00 55.47 kg/m2 [facility] [place] [facility] Systolic blood 2019-09-22 18:08:00 149 mm[Hg] Univer sity of pressure [place] [facility] Diastolic blood 2019-09-22 18:08:00 85 mm[Hg] Unive rsity of pressure [place] [facility] Heart rate 2019-09-22 17:06:00 78 /min [facility] [place] [facility] Body temperature 2019-09-22 17:06:00 36.56 [place] [facility] [place] [facility] Respiratory rate 2019-09-22 17:06:00 20 /min Univ ersity of [place] [facility] Oxygen saturation in 2019-09-22 17:06:00 98 /min University of Arterial blood by [facility] Pulse oximetry Branch Body weight 2019-09-22 08:31:00 204.482 kg [facility] [place] [facility] BMI 2019-09-22 08:31:00 59.48 kg/m2 [facility] [place] [facility] Body height 2019-09-21 06:30:00 185.4 cm [facility] [place] [facility] Systolic blood 2019-09-22 18:08:00 149 mm[Hg] Univer sity of pressure [place] [facility] Diastolic blood 2019-09-22 18:08:00 85 mm[Hg] Unive rsity of pressure [place] [facility] Heart rate 2019-09-22 17:06:00 78 /min [facility] [place] [facility] Body temperature 2019-09-22 17:06:00 36.56 [place] [facility] [place] [facility] Respiratory rate 2019-09-22 17:06:00 20 /min Univ ersity [facility] [place] [facility] Oxygen saturation in 2019-09-22 17:06:00 98 /min [facility] Arterial blood by [facility] Pulse oximetry Branch Body weight 2019-09-22 08:31:00 204.482 kg [facility] BMI 2019-09-22 08:31:00 59.48 kg/m2 [facility] Body height 2019-09-21 06:30:00 185.4 cm [facility] Procedures Procedure Date / Time Performing Clinician Source Performed BASIC METABOLIC PANEL 2020-07-21 Reena Polanco [facility] (NA, K, CL, CO2, 10:22:00 [facility] GLUCOSE, BUN, CREATININE, CA) CBC WITH DIFF 2020-07-21 Reena Polanco [facility] 10:22:00 [facility] TRANSTHORACIC ECHO (TTE) 2020-07-20 [facility] COMPLETE W/ CONTRAST 16:57:10 [facility] TROPONIN I 2020-07-20 [facility] 07:23:00 [facility] BASIC METABOLIC PANEL 2020-07-20 [facility] (NA, K, CL, CO2, 07:23:00 [facility] GLUCOSE, BUN, CREATININE, CA) LIPID PANEL 2020-07-20 [facility] ([id number])(TOTAL 07:23:00 [facility] CHOLESTEROL, TRIGLYCERIDES, HDL) CBC WITH DIFF 2020-07-20 [facility] 07:23:00 [facility] URINALYSIS 2020-07-20 Reena Osman [facility] 01:48:00 [facility] XR CHEST 1 VW 2020-07-19 Reena Osman [facility] 22:24:55 [facility] COVID-19 (ID NOW RAPID 2020-07-19 Reena Osman [facility] TESTING) 21:54:00 [facility] TROPONIN I 2020-07-19 Reena Osman [facility] 21:52:00 [facility] COMP. METABOLIC PANEL 2020-07-[address] [facility] ([id number]) 21:52:00 Medical Branch CBC WITH DIFF 2020-07-19 Reena Osman [facility] xas 21:52:00 Medical Branch PROTHROMBIN TIME / INR 2020-07-19 Reena Osman [facility] 21:52:00 Medical Branch ACTIVATED PARTIAL 2020-07-[address] [facility] THRMPLAS ANNETTE 21:52:00 Medical Branch N-TERMINAL PRO-BNP 2020-07-[address] [facility] 21:52:00 [facility] Branch HB ECG ROUTINE & RHYTHM 2020-07-19 Reena Osman [facility] STRIP 21:18:23 Medical Branch NOTICE OF PRIVACY 2020-07-19 Doctor Unassigned, No [facility] PRACTICES 21:03:23 Name Medical [place] CONSENT/REFUSAL FOR 2020-07-19 Doctor Unassigned, No [facility] DIAGNOSIS AND TREATMENT 21:02:36 Name [facility] POCT GLUCOSE (AUTOMATED) 2020[facility] 13:19:00 Medical Branch MAGNESIUM 2020-04-05 [facility] ex 09:46:00 Medical Branch BASIC METABOLIC PANEL 2020-04-05 [facility] (NA, K, CL, CO2, 09:46:00 Medical Branch GLUCOSE, BUN, CREATININE, CA) POCT GLUCOSE (AUTOMATED) 2020-04-05 [facility] 03:02:00 Medical Branch POCT GLUCOSE (AUTOMATED) 2020-04-04 [facility] 23:08:00 Medical Branch POCT GLUCOSE (AUTOMATED) 2020-04-04 [facility] 18:22:00 Medical Branch POCT GLUCOSE (AUTOMATED) 2020-04-04 [facility] 14:44:00 Medical Branch MAGNESIUM 2020-04-04 [facility] exas 09:49:00 Medical Branch BASIC METABOLIC PANEL 2020-04-04 [facility] (NA, K, CL, CO2, 09:49:00 Medical Branch GLUCOSE, BUN, CREATININE, CA) POCT GLUCOSE (AUTOMATED) 2020[facility]04-04 [facility] 02:03:00 Medical [place] POCT GLUCOSE (AUTOMATED) 2020-04-03 [facility] 23:39:00 Medical Branch POCT GLUCOSE (AUTOMATED) 2020-04-03 [facility] 17:49:00 Medical Branch POCT GLUCOSE (AUTOMATED) 2020-04-03 [facility] 13[facility]05:00 Medical Branch MAGNESIUM 2020-04-03 [facility]:08[facility]00 Medical Branch BASIC METABOLIC PANEL 2020[facility]04-[facility] ([facility] K, CL, CO2, 10:08:00 Medical Branch GLUCOSE, BUN, CREATININE, CA) POCT GLUCOSE (AUTOMATED) 2020-04-03 [facility] 01:58:00 Medical Branch POCT GLUCOSE (AUTOMATED) 2020-04-02 [facility] 23:26:00 Medical Branch POCT GLUCOSE (AUTOMATED) 2020-04-02 [facility] 17:31:00 Medical Branch POCT GLUCOSE (AUTOMATED) 2020-04-02 [facility] 14:35:00 Medical Branch MAGNESIUM 2020-04-02 [facility] 11:53:00 Medical [place] BASIC METABOLIC PANEL 2020-04-02 [facility] (NA, K, CL, CO2, 11:53:00 Medical Branch GLUCOSE, BUN, CREATININE, CA) POCT GLUCOSE (AUTOMATED) 2020-04-02 [facility] 02:36:00 Medical Branch POCT GLUCOSE (AUTOMATED) 2020-04-01 [facility] 23:42:00 Medical Branch POCT GLUCOSE (AUTOMATED) 2020-04-01 [facility] 19:39:00 Medical Branch POCT GLUCOSE (AUTOMATED) 2020-04-01 [facility] 14:34:00 Medical Branch MAGNESIUM 2020-04-01 [facility] 10:02:00 Medical Branch BASIC METABOLIC PANEL 2020-04-01 [facility] (NA, K, CL, CO2, 10:02:00 Medical Branch GLUCOSE, BUN, CREATININE, CA) POCT GLUCOSE (AUTOMATED) 2020-04-01 [facility] 02:21:00 Medical Branch POCT GLUCOSE (AUTOMATED) 2020-03-31 [facility] 23:19:00 Medical Branch POCT GLUCOSE (AUTOMATED) 2020-03-31 [facility] 17:58:00 Medical Branch POCT GLUCOSE (AUTOMATED) 2020-03-31 [facility] 14:10:00 Medical Branch CREATINE KINASE 2020-03-[address] [place] [address] [facility] 09:52:00 Medical Branch MAGNESIUM 2020-03-31 [facility] ex 09:52:00 [facility] Branch BASIC METABOLIC PANEL 2020-03-31 [facility] (NA, K, CL, CO2, 09:52:00 Medical Branch GLUCOSE, BUN, CREATININE, CA) CBC WITH DIFF 2020-03-31 [facility] 09:52:00 [facility] Branch D-DIMER 2020-03-31 [facility] 09:52:00 [facility] Branch PROCALCITONIN 2020-03-31 [facility] 09:52:00 [facility] Branch XR CHEST 1 VW 2020-03-31 [facility] 09:20:00 [facility] Branch POCT GLUCOSE (AUTOMATED) 2020-03-31 [facility] 01:36:00 Medical Branch POCT GLUCOSE (AUTOMATED) 2020-03-30 [facility] 22:31:00 Medical Branch POCT GLUCOSE (AUTOMATED) 2020-03-30 [facility] 17:51:00 Medical Branch POCT GLUCOSE (AUTOMATED) 2020-03-30 [facility] 14:26:00 Medical Branch MAGNESIUM 2020-03-30 [facility] exas 09:19:00 Medical Branch BASIC METABOLIC PANEL 2020-03-30 [facility] (NA, K, CL, CO2, 09:19:00 Medical Branch GLUCOSE, BUN, CREATININE, CA) POCT GLUCOSE (AUTOMATED) 2020-03-30 [facility] 02:26:00 Medical [place] POCT GLUCOSE (AUTOMATED) 2020-03-29 [facility] 22:03:00 Medical [place] POCT GLUCOSE (AUTOMATED) 2020-03-29 [facility] 14:23:00 Medical Branch CREATINE KINASE 2020-03-[address] [place] [address] [facility] 07:58:00 Medical Branch MAGNESIUM 2020-03-29 [facility] ex 07:58:00 Medical [place] BASIC METABOLIC PANEL 2020-03-29 [facility] (NA, K, CL, CO2, 07:58:00 Medical Branch GLUCOSE, BUN, CREATININE, CA) POCT GLUCOSE (AUTOMATED) 2020-03-29 [facility] 02:48:00 Medical [place] POCT GLUCOSE (AUTOMATED) 2020-03-28 [facility] 23:29:00 Medical [place] POCT GLUCOSE (AUTOMATED) 2020-03-28 [facility] 17:48:00 Medical [place] POCT GLUCOSE (AUTOMATED) 2020-03-28 [facility] 14:22:00 Medical Branch CREATINE KINASE 2020-03-28 [facility] 14:16:00 Medical Branch MAGNESIUM 2020-03-28 [facility] 14:16:00 Medical Branch BASIC METABOLIC PANEL 2020-03-28 [facility] (NA, K, CL, CO2, 14:16:00 Medical Branch GLUCOSE, BUN, CREATININE, CA) CBC WITH DIFF 2020-03-28 Kehinde [facility] 11:16:00 [facility] URINALYSIS 2020-03-28 [facility] 08:28:00 [facility] CREATININE, URINE RANDOM 2020-03-28 [facility] 08:28:00 [facility] SODIUM, URINE RANDOM 2020-03-28 [facility] 08:28:00 [facility] HB ECG ROUTINE & RHYTHM 2020-03-28 [facility] 02:51:07 [facility] POCT GLUCOSE (AUTOMATED) 2020-03-28 [facility] 02:38:00 [facility] LACTATE DEHYDROGENASE 2020-03-28 [facility] 00:53:00 [facility] MAGNESIUM 2020-03-28 [facility] 00:53:00 [facility] C-REACTIVE PROTEIN 2020-03-28 [facility] 00:53:00 [facility] BASIC METABOLIC PANEL 2020-03-28 [facility] (NA, K, CL, CO2, 00:53:00 [facility] GLUCOSE, BUN, CREATININE, CA) PROCALCITONIN 2020-03-28 [facility] 00:53:00 [facility] D-DIMER 2020-03-28 [facility] 00:52:00 [facility] HB ECG ROUTINE & RHYTHM 2020-03-27 Reena Osman [facility] STRIP 20:21:35 [facility] XR CHEST 1 VW 2020-03-27 Reena Osman [facility] xas 19:35:51 [facility] CREATINE KINASE 2020[facility]03[facility]00 [facility] LIPASE 2020-03-27 Reena Osman [facility] xas 19:06:00 [facility] Branch TROPONIN I 2020-03-27 Reena Osman [facility] xas 19:06:00 [facility] COMP. METABOLIC PANEL 2020-03-[address] [facility] ([id number]) 19:06:00 Medical Branch CBC WITH DIFF 2020-03-27 Reena Osman [facility] xas 19:06:00 Medical Branch GLYCOSYLATED HEMOGLOBIN 2020-03-27 Kehinde, Steven [facility] (A1C) 19:06:00 [facility] PROTHROMBIN TIME / INR 2020-03-27 Reena Osman [facility] 19:06:00 [facility] Branch ACTIVATED PARTIAL 2020-03-[address] [facility] THRMPLAS ANNETTE 19:06:00 [facility] COVID-19 (ID NOW RAPID 2020-03-27 Reena Osman [facility] TESTING) 19:06:00 [facility] LAB ONLY COVID 2020-03-27 Reena Osman [facility] INTERPRETATION 19:06:00 [facility] CONSENT/REFUSAL FOR 2020-03-27 Doctor Unassigned, No [facility] DIAGNOSIS AND TREATMENT 18:10:34 Name [facility] HOSPITAL ADMISSION 2020-03-27 Doctor Unassigned, No [facility] 06:01:00 Name [facility] POCT GLUCOSE (AUTOMATED) 2019-09-22 [facility] 17:09:00 [facility] POCT GLUCOSE (AUTOMATED) 2019-09-22 [facility] 12:25:00 [facility] COMP. METABOLIC PANEL 2019-09-22 [facility] ([id number] 10:18:00 [facility] CBC WITH DIFF 2019-09-22 [facility] xas 10:18:00 [facility] POCT GLUCOSE (AUTOMATED) 2019-09-22 [facility] 01:29:00 [facility] TROPONIN I 2019-09-21 [facility] xas 21:24:00 [facility] EBV-MONONUCLEOSIS SCREEN 2019-09-21 [facility] 21:24:00 [facility] RAPID STREP SCREEN FOR 2019-09-21 [facility] GROUP A 21:24:00 [facility] POCT GLUCOSE (AUTOMATED) 2019-09-21 [facility] 20:50:00 [facility] POCT GLUCOSE (AUTOMATED) 2019[facility]09-[facility] 16:39[facility]00 [facility] POCT GLUCOSE (AUTOMATED) 2019-09-21 [facility] 12:44:00 [facility] TROPONIN I 2019-09-21 [facility]as 08:57:00 [facility] POCT GLUCOSE (AUTOMATED) 2019-09-21 [facility] 06:51:00 [facility] POCT GLUCOSE (AUTOMATED) 2019-09-21 [facility] 03:38:00 [facility] US GALL BLADDER 2019-09-21 Russ [facility] ex 02:33:37 [facility] COVID-19 (ID NOW RAPID 2019-09-21 Russ [facility] TESTING) 00:56:00 [facility] LIPASE 2019-09-21 Russ [facility] ex 00:48:00 [facility] TROPONIN I 2019-09-21 Russ [facility] ex 00:48:00 [facility] HEPATIC FUNCTION PANEL 2019-09-21 Russ [facility] ([id number]) (ALB,T.PRO,BILI 00:48:00 [facility] T,BU/BC,ALT,AST,ALK PHOS) BASIC METABOLIC PANEL 2019-09-21 [facility] (NA, K, CL, CO2, 00:48:00 Medical [place] GLUCOSE, BUN, CREATININE, CA) CBC WITH DIFF 2019-09-21 Russ [facility] ex 00:48:00 [facility] GLYCOSYLATED HEMOGLOBIN 2019-09-21 [facility] (A1C) 00:48:00 [facility] PROTHROMBIN TIME / INR 2019-09-21 Russ [facility] 00:48:00 [facility] D-DIMER 2019-09-21 Russ [facility] exas 00:48:00 [facility] ACTIVATED PARTIAL 2019-09-21 Russ [facility] THRMPLAS ANNETTE 00:48:00 Medical Branch URINALYSIS 2019-09-21 Lindsey Solano [facility] exas 00:48:00 Medical Branch XR CHEST 1 VW COVID 2019-09-[address] [facility] 00:45:44 Medical Branch EKG-12 LEAD 2019-09-21 Lindsey Solano [facility] exas 00:37:42 Medical Branch EKG-12 LEAD 2019-09-21 Lindsey Solano [facility] ex 00:03:13 Medical Branch NOTICE OF PRIVACY 2019-09-20 Doctor Unassigned, No [facility] PRACTICES 23:46:20 Name Medical Branch CONSENT/REFUSAL FOR 2019-09-20 Doctor Unassigned, No [facility] DIAGNOSIS AND TREATMENT 23:46:03 Name Medical Branch ASSIGNMENT OF BENEFITS 2019-09-20 Doctor Unassigned, No [facility] 23:45:45 Name Medical Branch Encounters Start End Encounter Admission Attending Care Care Encounter Source Date/Time Date/Time Type Type Clinicians Facility Department ID 2021-03-14 Outpatient Pearson, [place] [id number] [facility] 12:26:03 Akash 22609 [facility] 2021-03-14 Outpatient Pearson, [place] [id number] [facility] 12:24:49 Akash 26861 [facility] 2021-03-14 Outpatient Pearson, [place] [id number] [facility] 12:22:47 Akash 28150 [facility] 2021-03-14 Outpatient Eparson, [place] [id number] [facility] [address] 12:01:43 Akash 24673 [facility] 2021-03-14 Outpatient Pearson, [place] [id number] [facility] [address] 11:59:47 Akash 26359 [facility] 2021-03-14 Outpatient Pearson, [place] [id number] [facility] [address] 11:49:16 Akash 85094 [facility] 2021-03-14 Outpatient Pearson, [place] [id number] [facility] [address] 11:30:40 Akash 26016 [facility] 2021-03-14 [facility] Pearson[facility] [id number] [facility] 11:29:01 Akash 27626 [facility] 2021-03-14 Outpatient Pearson, [facility] [id number] [facility] 11:27:32 Akash 74351 [facility] 2020-07-19 2020-07-21 Emergency Reena Osman S [facility] 1.2.840.1 14 [id number] Univers 16:16:00 13:27:00 Agatha Ngo 350.1.13.10 ity Basim Oates 4.2.7.2.686 [facility] [id number] [facility] 081 Branch 2020-07-19 2020-07-19 Emergency X DAWSON [facility] ERT [id number] Univers 16:16:00 16:16:00 REENA ity [facility] 2020-07-19 2020-07-19 Orders Doctor PEPE 1.2.840.114 [id number] Univers 00:00:00 00:00:00 Only Unassigned, STACY 350.1.13.10 [facility] 4.2.7.2.686 [place] as [id number] [facility] 009 Branch 2020-04-19 2020-04-19 ambulatory [facility] [id number] [facility] 2020-04-07 2020-04-07 Transition Davida Stiles 1.2.840.114 [id number] Univers 00:00:00 00:00:00 of Care Loretta Iglesias 350.1.13.10 i [place]2.[place] [id number] [facility] 403 Branch 2020-04-07 2020-04-07 Transition Davida Stiles 1.2.840.114 [id number] 00:00:00 00:00:00 of Care Loretta Iglesias 350.1.13.10 [place] 4.2.7.2.686 [id number] 403 2020-03-27 2020-04-05 [facility] Reena Osman Sylvie 1.2.840.11 4 [id number] [facility] 12:27:00 11:30:00 Encounter Socrates Hobbs 350.1.13.10 ity of [facility] 4.2.7.2.686 [place] Socrates Hobbs [phone] [address] 2020-03-27 2020-04-05 [facility] 1.2.840.11 4 [id number] 12:27:00 11:30:00 Encounter Socrates Hobbs Stacy 350.1.13.10 [facility] 4.2.7.2.686 Socrates Hobbs [id number] [facility] 2020-03-27 2020-03-27 Emergency X [facility] ERT [id number] Univers 12:11:00 12:11:00 ity [facility] 2020-03-15 2020-03-15 ambulatory [facility]ML[facility] [id number] [facility]00 [facility] ent Clinics 2019-11-12 2019-11-12 Outpatient [facility] [id number] [facility] 00[facility]00 [facility] l [facility] ent Clinics 2019-10-19 2019-10-19 Letter PEPE Diamond 1.2.840.114 [id number] Univers 00:00:00 00:00:00 (Out) Patient STACY 350.1.13.10 it y of Does [facility] [place] Have A [id number] [address] 2019-10-19 2019-10-19 Letter PEPE Diamond 1.2.840.114 [id number] 00:00:00 00:00:00 (Out) Patient STACY 350.1.13.10 Does Not HOSPITAL 4.2.7.2.686 Have A [id number] 019 2019-09-20 2019-09-22 Emergency Lindsey Solano [facility] 1.2.840 .114 [id number] Univers 19:20:00 13:55:00 Tiny Ramos 350.1.13.10 ity of [place] 4.2.7.2.686 [facility] [place] [id number] [facility] 081 Branch 2019-09-20 2019-09-22 Emergency CacLindsey cisneros [facility] 1.2.840 .114 [id number] 19:20:00 13:55:00 Tiny Ramos 350.1.13.10 [place] 4.2.7.2.686 [place] [id number] [facility] 2019-09-20 2019-09-20 Outpatient X [facility] [id number] Univers 19:20:00 19:20:[address] [facility] 2019-09-20 2019-09-20 Orders Doctor PEPE 1.2.840.114 [id number] Univers 00:00:00 00:00:00 Only Unassigned, STACY 350.1.13.10 ity of [place] [facility] 4.2.7.2.686 [facility] [id number] [facility] 009 Branch 2019-09-20 2019-09-20 Orders Doctor PEPE 1.2.840.114 [id number] 00:00:00 00:00:00 Only Unassigned, STACY 350.1.13.10 [place] [facility] 4.2.7.2.686 [id number] 2019-09-16 2019-09-16 [facility] [id number] 13:28:00 13:28:00 [facility] Medicine Outpati ent Clinics 2019-09-14 2019-09-14 [facility] [id number] 15:48:00 15:48:00 [facility] Outpati ent Clinics 2019-08-27 2019-08-27 [facility] [id number] 13:17:00 13:17:00 [facility] Medicine Outpati ent Clinics 2019-08-27 2019-08-27 Outpatient Austin Caldwell [address] 10:45:00 10:45:[address] [facility] 2019-08-06 2019-08-06 Outpatient Austin Caldwell [address] 10:00:00 10:00:00 [facility] 2019-02-13 2019-02-13 Outpatient MELANIE [facility] [id number] Univers 00:34:24 13:28:00 [facility] Results Test Description Test Time Test Comments Results Result Comments Source BASIC METABOLIC PANEL (NA, K, CL, CO2, GLUCOSE, BUN, 2020-07 11:20:35 CREATININE, CA) Test Item Value Reference Range Interpretation Comme nts NA (test code = 2552171218) 140 mmol/L 135-145 K (test code = 0579750512) 3.7 mmol/L 3.5-5.0 CL (test code = 2729572242) 104 mmol/L 98-108 CO2 TOTAL (test code = 5366532083) 33 mmol/L 23-31 H AGAP (test code = 6023163149) 2-16 BUN (test code = 0920686219) 17 mg/dL 7-23 GLUCOSE (test code = 0354476019) 130 mg/dL 70-110 H CREATININE (test code = 1.10 mg/dL 0.60-1.25 8024643500) CALCIUM (test code = 1656550769) 9.5 mg/dL 8.6-10.6 eGFR (test code = 8168145528) mL/min/1.73m2 PAULIE (test code = PAULIE) Association [...] tests). Lab Interpretation (test code = Abnormal 45926-3) [facility] WITH [id number] 11:05:32 Test Item Value Reference Range Interpretation Comments WBC (test code = See_Comment [Automated message] 6690-2) The system DNA Guide generated this result transmitted ref erence range: 4.20 - 1 0.70 10*3/?L. The re ference range was not u sed to interpret this result as normal/abnor mal. RBC (test code = See_Comment [Automated message] 789-8) The system DNA Guide generated this result transmitted ref erence range: [...] RDW-SD (test code 40.5 fL 38.5-51.6 = 46563-0) RDW-CV (test code 13.5 % 12.1-15.4 = 788-0) PLT (test code = See_Comment [Automated message] 777-3) The system whic h generated this result transmitted ref erence range: 150 - 32 8 10*3/?L. The re ference range was not u sed to interpret this result as normal/abnor mal. MPV (test code = 11.8 fL 9.8-13.0 60051-8) NRBC/100 WBC (test See_Comment [Automat ed message] code = 3810064944) The syste m which generated this result transmitted ref erence range: 0.0 - 10 .0 /100 WBCs. The refer ence range was not u sed to interpret this result as normal/abnor mal. NRBC x10^3 (test <0.01 See_Comment [Automated message] code = 0345684569) The syste m which generated this result transmitted ref erence range: 10*3/?L. The reference range was not used to interpr et this result as normal/abnormal . GRAN MAT (NEUT) % 45.8 % (test code = 770-8) IMM GRAN % (test 0.30 % code = 4743798204) LYMPH % (test code 38.0 % = 736-9) MONO % (test code 11.4 % = 5905-5) EOS % (test code = 4.2 % 713-8) BASO % (test code 0.3 % = 706-2) GRAN MAT 2.73 10*3/uL 1.99-6.95 x10^3(ANC) (test code = 1851728601) IMM GRAN x10^3 <0.03 0.00-0.06 (test code = 6103446020) LYMPH x10^3 (test 2.27 10*3/uL 1.09-3.23 code = 731-0) MONO x10^3 (test 0.68 10*3/uL 0.36-1.02 code = 742-7) EOS x10^3 (test 0.25 10*3/uL 0.06-0.53 code = 711-2) BASO x10^3 (test <0.03 0.01-0.09 code = 704-7) [facility] (Total Cholesterol, Triglycerides, HDL)2020-07-20 10:59:54 Test Item Value Reference Range Interpretation Comments CHOL (test code = 221 mg/dL 120-200 H 5272713275) HDL (test code = 31 mg/dL >40 L 9153446247) HDLC RATIO (test code = See_Comment H [Au tomated message] 3775412195) The system DNA Guide generated this result transmit jordon reference range : <=5.0. The refe rence range was not u sed to interpret th is result as normal/abnormal . TRIG (test code = 224 mg/dL 30-170 H 7467762259) LDL CHOL (test code = 145 mg/dL See_Comment [Auto mated message] 78896-1) The system DNA Guide generated this result transmit jordon reference range : <=160. The refe rence range was not u sed to interpret th is result as normal/abnormal . VLDL (test code = 45 mg/dL 5-60 8176102416) Lab Interpretation (test Abnormal code = 73823-7) [facility] [id number] 08:11:00 Test Item Value Reference Range Interpretation Comments TROPONIN I (test 0.009 ng/mL See_Comment [Automated code = 2711203302) message] The system which generated this result [...] ? Lab Interpretation Normal (test code = 15777-2) [facility] (NA, K, CL, CO2, GLUCOSE, BUN, CREATININE, CA)2020-07-20 08:00:59 Test Item Value Reference Range Interpretation Comments NA (test code = 136 mmol/L 135-145 1655111758) K (test code = 4.4 mmol/L 3.5-5.0 4423556142) CL (test code = 104 mmol/L 98-108 1704233993) CO2 TOTAL (test code = 28 mmol/L 23-31 2085504705) AGAP (test code = 2-16 3090621854) BUN (test code = 17 mg/dL 7-23 3949822333) GLUCOSE (test code = 126 mg/dL 70-110 H 7200868299) CREATININE (test code = 0.91 mg/dL 0.60-1.25 8666655353) CALCIUM (test code = 9.2 mg/dL 8.6-10.6 9117671641) eGFR (test code = mL/min/1.73m2 6085172059) PAULIE (test code = PAULIE) Association of [...] tests). Lab Interpretation Abnormal (test code = 34950-8) [facility] with [id number] 07:31:36 Test Item Value Reference Range Interpretation Comments WBC (test code = See_Comment [Automated 8933-2) message] The sy stem which generated this result transmitted reference range : 4.20 - 10.70 10*3/?L. The reference range was not used to interpret this result as normal/abnormal . RBC (test code = See_Comment [Automated 499-8) message] The sy stem which generated this [...] RDW-SD (test code = 40.1 fL 38.5-51.6 94827-3) RDW-CV (test code = 13.7 % 12.1-15.4 788-0) PLT (test code = See_Comment [Automated 777-3) message] The sy stem which generated this result transmitted reference range : 150 - 328 10*3/ ?L. The reference r lorena was not used to interpret this result as normal/abnormal . MPV (test code = 12.2 fL 9.8-13.0 22284-1) NRBC/100 WBC (test See_Comment [Automat ed code = 3910931198) message] The system which generated this result transmitted reference range : 0.0 - 10.0 /100 WBCs. The refer ence range was not u sed to interpret th is result as normal/abnormal . NRBC x10^3 (test code <0.01 See_Comment [Auto mated = 3122360070) message] The s ystem which generated this result transmitted reference range : 10*3/?L. The reference range was not used to interpret this result as normal/abnormal . GRAN MAT (NEUT) % 46.2 % (test code = 770-8) IMM GRAN % (test code 0.30 % = 3661202022) LYMPH % (test code = 37.1 % 736-9) MONO % (test code = 11.5 % 5905-5) EOS % (test code = 4.5 % 713-8) BASO % (test code = 0.4 % 706-2) GRAN MAT x10^3(ANC) 3.38 10*3/uL 1.99-6.95 (test code = 4664449902) IMM GRAN x10^3 (test <0.03 0.00-0.06 code = 8063178298) LYMPH x10^3 (test code 2.71 10*3/uL 1.09-3.23 = 731-0) MONO x10^3 (test code 0.84 10*3/uL 0.36-1.02 = 742-7) EOS x10^3 (test code = 0.33 10*3/uL 0.06-0.53 711-2) BASO x10^3 (test code 0.03 10*3/uL 0.01-0.09 = 704-7) Lab Interpretation Abnormal (test code = 06684-8) [facility]IS2021-06-03 02:06:55 Test Item Value Reference Range Interpretation Comments APPEARANCE (test code = Clear Clear 5160118051) COLOR (test code = Yellow Yellow 8285775176) PH (test code = 4.8-8.0 1265499765) SP GRAVITY (test code = 1.003-1.030 9312732680) GLU U QUAL (test code = Normal Normal 2267438474) BLOOD (test code = Negative Negative 4986750458) KETONES (test code = Negative Negative 1232099695) PROTEIN (test code = 100 mg/dL Negative A 2887-8) UROBILIN (test code = Normal Normal 9065685345) BILIRUBIN (test code = Negative Negative 4641883403) NITRITE (test code = Negative Negative 3097735817) LEUK LACI (test code = Negative Negative 7343209889) RBC/HPF (test code = See_Comment [Autom ated message] 4431654387) The system DNA Guide generated this result transmit jordon reference range : 0 - 3 HPF. The refe rence range was not u sed to interpret th is result as normal/abnormal . WBC/HPF (test code = See_Comment [Autom ated message] 2885857123) The system DNA Guide generated this result transmit jordon reference range : 0 - 5 HPF. The refe rence range was not u sed to interpret th is result as normal/abnormal . BACTERIA (test code = Negative Negative 1096438870) MUCOUS (test code = Slight Negative LPF A 5149482783) AMORPHOUS (test code = Rare Rare HPF 2339527515) Lab Interpretation (test Abnormal code = 13538-3) [facility] 1 [id number] 23:50:24 No acute intrathoracic abnormality.PROCEDURE: XR CHEST 1 VW CLINICAL INDICATION: chest pain COMPARISON: 03/31/2020 FINDINGS: The lungs are poor expanded with perihilar vascular crowding. Previous seenbilateral airspace opacities have resolved. Lungs are relative clear.No pleural effusion or pneumothorax is seen. The cardiomediastinal silhouette is normal. No acute bony abnormality. [place], Radiant Results Inft User - 07/19/2020 6:51 PM CDT PROCEDURE: XR CHEST 1 VWCLINICAL INDICATION: chest pain COMPARISON: 03/31/2020FINDINGS:The lungs are poor expanded with perihilar vascular crowding. Previous seenbilateral airspace opacities have resolved. Lungs are relative clear.No pleural effusion or pneumothorax is seen. The cardiomediastinal silhouette is normal. No acute bony abnormality.IMPRESSIONNo acute intrathoracic abnormality.[facility] I 2020-07-19 22:38:45 Test Item Value Reference Range Interpretation Comments TROPONIN I (test 0.002 ng/mL See_Comment [Automated code = 6286883366) message] The system which generated this result [...] ? Lab Interpretation Normal (test code = 52331-8) [facility] Hospital[facility]-TERMINAL [id number] 22:35:25 Test Item Value Reference Range Interpretation Comments NT-proBNP (test code 38 pg/mL See_Comment [Autom ated = 4741833450) message] The system which generated this result transmitted reference range : <=125. The reference range was not used to interpret this result as normal/abnormal . PAULIE (test code = PAULIE) Biotin has been reported to cause a negative bias, interpret results relative to patient's use of biotin. Lab Interpretation Normal (test code = 82758-9) [facility]. METABOLIC PANEL (92817)2020-07-19 22:27:43 Test Item Value Reference Range Interpretation Comments NA (test code = 140 mmol/L 135-145 1988859179) K (test code = 3.1 mmol/L 3.5-5.0 L 7403591874) CL (test code = 101 mmol/L 98-108 7819945495) CO2 TOTAL (test code = 32 mmol/L 23-31 H 5501967998) AGAP (test code = 2-16 6740891026) BUN (test code = 16 mg/dL 7-23 3551931321) GLUCOSE (test code = 105 mg/dL 70-110 7327200668) CREATININE (test code = 1.05 mg/dL 0.60-1.25 3384724871) TOTAL BILI (test code = 0.6 mg/dL 0.1-1.8 5916380144) CALCIUM (test code = 9.9 mg/dL 8.6-10.6 6218921508) T PROTEIN (test code = 7.7 g/dL 6.3-8.2 6545350219) ALBUMIN (test code = 4.3 g/dL 3.5-5.0 8255086459) ALK PHOS (test code = 59 U/L 34-122 6241427157) ALTv (test code = 28 U/L 5-50 1742-6) AST(SGOT) (test code = 29 U/L 13-40 4366103807) eGFR (test code = mL/min/1.73m2 6276351074) PAULIE (test code = PAULIE) Association of [...] tests). Lab Interpretation Abnormal (test code = 77918-6) [facility] HospitalCOVID[facility] (ID NOW RAPID TESTING)2020-07-19 22:22:01 Test Item Value Reference Range Interpretation Comments SARS-CoV-2 Rapid ID NOW Not Detected Not Detected (test code = 68784-2) PAULIE (test code = PAULIE) ID NOW COVID-19 Assay is an isothermal nucleic acid amplification test intended for the qualitative detection of nucleic acid from SARS-CoV-2 viral RNA in nasopharyngeal (PEDIATRIC PHYSICIAN ASSISTANT) specimens. It is used under Emergency Use [...] indicated. Lab Interpretation Normal (test code = 87484-8) [facility]ACT[facility]IAL THRMPLAS [id number] 22:17:39 Test Item Value Reference Range Interpretation Comments APTT Patient (test See_Comment [Automat ed code = 3173-2) message] The system which generated this result transmitted reference range : 23 - 38 Seconds . The reference range was not used to interpr et this result as normal/abnormal . PAULIE (test code = PAULIE) The [facility] patient population mean normal value for aPTT is 30 seconds. Lab Interpretation Normal (test code = 06155-5) [facility] HospitalPROTHROMBIN TIME / [id number] 22:15:42 Test Item Value Reference Range Interpretation [...] tions. Lab Interpretation (test Normal code = 79622-5) [facility] WITH [id number] 22:11:00 Test Item Value Reference Range Interpretation Comments WBC (test code = See_Comment [Automated 0890-2) message] The sy stem which generated this result transmitted reference range : 4.20 - 10.70 10*3/?L. The reference range was not used to interpret this result as normal/abnormal . RBC (test code = See_Comment [Automated 189-8) message] The sy stem which generated this [...] RDW-SD (test code = 39.2 fL 38.5-51.6 81252-1) RDW-CV (test code = 13.6 % 12.1-15.4 788-0) PLT (test code = See_Comment [Automated 217-3) message] The sy stem which generated this result transmitted reference range : 150 - 328 10*3/ ?L. The reference r lorena was not used to interpret this result as normal/abnormal . MPV (test code = 11.7 fL 9.8-13.0 42548-5) NRBC/100 WBC (test See_Comment [Automat ed code = 0223879617) message] The system which generated this result transmitted reference range : 0.0 - 10.0 /100 WBCs. The refer ence range was not u sed to interpret th is result as normal/abnormal . NRBC x10^3 (test code <0.01 See_Comment [Auto mated = 5054100319) message] The s ystem which generated this result transmitted reference range : 10*3/?L. The reference range was not used to interpret this result as normal/abnormal . GRAN MAT (NEUT) % 51.1 % (test code = 770-8) IMM GRAN % (test code 0.20 % = 3060899526) LYMPH % (test code = 34.2 % 736-9) MONO % (test code = 10.2 % 5905-5) EOS % (test code = 4.1 % 713-8) BASO % (test code = 0.2 % 706-2) GRAN MAT x10^3(ANC) 4.47 10*3/uL 1.99-6.95 (test code = 3598228604) IMM GRAN x10^3 (test <0.03 0.00-0.06 code = 8557272033) LYMPH x10^3 (test code 3.00 10*3/uL 1.09-3.23 = 731-0) MONO x10^3 (test code 0.89 10*3/uL 0.36-1.02 = 742-7) EOS x10^3 (test code = 0.36 10*3/uL 0.06-0.53 711-2) BASO x10^3 (test code <0.03 0.01-0.09 = 704-7) Lab Interpretation Abnormal (test code = 03754-1) [facility] Hospital[facility] GLUCOSE (AUTOMATED)2020-04-05 13:25:00 Test Item Value Reference Range Interpretation Comments POCT GLU (test code = 0526564282) 100 mg/dL 70-110 Lab Interpretation (test code = Normal 63926-2) [facility] METABOLIC PANEL (NA, K, CL, CO2, GLUCOSE, BUN, CREATININE, CA)2020-04-05 10:09:00 Test Item Value Reference Range Interpretation Comments NA (test code = 138 mmol/L 135-145 7659395900) K (test code = 4.4 mmol/L 3.5-5 0091906135) CL (test code = 105 mmol/L 98-108 3450454882) CO2 TOTAL (test code = 31 mmol/L 23-31 3788083581) AGAP (test code = 2-16 3808928390) BUN (test code = 20 mg/dL 7-23 6733435407) GLUCOSE (test code = 125 mg/dL 70-110 H 7681031118) CREATININE (test code = 1.13 mg/dL 0.6-1.25 5520531110) CALCIUM (test code = 8.9 mg/dL 8.6-10.6 8502485870) eGFR Calculation mL/min/1.73m2 (Non-) (test code = 8735827428) eGFR Calculation mL/min/1.73m2 () (test code = 7849804544) PAULIE (test code = PAULIE) Association of [...] tests). Lab Interpretation Abnormal (test code = 24511-0) [facility] HospitalMAGNESIUM2021-02-17 10:09:00 Test Item Value Reference Range Interpretation Comments MAGNESIUM (test code = 7686412842) 2.1 mg/dL 1.7-2.4 Lab Interpretation (test code = Normal 74949-0) [facility] GLUCOSE (AUTOMATED)2020-04-05 03:04:00 Test Item Value Reference Range Interpretation Comments POCT GLU (test code = 6470793264) 157 mg/dL 70-110 H Lab Interpretation (test code = Abnormal 29249-1) [facility] GLUCOSE (AUTOMATED)2020-04-04 23:48:00 Test Item Value Reference Range Interpretation Comments POCT GLU (test code = 6040857291) 151 mg/dL 70-110 H Lab Interpretation (test code = Abnormal 48560-1) [facility] GLUCOSE (AUTOMATED)2020-04-04 18:26:00 Test Item Value Reference Range Interpretation Comments POCT GLU (test code = 8626571404) 101 mg/dL 70-110 Lab Interpretation (test code = Normal 12048-3) [facility] GLUCOSE (AUTOMATED)2020-04-04 14:47:00 Test Item Value Reference Range Interpretation Comments POCT GLU (test code = 5327328485) 110 mg/dL 70-110 Lab Interpretation (test code = Normal 50306-7) [facility] METABOLIC PANEL (NA, K, CL, CO2, GLUCOSE, BUN, CREATININE, CA)2020-04-04 10:20:00 Test Item Value Reference Range Interpretation Comments NA (test code = 137 mmol/L 135-145 8151140266) K (test code = 4.3 mmol/L 3.5-5 Slight 1134959816) hemolysis CL (test code = 104 mmol/L 98-108 6190895618) CO2 TOTAL (test code 30 mmol/L 23-31 = 0205219645) AGAP (test code = 2-16 5487129228) BUN (test code = 18 mg/dL 7-23 Slight 5110899428) hemolysis GLUCOSE (test code = 117 mg/dL 70-110 H 5194774806) CREATININE (test code 0.97 mg/dL 0.6-1.25 = 9817110573) CALCIUM (test code = 8.8 mg/dL 8.6-10.6 6931531100) eGFR Calculation mL/min/1.73m2 (Non-) (test code = 9298497092) eGFR Calculation mL/min/1.73m2 () (test code = 5903110135) PAULIE (test code = PAULIE) Association of [...] tests). Lab Interpretation Abnormal (test code = 36540-7) [facility] Test Item Value Reference Range Interpretation Comments MAGNESIUM (test code = 2845517814) 2.0 mg/dL 1.7-2.4 Lab Interpretation (test code = Normal 22350-0) [facility] GLUCOSE (AUTOMATED)2020-04-04 02:09:00 Test Item Value Reference Range Interpretation Comments POCT GLU (test code = 5702113500) 141 mg/dL 70-110 H Lab Interpretation (test code = Abnormal 32477-0) [facility] GLUCOSE (AUTOMATED)2020-04-03 23:40:00 Test Item Value Reference Range Interpretation Comments POCT GLU (test code = 6245637734) 144 mg/dL 70-110 H Lab Interpretation (test code = Abnormal 19936-9) [facility] GLUCOSE (AUTOMATED)2020-04-03 17:51:00 Test Item Value Reference Range Interpretation Comments POCT GLU (test code = 9058517313) 93 mg/dL 70-110 Lab Interpretation (test code = Normal 10066-3) [facility] GLUCOSE (AUTOMATED)2020-04-03 13:06:00 Test Item Value Reference Range Interpretation Comments POCT GLU (test code = 0181490960) 102 mg/dL 70-110 Lab Interpretation (test code = Normal 68829-7) [facility] METABOLIC PANEL (NA, K, CL, CO2, GLUCOSE, BUN, CREATININE, CA)2020-04-03 10:58:00 Test Item Value Reference Range Interpretation Comments NA (test code = 138 mmol/L 135-145 6866652839) K (test code = 3.6 mmol/L 3.5-5 0007178094) CL (test code = 103 mmol/L 98-108 7185682230) CO2 TOTAL (test code = 31 mmol/L 23-31 1515915409) AGAP (test code = 2-16 0746256802) BUN (test code = 13 mg/dL 7-23 0376202435) GLUCOSE (test code = 110 mg/dL 70-110 0610056757) CREATININE (test code 0.99 mg/dL 0.6-1.25 = 5866427392) CALCIUM (test code = 8.7 mg/dL 8.6-10.6 8956145367) eGFR Calculation mL/min/1.73m2 (Non-) (test code = 6229738233) eGFR Calculation mL/min/1.73m2 () (test code = 2558433431) PAULIE (test code = PAULIE) Association of [...] or urine or abnormalities in imaging tests). [facility] Test Item Value Reference Range Interpretation Comments MAGNESIUM (test code = 1854339554) 1.9 mg/dL 1.7-2.4 Lab Interpretation (test code = Normal 15139-5) [facility] GLUCOSE (AUTOMATED)2020-04-03 01:59:00 Test Item Value Reference Range Interpretation Comments POCT GLU (test code = 7550353601) 153 mg/dL 70-110 H Lab Interpretation (test code = Abnormal 03574-3) [facility] GLUCOSE (AUTOMATED)2020-04-02 23:34:00 Test Item Value Reference Range Interpretation Comments POCT GLU (test code = 2084547252) 155 mg/dL 70-110 H Lab Interpretation (test code = Abnormal 23505-1) [facility] GLUCOSE (AUTOMATED)2020-04-02 17:41:00 Test Item Value Reference Range Interpretation Comments POCT GLU (test code = 4981889919) 92 mg/dL 70-110 Lab Interpretation (test code = Normal 32494-0) [facility] GLUCOSE (AUTOMATED)2020-04-02 14:42:00 Test Item Value Reference Range Interpretation Comments POCT GLU (test code = 3341435812) 99 mg/dL 70-110 Lab Interpretation (test code = Normal 43591-0) [facility] METABOLIC PANEL (NA, K, CL, CO2, GLUCOSE, BUN, CREATININE, CA)2020-04-02 12:27:00 Test Item Value Reference Range Interpretation Comments NA (test code = 140 mmol/L 135-145 4934766394) K (test code = 3.6 mmol/L 3.5-5 2432009671) CL (test code = 103 mmol/L 98-108 9405388548) CO2 TOTAL (test code = 33 mmol/L 23-31 H 0250928449) AGAP (test code = 2-16 2891537305) BUN (test code = 15 mg/dL 7-23 6970785008) GLUCOSE (test code = 110 mg/dL 70-110 8152813438) CREATININE (test code = 1.04 mg/dL 0.6-1.25 7760705769) CALCIUM (test code = 8.6 mg/dL 8.6-10.6 7678889077) eGFR Calculation mL/min/1.73m2 (Non-) (test code = 5678749191) eGFR Calculation mL/min/1.73m2 () (test code = 1788866291) PAULIE (test code = PAULIE) Association of [...] tests). Lab Interpretation Abnormal (test code = 45500-8) [facility] 12:27:00 Test Item Value Reference Range Interpretation Comments MAGNESIUM (test code = 8187247040) 1.9 mg/dL 1.7-2.4 Lab Interpretation (test code = Normal 77418-2) [facility] GLUCOSE (AUTOMATED)2020-04-02 02:37:00 Test Item Value Reference Range Interpretation Comments POCT GLU (test code = 8794926012) 130 mg/dL 70-110 H Lab Interpretation (test code = Abnormal 36571-2) [facility] GLUCOSE (AUTOMATED)2020-04-01 23:45:00 Test Item Value Reference Range Interpretation Comments POCT GLU (test code = 9529404728) 133 mg/dL 70-110 H Lab Interpretation (test code = Abnormal 30982-5) [facility] GLUCOSE (AUTOMATED)2020-04-01 19:46:00 Test Item Value Reference Range Interpretation Comments POCT GLU (test code = 5788849078) 147 mg/dL 70-110 H Lab Interpretation (test code = Abnormal 89018-8) [facility] GLUCOSE (AUTOMATED)2020-04-01 14:45:00 Test Item Value Reference Range Interpretation Comments POCT GLU (test code = 1863306644) 101 mg/dL 70-110 Lab Interpretation (test code = Normal 98479-4) [facility] METABOLIC PANEL (NA, K, CL, CO2, GLUCOSE, BUN, CREATININE, CA)2020-04-01 10:30:00 Test Item Value Reference Range Interpretation Comments NA (test code = 138 mmol/L 135-145 8917575146) K (test code = 3.8 mmol/L 3.5-5 6274091983) CL (test code = 102 mmol/L 98-108 2319752409) CO2 TOTAL (test code = 32 mmol/L 23-31 H 4002590285) AGAP (test code = 2-16 0506846211) BUN (test code = 20 mg/dL 7-23 4338005482) GLUCOSE (test code = 111 mg/dL 70-110 H 1929571429) CREATININE (test code = 1.06 mg/dL 0.6-1.25 5078537609) CALCIUM (test code = 8.8 mg/dL 8.6-10.6 5435772268) eGFR Calculation mL/min/1.73m2 (Non-) (test code = 2393348833) eGFR Calculation mL/min/1.73m2 () (test code = 6388298867) PAULIE (test code = PAULIE) Association of [...] tests). Lab Interpretation Abnormal (test code = 51000-9) [facility] 10:30:00 Test Item Value Reference Range Interpretation Comments MAGNESIUM (test code = 4808180843) 2.1 mg/dL 1.7-2.4 Lab Interpretation (test code = Normal 15609-7) [facility] GLUCOSE (AUTOMATED)2020-04-01 02:24:00 Test Item Value Reference Range Interpretation Comments POCT GLU (test code = 9770231771) 137 mg/dL 70-110 H Lab Interpretation (test code = Abnormal 75738-7) [facility] GLUCOSE (AUTOMATED)2020-03-31 23:21:00 Test Item Value Reference Range Interpretation Comments POCT GLU (test code = 3802732226) 158 mg/dL 70-110 H Lab Interpretation (test code = Abnormal 07025-0) [facility] GLUCOSE (AUTOMATED)2020-03-31 18:14:00 Test Item Value Reference Range Interpretation Comments POCT GLU (test code = 1860217969) 108 mg/dL 70-110 Lab Interpretation (test code = Normal 97410-6) [facility] 1 [id number] 14:58:09EXAM: XR CHEST 1 VW HISTORY: worsened [...] clear otherwise. The heart is probably slightly enlarged.[facility]2020-03-31 14:11:00 Test Item Value Reference Range Interpretation Comments POCT GLU (test code = 9454629761) 98 mg/dL 70-110 Lab Interpretation (test code = Normal 76866-8) [facility] HospitalCREATINE [id number] 13:53:00 Test Item Value Reference Range Interpretation Comments CK (test code = 6376700179) 723 U/L 33-194 H Lab Interpretation (test code = Abnormal 05274-3) [facility] HospitalPROCALCITONIN2021-02-12 11:52:00 Test Item Value Reference Range Interpretation Comments Procalcitonin (test 0.06 ng/mL <0.07 code = 5560485401) PAULIE (test code = PAULIE) INTERPRETATION OF [...] lung abscess/empyema. For further information please refer to:[email or web address] Lab Interpretation Normal (test code = 53988-0) [facility] HospitalD-[id number] 10:23:00 Test Item Value Reference Interpretation Comments Range D-DIMER (test code = See_Comment H [Autom ated 3951799392) message] The system which generated this result [...] diagnosis. Lab Interpretation Abnormal (test code = 25805-6) [facility] METABOLIC PANEL (NA, K, CL, CO2, GLUCOSE, BUN, CREATININE, CA)2020-03-31 10:22:00 Test Item Value Reference Range Interpretation Comments NA (test code = 137 mmol/L 135-145 8364255602) K (test code = 3.7 mmol/L 3.5-5 9158951128) CL (test code = 102 mmol/L 98-108 9099567145) CO2 TOTAL (test code = 28 mmol/L 23-31 8742251340) AGAP (test code = 2-16 2390877974) BUN (test code = 18 mg/dL 7-23 2348058656) GLUCOSE (test code = 108 mg/dL 70-110 0130713174) CREATININE (test code 1.10 mg/dL 0.6-1.25 = 5557803309) CALCIUM (test code = 8.7 mg/dL 8.6-10.6 1944846384) eGFR Calculation mL/min/1.73m2 (Non-) (test code = 7165923367) eGFR Calculation mL/min/1.73m2 () (test code = 0444930724) PAULIE (test code = PAULIE) Association of [...] or urine or abnormalities in imaging tests). [facility]20[facility] 10:22:00 Test Item Value Reference Range Interpretation Comments MAGNESIUM (test code = 1328628554) 2.1 mg/dL 1.7-2.4 Lab Interpretation (test code = Normal 03906-0) [facility] WITH [id number] 10:11:00 Test Item Value Reference Range Interpretation Comments WBC (test code = See_Comment [Automated 3590-2) message] The sy stem which generated this result transmitted reference range : 4.20 - 10.70 10*3/?L. The reference range was not used to interpret this result as normal/abnormal . RBC (test code = See_Comment [Automated 219-8) message] The sy stem which generated this [...] RDW-SD (test code = 38.7 fL 38.5-51.6 96274-8) RDW-CV (test code = 13.4 % 12.1-15.4 788-0) PLT (test code = See_Comment [Automated 777-3) message] The sy stem which generated this result transmitted reference range : 150 - 328 10*3/ ?L. The reference r lorena was not used to interpret this result as normal/abnormal . MPV (test code = 12.0 fL 9.8-13 50216-8) NRBC/100 WBC (test See_Comment [Automat ed code = 6888476208) message] The system which generated this result transmitted reference range : 0.0 - 10.0 /100 WBCs. The refer ence range was not u sed to interpret th is result as normal/abnormal . NRBC x10^3 (test code <0.01 See_Comment [Auto mated = 3797392921) message] The s ystem which generated this result transmitted reference range : 10*3/?L. The reference range was not used to interpret this result as normal/abnormal . GRAN MAT (NEUT) % 55.9 % (test code = 770-8) IMM GRAN % (test code 0.20 % = 5462276128) LYMPH % (test code = 36.0 % 736-9) MONO % (test code = 7.7 % 5905-5) EOS % (test code = 0.0 % 713-8) BASO % (test code = 0.2 % 706-2) GRAN MAT x10^3(ANC) 2.70 10*3/uL 1.99-6.95 (test code = 3399858306) IMM GRAN x10^3 (test <0.03 0-0.06 code = 5605441642) LYMPH x10^3 (test code 1.74 10*3/uL 1.09-3.23 = 731-0) MONO x10^3 (test code 0.37 10*3/uL 0.36-1.02 = 742-7) EOS x10^3 (test code = <0.03 0.06-0.53 L 711-2) BASO x10^3 (test code <0.03 0.01-0.09 = 704-7) Lab Interpretation Abnormal (test code = 10486-6) [facility] GLUCOSE (AUTOMATED)2020-03-31 01:46:00 Test Item Value Reference Range Interpretation Comments POCT GLU (test code = 4123447494) 126 mg/dL 70-110 H Lab Interpretation (test code = Abnormal 01070-8) [facility] GLUCOSE (AUTOMATED)2020-03-30 22:32:00 Test Item Value Reference Range Interpretation Comments POCT GLU (test code = 5630113416) 123 mg/dL 70-110 H Lab Interpretation (test code = Abnormal 67717-6) [facility] GLUCOSE (AUTOMATED)2020-03-30 18:04:00 Test Item Value Reference Range Interpretation Comments POCT GLU (test code = 4372875027) 137 mg/dL 70-110 H Lab Interpretation (test code = Abnormal 43336-7) [facility] GLUCOSE (AUTOMATED)2020-03-30 14:44:00 Test Item Value Reference Range Interpretation Comments POCT GLU (test code = 0480791598) 91 mg/dL 70-110 Lab Interpretation (test code = Normal 25185-9) [facility] METABOLIC PANEL (NA, K, CL, CO2, GLUCOSE, BUN, CREATININE, CA)2020-03-30 10:47:00 Test Item Value Reference Range Interpretation Comments NA (test code = 136 mmol/L 135-145 6532596791) K (test code = 3.8 mmol/L 3.5-5 8958862682) CL (test code = 101 mmol/L 98-108 5756158572) CO2 TOTAL (test code = 31 mmol/L 23-31 7785220452) AGAP (test code = 2-16 6084474599) BUN (test code = 20 mg/dL 7-23 7352178051) GLUCOSE (test code = 108 mg/dL 70-110 5327668567) CREATININE (test code = 1.11 mg/dL 0.6-1.25 1499936149) CALCIUM (test code = 8.5 mg/dL 8.6-10.6 L 8481163860) eGFR Calculation mL/min/1.73m2 (Non-) (test code = 9879980278) eGFR Calculation mL/min/1.73m2 () (test code = 0006391464) PAULIE (test code = PAULIE) Association of [...] tests). Lab Interpretation Abnormal (test code = 94729-0) [facility] 10[facility]47:00 Test Item Value Reference Range Interpretation Comments MAGNESIUM (test code = 0275682562) 2.1 mg/dL 1.7-2.4 Lab Interpretation (test code = Normal 22119-3) [facility] GLUCOSE (AUTOMATED)2020-03-30 02:27:00 Test Item Value Reference Range Interpretation Comments POCT GLU (test code = 2145829934) 124 mg/dL 70-110 H Lab Interpretation (test code = Abnormal 36639-9) [facility] GLUCOSE (AUTOMATED)2020-03-29 22:04:00 Test Item Value Reference Range Interpretation Comments POCT GLU (test code = 5005317420) 104 mg/dL 70-110 Lab Interpretation (test code = Normal 01953-4) [facility] GLUCOSE (AUTOMATED)2020-03-29 14:34:00 Test Item Value Reference Range Interpretation Comments POCT GLU (test code = 3957535433) 93 mg/dL 70-110 Lab Interpretation (test code = Normal 47918-8) [facility] HospitalCREATINE [id number] 14:32:00 Test Item Value Reference Range Interpretation Comments CK (test code = 6030052652) 988 U/L 33-194 H Lab Interpretation (test code = Abnormal 68554-0) [facility]BA[facility] (NA, K, CL, CO2, GLUCOSE, BUN, CREATININE, CA)2020-03-29 08:44:00 Test Item Value Reference Range Interpretation Comments NA (test code = 135 mmol/L 135-145 1574658886) K (test code = 3.5 mmol/L 3.5-5 6724711459) CL (test code = 98 mmol/L 98-108 5257268366) CO2 TOTAL (test code = 33 mmol/L 23-31 H 3051104810) AGAP (test code = 2-16 8888434117) BUN (test code = 22 mg/dL 7-23 3146884888) GLUCOSE (test code = 101 mg/dL 70-110 8907241099) CREATININE (test code = 1.54 mg/dL 0.6-1.25 H 5086385573) CALCIUM (test code = 8.2 mg/dL 8.6-10.6 L 9520994706) eGFR Calculation mL/min/1.73m2 (Non-) (test code = 5879665768) eGFR Calculation mL/min/1.73m2 () (test code = 8169090808) PAULIE (test code = PAULIE) Association of [...] tests). Lab Interpretation Abnormal (test code = 96164-0) [facility] 08:44:00 Test Item Value Reference Range Interpretation Comments MAGNESIUM (test code = 0393449513) 2.1 mg/dL 1.7-2.4 Lab Interpretation (test code = Normal 39784-3) [facility] GLUCOSE (AUTOMATED)2020-03-29 02:59:00 Test Item Value Reference Range Interpretation Comments POCT GLU (test code = 0411868867) 154 mg/dL 70-110 H Lab Interpretation (test code = Abnormal 28394-9) [facility] GLUCOSE (AUTOMATED)2020-03-28 23:37:00 Test Item Value Reference Range Interpretation Comments POCT GLU (test code = 9388244824) 103 mg/dL 70-110 Lab Interpretation (test code = Normal 12518-7) [facility] HospitalLAB ONLY COVID [id number] 22:34:00COVID DMT InterpretationInterpretation/Recommendations: Molecular NAAT Tests for [...] first 10 days after symptom onset in zdli-pk-dflolgzk illness andwithin the first 20 days after [...] testing the patient has had at [facility], including molecularNAAT testing (more commonly known as PCR testing and Rapid ID Now testing) and antibody testing. It does not take into account any testing that a patient has had outside of the [facility] medical record. [facility] LABORATORY SERVICESCOVID IotedtfYWSV-SvW-5 Rapid ID NOW (no units) ? ? Date ? Value ? 03/27/2020 ? Positive (A) ? ? ? 09/20/2019 ? Not Detected? [facility]ATORY SERVICESUnGu[facility]upe [facility] CenterPOCT [facility]SE (AUTOMATED) 2020-03-28 17:59:00 Test Item Value Reference Range Interpretation Comments POCT GLU (test code = 8980222881) 104 mg/dL 70-110 Lab Interpretation (test code = Normal 05831-0) [facility]-REACTIVE [id number] 16:44:00 Test Item Value Reference Range Interpretation Comments CRP (test code = 6020654892) 6.7 mg/dL <0.8 H Lab Interpretation (test code = Abnormal 81714-7) [facility] METABOLIC PANEL (NA, K, CL, CO2, GLUCOSE, BUN, CREATININE, CA)2020-03-28 15:04:00 Test Item Value Reference Range Interpretation Comments NA (test code = 135 mmol/L 135-145 8097852143) K (test code = 3.2 mmol/L 3.5-5 L 6295748440) CL (test code = 100 mmol/L 98-108 6528741465) CO2 TOTAL (test code = 30 mmol/L 23-31 8769918553) AGAP (test code = 2-16 9231320265) BUN (test code = 17 mg/dL 7-23 1218636147) GLUCOSE (test code = 109 mg/dL 70-110 1050686538) CREATININE (test code = 1.49 mg/dL 0.6-1.25 H 3072954987) CALCIUM (test code = 8.0 mg/dL 8.6-10.6 L 8396199871) eGFR Calculation mL/min/1.73m2 (Non-) (test code = 7679397014) eGFR Calculation mL/min/1.73m2 () (test code = 2628805722) PAULIE (test code = PAULIE) Association of [...] tests). Lab Interpretation Abnormal (test code = 55777-6) [facility]MAG[facility]UM2021-[facility]-09 15:04:00 Test Item Value Reference Range Interpretation Comments MAGNESIUM (test code = 2219746943) 1.8 mg/dL 1.7-2.4 Lab Interpretation (test code = Normal 85716-4) [facility] HospitalCREATINE [id number] 15:04:00 Test Item Value Reference Range Interpretation Comments CK (test code = 6754454159) 874 U/L 33-194 H Lab Interpretation (test code = Abnormal 36823-9) [facility]PO[facility] ([facility])2020-03-28 14:24:00 Test Item Value Reference Range Interpretation Comments POCT GLU (test code = 7965581998) 112 mg/dL 70-110 H Lab Interpretation (test code = Abnormal 98863-6) [facility] HospitalBAC METABOLIC PANEL (NA, K, CL, CO2, GLUCOSE, BUN, CREATININE, CA)2020-03-28 12:21:00 Test Item Value Reference Range Interpretation Comments NA (test code = 137 mmol/L 135-145 7289788296) K (test code = 3.3 mmol/L 3.5-5 L 2434433395) CL (test code = 98 mmol/L 98-108 5750105817) CO2 TOTAL (test code = 33 mmol/L 23-31 H 8229535026) AGAP (test code = 2-16 1880608164) BUN (test code = 20 mg/dL 7-23 3705922299) GLUCOSE (test code = 94 mg/dL 70-110 4462912671) CREATININE (test code = 2.00 mg/dL 0.6-1.25 H 4753523150) CALCIUM (test code = 8.4 mg/dL 8.6-10.6 L 5601515756) eGFR Calculation mL/min/1.73m2 (Non-) (test code = 9745355295) eGFR Calculation mL/min/1.73m2 () (test code = 6534773843) PAULIE (test code = PAULIE) Association of [...] tests). Lab Interpretation Abnormal (test code = 87023-3) [facility] WITH [id number] 11:26:00 Test Item Value Reference Range Interpretation Comments WBC (test code = See_Comment [Automated 2853-2) message] The sy stem which generated this result transmitted reference range : 4.20 - 10.70 10*3/?L. The reference range was not used to interpret this result as normal/abnormal . RBC (test code = See_Comment [Automated 707-9) message] The sy stem which generated this result transmitted reference range : 4.26 - 5.52 10*6/?L. The reference range was not used to interpret this result as normal/abnormal . HGB (test code = 13.4 g/dL 12.2-16.4 478-7) HCT (test code = 41.6 % 38.4-49.3 4544-3) MCV (test code = 80.8 fL 81.7-95.6 L 787-2) MCH (test code = 26.0 pg 26.1-32.7 L 785-6) MCHC (test code = 32.2 g/dL 31.2-35 786-4) RDW-SD (test code = 40.6 fL 38.5-51.6 99720-9) RDW-CV (test code = 13.8 % 12.1-15.4 788-0) PLT (test code = See_Comment L [Automated 777-3) message] The sy stem which generated this result transmitted reference range : 150 - 328 10*3/ ?L. The reference r lorena was not used to interpret this result as normal/abnormal . MPV (test code = 12.1 fL 9.8-13 29044-9) NRBC/100 WBC (test See_Comment [Automat ed code = 2377556920) message] The system which generated this result transmitted reference range : 0.0 - 10.0 /100 WBCs. The refer ence range was not u sed to interpret th is result as normal/abnormal . NRBC x10^3 (test code <0.01 See_Comment [Auto mated = 2895304389) message] The s ystem which generated this result transmitted reference range : 10*3/?L. The reference range was not used to interpret this result as normal/abnormal . GRAN MAT (NEUT) % 71.0 % (test code = 770-8) IMM GRAN % (test code 0.30 % = 0586132196) LYMPH % (test code = 19.4 % 736-9) MONO % (test code = 9.3 % 5905-5) EOS % (test code = 0.0 % 713-8) BASO % (test code = 0.0 % 706-2) GRAN MAT x10^3(ANC) 5.06 10*3/uL 1.99-6.95 (test code = 7040623182) IMM GRAN x10^3 (test <0.03 0-0.06 code = 6117657208) LYMPH x10^3 (test code 1.38 10*3/uL 1.09-3.23 = 731-0) MONO x10^3 (test code 0.66 10*3/uL 0.36-1.02 = 742-7) EOS x10^3 (test code = <0.03 0.06-0.53 L 711-2) BASO x10^3 (test code <0.03 0.01-0.09 = 704-7) Lab Interpretation Abnormal (test code = 30766-0) [facility] HospitalURINALYSIS2021-[facility] 08:58:00 Test Item Value Reference Range Interpretation Comments APPEARANCE (test code = Clear Clear 3729838618) COLOR (test code = Yellow Yellow 1636900239) PH (test code = 4.8-8.0 8030580913) SP GRAVITY (test code = 1.003-1.030 3340924967) GLU U QUAL (test code = Normal Normal 4914480965) BLOOD (test code = 1+ Negative A 7276114383) KETONES (test code = Negative Negative 7200622937) PROTEIN (test code = 100 mg/dL Negative A 2887-8) UROBILIN (test code = Normal Normal 8892950109) BILIRUBIN (test code = Negative Negative 1099912825) NITRITE (test code = Negative Negative 5250032568) LEUK LACI (test code = Negative Negative 8017048617) RBC/HPF (test code = See_Comment [Autom ated message] 9514487101) The system DNA Guide generated this result transmit jordon reference range : 0 - 3 HPF. The refe rence range was not u sed to interpret th is result as normal/abnormal . WBC/HPF (test code = See_Comment [Autom ated message] 1478800620) The system DNA Guide generated this result transmit jordon reference range : 0 - 5 HPF. The refe rence range was not u sed to interpret th is result as normal/abnormal . BACTERIA (test code = Negative Negative 1949676390) MUCOUS (test code = Slight Negative LPF A 1778893522) HYAL CAST (test code = See_Comment [Aut omated message] 0259750289) The system DNA Guide generated this result transmit jordon reference range : <=2 LPF. The refere nce range was not u sed to interpret th is result as normal/abnormal . ASCORBIC ACID (test code Negative = 4413760203) Lab Interpretation (test Abnormal code = 18558-3) [facility] HospitalSODIUM, URINE [id number] 08:57:00 Test Item Value Reference Range Interpretation Comments NA URINE (test code = 4748537671) 5 mmol/L [facility] HospitalCREATININE, URINE [id number] 08:57:00 Test Item Value Reference Range Interpretation Comments CREAT U (test code = 5469317348) 84.3 mg/dL [facility] HospitalMAGNESIUM2021-02-09 03:03:00 Test Item Value Reference Range Interpretation Comments MAGNESIUM (test code = 2404289628) 1.7 mg/dL 1.7-2.4 Lab Interpretation (test code = Normal 22001-5) [facility] HospitalPOUT GLUCOSE (AUTOMATED)2020-03-28 02:39:00 Test Item Value Reference Range Interpretation Comments POCT GLU (test code = 101 mg/dL 70-110 Notifi ed Provider [id number]) Lab Interpretation (test Normal code = 07089-7) [facility] HospitalPROCALCITONIN2021-02-09 02:26:00 Test Item Value Reference Range Interpretation Comments Procalcitonin (test 0.11 ng/mL <0.07 H code = 4108243401) PAULIE (test code = PAULIE) INTERPRETATION OF [...] lung abscess/empyema. For further information please refer to:[email or web address] Lab Interpretation Abnormal (test code = 32087-0) [facility] HospitalGLYCOSYLATED HEMOGLOBIN (A1C)2020-03-28 01:52:00 Test Item Value Reference Range Interpretation Comments HGB A1C (test code = 6.3 % 4-6 H 4548-4) PAULIE (test code = PAULIE) %A1C (NGSP) Interpretation (ADA)4.8-5.6 ? ? Normal or (Non-Diabetic Range)5.7-6.4 ? ? Increased Risk (Pre-Diabetic)>6.5 ?Diabetes Indicated Lab Interpretation Abnormal (test code = 71780-5) [facility] HospitalD-[id number] 01:19:00 Test Item Value Reference Interpretation Comments Range D-DIMER (test code = See_Comment [Autom ated 8439407269) message] The system which generated this result [...] diagnosis. Lab Interpretation Normal (test code = 39430-9) [facility] HospitalLACTATE [id number] 01:17:00 Test Item Value Reference Range Interpretation Comments LDH (test code = 6711103774) 893 U/L 300-600 H Lab Interpretation (test code = Abnormal 23371-0) [facility] HospitalCREATINE [id number] 00:59:00 Test Item Value Reference Range Interpretation Comments CK (test code = 8388274502) 795 U/L 33-194 H Lab Interpretation (test code = Abnormal 12550-7) [facility] HospitalXR CHEST 1 [id number] 20:09:13Findings and Impression: ?Suboptimal inspiratory volumes resulting [...] exaggerated by suboptimal inspiratory volumes). Noacute osseous abnormality.[facility] HospitalTROPONIN [id number] 19:58:00 Test Item Value Reference Range Interpretation Comments TROPONIN I (test <0.012 See_Comment [Automated code = 8107379548) message] The system which generated this result [...] ? Lab Interpretation Normal (test code = 57469-0) [facility] WITH [id number] 19:54:00 Test Item Value Reference Range Interpretation [...] RDW-SD (test code = 39.2 fL 38.5-51.6 91540-5) RDW-CV (test code = 13.7 % 12.1-15.4 788-0) PLT (test code = See_Comment [Automated 777-3) message] The sy stem which generated this result transmitted reference range : 150 - 328 10*3/ ?L. The reference r lorena was not used to interpret this result as normal/abnormal . MPV (test code = 12.3 fL 9.8-13 18775-9) NRBC/100 WBC (test See_Comment [Automat ed code = 8866990395) message] The system which generated this result transmitted reference range : 0.0 - 10.0 /100 WBCs. The refer ence range was not u sed to interpret th is result as normal/abnormal . NRBC x10^3 (test code <0.01 See_Comment [Auto mated = 4308400679) message] The s ystem which generated this result transmitted reference range : 10*3/?L. The reference range was not used to interpret this result as normal/abnormal . GRAN MAT (NEUT) % 56.7 % (test code = 770-8) IMM GRAN % (test code 0.30 % = 8374222702) LYMPH % (test code = 28.8 % 736-9) MONO % (test code = 14.1 % 5905-5) EOS % (test code = 0.0 % 713-8) BASO % (test code = 0.1 % 706-2) GRAN MAT x10^3(ANC) 3.82 10*3/uL 1.99-6.95 (test code = 7183894983) IMM GRAN x10^3 (test <0.03 0-0.06 code = 8843954535) LYMPH x10^3 (test code 1.94 10*3/uL 1.09-3.23 = 731-0) MONO x10^3 (test code 0.95 10*3/uL 0.36-1.02 = 742-7) EOS x10^3 (test code = <0.03 0.06-0.53 L 711-2) BASO x10^3 (test code <0.03 0.01-0.09 = 704-7) Lab Interpretation Abnormal (test code = 75574-6) [facility]27 19:49:00 Test Item Value Reference Range Interpretation Comments NA (test code = 136 mmol/L 135-145 1532267263) K (test code = 3.4 mmol/L 3.5-5 L 1199458436) CL (test code = 96 mmol/L 98-108 L 3604168785) CO2 TOTAL (test code = 30 mmol/L 23-31 5539840570) AGAP (test code = 2-16 3708977998) BUN (test code = 15 mg/dL 7-23 0659098264) GLUCOSE (test code = 101 mg/dL 70-110 8599527486) CREATININE (test code = 1.68 mg/dL 0.6-1.25 H 0025281494) TOTAL BILI (test code = 0.6 mg/dL 0.1-1.2 9232163130) CALCIUM (test code = 8.7 mg/dL 8.6-10.6 7021675524) T PROTEIN (test code = 7.4 g/dL 6.3-8.2 0883194719) ALBUMIN (test code = 4.2 g/dL 3.5-5 1238164694) ALK PHOS (test code = 49 U/L 34-122 4098697013) ALTv (test code = 41 U/L 5-50 1742-6) AST(SGOT) (test code = 47 U/L 13-40 H 4198897397) eGFR Calculation mL/min/1.73m2 (Non-) (test code = 1428222693) eGFR Calculation mL/min/1.73m2 () (test code = 2894695901) PAULIE (test code = PAULIE) Association of [...] tests). Lab Interpretation Abnormal (test code = 97544-8) [facility] BranchLIPASE, [id number] 19:49:00 Test Item Value Reference Range Interpretation Comments LIPASE (test code = 6907920787) 218 U/L 0-220 Lab Interpretation (test code = Normal 49277-9) [facility] HospitalaPTT2021-02-08 19:41:00 Test Item Value Reference Range Interpretation Comments APTT Patient (test See_Comment [Automat ed code = 3173-2) message] The system which generated this result transmitted reference range : 23 - 38 Seconds . The reference range was not used to interpr et this result as normal/abnormal . PAULIE (test code = PAULIE) The [facility] patient population mean normal value for aPTT is 30 seconds. Lab Interpretation Normal (test code = 04906-5) [facility] HospitalPROTHROMBIN TIME / [id number] 19:39:00 Test Item Value Reference Range Interpretation [...] tions. Lab Interpretation (test Normal code = 89786-3) [facility] HospitalCOVID-19 (ID NOW RAPID TESTING)2020-03-27 19:34:00 Test Item Value Reference Range Interpretation Comments SARS-CoV-2 Rapid ID NOW Positive Not Detected A (test code = 96966-8) PAULIE (test code = PAULIE) ID NOW COVID-19 Assay is an isothermal nucleic acid amplification test intended for the qualitative detection of nucleic acid from SARS-CoV-2 viral RNA in nasopharyngeal (PEDIATRIC PHYSICIAN ASSISTANT) specimens. It is used under Emergency Use [...] indicated. Lab Interpretation Abnormal (test code = 75118-8) [facility] GLUCOSE (AUTOMATED)2019-09-22 17:21:00 Test Item Value Reference Range Interpretation Comments POCT GLU (test code = 8477534308) 413 mg/dL 70-110 H Lab Interpretation (test code = Abnormal 97172-3) [facility] GLUCOSE (AUTOMATED)2019-09-22 13:12:00 Test Item Value Reference Range Interpretation Comments POCT GLU (test code = 5832189765) 276 mg/dL 70-110 H Lab Interpretation (test code = Abnormal 57273-9) [facility] WITH [id number] 11:26:00 Test Item Value Reference Range Interpretation Comments WBC (test code = See_Comment [Automated 9590-2) message] The sy stem which generated this result transmitted reference range : 4.20 - 10.70 10*3/?L. The reference range was not used to interpret this result as normal/abnormal . RBC (test code = See_Comment [Automated 025-8) message] The sy stem which generated this [...] RDW-SD (test code = 40.0 fL 38.5-51.6 33222-6) RDW-CV (test code = 14.1 % 12.1-15.4 788-0) PLT (test code = See_Comment [Automated 407-3) message] The sy stem which generated this result transmitted reference range : 150 - 328 10*3/ ?L. The reference r lorena was not used to interpret this result as normal/abnormal . MPV (test code = 13.8 fL 9.8-13 H 70674-0) IPF % (test code = 16.4 % 1.2-10.7 H Platelet count 0318457473) measured by fluorescence method. NRBC/100 WBC (test See_Comment [Automat ed code = 8902035853) message] The system which generated this result transmitted reference range : 0.0 - 10.0 /100 WBCs. The refer ence range was not u sed to interpret th is result as normal/abnormal . NRBC x10^3 (test code <0.01 See_Comment [Auto mated = 5369854611) message] The s ystem which generated this result transmitted reference range : 10*3/?L. The reference range was not used to interpret this result as normal/abnormal . GRAN MAT (NEUT) % 38.2 % (test code = 770-8) IMM GRAN % (test code 0.20 % = 8370336085) LYMPH % (test code = 46.8 % 736-9) MONO % (test code = 11.6 % 5905-5) EOS % (test code = 2.9 % 713-8) BASO % (test code = 0.3 % 706-2) GRAN MAT x10^3(ANC) 2.20 10*3/uL 1.99-6.95 (test code = 8274160858) IMM GRAN x10^3 (test <0.03 0-0.06 code = 4030518930) LYMPH x10^3 (test code 2.70 10*3/uL 1.09-3.23 = 731-0) MONO x10^3 (test code 0.67 10*3/uL 0.36-1.02 = 742-7) EOS x10^3 (test code = 0.17 10*3/uL 0.06-0.53 711-2) BASO x10^3 (test code <0.03 0.01-0.09 = 704-7) Lab Interpretation Abnormal (test code = 54840-6) [facility]. METABOLIC PANEL (86343)2019-09-22 11:26:00 Test Item Value Reference Range Interpretation Comments NA (test code = 134 mmol/L 135-145 L 5199206611) K (test code = 3.5 mmol/L 3.5-5 9462051121) CL (test code = 101 mmol/L 98-108 0079883280) CO2 TOTAL (test code = 24 mmol/L 23-31 4853310510) AGAP (test code = 2-16 4885383926) BUN (test code = 11 mg/dL 7-23 3810120695) GLUCOSE (test code = 310 mg/dL 70-110 H 2055422994) CREATININE (test code = 0.91 mg/dL 0.6-1.25 6478813656) TOTAL BILI (test code = 0.5 mg/dL 0.1-1.8 5207590160) CALCIUM (test code = 9.0 mg/dL 8.6-10.6 8376173094) T PROTEIN (test code = 6.1 g/dL 6.3-8.2 L 7276788885) ALBUMIN (test code = 3.5 g/dL 3.5-5 4700716018) ALK PHOS (test code = 70 U/L 34-122 2593329940) ALTv (test code = 40 U/L 5-50 1742-6) AST(SGOT) (test code = 27 U/L 13-40 3544379522) eGFR Calculation mL/min/1.73m2 (Non-) (test code = 3596185497) eGFR Calculation mL/min/1.73m2 () (test code = 0298946739) PAULEI (test code = PAULIE) Association of Glomerular [...] tests). Lab Interpretation Abnormal (test code = 23870-6) [facility] HospitalPOCT GLUCOSE (AUTOMATED)2019-09-22 01:47:00 Test Item Value Reference Range Interpretation Comments POCT GLU (test code = 3558118300) 387 mg/dL 70-110 H Lab Interpretation (test code = Abnormal 39807-2) [facility] HospitalTROPONIN [id number] 22:32:00 Test Item Value Reference Range Interpretation Comments TROPONIN I (test <0.012 See_Comment [Automated code = 4733626302) message] The system which generated this result [...] ? Lab Interpretation Normal (test code = 46333-6) [facility] HospitalEBV-MONONUCLEOSIS [id number] 22:25:00 Test Item Value Reference Range Interpretation Comments EBV Mononucleosis Screen (test code Negative Negative = 4607859049) Lab Interpretation (test code = Normal 22656-5) [facility] STREP SCREEN FOR GROUP [id number] 22:13:00 Test Item Value Reference Range Interpretation Comments Streptococcus pyogenes (group A) Negative Negative antigen (test code = 72867-9) Lab Interpretation (test code = Normal 03963-7) [facility] GLUCOSE (AUTOMATED)2019-09-21 21:12:00 Test Item Value Reference Range Interpretation Comments POCT GLU (test code = 3962618378) 390 mg/dL 70-110 H Lab Interpretation (test code = Abnormal 60244-0) [facility] GLUCOSE (AUTOMATED)2019-09-21 17:30:00 Test Item Value Reference Range Interpretation Comments POCT GLU (test code = 9337274150) 369 mg/dL 70-110 H Lab Interpretation (test code = Abnormal 07034-2) [facility] GLUCOSE (AUTOMATED)2019-09-21 13:21:00 Test Item Value Reference Range Interpretation Comments POCT GLU (test code = 1058085346) 394 mg/dL 70-110 H Lab Interpretation (test code = Abnormal 02611-1) [facility] HospitalTROPONIN [id number] 12:22:00 Test Item Value Reference Range Interpretation Comments TROPONIN I (test <0.012 See_Comment [Automated code = 9003145484) message] The system which generated this result [...] ? Lab Interpretation Normal (test code = 23020-6) [facility] HospitalGlycosylated Hemoglobin (A1C)2019-09-21 07:33:00 Test Item Value Reference Range Interpretation Comments HGB A1C (test code = 12.1 % 4-6 H 4548-4) PAULIE (test code = PAULIE) %A1C (NGSP) Interpretation (ADA)4.8-5.6 ? ? Normal or (Non-Diabetic Range)5.7-6.4 ? ? Increased Risk (Pre-Diabetic)>6.5 ?Diabetes Indicated Lab Interpretation Abnormal (test code = 22551-2) [facility] HospitalPOCT GLUCOSE (AUTOMATED)2019-09-21 06:54:00 Test Item Value Reference Range Interpretation Comments POCT GLU (test code = 3734395228) 364 mg/dL 70-110 H Lab Interpretation (test code = Abnormal 77429-1) [facility] HospitalUS GALL [id number] 03:58:29 Suboptimal evaluation due to patient's body habitus. Suspected cholelithiasis without sonographic evidence of acutecholecystitis. Diffuse hepatic steatosis. Preliminary Report Dictated by Resident: Shaylee Cardozo MD., have reviewed this study and agree with the abovereport. RIGHT UPPER QUADRANT ULTRASOUND HISTORY: RUQ pain COMPARISON: None. NOTE: The examination was performed by the histotechnologist. I wasnot directly involved in the acquisition [...] visualized portion of the right kidney is unremarkable.[facility], Radiant Results Inft User - 09/20/2019 10:59 PM CDTRIGHT UPPER QUADRANT ULTRASOUND HISTORY: RUQ pain COMPARISON: None.NOTE: The examination was performed by the histotechnologist. I wasnot directly involved in the acquisition [...] acutecholecystitis.Diffusehepatic steatosis. Preliminary Report Dictated by Resident: Jose Antonio Mary, Shaylee Manning MD., have reviewed this study and agree with the abovereport.[facility] HospitalPOUT GLUCOSE (AUTOMATED)2019-09-21 03:44:00 Test Item Value Reference Range Interpretation Comments POCT GLU (test code = 2271486417) 355 mg/dL 70-110 H Lab Interpretation (test code = Abnormal 89106-7) [facility] HospitalCOVID-19 (ID NOW RAPID TESTING)2019-09-21 01:51:00 Test Item Value Reference Range Interpretation Comments SARS-CoV-2 Rapid ID NOW Not Detected Not Detected (test code = 64352-2) PAULIE (test code = PAULIE) ID NOW COVID-19 Assay is an isothermal nucleic acid amplification test intended for the qualitative detection of nucleic acid from SARS-CoV-2 viral RNA in nasopharyngeal (PEDIATRIC PHYSICIAN ASSISTANT) specimens. It is used under Emergency Use [...] indicated. Lab Interpretation Normal (test code = 46518-9) [facility] HospitalDuarteliza [id number] 01:41:00 Test Item Value Reference Range Interpretation Comments TROPONIN I (test <0.012 See_Comment [Automated code = 7930885281) message] The system which generated this result [...] ? Lab Interpretation Normal (test code = 48920-3) [facility] (NA, K, CL, CO2, GLUCOSE, BUN, CREATININE, CA)2019-09-21 01:37:00 Test Item Value Reference Range Interpretation Comments NA (test code = 132 mmol/L 135-145 L 1151808505) K (test code = 4.1 mmol/L 3.5-5 3056731501) CL (test code = 95 mmol/L 98-108 L 4942328603) CO2 TOTAL (test code = 23 mmol/L 23-31 5507643189) AGAP (test code = 2-16 7297469557) BUN (test code = 15 mg/dL 7-23 9252801727) GLUCOSE (test code = 526 mg/dL 70-110 HH 4736603323) CREATININE (test code = 1.13 mg/dL 0.6-1.25 1216746907) CALCIUM (test code = 9.9 mg/dL 8.6-10.6 7589228521) eGFR Calculation mL/min/1.73m2 (Non-) (test code = 4412927091) eGFR Calculation mL/min/1.73m2 () (test code = 3527460329) PAULIE (test code = PAULIE) Association of [...] tests). Lab Interpretation Abnormal (test code = 83987-0) [facility] HospitalD-[id number] 01:37:00 Test Item Value Reference Interpretation Comments Range D-DIMER (test code = See_Comment [Autom ated 8409564463) message] The system which generated this result [...] diagnosis. Lab Interpretation Normal (test code = 69814-0) [facility] HospitalProthrombin Time (PT) / [id number] 01:33:00 Test Item Value Reference Range Interpretation Comments PROTIME PATIENT (test See_Comment [Auto mated message] code = 5964-2) The system [employer] ich generated this result transmitted ref erence range: 12.0 - 1 4.7 Seconds. The re ference range was not u sed to interpret this result as normal/abnor mal. INR (test code = 6301-6) Nor mal INR <1.1; Warfarin Therap eutic range 2.0 to 3. 0 or 2.5 to 3.5, dep ending upon the indica tions. Lab Interpretation (test Normal code = 68151-3) [facility] HospitalHepatic Function Panel (ALB, T.PRO, BILI T, BU/BC, ALT, AST, ALK PHOS)2019-09-21 01:30:00 Test Item Value Reference Range Interpretation Comments TOTAL BILI (test code = 9370654579) 0.5 mg/dL 0.1-1.1 BILI UNCON (test code = 8891432793) 0.5 mg/dL 0.1-1.1 BILI CONJ (test code = 2069320137) 0.0 mg/dL 0-0.3 T PROTEIN (test code = 7855886043) 7.1 g/dL 6.3-8.2 ALBUMIN (test code = 5895164199) 4.2 g/dL 3.5-5 ALK PHOS (test code = 2250301020) 88 U/L 34-122 ALTv (test code = 1742-6) 44 U/L 5-50 AST(SGOT) (test code = 2788732978) 37 U/L 13-40 Lab Interpretation (test code = Normal 36531-0) [facility] HospitalLIPASE2020-08-04 01:30:00 Test Item Value Reference Range Interpretation Comments LIPASE (test code = 9368565350) 175 U/L 0-220 Lab Interpretation (test code = Normal 82297-4) [facility] HospitalaPTT2020-08-04 01:29:00 Test Item Value Reference Range Interpretation Comments APTT Patient (test See_Comment L [Automat ed code = 3173-2) message] The system which generated this result transmitted reference range : 23 - 38 Seconds . The reference range was not used to interpr et this result as normal/abnormal . PAULIE (test code = PAULIE) The [facility] patient population mean normal value for aPTT is 30 seconds. Lab Interpretation Abnormal (test code = 06661-4) [facility] HospitalUrinalysis2020-08-04 01:25:00 Test Item Value Reference Range Interpretation Comments APPEARANCE (test code = Clear Clear 1387185536) COLOR (test code = Straw Yellow A 6960119447) PH (test code = 4.8-8.0 0770299421) SP GRAVITY (test code = 1.003-1.030 3364509272) GLU U QUAL (test code = 500 mg/dL Normal A 9839176164) BLOOD (test code = 1+ Negative A 4985772066) KETONES (test code = 80 mg/dL Negative A 4559651206) PROTEIN (test code = 100 mg/dL Negative A 2887-8) UROBILIN (test code = Normal Normal 5057228177) BILIRUBIN (test code = Negative Negative 9067376401) NITRITE (test code = Negative Negative 7519071816) LEUK LACI (test code = Negative Negative 9474189462) RBC/HPF (test code = See_Comment [Autom ated message] 8575916916) The system [employer] generated this result transmit jordon reference range : 0 - 3 HPF. The refe rence range was not u sed to interpret th is result as normal/abnormal . WBC/HPF (test code = <1 See_Comment [Autom ated message] 3555449776) The system [employer] generated this result transmit jordon reference range : 0 - 5 HPF. The refe rence range was not u sed to interpret th is result as normal/abnormal . BACTERIA (test code = Negative Negative 0870197022) MUCOUS (test code = Slight Negative LPF A 7456309800) Lab Interpretation (test Abnormal code = 12936-8) [facility] HospitalXR CHEST 1 VW [id number] 01:22:15 No acute intrathoracic abnormality, specifically no detectable radiographicfindings to suggest COVID-19 pneumonia. Disclaimer: Generally, the findings on chest imaging in COVID-19 are notspecific, and overlap with other infections, including influenza, H1N1,SARS and MERS.According to the Centers forDisease Control (CDC) and recent statement ofthe [employer], viral testing remains the [...] Disease Control (CDC) and recent statement ofthe [employer], viral testing remains the only specificmethod of diagnosis. Confirmation with the viral test is required, even ifradiologic findings are suggestive of COVID-[address]Preliminary Report Dictated by Resident: Jose Antonio Mary, Shaylee Manning MD., have reviewed this study and agree with the abovereport.[facility] with Msvcieekxkgl8541-37-18 01:22:00 Test Item Value Reference Range Interpretation Comments WBC (test code = See_Comment [Automated 7590-2) message] The sy stem which generated this [...] RDW-SD (test code = 39.2 fL 38.5-51.6 23189-4) RDW-CV (test code = 13.8 % 12.1-15.4 788-0) PLT (test code = See_Comment [Automated 777-3) message] The sy stem which generated this result transmitted reference range : 150 - 328 10*3/ ?L. The reference r lorena was not used to interpret this result as normal/abnormal . MPV (test code = 13.4 fL 9.8-13 H 96115-0) IPF % (test code = 16.6 % 1.2-10.7 H Platelet count 2342141258) measured by fluorescence method. NRBC/100 WBC (test See_Comment [Automat ed code = 0447044378) message] The system which generated this result transmitted reference range : 0.0 - 10.0 /100 WBCs. The refer ence range was not u sed to interpret th is result as normal/abnormal . NRBC x10^3 (test code <0.01 See_Comment [Auto mated = 8814950137) message] The s ystem which generated this result transmitted reference range : 10*3/?L. The reference range was not used to interpret this result as normal/abnormal . GRAN MAT (NEUT) % 43.7 % (test code = 770-8) IMM GRAN % (test code 0.50 % = 9440160884) LYMPH % (test code = 43.1 % 736-9) MONO % (test code = 10.4 % 5905-5) EOS % (test code = 1.8 % 713-8) BASO % (test code = 0.5 % 706-2) GRAN MAT x10^3(ANC) 2.64 10*3/uL 1.99-6.95 (test code = 6327421569) IMM GRAN x10^3 (test 0.03 10*3/uL 0-0.06 code = 2555491934) LYMPH x10^3 (test code 2.61 10*3/uL 1.09-3.23 = 731-0) MONO x10^3 (test code 0.63 10*3/uL 0.36-1.02 = 742-7) EOS x10^3 (test code = 0.11 10*3/uL 0.06-0.53 711-2) BASO x10^3 (test code 0.03 10*3/uL 0.01-0.09 = 704-7) Lab Interpretation Abnormal (test code = 65973-0) [facility]
[2021-05-20] MEDS ORDERED: DIPHENHYDRAMINE 50 MG/ML VIAL ONE (21:53)
[2021-05-20] MEDS ORDERED: ONDANSETRON 4 MG/2 ML VIAL ONE (22:11)
[2021-05-20] MEDS ORDERED: EPINEPHrine 1 MG/10 ML SYR ONE (22:17)
[2021-05-20] MEDS ORDERED: EPINEPHRINE/PF 1 MG/ML AMP ONE (22:20)
[2021-05-20 22:44] LABS: Absolute Lymphocytes (CBC) 2.8 K/uL (0.7-4.9); Hematocrit 44.5 % (39.6-49.0); Lymphocytes % 44.2 % (15.3-44.8); MPV 9.5 fL (7.6-11.3); RBC Red Blood Cell Count 5.44 M/uL (4.33-5.43)
[2021-05-20 22:53] LABS: Albumin 3.3 g/dL (3.4-5.0); Bilirubin Direct 0.1 mg/dL (0-0.2); Bilirubin Total 0.4 mg/dL (0.2-1.0); Potassium 3.2 mmol/L (3.5-5.1); Protein, Total 6.8 g/dL (6.4-8.2); Troponin High Sensitivity 7.7 pg/mL (<58.9)
--- NOTE | 2021-05-20 23:25 | EDPHYS ---
Physician Documentation [facility] Name: Huber Field Age: 30 yrs Sex: Male : 1990 Arrival Date: 05/20/2021 Time: 21:10 Bed 4 Private MD: ED Physician Thony Wiley HPI: 05/20 21:30 This 30 yrs old Black Male presents to ER via Unassigned with complaints of Breathing mh7 Difficulty, Allergic Reaction. 21:30 The patient presents with itching, shortness of breath. Onset: The symptoms/episode mh7 began/occurred just prior to arrival, today. Associated signs and symptoms: Pertinent positives: hives, shortness of breath. Possible causes: shellfish. At home the patient or guardian has treated the symptoms with Benadryl. Severity of symptoms: At their worst the symptoms were moderate today, in the emergency department the symptoms have improved mildly. Historical: - Allergies: 21:15 Fish Containing Products; ke1 - PMHx: 21:15 diabetes mellitus; Hypertensive disorder; ke1 - PSHx: 21:15 vertical sleeve; ke1 - Social history:: Smoking status: Patient reports the use of cigarette tobacco products, smokes one pack cigarettes per day. marijuana. ROS: 21:30 Constitutional: Negative for fever, chills, and weight loss, Eyes: Negative for injury, mh7 pain, redness, and discharge, ENT: Negative for injury, pain, and discharge, Neck: Negative for injury, pain, and swelling, Cardiovascular: Negative for chest pain, palpitations, and edema, Abdomen/GI: Negative for abdominal pain, nausea, vomiting, diarrhea, and constipation, Back: Negative for injury and pain, : Negative for injury, bleeding, discharge, and swelling, MS/Extremity: Negative for injury and deformity, Neuro: Negative for headache, weakness, numbness, tingling, and seizure, Psych: Negative for depression, anxiety, suicide ideation, homicidal ideation, and hallucinations, Endocrine: Negative for neck swelling, polydipsia, polyuria, polyphagia, and marked weight changes, Hematologic/Lymphatic: Negative for swollen nodes, abnormal bleeding, and unusual bruising. Exam: 21:30 Head/Face: Normocephalic, atraumatic. Eyes: Pupils equal round and reactive to light, mh7 extra-ocular motions intact. Lids and lashes normal. Conjunctiva and sclera are non-icteric and not injected. Cornea within normal limits. Periorbital areas with no swelling, redness, or edema. Neck: Trachea midline, no thyromegaly or masses palpated, and no cervical lymphadenopathy. Supple, full range of motion without nuchal rigidity, or vertebral point tenderness. No Meningismus. Chest/axilla: Normal chest wall appearance and motion. Nontender with no deformity. No lesions are appreciated. Cardiovascular: Regular rate and rhythm with a normal S1 and S2. No gallops, murmurs, or rubs. Normal PMI, no JVD. No pulse deficits. Respiratory: Lungs have equal breath sounds bilaterally, clear to auscultation and percussion. No rales, rhonchi or wheezes noted. No increased work of breathing, no retractions or nasal flaring. Abdomen/GI: Soft, non-tender, with normal bowel sounds. No distension or tympany. No guarding or rebound. No evidence of tenderness throughout. Back: No spinal tenderness. No costovertebral tenderness. Full range of motion. Skin: Warm, dry with normal turgor. Normal color with no rashes, no lesions, and no evidence of cellulitis. MS/ Extremity: Pulses equal, no cyanosis. Neurovascular intact. Full, normal range of motion. Neuro: Awake and alert, GCS 15, oriented to person, place, time, and situation. Cranial nerves II-XII grossly intact. Motor strength 5/5 in all extremities. Sensory grossly intact. Cerebellar exam normal. Normal gait. Psych: Awake, alert, with orientation to person, place and time. Behavior, mood, and affect are within normal limits. 21:30 Constitutional: The patient appears in no acute distress, alert, awake, anxious. 21:30 ENT: Mouth: is normal, Posterior pharynx: Uvula: midline, edematous. 7 Vital Signs: 21:20 BP 153 / 110; Pulse 109; Resp 19; Temp 98.2(O); Pulse Ox 94% on R/A; ke1 21:30 BP 161 / 111; Pulse 104; Resp 20; Pulse Ox 98% ; ke1 21:40 Resp 25; Pulse Ox 93% ; ke1 22:00 BP 162 / 107; Pulse 92; Resp 22; Pulse Ox 100% on Non-rebreather mask; ke1 22:35 BP 160 / 98; Pulse 90; Resp 22; Pulse Ox 96% on R/A; ke1 22:44 BP 160 / 98; Pulse 86; Resp 22; Pulse Ox 97% on R/A; ke1 04 01:00 BP 162 / 89; Pulse 70; Resp 23 S; Pulse Ox 96% on R/A; lg3 02:00 BP 170 / 105; Pulse 73; Resp 20; Pulse Ox 97% on R/A; lg3 05/20 21:40 c/o difficulty breathing, NR mask applied ke1 Procedures: 21:37 Peripheral line: by aseptic technique a peripheral line was placed in the right la1 antecubital vein, 18G. MDM: 23:21 Differential diagnosis: anaphylaxis, angioedema, bronchospasm, Hereditary Angioedema 7 non IgE mediated drug reaction. Data reviewed: vital signs, nurses notes, lab test result(s), CBC, electrolytes. Data interpreted: Pulse oximetry: on room air is 97 %. Interpretation: normal. Counseling: I had a detailed discussion with the patient and/or guardian regarding: the historical points, exam findings, and any diagnostic results supporting the discharge/admit diagnosis, the presence of at least one elevated blood pressure reading (>120/80) during this emergency department visit, lab results, radiology results, the need for further work-up and treatment in the hospital. Response to treatment: the patient's symptoms have mildly improved after treatment. 23:24 Patient medically screened. [facility] 05/20 21:57 Order name: Basic Metabolic Panel; Complete Time: 23:[facility] 05/[facility] 21:57 Order name: CBC with Diff; Complete [facility]: 23:02 [facility] 05/20 21:57 Order name: Troponin HS; Complete Time: 23:02 [facility] 05/20 22:17 Order name: Liver (Hepatic) Function; Complete Time: 23:02 EDWI 05/20 23:36 Order name: SARS-COV-2 RT PCR (Document "Date of Onset" if Symptomatic) 4 05/20 21:57 Order name: EKG; Complete Time: 21:57 [facility] 05/20 22:11 Order name: Chest Single View XRAY [facility] 05/20 21:57 Order name: Cardiac monitoring; Complete Time: 22:33 [facility] 05/20 21:57 Order name: EKG - Nurse/Tech; Complete Time: 22:34 ke1 05/20 21:57 Order name: IV Saline Lock; Complete Time: 22:33 ke05/20 21:57 Order name: Labs collected and sent; Complete Time: 22:33 ke1 05/20 21:57 Order name: O2 Per Protocol; Complete Time: 22:33 ke1 05/20 21:57 Order name: O2 Sat Monitoring; Complete Time: 22:33 ke Administered Medications: 21:22 Drug: SOLU-Medrol (methylPrednisoLONE) 125 mg Route: IVP; Site: right antecubital; 5 05/21 02:09 Follow up: Response: No adverse reaction lg3 05/20 21:30 Drug: Albuterol 2.5 mg Route: Inhalation; ke1 21:45 Drug: Pepcid (famotidine) 20 mg Route: IVP; Site: right antecubital; ke1 05/21 02:09 Follow up: Response: No adverse reaction lg3 05/20 22:04 Drug: Benadryl (diphenhydrAMINE) 25 mg Route: IVP; Site: right antecubital; ke1 05/21 02:21 Follow up: Response: No adverse reaction; Marked relief of symptoms lg3 05/20 22:15 Drug: EPINEPHrine 1mg/mL 1:1,000 0.3 ml Route: Sub-Q; Site: right lower abdomen; ke1 05/21 02:21 Follow up: Response: No adverse reaction; Marked relief of symptoms lg3 02:20 Drug: Metoprolol 50 mg Route: PO; lg3 02:21 Follow up: Response: No adverse reaction lg3 Disposition: 05/20 23:24 Co-signature as Attending Physician, Thony Wiley MD. mh7 Disposition Summary: 05/20/21 23:24 Hospitalization Ordered Condition: Stable mh7 Problem: new mh7 Symptoms: have improved mh7 Bed/Room Type: Standard mh7 Hospitalization Status: Observation(05/20/21 23:36) la1 Provider: Dre Worley(05/20/21 23:36) la1 Location: Telemetry/MedSurg (observation)(05/20/21 23:37) la1 Room Assignment: [place](05/21/21 02:00) cg Diagnosis - Allergic reaction, bronchospasm, Angioedema mh7 Forms: - Medication Reconciliation Form mh7 - SBAR form mh7 Signatures: Dispatcher [employer] EDMS Emir Savage, SOIL SPECIALIST-C SOIL SPECIALIST-Cla1 Debi Morales, RN RN cg Zari Singh RN RN lg3 Thony Wiley MD MD 7 Florencia Sinclair tw5 Karolyn Richardson RN RN sm5 Jeannie Diez RN RN ke1 Corrections: (The following items were deleted from the chart) 22:14 22:12 HEPATIC FUNCTION+C.LAB.BRZ ordered. EDWI EDMS 22:25 22:22 This 30 yrs old Black Male presents to ER via Unassigned with complaints of mh7 Breathing Difficulty, Allergic Reaction. 7 23:36 23:24 Inpatient Admission 7 la1 23:36 23:24 April Hutchison 7 la1 23:37 23:24 Telemetry/MedSurg (Inpatient) 7 la1 23:37 23:24 mh7 la1 0404 02:00 04/03 23:37 la1
--- NOTE | 2021-05-20 23:25 | ER ---
Nurse's Notes [facility] Name: Huber Field Age: 30 yrs Sex: Male : 1990 Arrival Date: 05/20/2021 Time: 21:10 Bed 4 Private MD: Diagnosis: Allergic reaction, bronchospasm, Angioedema Presentation: 05/20 21:00 Chief complaint: Patient states: Chest pain difficulty breathing after eating seafood ke1 at around 2030. 21:15 Acuity: DARCY 4 ke1 21:15 Risk Assessment: Do you want to hurt yourself or someone else? Patient reports no ke1 desire to harm self or others. 21:15 Method Of Arrival: Wheelchair ke1 21:15 Acuity: DARCY 4 ke1 21:15 Ebola Screen: No symptoms or risks identified at this time. Initial Sepsis Screen: Does ke1 the patient meet any 2 criteria? No. Patient's initial sepsis screen is negative. Does the patient have a suspected source of infection? No. Patient's initial sepsis screen is negative. Onset of symptoms was May 20, 2021 at 20:30. 23:48 Acuity: DARCY 2 tw5 05/21 02:29 Coronavirus screen: Client denies travel out of the [place] in the last 14 days. At this lg3 time, the client does not indicate any symptoms associated with coronavirus-19. Triage Assessment: 05/20 21:15 General: Appears distressed, uncomfortable, Behavior is anxious. Respiratory: Reports ke1 shortness of breath at rest Onset: The symptoms/episode began/occurred today, the patient has moderate shortness of breath. Historical: - Allergies: 21:15 Fish Containing Products; ke1 - PMHx: 21:15 diabetes mellitus; Hypertensive disorder; ke1 - PSHx: 21:15 vertical sleeve; ke1 - Social history:: Smoking status: Patient reports the use of cigarette tobacco products, smokes one pack cigarettes per day. marijuana. Screenin:45 Abuse screen: Denies threats or abuse. Nutritional screening: No deficits noted. ke1 Tuberculosis screening: No symptoms or risk factors identified. Fall Risk None identified. Assessment: 21:15 Pain: Complains of pain in chest Pain does not radiate. Pain currently is 7 out of 10 ke1 on a pain scale. Quality of pain is described as squeezing. Neuro: Level of Consciousness is awake, alert, Oriented to person, place, time, situation. 21:15 Respiratory: Airway is patent Trachea midline Respiratory effort is labored, ke1 Respiratory pattern is regular, symmetrical, GI: Abdomen is obese. : No deficits noted. 21:45 Reassessment: Patient c/o SOB R 25 oxy 93%, NR mask applied. ke1 22:30 Reassessment: Patient states feeling better. ke1 23:00 Reassessment: Patient states feeling better. ke1 05/21 00:06 General: [place] - [phone]. tw5 02:47 Cardiovascular: Rhythm is sinus rhythm. ke1 Vital Signs: 05/20 21:20 BP 153 / 110; Pulse 109; Resp 19; Temp 98.2(O); Pulse Ox 94% on R/A; ke1 21:30 BP 161 / 111; Pulse 104; Resp 20; Pulse Ox 98% ; ke1 21:40 Resp 25; Pulse Ox 93% ; ke1 22:00 BP 162 / 107; Pulse 92; Resp 22; Pulse Ox 100% on Non-rebreather mask; ke1 22:35 BP 160 / 98; Pulse 90; Resp 22; Pulse Ox 96% on R/A; ke1 22:44 BP 160 / 98; Pulse 86; Resp 22; Pulse Ox 97% on R/A; ke1 /04 01:00 BP 162 / 89; Pulse 70; Resp 23 S; Pulse Ox 96% on R/A; lg3 02:00 BP 170 / 105; Pulse 73; Resp 20; Pulse Ox 97% on R/A; lg3 04 21:40 c/o difficulty breathing, NR mask applied ke1 ED Course: 21:10 Patient arrived in ED. ja2 21:15 Inserted saline lock: 18 gauge in right antecubital area, using aseptic technique. ke1 ,using aseptic technique. by Emir OSBORNE. 21:18 Thony Wiley MD is Attending Physician. mh7 21:30 Arm band placed on. ke1 21:41 Jeannie Diez, ADENIKE is Primary Nurse. ke1 22:00 Inserted saline lock: 20 gauge in left antecubital area, using aseptic technique. ke1 22:40 Chest Single View XRAY In Process Unspecified. EDMS 22:45 Triage completed. ke1 23:07 Bed in low position. Call light in reach. Side rails up X 1. Side rails up X2. ke1 23:22 April Hutchison MD is Hospitalizing Provider. [facility] 23:36 Dre Worley is Hospitalizing Provider. [facility] 05/21 01:53 SARS-COV-2 RT PCR (Document "Date of Onset" if Symptomatic) Sent. tw5 02:26 No provider procedures requiring assistance completed. Patient admitted, IV remains in lg3 place. intact, No redness/swelling at site. Administered Medications: 05/20 21:22 Drug: SOLU-Medrol (methylPrednisoLONE) 125 mg Route: IVP; Site: right antecubital; [facility] 05/21 02:09 Follow up: Response: No adverse reaction [facility] 05/20 21:30 Drug: Albuterol 2.5 mg Route: Inhalation; ke1 21:45 Drug: Pepcid (famotidine) 20 mg Route: IVP; Site: right antecubital; 05/21 02:09 Follow up: Response: No adverse reaction [facility] 05/20 22:04 Drug: Benadryl (diphenhydrAMINE) 25 mg Route: IVP; Site: right antecubital; 1 05/21 02:21 Follow up: Response: No adverse reaction; Marked relief of symptoms [facility] 05/20 22:15 Drug: EPINEPHrine 1mg/mL 1:1,000 0.3 ml Route: Sub-Q; Site: right lower abdomen; 05/21 02:21 Follow up: Response: No adverse reaction; Marked relief of symptoms 3 02:20 Drug: Metoprolol 50 mg Route: PO; 3 02:21 Follow up: Response: No adverse reaction [facility] Outcome: 05/20 23:24 Decision to Hospitalize by Provider. [facility] 05/21 02:29 Admitted to Med/surg accompanied by tech, via stretcher, room 205, Report called to 3 Reshma Condition: stable 02:48 Patient left the ED. ke1 Signatures: Dispatcher [employer] EDMS Emir Savage, DON-C ARC CUTTER-Cla1 Zari Singh RN RN [facility] Thony Wiley MD MD [facility] Jing Zuniga Tiffany 5 Karolyn Richardson RN RN sm5 Jeannie Diez RN RN ke1 Corrections: (The following items were deleted from the chart) 05/20 22:51 22:45 Acuity: DARCY 4 ke ke 23:00 22:00 BP 162 / 107; Pulse 92bpm; Resp 22bpm; Pulse Ox 100%; ke1 ke 23: 21:40 Pulse Ox 93%; c/o difficulty breathing, NR mask applied; 22:52 Respiratory: Airway [facility]05/21 00:08 00:06 General: [facility] [phone]. tw5 tw5
--- NOTE | 2021-05-20 23:56 | P.HP ---
Certification for Inpatient Patient admitted to: Observation With expected LOS: <2 Midnights Patient will require the following post-hospital care: None Practitioner: I am a practitioner with admitting privileges, knowledge of patient current condition, hospital course, and medical plan of care. Services: Services provided to patient in accordance with Admission requirements found in Title 42 Section 412.3 of the Code of Federal Regulations Patient History Date of Service: 05/20/21 Reason for admission: Angioedema History of Present Illness: 30 year-old -[place] male with history of diabetes mellitus type 2, hypertension presented to the emergency department with shortness of breath that began abruptly about 30 minutes prior to arrival in the emergency department after eating at a restaurant, believes he ate a dish that contained fish. Patient is allergic to fish. Arrival to the ER patient was having expiratory wheezing, shortness of breath, some angioedema of the lips. Patient was given subcu epi, Solu-Medrol, Benadryl, breathing treatments, Pepcid has had some significant provement currently on room air feels his breathing has improved greatly ED prior wishes to admit under observation. Allergies Fish Containing Products Allergy (Verified 02/01/21 02:43) Unknown Home Medications: Amlodipine [Norvasc*] 1 tab PO DAILY 02/02/21 Metoprolol Tartrate [Lopressor*] 1 tab PO DAILY 02/02/21 Pantoprazole [Protonix Tab*] 40 mg PO BID #60 tab 02/02/21 Sucralfate [Carafate*] 10 ml PO ACHS #300 ml 02/02/21 - Past Medical/Surgical History Diabetic: Yes -: HTN -: prediabetes -: history of afib -: vertical gastric sleeve 12/2020 Psychosocial/ Personal History: Lives at home with family - Family History Father -: Hypertension, Diabetes, Stroke - Social History Smoking Status: Never smoker Alcohol use: No CD- Drugs: No Caffeine use: No Place of Residence: Home Review of Systems 10-point ROS is otherwise unremarkable Respiratory: Cough, Shortness of Breath Integumentary: Other (Itching) Physical Examination - Physical Exam General: Alert, In no apparent distress, Oriented x3, Obese HEENT: Atraumatic, PERRLA, Mucous membr. moist/pink, EOMI, Sclerae nonicteric Neck: Supple, 2+ carotid pulse no bruit, No LAD, Without JVD or thyroid abnormality Respiratory: Clear to auscultation bilaterally, Normal air movement Cardiovascular: Regular rate/rhythm, Normal S1 S2 Gastrointestinal: Normal bowel sounds, No tenderness Musculoskeletal: No tenderness Integumentary: No rashes Neurological: Normal gait, Normal speech, Normal strength at 5/5 x4 extr, Normal tone, Normal affect Lymphatics: No axilla or inguinal lymphadenopathy - Studies Laboratory Data (last 24 hrs) 05/20/21 22:27: WBC 6.2, Hgb 14.9, Hct 44.5, Plt Count 242 05/20/21 22:27: Sodium 141, Potassium 3.2 L, BUN 16, Creatinine 1.35 H, Glucose 107 H, Total Bilirubin 0.4, AST 56 H, ALT 37, Alkaline Phosphatase 62 05/20/21 22:12: Total Bilirubin Cancelled, AST Cancelled, ALT Cancelled, Alkaline Phosphatase Cancelled Assessment and Plan - Plan Assessment: Allergic reaction, angioedema, bronchospasm Diabetes mellitus type IIdiet controlled Hypertension Atrial fibrillation on aspirin Plan: Allergic reaction, angioedema, bronchospasm: Continue scheduled steroids, significant improvement from presentation to the emergency department did receive 1 dose of subcu epinephrine. Will provide with scheduled Solu-Medrol, as needed nebulizer treatments, Pepcid, Benadryl. If patient gets worse this evening would redose with epinephrine. Diabetes mellitus type IIdiet controlled: His diet controlled reports his sugar earlier today was 86. ADA diet. Sliding scale if sugars are elevated. Hypertension: Continue home medications amlodipine, metoprolol Atrial fibrillation on aspirin: Continue metoprolol, aspirin DVT PPX: Lovenox Code status: Full Discharge Plan: Home Plan to discharge in: 24 Hours - Advance Directives Does patient have a Living Will: No Does patient have a Durable POA for Healthcare: No - Code Status/Comfort Care Code Status Assessed: Yes (Full code) Critical Care: No Time Spent Managing Pts Care (In Minutes): 55
[2021-05-21] MEDS ORDERED: METHYLPREDNISOLONE 40 MG INJ IV SCH (01:00)
[2021-05-21] MEDS ORDERED: ONDANSETRON 4 MG/2 ML VIAL IV PRN (01:00)
[2021-05-21] MEDS ORDERED: NA CHLORIDE 0.9% 1,000 ML IV SCH (01:00)
[2021-05-21] MEDS ORDERED: ACETAMINOPHEN 500 MG TAB PO PRN (01:00)
[2021-05-21] MEDS ORDERED: DIPHENHYDRAMINE 50 MG/ML VIAL IV PRN (01:00)
[2021-05-21] MEDS ORDERED: ALBUTEROL 2.5 MG/3 ML NEB SOL NEB PRN (01:00)
--- NOTE | 2021-05-21 01:26 | RAD REPORT ---
EXAM DESCRIPTION: RAD - Chest Single View - 05/20/2021 10:38 pm CLINICAL HISTORY: SOB Chest pain. COMPARISON: Chest Single View dated 01/30/2021; Chest Single View dated 07/19/2020; CHEST SINGLE VIEW dated 02/27/2015; CHEST SINGLE VIEW dated 07/05/2014 FINDINGS: Portable technique limits examination quality. The lungs are grossly clear. The heart is normal in size. No displaced fractures. IMPRESSION: No acute intrathoracic process suspected.
[2021-05-21] MEDS ORDERED: NA CHLORIDE 0.9% 1,000 ML ONE (02:01)
[2021-05-21] MEDS ORDERED: METHYLPREDNISOLONE 40 MG INJ ONE (02:01)
[2021-05-21] MEDS ORDERED: METOPROLOL TAR 50 MG TAB ONE (02:19)
[2021-05-21 03:07] VITALS: BMI 41.9
[2021-05-21 03:57] VITALS: O2SAT 97
[2021-05-21 05:37] LABS: Absolute Lymphocytes (CBC) 0.7 K/uL (0.7-4.9); Hematocrit 44.5 % (39.6-49.0); Lymphocytes % 5.8 % (15.3-44.8); MPV 9.6 fL (7.6-11.3); RBC Red Blood Cell Count 5.39 M/uL (4.33-5.43)
[2021-05-21 05:52] LABS: Urine Appearance Clear (Clear); Urine Bilirubin Negative (Negative); Urine Blood Trace-intact (Negative); Urine Color Yellow (Yellow); Urine Glucose Negative (Negative); Urine Protein 2+ (Negative); Urine Specific Gravity 1.025 (1.005-1.030); Urine Urobilinogen 0.2 mg/dL (0.2-1.0)
[2021-05-21 05:58] LABS: Urine Microscopic Reflex ORDER UMIC
[2021-05-21] MEDS ORDERED: METOPROLOL TAR 25 MG TAB PO SCH (06:00)
[2021-05-21 06:04] LABS: Urine Bacteria <20 /HPF (NONE SEEN); Urine RBC <5 /HPF (NONE SEEN)
[2021-05-21 06:42] LABS: Albumin 3.8 g/dL (3.4-5.0); Bilirubin Total 0.4 mg/dL (0.2-1.0); Protein, Total 7.7 g/dL (6.4-8.2)
[2021-05-21 07:30] LABS: Blood Morphology Comment NOT SEEN (NOT SEEN); Platelet Estimate ADEQ; White Blood Cell Scan OK (OK)
[2021-05-21] MEDS ORDERED: INFLUENZA VACCINE (for 6+ mo) 0.5 ML DOSE IMVAC ONE (08:00)
[2021-05-21] MEDS ORDERED: AMLODIPINE 10 MG TAB PO SCH ×2 (09:00)
[2021-05-21] MEDS ORDERED: FAMOTIDINE 20 MG/2 ML VIAL IV SCH (09:00)
[2021-05-21] MEDS ORDERED: ENOXAPARIN 40 MG/0.4 ML SQ SCH (09:00)
[2021-05-21] MEDS ORDERED: PANTOPRAZOLE 40MG TABLET PO SCH (09:00)
[2021-05-21 09:04] VITALS: BP 166/94; TEMP 97.4
--- NOTE | 2021-05-21 11:13 | EKG ---
Test Date: 2021-05-20 Test Time: 22:05:53 Bilingual Sales Assistant: CARLA MEASUREMENT RESULTS: Intervals: Rate: 93 TX: 182 QRSD: 102 QT: 384 QTc: 477 [place]: P: 45 TX: 182 QRS: -14 T: 22 INTERPRETIVE STATEMENTS: Normal sinus rhythm Septal infarct, age undetermined Abnormal ECG Compared to ECG 01/30/2021 10:30:40 Myocardial infarct finding now present Electronically Signed On 05-21-21 11:12:08 CDT by Rob Negron
[2021-05-21] MEDS ORDERED: SUCRALFATE 1GM/10ML UCUP PO SCH (11:30)
[2021-05-22] MEDS ORDERED: METOPROLOL TAR 25 MG TAB PO SCH (09:00)
== END 2021-05-21 09:40 | disposition home or self-care (01) ==
LOC: ER 21:09 → ERHOLD 23:56 → 2ND 05-21 02:05
PROVIDERS: ADMIT Internal Medicine; ATTEND Internal Medicine
DX: T78.1XXA Other adverse food reactions, not elsewhere classified, initial encounter (principal); J98.01 Acute bronchospasm; T78.3XXA Angioneurotic edema, initial encounter; E11.9 Type 2 diabetes mellitus without complications; I10 Essential (primary) hypertension; Z98.84 Bariatric surgery status; I48.91 Unspecified atrial fibrillation; Z20.822 Contact with and (suspected) exposure to COVID-19
CPT/HCPCS: 36415; 71045; 80048; 80053; 80076; 81003; 81015; 82947; 84484; 85025; 87086; 87088; 93005; 96372; 96374; 96375; 99285; G0378; J0171; J1200; J2405; J2920; J2930; J7030; U0003

== ENCOUNTER 2021-05-22 16:39 | Emergency (ER) | payer SELFPAY ==
--- OUTSIDE RECORDS SUMMARY | 2021-05-22 16:48 | XMS REPORT | Continuity of Care Document ---
:1990 Author Organization [facility] t Address [address] [place] [address] Care Team Providers Name Role Phone PCP, [...] Attending Clinician Floyd Ramos MD Attending Clinician [phone] FLOYD RAMOS Attending Clinician Unavailable RIKKI Attending Clinician Unavailable Lashon DUNCAN Admitting Clinician Neisha DUNCAN Admitting Clinician Floyd Ramos MD Admitting Clinician [phone] FLOYD RAMOS Admitting Clinician Unavailable RIKKI Admitting Clinician Unavailable Payers Payer Name Policy Type Policy Number Effective Date Expiration Date S mom[place] [employer] [place] - [id number] 2020 00:00:00 OUT OF STATE Problems Condition Condition Condition Status Onset Resolution Last Treating Co mments Source Name Details Category Date Date Treatment Clinician Date MALI on MALI on Disease Active Univers CPAP CPAP 6-04 ity of 00:00: [place] [facility] Hypertensi Hypertensi Disease Active U nivers ve urgency ve urgency 6- it y of 00:00: [place] [address] Medical Branch Pneumonia Pneumonia Disease Active Uni vers due to due to 208 ity of COVID-19 COVID-19 00:00: [place] virus virus Medical Branch SOB SOB Disease Active Univers (shortness (shortness 8 it y of of breath) of breath) 00:00: [place] [facility] Morbid Morbid Disease Active 2018-02 Univers obesity obesity 2-28 ity of with body with body 00:00: [facility] s mass index mass index 00 Me dical of 50 or of 50 or Branch higher higher Other Other Disease Active 2018-02 Univers chest pain chest pain 2-28 it y of 00:00: [place] [address] Medical Branch Essential Essential Disease Active 2018-02 Uni vers hypertensi hypertensi 2-28 it y of on on 00:00: [place] [address] Medical Branch Hypokalemi Hypokalemi Disease Active 2018-02 U nivers a a 2-28 ity of 00:00: [place] [facility] Type 2 Type 2 Disease Active 2018-02 Univers diabetes diabetes 2-28 ity of mellitus mellitus 00:00: [place] without without 00 Medical complicati complicati Br [...] Uni vers FISH 8- ity of 00:00: [place] [address] Medical Branch Seafood/ Propensi Active Anaphylaxis U nivers Fish ty to 8-03 ity of adverse 00:00: [place] reaction 00 Medical s Branch NO KNOWN Drug Active Univers ALLERGIE Class ity of S [place] [facility] Social History Social Habit Start Date Stop Date Quantity Comments Source Exposure to Not sure University SARS-CoV-2 [place] [facility] (event) Branch History SDOH 2020-07-19 2020-07-19 15 University o f Education 00:00:00 00:00:00 [facility] [place] [facility] Tobacco use and 2020-07-19 2020-07-19 Former user Universi ty of exposure 00:00:00 00:00:00 [facility] Branch Alcohol intake 2020-07-19 2020-07-19 Ex-drinker [facility] 00:00:00 00:00:00 (finding) [place] [facility] History [facility] 2019-02-13 2019-02-13 2 University o f Financial 00:00:00 00:00:00 [place] [facility] History [facility] Food 2019-02-13 2019-02-13 3 Univers ity of Worry 00:00:00 00:00:00 [place] [facility] History [facility] Food 2019-02-13 2019-02-13 3 Univers ity of Scarcity 00:00:00 00:00:00 [place] [facility] History [facility] 2019-02-13 2019-02-13 1 University o f Transport Med 00:00:00 00:00:00 [place] [facility] al [facility] History [facility] 2019-02-13 2019-02-13 1 [place] o f Transport Non-Med 00:00:00 00:00:00 [facility] edical [place] Sex Ass[birth year] At [birth year] Universit y of 00:00:00 00:00:00 [facility] [place] [facility] Smoking Status Start Date Stop Date Source Current every day 2020-07-19 00:00:00 [facility] smoker Medical [place] Former smoker 2020-03-28 00:00:00 2020-03-28 00:00:00 [facility]i ty of [place] [facility] Medications Ordered Filled Start Stop Current Ordering Indication Dosage Frequency Signature Comments Components Source Medication Medication Date Date Medication? Clinician (SIG) Name Name Multivitami Yes Take by Un yelitza ns with 6-04 mouth. ity of Fluoride 18:32: [place] (MULTI-MARIA FERNANDA 53 Medical MIN ORAL) Branch atorvastati Yes 10mg Take 10 mg Univers n 10 mg 6-04 by mouth ity of tablet 18:32: at [place] 53 bedtime. Medical Branch atorvastati Yes 10mg 10 mg, Univ ers n (LIPITOR) 04 Oral, QHS, it y of tablet 10 02:00: [place] dose [place] mg 00 on [facility] 07/20/20 at Branch 2100, Until Discontinu ed, Routine lisinopriL Yes 20mg 20 mg, Unive rs (PRINIVIL,Z 07-21 Oral, BID, it y of ESTRIL) 01:00: [place] tablet 20 00 (after Medical mg last Branch modificati on) on [facility] 07/20/20 at 2000, Until Discontinu ed, Routine lisinopriL 2020- No [id number] 20mg Take 1 Univers 20 mg 07-2105 tablet by ity of tablet 00:00: 04:59 mouth 2 [place] 00 :00 (two) Medical times [place] daily for 30 days. carvediloL 2020- No [id number] 25mg Take 1 Univers 25 mg 07-21-05 tablet by ity of tablet 00:00: 04:59 mouth 2 [place] 00 :00 (two) Medical times [place] daily with meals for 30 days. carvediloL Yes 25mg 25 mg, Unive rs (COREG) 07-20 Oral, BID ity of tablet 25 22:00: MEALS, [place] mg 00 First dose Medical on [facility] Branch 07/20/20 at 1700, Until Discontinu ed, Routine sulfur 2020- No [id number] 5mL 5 mL, Unive rs hexafluorid 07-20 0603 Intravenou i ty of e microsphr 17:00: 17:00 s, ONCE, 1 [place] (LUMASON) 00 :00 dose, [facility] Medic al injection 5 07/20/20 at [facility] mL 1200, Routine
hospitality team member approving Restricted medication : BONITA NIÑO amLODIPine Yes 10mg 10 mg, Unive rs (NORVASC) 07-20 Oral, ity of tablet 10 14:00: DAILY, [place] mg 00 First dose Medical on [facility] 07/20/20 at 0900, Until Discontinu ed, Routine aspirin Yes 81mg 81 mg, Univers chewable 07-20 Oral, ity of tablet 81 14:00: DAILY, [place] mg 00 First dose Medical on [place] Branch 07/20/20 at 0900, Until Discontinu ed, Routine enoxaparin Yes 40mg 40 mg, Unive rs (LOVENOX) 07-20 Subcutaneo ity of injection 14:00: us, DAILY, [place] 40 mg 00 First dose Medical on [facility] Branch 07/20/20 at 0900, Until Discontinu ed, Routine metoprolol 2020- No 100mg 100 mg, Un yelitza succinate 07-20 Oral, ity of XL (TOPROL 14:00: 21:59 DAILY, [place] XL) tablet 00 :58 First dose Med ical 100 mg on [facility] Branch 07/20/20 at 0900, Until Discontinu ed, Routine lisinopriL No 20mg 20 mg, Univ ers (PRINIVIL,Z 07-20 Oral, ity of ESTRIL) 14:00: 21:06 DAILY, [place] tablet 20 00 :11 First dose Medi julia mg on [facility] Branch 07/20/20 at 0900, Until Discontinu ed, Routine benzonatate Yes 100mg 100 mg, Un yelitza (TESSALON 07-20 Oral, ity of PERLES) 08:11: TIDPRN, [place] capsule 100 56 Starting Medi julia mg [facility] 07/20/20 Branch at 0311, Until Discontinu ed, Routine, Cough albuterol Yes 2{puff} 2 Puff, Un yelitza (VENTOLIN) 07-20 Inhalation ity of inhaler 2 08:11: , Q6HPRN, [place] Puff 19 Starting Medical [facility] 07/20/20 Branch at 0311, Until Discontinu ed, [...] 07-20 Oral, ity of (TYLENOL) 03:27: Q6HPRN, [place] tablet 650 08 Starting Medic al mg [...] dose, Fri Med ical mg 07/19/20 at [place] 1999, SUBHA morpHINE 0 2020- No 4mg 4 mg, Slow Un yelitza injection 4 07-20 IV Push, ity of mg 01:00: 00:19 ONCE, 00 :00 dose, Fri Medical 07/19/20 at [place] 1999, STAT aspirin 2020- No 325mg 325 mg, Unive rs tablet 325 07-19 Oral, ity of mg 22:45: 21:56 ONCE, 00 :00 dose, Fri07/19/20 at [place] 1745, STAT nitroglycer 2020- No .4mg 0.4 mg, Un yelitza in 07-19 Sublingual ity of (NITROSTAT) 21:40: 22:33 , Q5MIN [place] sublingual 56 :00 PRN, 3 Medical tablet 0.4 doses, Branch mg Starting Fri07/19/20 at 1640, Until Fri07/19/20 at 1733, SUBHA, Chest pain lisinopriL Yes [id number] 20mg Take 1 Univers 20 mg 2-18 [id number] tablet by ity of tablet 00:00: mouth [place] 00 daily. Medical Branch metoprolol Yes [id number] 100mg Take 1 Univers succinate 2-18 [id number] tablet by it y of XL 100 mg 00:00: mouth [place] 24 hr 00 daily. Medical tablet Branch aspirin 81 Yes [id number] 81mg Take 1 Univers mg chewable 2-18 [id number] tablet by ity of tablet 00:00: mouth [place] 00 daily. Medical Branch lisinopriL Yes [id number] 20mg Take 1 Univers 20 mg 2-18 [id number] tablet by ity of tablet 00:00: mouth [place] 00 daily. Medical Branch metoprolol Yes [id number] 100mg Take 1 Univers succinate 2-18 [id number] tablet by it y of XL 100 mg 00:00: mouth [place] 24 hr 00 daily. Medical tablet Branch aspirin 81 Yes [id number] 81mg Take 1 Univers mg chewable 2-18 [id number] tablet by ity of tablet 00:00: mouth [place] 00 daily. Medical Branch lisinopriL Yes [id number] 20mg Take 1 Univers 20 mg 2-18 [id number] tablet by ity of tablet 00:00: mouth [place] 00 daily. Medical Branch metoprolol Yes [id number] 100mg Take 1 Univers succinate 2-18 [id number] tablet by it y of XL 100 mg 00:00: mouth [place] 24 hr 00 daily. Medical tablet Branch aspirin 81 Yes [id number] 81mg Take 1 Univers mg chewable 2-18 [id number] tablet by ity of tablet 00:00: mouth [place] 00 daily. Medical Branch lisinopriL Yes [id number] 20mg Take 1 Univers 20 mg 2-18 [id number] tablet by ity of tablet 00:00: mouth [place] 00 daily. Medical Branch aspirin 81 Yes [id number] 81mg Take 1 Univers mg chewable 2-18 [id number] tablet by ity of tablet 00:00: mouth [place] 00 daily. Medical Branch metoprolol 2020- No [id number] 100mg Take 1 Univers succinate 2-18 06-04 [id number] tablet by i ty of XL 100 mg 00:00: 00:00 mouth [place] 24 hr 00 :00 daily. Medical tablet Branch lisinopriL 2020- No [id number] 20mg Take 1 Univers 20 mg 2-18 -17 [id number] tablet by ity o f tablet 00:00: 00:00 mouth [place] 00 :00 daily. Medical Branch metoprolol 2020- No [id number] 100mg Take 1 Univers succinate 2-18 -17 [id number] tablet by i ty of XL 100 mg 00:00: 00:00 mouth [place] 24 hr 00 :00 daily. Medical tablet Branch aspirin 81 2020- No [id number] 81mg Take 1 Univers mg chewable 2-18 -17 [id number] tablet by ity of tablet 00:00: 00:00 mouth [place] 00 :00 daily for Medical 90 days. Branch Multivitami Yes Take by Un yelitza ns with 2-17 mouth. ity of Fluoride 17:53: [place] (MULTI-MARIA FERNANDA 44 Medical MIN ORAL) Branch atorvastati Yes 10mg Take 10 mg Univers n 10 mg 2-17 by mouth ity of tablet 17:53: at [place] [address] bedtime. Medical Branch Multivitami Yes Take by Un yelitza ns with 2-17 mouth. ity of Fluoride 17:53: [place] (MULTI-MARIA FERNANDA 44 Medical MIN ORAL) Branch atorvastati Yes 10mg Take 10 mg Univers n 10 mg 2-17 by mouth ity of tablet 17:53: at [place] [address] bedtime. Medical Branch Multivitami Yes Take by Un yelitza ns with 2-17 mouth. ity of Fluoride 17:53: [place] (MULTI-MARIA FERNANDA 44 Medical MIN ORAL) Branch atorvastati Yes 10mg Take 10 mg Univers n 10 mg 2-17 by mouth ity of tablet 17:53: at [place] [address] bedtime. Medical Branch albuterol 2020- No 2{puff} Inhale 2 [facility] 90 -17 02-17 Puffs ity of mcg/actuati 16:58: 00:00 every 6 [place] on inhaler 25 :00 (six) Medical hours as Branch needed for Wheezing or Shortness of Breath. lisinopril 2020- No 5mg Take 5 mg U nivers 5 mg tablet 04-05-17 by mouth ity of 16:41: 00:00 daily. [place] 18 :00 Medical Branch lisinopriL Yes 20mg 20 mg, Unive rs (PRINIVIL,Z 2-17 Oral, ity of ESTRIL) 15:00: DAILY, [place] tablet 20 00 First dose Medi julia mg (after Branch last modificati on) on Fri04/05/20 at 0900, Until Discontinu ed, Routine albuterol Yes [id number] 2{puff} Inhale 2 Univers 90 2-17 [id number] Puffs ity of mcg/actuati 00:00: every 6 [place] on inhaler 00 (six) Medical hours as Branch needed for Wheezing or Shortness of Breath. benzonatate Yes [id number] 100mg Take 1 Univers 100 mg 2-17 [id number] capsule by ity of capsule 00:00: mouth 3 (three) Medical times Branch daily as needed for Cough. amLODIPine Yes [id number] 10mg Take 1 Univers 10 mg 2-17 tablet by ity of tablet 00:00: mouth [place] 00 daily. Medical Branch albuterol Yes [id number] 2{puff} Inhale 2 Univers 90 2-17 [id number] Puffs ity of mcg/actuati 00:00: every 6 [place] on inhaler 00 (six) Medical hours as Branch needed for Wheezing or Shortness of Breath. benzonatate Yes [id number] 100mg Take 1 Univers 100 mg 2-17 [id number] capsule by ity of capsule 00:00: mouth 3 (three) Medical times Branch daily as needed for Cough. amLODIPine Yes [id number] 10mg Take 1 Univers 10 mg 2-17 tablet by ity of tablet 00:00: mouth [place] 00 daily. Medical Branch albuterol Yes [id number] 2{puff} Inhale 2 Univers 90 2-17 [id number] Puffs ity of mcg/actuati 00:00: every 6 [place] on inhaler 00 (six) Medical hours as Branch needed for Wheezing or Shortness of Breath. benzonatate Yes [id number] 100mg Take 1 Univers 100 mg 2-17 [id number] capsule by ity of capsule 00:00: mouth 3 (three) Medical times Branch daily as needed for Cough. amLODIPine Yes [id number] 10mg Take 1 Univers 10 mg 2-17 tablet by ity of tablet 00:00: mouth [place] 00 daily. Medical Branch albuterol Yes [id number] 2{puff} Inhale 2 Univers 90 2-17 [id number] Puffs ity of mcg/actuati 00:00: every 6 [place] on inhaler 00 (six) Medical hours as Branch needed for Wheezing or Shortness of Breath. benzonatate Yes [id number] 100mg Take 1 Univers 100 mg 2-17 [id number] capsule by ity of capsule 00:00: mouth 3 [place] 00 (three) Medical times Branch daily as needed for Cough. amLODIPine Yes [id number] 10mg Take 1 Univers 10 mg 2-17 tablet by ity of tablet 00:00: mouth [place] 00 daily. Medical Branch benzonatate 2020- No [id number] 100mg Take 1 Univers 100 mg 2-17 -17 [id number] capsule by ity of capsule 00:00: 00:00 [...] 50 mL albuterol-i Yes 1{puff} 1 Puff, [facility] pratropium -16 Inhalation ity of (COMBIVENT 16:45: [...] Yes 10mg 10 mg, Unive rs [facility] 04-03 Oral, ity of tablet 10 15:00: DAILY, [place] mg 00 First dose Medical (after Branch last modificati on) on [facility] 04/03/20 at 0900, Until Discontinu ed, Routine KCL 2020- No 40meq 40 mEq, Univers (KLOR-CON 04-03 Oral, ity of M20) tablet 14:45: 15:15 ONCE, 1 [place] 40 mEq 00 :00 dose, [facility] Medical 04/03/20 at Branch 0845, Routine hydralAZINE 2020- No 10mg 10 mg, Uni vers (APRESOLINE 04-03 Slow IV ity of ) injection 00:45: 23:58 Push, [place] 10 mg 00 :00 ONCE, 1 Medical dose, [facility] 04/02/20 at 1845, STAT
In dication: Hypertensi ve Emergency amLODIPine 2020- No 5mg 5 mg, Unive rs (NORVAS) 04-02 Oral, ity of tablet 5 mg 18:15: 18:21 ONCE, 1 [place] 00 :00 dose, [facility] 04/02/20 at Branch 1215, Routine metoprolol Yes 100mg 100 mg, Uni vers succinate 04-02 Oral, ity of XL (TOPROL 15:00: DAILY, [place] XL) tablet 00 First dose Med ical 100 mg (after [place] last modificati on) on [place] 04/02/20 at 0900, Until Discontinu ed, Routine [...] the patient amLODIPine No 5mg 5 mg, [facility] (NORVASC) 04-0114 Oral, ity of tablet 5 mg 16:45: 17:08 DAILY, [place] as 00 :13 First dose Medical (after Branch last modificati on) on 04/01/20 at 1045, Until Discontinu ed, Routine hydrOXYzine Yes 25mg 25 mg, [facility] ers (ATARAX) 04-01 Oral, ity of tablet 25 01:34: Q6HPRN, [place] mg 39 Starting Medical [facility] Branch 03/31/20 at 1934, Until Discontinu ed, Routine, Anxiety furosemide 2020- No 40mg 40 mg, [facility] ers (LASIX) 03-3112 Slow IV ity of injection 10:19: 11:05 Push, [place] 40 mg 00 :00 ONCE, 1 Medical dose, Fri Branch 03/31/20 at 0430, Routine sodium Yes 1{spray 1 [place], [facility] ers chloride 12 } Nasal, ity of (OCEAN MIST 02:03: PRN, [place] NASAL) 0.65 41 Starting Medi julia % nasal [facility] spray 1 03/30/20 at [place] 2002, Until Discontinu ed, Routine, nasal irritation benzonatate Yes 100mg 100 mg, Un yelitza (TESSALON 212 Oral, ity of PERLES) 01:54: TIDPRN, [place] capsule 100 50 Starting Medi julia mg [facility] Branch 03/30/20 at 1954, Until Discontinu ed, Routine, Cough lactated 2020- No 500mL at 100 [facility] [place] rs ringers IV 03-29 02-10 mL/hr, 500 it y of infusion 17:30: 18:43 mL, IV [place] 500 mL 00 :00 Infusion, Medical ONCE, 1 Branch dose, 03/29/20 at 1130, Routine dexamethaso 2020- No 6mg 6 mg, IV U nivers ne 6 mg in 03-29-16 Piggyback, it y of NaCl 0.9% 17:00: 04:36 Q24H, [place] (NS) 25 mL 00 :35 First dose Med ical RTU on Fri03/29/20 at 1100, Until Discontinu ed, 25 mL albuterol-i 2020- No 1{puff} 1 Puff, [facility] pratropium 03-28 Inhalation it y of (COMBIVENT 18:00: 16:40 , Q6H, [place] RESPIMAT) 00 :35 First dose Medi julia 20-100 on Fri [place] mcg/actuati 03/28/20 at on inhaler 1200, 1 Puff Until Discontinu ed, Routine
Is this order for a patient with suspected or confirmed COVID-19 infection? Yes Potassium 2020- No 40meq 40 mEq, Uni vers Bicarb-Citr 03-28 Oral, ity of ic Acid 15:53: 17:01 ONCE, 1 [place] (EFFER-K) 00 :00 dose, [facility] Medic al effervescen 03/28/20 at [facility] t tablet 40 1000, mEq Routine magnesium 2020- No 2g 2 g, IV Univ ers sulfate in 03-28 Piggyback, it y of water 2 15:53: 16:58 ONCE, 1 [place] gram/50 mL 00 :00 dose, [facility] Medi julia (4 %) 03/28/20 at [place] infusion 2 1000, g Routine aspirin Yes 81mg 81 mg, Univers chewable 03-28 Oral, ity of tablet 81 15:00: DAILY, [place] mg 00 First dose Medical on Fri [place] 03/28/20 at 0900, Until Discontinu ed, Routine enoxaparin Yes 40mg 40 mg, Unive rs (LOVENOX) 03-28 Subcutaneo ity of injection 15:00: us, DAILY, [place] 40 mg 00 First dose Medical on Fri [place] 03/28/20 at 0900, Until Discontinu ed, Routine metoprolol 2020- No 200mg 200 mg, Un yelitza succinate 03-28 Oral, ity of XL (TOPROL 15:00: 19:42 DAILY, [place] XL) tablet 00 :35 First dose Med ical 200 mg on [facility] Branch 03/28/20 at 0900, Until Discontinu ed, Routine NaCl 0.9% 2020- No 1000mL at 150 Uni vers (NS) IV 03-28 mL/hr, IV ity of infusion 14:33: 14:51 Infusion, [place] as 1,000 mL 00 :00 ONCE, 1 Medical dose, [facility] 03/28/20 at 0845, Routine magnesium No 1g 1 g, IV [facility] ers sulfate in 03-28 Piggyback, it y of D5W 1 04:30: 07:34 ONCE, 1 [place] gram/100 mL 00 :00 dose, [facility] Med ical RTU IV 03/27/20 at [place] Piggyback 1 2230, 100 g mL Sliding Yes Subcutaneo [facility] ers Scale 03-28 us, TID ity of Insulin - 03:00: MEALS+HS, [place] as Lispro 00 First dose Medical (HumaLOG) + on [facility] 03/27/20 at Testing 2100, Until Discontinu ed, Routine empaglifloz 2020- No Take by Chandrakant harding in-metformi 03-2808 mouth. ity o f n (SYNJARDY 02:25: 00:00 [place] XR) 17 :00 Medical 10-1,000 mg [place] TBph dicyclomine No 20mg Take 20 mg Univers 20 mg 03-28 by mouth 4 ity of tablet 02:25: 00:00 (four) [place] 17 :00 times Medical daily. Branch NaCl 0.9% 2020- No 500mL at 200 Univ ers (NS) IV 03-28 mL/hr, IV ity of infusion 01:45: 03:39 Infusion, [place] 500 mL 00 :00 ONCE, 1 Medical dose, [facility] 03/27/20 at 1945, Routine KCL 2020- No 40meq 40 mEq, Univers (KLOR-CON 03-28 Oral, ity of M20) tablet 01:45: 02:46 ONCE, 1 [place] 40 mEq 00 :00 dose, [facility] Medical 03/27/20 at Branch 1945, Routine guaiFENesin 2020- No 200mg 200 mg, U nivers 100 mg/5 mL 03-28 02-12 Oral, ity of solution 00:35: 01:55 Q4HPRN, [place] 200 mg 14 :33 Starting Medical [facility] 03/27/20 Branch at 1835, Until [place] 03/30/20 at 1955, Routine, Cough albuterol Yes 1{puff} 1 Puff, Un yelitza (VENTOLIN) 2 Inhalation ity of inhaler 1 00:29: , Q4HPRN, [place] as Puff 51 Starting Medical [facility] 03/27/20 Branch at 1829, Until Discontinu ed, Routine, Wheezing, Shortness of Breath
Is this order for a patient with suspected or confirmed COVID-19 infection? Yes acetaminoph Yes 650mg 650 mg, Un yelitza en 03-28 Oral, ity of (TYLENOL) 00:11: Q6HPRN, [place] tablet 650 01 Starting Medic al mg [facility] 03/27/20 Branch at 1811, Until Discontinu [...] with 8-05 mouth. ity of Fluoride 19:05: [place] (MULTI-MARIA FERNANDA 51 Medical MIN ORAL) Branch lisinopril 2020-0 Yes 5mg Take 5 mg Un yelitza 5 mg tablet 8-05 by mouth ity of 19:05: daily. [place] [address] Medical Branch albuterol 2020-0 Yes 2{puff} Inhale 2 U nivers 90 8-05 Puffs ity of mcg/actuati 19:05: every 6 [place] on inhaler (six) Medical hours as Branch needed for Wheezing or Shortness of Breath. atorvastati 2020-0 Yes 10mg Take 10 mg Univers n 10 mg 8-05 by mouth ity of tablet 19:05: at [place] [address] bedtime. Medical Branch empaglifloz 2020-0 Yes Take by Un yelitza in-metformi 8-05 mouth. ity of n (SYNJARDY 19:05: [place] [address] Medical 10-1,000 mg Branch TBph dicyclomine 2019-0 Yes 20mg Take 20 mg Univers 20 mg 8-05 by mouth 4 ity of tablet 19:05: (four) [place] [address] times Medical daily. Branch Multivitami 2019-0 Yes Take by Un yelitza ns with 8-05 mouth. ity of Fluoride 19:05: [place] (MULTI-MARIA FERNANDA 51 Medical MIN ORAL) Branch lisinopril 2020-0 Yes 5mg Take 5 mg Un yelitza 5 mg tablet 8-05 by mouth ity of 19:05: daily. [place] [address] Medical Branch albuterol 2020-0 Yes 2{puff} Inhale 2 U nivers 90 8-05 Puffs ity of mcg/actuati 19:05: every 6 [place] on inhaler (six) Medical hours as Branch needed for Wheezing or Shortness of Breath. atorvastati 2020-0 Yes 10mg Take 10 mg Univers n 10 mg 8-05 by mouth ity of tablet 19:05: at [place] [address] bedtime. Medical Branch metroNIDAZO 2020-0 2020- No [...] dose [place] mg 00 on Fri [facility] 09/21/19 at Branch 2100, Until Discontinu ed, Routine metoprolol Yes [id number] 200mg Take 1 Univers succinate 8-05 tablet by ity o f XL 200 mg 00:00: mouth [place] 24 hr 00 daily. Medical tablet Branch metoprolol Yes [id number] 200mg Take 1 Univers succinate 8-05 tablet by ity o f XL 200 mg 00:00: mouth [place] 24 hr 00 daily. Medical tablet Branch metoprolol 2020- No [id number] 200mg Take 1 Univers succinate 8-06 18-17 [...] mg 00 First dose Medical on Fri [place] 09/21/19 at 0900, Until Discontinu ed, Routine [...] No insulin 2020-0 Yes 10U 10 Units, [facility] glargine 09-20 Subcutaneo ity o f [...] IV ity of (D50W) 06:49: Push, PRN, [place] injection 21 Starting Medica l 25 mL Fri09/21/19 Branch at 0149, Until Discontinu ed, SUBHA, Blood Glucose < or = 70 mg/dL and patient is unable to swallow or has mental status changes. ondansetron 2019-0 Yes 4mg 4 mg, Slow Univers (ZOFRAN 8 IV Push, ity of (PF)) 06:32: Q6HPRN, [place] injection 4 28 Starting Medi julia mg [...] 09-20 Oral, ity of (TYLENOL) 06:31: Q6HPRN, [place] tablet 650 50 Starting Medic al mg Fri09/21/19 Branch at 0131, Until Discontinu ed, Routine, Pain (scale 1-3) insulin 2019-0 2020- No 10U 10 Units, Univ ers regular 09-20 08-04 Slow IV ity of human 02:45: 01:59 Push, [place] (HUMULIN R) 00 :00 ONCE, 1 Medic [...] [facility] 00 [facility] Lipitor Lipitor 2019-0 Yes Akash [address] 08-25 [facility] Synjardy XR Synjardy XR 2019-0 2020- No Akash [address] [facility] [address] 08-25 [facility]:00 breakfast [facility] 00 :00 l [facility] amLODIPine 2018-02 Yes [id number] 10mg Take 1 Univers 10 mg 2-28 tablet by ity of tablet 00:00: mouth [place] 00 daily. Medical Branch nitroglycer 2018-[id number] 1 Univers in 0.4 mg 2-28 tablet ity of sublingual 00:00: under the [place] tablet 00 tongue Medical every 5 Branch (five) minutes as needed for Chest pain. nitroglycer 2018-[id number] 1 Univers in 0.4 mg 2-28 tablet ity of sublingual 00:00: under the [place] tablet 00 tongue Medical every 5 Branch (five) minutes as needed for Chest pain. nitroglycer 2018-[id number] 1 Univers in 0.4 mg 2-28 tablet ity of sublingual 00:00: under the [place] tablet 00 tongue Medical every 5 Branch (five) minutes as needed for Chest pain. nitroglycer 2018-[id number] 1 Univers in 0.4 mg 2-28 tablet ity of sublingual 00:00: [place] 00 tongue Medical every 5 Branch (five) minutes as needed for Chest pain. nitroglycer 2018-[id number] 1 Univers in 0.4 mg 2-28 tablet ity of sublingual 00:[place]: [place] 00 tongue Medical every 5 Branch (five) minutes as needed for Chest pain. amLODIPine 2018-02 Yes [id number] 10mg Take 1 Univers 10 mg 2-28 tablet by ity of tablet 00:00: mouth [place] 00 daily. Medical Branch carvedilol 2018-02 Yes [id number] 12.5mg Take 1 Univers 12.5 mg 2-28 tablet by ity of tablet 00:00: mouth 2 [place] 00 (two) Medical times Branch daily with meals. nitroglycer 2018-[id number] 1 Univers in 0.4 mg 2-28 tablet ity of sublingual 00:[place]: [place] 00 tongue Medical every 5 Branch (five) minutes as needed for Chest pain. metFORMIN 2018-02 Yes [id number] 500mg Take 1 Univers 500 mg 2-28 tablet by ity of tablet 00:00: mouth 2 [place] 00 (two) Medical times Branch daily with meals. amLODIPine 2018-02 Yes [id number] 10mg Take 1 Univers 10 mg 2-28 tablet by ity of tablet 00:00: mouth [place] 00 daily. Medical Branch nitroglycer 2018-[id number] 1 Univers in 0.4 mg 2-28 tablet ity of sublingual 00:00: [place] tablet 00 tongue Medical every 5 Branch (five) minutes as needed for Chest pain. amLODIPine 2018-02- No [id number] 10mg Take 1 Univers 10 mg 2-28 02-17 tablet by ity of tablet 00:00: 00:00 mouth [place] 00 :00 daily. Medical Branch carvedilol 2018-02- No [id number] 12.5mg Take 1 Univers 12.5 mg 2-28 08-05 tablet by ity of tablet 00:00: 00:00 mouth 2 [place] 00 :00 (two) Medical times Branch daily with meals. metFORMIN 2018-02- No [id number] 500mg Take 1 Univers 500 mg 2-28 [...] 15:34:00 140 mm[Hg] Univer sity of pressure [place] [facility] Diastolic blood 2020-07-21 15:34:00 80 mm[Hg] Unive rsity of pressure [place] [facility] Heart rate 2020-07-21 15:34:00 70 /min [facility] [place] [facility] Body temperature 2020-07-21 15:34:00 37.11 [facility] ersity of [place] [facility] Respiratory rate 2020-07-21 15:34:00 20 /min Univ ersity of [place] [facility] Oxygen saturation in 2020-07-21 15:34:00 94 /min University of Arterial blood by [place] [employer] Pulse oximetry Branch Body height 2020-07-20 03:29:00 188 cm [facility] [place] [facility] Body weight 2020-07-19 21:14:00 226.799 kg [facility] [place] [facility] BMI 2020-07-19 21:14:00 64.20 kg/m2 [facility] [place] [facility] Systolic blood 2020-04-05 13:18:00 149 mm[Hg] Univer sity of pressure [place] [facility] Diastolic blood 2020-04-05 13:18:00 96 mm[Hg] Unive rsity of pressure [place] [facility] Heart rate 2020-04-05 13:18:00 63 /min [facility] [place] [facility] Body temperature 2020-04-05 13:18:00 36.56 [facility] [place] [facility] Respiratory rate 2020-04-05 13:18:00 18 /min Univ ersity [facility] [place] [facility] Oxygen saturation in 2020-04-05 13:18:00 98 /min University of Arterial blood by [employer] Pulse oximetry Branch Body height 2020-03-27 23:51:00 188 cm [facility] [place] [facility] Body weight 2020-03-27 23:51:00 195.954 kg [facility] [place] [facility] BMI 2020-03-27 23:51:00 55.47 kg/m2 [facility] [place] [facility] Systolic blood 2020-04-05 13:18:00 149 mm[Hg] Univer sity of pressure [place] [facility] Diastolic blood 2020-04-05 13:18:00 96 mm[Hg] Unive rsity of pressure [place] [facility] Heart rate 2020-04-05 13:18:00 63 /min [facility] [place] [facility] Body temperature 2020-04-05 13:18:00 36.56 [facility] [place] [facility] Respiratory rate 2020-04-05 13:18:00 18 /min Univ ersity [facility] [place] [facility] Oxygen saturation in 2020-04-05 13:18:00 98 /min University of Arterial blood by [facility] Pulse oximetry Branch Body height 2020-03-27 23:51:00 188 cm [facility] [place] [facility] Body weight 2020-03-27 23:51:00 195.954 kg [facility] [place] [facility] BMI 2020-03-27 23:51:00 55.47 kg/m2 [facility] [place] [facility] Systolic blood 2019-09-22 18:08:00 149 mm[Hg] Univer sity of pressure [place] [facility] Diastolic blood 2019-09-22 18:08:00 85 mm[Hg] Unive rsity of pressure [place] [facility] Heart rate 2019-09-22 17:06:00 78 /min [facility] [place] [facility] Body temperature 2019-09-22 17:06:00 36.56 [facility] [place] [facility] Respiratory rate 2019-09-22 17:06:00 20 /min Univ ers[facility] [place] [facility] Oxygen saturation in 2019-09-22 17:06:00 98 /min University of Arterial blood by [facility] Pulse oximetry Branch Body weight 2019-09-22 08:31:00 204.482 kg [facility] [place] [facility] BMI 2019-09-22 08:31:00 59.48 kg/m2 [facility] [place] [facility] Body height 2019-09-21 06:30:00 185.4 cm [facility] [place] [facility] Systolic blood 2019-09-22 18:08:00 149 mm[Hg] Univer sity of pressure [place] [facility] Diastolic blood 2019-09-22 18:08:00 85 mm[Hg] Unive rsity of pressure [place] [facility] Heart rate 2019-09-22 17:06:00 78 /min [facility] [place] [facility] Body temperature 2019-09-22 17:06:00 36.56 [facility] [place] [facility] Respiratory rate 2019-09-22 17:06:00 20 /min Univ [facility] [place] [facility] Oxygen saturation in 2019-09-22 17:06:00 98 /min [facility] Arterial blood by [facility] Pulse oximetry Branch Body weight 2019-09-22 08:31:00 204.482 kg [facility] BMI 2019-09-22 08:31:00 59.48 kg/m2 [facility] Body height 2019-09-21 06:30:00 185.4 cm [facility] Procedures Procedure Date / Time Performing Clinician Source Performed BASIC METABOLIC PANEL 2020-07-[address] [facility] (NA, K, CL, CO2, 10:22:00 [facility] GLUCOSE, BUN, CREATININE, CA) CBC WITH DIFF 2020-07-21 Reena Polanco [facility] 10:22:00 [facility] TRANSTHORACIC ECHO (TTE) 2020-07-20 [facility] COMPLETE W/ CONTRAST 16:57:10 [facility] TROPONIN I 2020-07-20 [facility] 07:23:00 [facility] BASIC METABOLIC PANEL 2020-07-20 [facility] (NA, K, CL, CO2, 07:23:00 [facility] GLUCOSE, BUN, CREATININE, CA) LIPID PANEL 2020-07-20 [facility] ([id number])(TOTAL 07:23:00 [facility] CHOLESTEROL, TRIGLYCERIDES, HDL) CBC WITH DIFF 2020-07-20 [facility] 07:23:00 [facility] URINALYSIS 2020-07-20 Reena Osman [facility] 01:48:00 [facility] XR CHEST 1 VW 2020-07-19 Reena Osman [facility] 22:24:55 [facility] COVID-19 (ID NOW RAPID 2020-07-19 Reena Osman [facility] TESTING) 21:54:00 [facility] TROPONIN I 2020-07-19 Reena Osman [facility] 21:52:00 [facility] COMP. METABOLIC PANEL 2020-07-19 Reena Osman [facility] ([id number]) 21:52:00 Medical Branch CBC WITH DIFF 2020-07-19 Reena Osman [facility] xas 21:52:00 Medical Branch PROTHROMBIN TIME / INR 2020-07-19 Reena Osman [facility] 21:52:00 Medical Branch ACTIVATED PARTIAL 2020-07-19 Reena Osman [facility] THRMPLAS ANNETTE 21:52:00 Medical Branch N-TERMINAL PRO-BNP 2020-07-19 Reena Osman [facility] 21:52:00 [facility] Branch HB ECG ROUTINE & RHYTHM 2020-07-19 Reena Osman [facility] STRIP 21:18:23 Medical Branch NOTICE OF PRIVACY 2020-07-19 Doctor Unassigned, No [facility] PRACTICES 21:03:23 Name Medical [place] CONSENT/REFUSAL FOR 2020-07-19 Doctor Unassigned, No [facility] DIAGNOSIS AND TREATMENT 21:02:[address] [facility] POCT GLUCOSE (AUTOMATED) 2020[facility] 13[facility]19:[facility] Branch MAGNESIUM 2020-04-05 [facility] ex 09:46:00 Medical Branch BASIC METABOLIC PANEL 2020-04-05 [facility] (NA, K, CL, CO2, 09:46:00 Medical Branch GLUCOSE, BUN, CREATININE, CA) POCT GLUCOSE (AUTOMATED) 2020-04-05 [facility] 03:02:00 Medical Branch POCT GLUCOSE (AUTOMATED) 2020-04-04 [facility] 23:08:00 Medical Branch POCT GLUCOSE (AUTOMATED) 2020-04-04 [facility] 18:22:00 Medical Branch POCT GLUCOSE (AUTOMATED) 2020-04-04 [facility] 14:44:00 Medical Branch MAGNESIUM 2020-04-04 [facility] exas 09:49:00 Medical Branch BASIC METABOLIC PANEL 2020-04-04 [facility] (NA, K, CL, CO2, 09:49:00 Medical Branch GLUCOSE, BUN, CREATININE, CA) POCT GLUCOSE (AUTOMATED) 2020[facility]04-[facility] 02:03:00 [facility] [place] POCT GLUCOSE (AUTOMATED) 2020-04-03 [facility] 23:39:00 Medical Branch POCT GLUCOSE (AUTOMATED) 2020-04-03 [facility] 17:49:00 Medical Branch POCT GLUCOSE (AUTOMATED) 2020-04-03 [facility] 13:05:00 Medical Branch MAGNESIUM 2020-04-03 [facility] Branch BASIC METABOLIC PANEL [facility], CL, CO2, 10:08:00 Medical Branch GLUCOSE, BUN, CREATININE, CA) POCT GLUCOSE (AUTOMATED) 2020-04-03 [facility] 01:58:00 Medical Branch POCT GLUCOSE (AUTOMATED) 2020-04-02 [facility] 23:26:00 Medical Branch POCT GLUCOSE (AUTOMATED) 2020-04-02 [facility] 17:31:00 Medical Branch POCT GLUCOSE (AUTOMATED) 2020-04-02 [facility] 14:35:00 Medical Branch MAGNESIUM 2020-04-02 [facility] 11:53:00 [facility] [place] BASIC METABOLIC PANEL 2020-04-02 [facility] ([facility], K, CL, CO2, 11:53:00 Medical Branch GLUCOSE, BUN, CREATININE, CA) POCT GLUCOSE (AUTOMATED) 2020-04-02 [facility] 02:36:00 Medical Branch POCT GLUCOSE (AUTOMATED) 2020-04-01 [facility] 23:42:00 Medical Branch POCT GLUCOSE (AUTOMATED) 2020-04-01 [facility] 19:39:00 Medical Branch POCT GLUCOSE (AUTOMATED) 2020-04-01 [facility] 14:34:00 Medical Branch MAGNESIUM 2020-04-01 [facility] 10:02:00 Medical Branch BASIC METABOLIC PANEL 2020-04-01 [facility] (NA, K, CL, CO2, 10:02:00 Medical Branch GLUCOSE, BUN, CREATININE, CA) POCT GLUCOSE (AUTOMATED) 2020-04-01 [facility] 02:21:00 Medical Branch POCT GLUCOSE (AUTOMATED) 2020-03-31 [facility] 23:19:00 Medical Branch POCT GLUCOSE (AUTOMATED) 2020-03-31 [facility] 17:58:00 Medical Branch POCT GLUCOSE (AUTOMATED) 2020-03-31 [facility] 14:10:00 Medical Branch CREATINE KINASE 2020-03-31 [place] Abdelrahman [facility] 09:52:00 Medical Branch MAGNESIUM 2020-03-31 [facility] ex 09:52:00 [facility] Branch BASIC METABOLIC PANEL 2020-03-31 [facility] (NA, K, CL, CO2, 09:52:00 Medical Branch GLUCOSE, BUN, CREATININE, CA) CBC WITH DIFF 2020-03-31 [facility] 09:52:00 [facility] D-DIMER 2020-03-31 [facility] 09:52:00 [facility] PROCALCITONIN 2020-03-31 [facility] 09:52:00 [facility] Branch XR CHEST 1 VW 2020-03-31 [facility] 09:20:00 [facility] POCT GLUCOSE (AUTOMATED) 2020-03-31 [facility] 01:36:00 Medical Branch POCT GLUCOSE (AUTOMATED) 2020-03-30 [facility] 22:31:00 Medical Branch POCT GLUCOSE (AUTOMATED) 2020-03-30 [facility] 17:51:00 Medical Branch POCT GLUCOSE (AUTOMATED) 2020-03-30 [facility] 14[facility]26:00 Medical Branch MAGNESIUM 2020-03-30 [facility]as 09:19:00 Medical Branch BASIC METABOLIC PANEL 2020-03-30 [facility] (NA, K, CL, CO2, 09:19:00 Medical Branch GLUCOSE, BUN, CREATININE, CA) POCT GLUCOSE (AUTOMATED) 2020-03-30 [facility] 02:26:00 [facility] [place] POCT GLUCOSE (AUTOMATED) 2020-03-29 [facility] 22:03:00 [facility] [place] POCT GLUCOSE (AUTOMATED) 2020-03-29 [facility] 14:23:00 Medical Branch CREATINE KINASE 2020-03-29 [place] Abdelrahman [facility] 07:58:00 Medical Branch MAGNESIUM 2020-03-29 [facility] ex 07:58:00 [facility] [place] BASIC METABOLIC PANEL 2020-03-29 [facility] (NA, K, CL, CO2, 07:58:00 Medical Branch GLUCOSE, BUN, CREATININE, CA) POCT GLUCOSE (AUTOMATED) 2020-03-29 [facility] 02:48:00 [facility] [place] POCT GLUCOSE (AUTOMATED) 2020-03-28 [facility] 23:29:00 [facility] [place] POCT GLUCOSE (AUTOMATED) 2020-03-28 [facility] 17:48:00 [facility] [place] POCT GLUCOSE (AUTOMATED) 2020-03-28 [facility] 14:22:00 Medical Branch CREATINE KINASE 2020-03-28 [facility] 14:16:00 Medical Branch MAGNESIUM 2020-03-28 [facility] 14:16:00 Medical Branch BASIC METABOLIC PANEL 2020-03-28 [facility] (NA, K, CL, CO2, 14:16:00 Medical Branch GLUCOSE, BUN, CREATININE, CA) CBC WITH DIFF 2020-03-28 Kehinde [facility] 11:16:00 [facility] URINALYSIS 2020-03-28 [facility]00 [facility] CREATININE, URINE RANDOM 2020-03-[facility]00 [facility] SODIUM, URINE RANDOM 2020-03-28 [facility]00 [facility] HB ECG ROUTINE & RHYTHM 2020-03-28 [facility] 02:51[facility]07 [facility] POCT GLUCOSE (AUTOMATED) 2020-03-28 [facility] 02:38:00 [facility] LACTATE DEHYDROGENASE 2020-03-28 [facility] 00:53:00 [facility] MAGNESIUM 2020-03-28 [facility]53[facility]00 [facility] C-REACTIVE PROTEIN 2020-03-28 [facility] 00:53:00 [facility] BASIC METABOLIC PANEL 2020-03-28 [facility] (NA, K, CL, CO2, 00:53:00 [facility] GLUCOSE, BUN, CREATININE, CA) PROCALCITONIN 2020-03-28 [facility] 00:53:00 [facility] D-DIMER 2020-03-28 [facility] 00:52:00 [facility] HB ECG ROUTINE & RHYTHM 2020-03-27 Reena Osman [facility] STRIP 20:21:35 [facility] XR CHEST 1 VW 2020-03-27 Reena Osman [facility] xas 19:35:51 [facility] CREATINE KINASE 2020-03-27 [facility] 19:06:00 [facility] LIPASE 2020-03-27 Reena Osman [facility]as 19:06:00 [facility] TROPONIN I 2020-03-27 Reena Osman [facility]as 19:06:00 [facility] COMP. METABOLIC PANEL 2020-03-27 Reena Osman [facility] ([id number]) 19:06:00 Medical Branch CBC WITH DIFF 2020-03-27 Reena Osman [facility]as 19:06:00 Medical Branch GLYCOSYLATED HEMOGLOBIN 2020-03-27 Kehinde, Steven [facility] (A1C) 19:06:00 [facility] PROTHROMBIN TIME / INR 2020-03-27 Reena Osman [facility] 19:06:00 [facility] Branch ACTIVATED PARTIAL 2020-03-27 Reena Osman [facility] THRMPLAS ANNETTE 19:06:00 [facility] COVID-19 (ID NOW RAPID 2020-03-27 Reena Osman [facility] TESTING) 19:06:00 [facility] LAB ONLY COVID 2020-03-27 Reena Osman [facility] INTERPRETATION 19:06:00 [facility] CONSENT/REFUSAL FOR 2020-03-27 Doctor Unassigned, No [facility] DIAGNOSIS AND TREATMENT 18:10:[address] [facility] HOSPITAL ADMISSION 2020-03-27 Doctor Unassigned, No [facility] 06:01:[address] [facility] POCT GLUCOSE (AUTOMATED) 2019-09-22 [facility] 17:09:00 [facility] POCT GLUCOSE (AUTOMATED) 2019-09-22 [facility] 12:25:00 [facility] COMP. METABOLIC PANEL 2019-09-22 [id number] 10:18:00 [facility] CBC WITH DIFF 2019-09-22 [facility] xas 10:18:00 [facility] POCT GLUCOSE (AUTOMATED) 2019-09-22 [facility] 01:29:00 [facility] TROPONIN I 2019-09-[address] [facility] xas 21:24:00 [facility] EBV-MONONUCLEOSIS SCREEN 2019-09-21 [facility] 21:24:00 [facility] RAPID STREP SCREEN FOR 2019-09-21 [facility] A 21:24:00 [facility] POCT GLUCOSE (AUTOMATED) 2019-09-21 [facility] 20:50:00 [facility] POCT GLUCOSE (AUTOMATED) 2019-09-[address] [facility] 16:39:00 [facility] POCT GLUCOSE (AUTOMATED) 2019-09-21 [facility] 12:44:00 [facility] TROPONIN I 2019-09-[address] [place] 08:57:00 [facility] POCT GLUCOSE (AUTOMATED) 2019-09-21 [facility] 06:51:00 [facility] POCT GLUCOSE (AUTOMATED) 2019-09-21 Russ Lindsey [facility] 03:38:00 [facility] US GALL BLADDER 2019-09-21 Russ [facility] ex 02:33:37 [facility] COVID-19 (ID NOW RAPID 2019-09-21 Russ [facility] TESTING) 00:56:00 [facility] LIPASE 2019-09-21 Russ [facility] ex 00:48:00 [facility] TROPONIN I 2019-09-21 Russ [facility] ex 00:48:00 [facility] HEPATIC FUNCTION PANEL 2019-09-21 Russ [facility] ([id number]) (ALB,T.PRO,BILI 00:48:00 [facility] T,BU/BC,ALT,AST,ALK PHOS) BASIC METABOLIC PANEL 2019-09-21 [facility] (NA, K, CL, CO2, 00:48:00 [facility] [place] GLUCOSE, BUN, CREATININE, CA) CBC WITH DIFF 2019-09-21 Russ [facility] ex 00:48:00 [facility] GLYCOSYLATED HEMOGLOBIN 2019-09-21 [facility] (A1C) 00:48:00 [facility] PROTHROMBIN TIME / INR 2019-09-21 Russ [facility] 00:48:00 [facility] D-DIMER 2019-09-21 Russ [facility] exas 00:48:00 [facility] ACTIVATED PARTIAL 2019-09-21 Russ [facility] THRMPLAS ANNETTE 00:48:00 Medical Branch URINALYSIS 2019-09-21 Lindsey Solano [facility] exas 00:48:00 Medical Branch XR CHEST 1 VW COVID 2019-09-21 Lindsey Solano [facility] 00:45:44 Medical Branch EKG-12 LEAD 2019-09-21 Lindsey Solano [facility] exas 00:37:42 Medical Branch EKG-12 LEAD 2019-09-21 Lindsey Solano [facility] ex 00:03:13 Medical Branch NOTICE OF PRIVACY 2019-09-20 Doctor Unassigned, No [facility] PRACTICES 23:46:20 Name Medical Branch CONSENT/REFUSAL FOR 2019-09-20 Doctor Unassigned, No [facility] DIAGNOSIS AND TREATMENT 23:46:03 Name Medical Branch ASSIGNMENT OF BENEFITS 2019-09-20 Doctor Unassigned, No [facility] 23:45:45 Name Medical Branch Encounters Start End Encounter Admission Attending Care Care Encounter Source Date/Time Date/Time Type Type Clinicians Facility Department ID 2021-03-14 Outpatient Pearson, [place] [id number] [facility] [address] 12:26:03 Akash [id number] [facility] 2021-03-14 Outpatient Pearson, [place] [id number] 12:24:49 Akash [id number] [facility] 2021-03-14 Outpatient Pearson, [place] [id number] 12:22:47 Akash [id number] [facility] 2021-03-14 Outpatient Pearson, [place] [id number] 12:01:43 Akash [id number] [facility] 2021-03-14 Outpatient Pearson, [place] [id number] 11:59:47 Akash [id number] [facility] 2021-03-14 Outpatient Pearson, [place] [id number] 11:49:16 Akash [id number] [facility] 2021-03-14 Outpatient Pearson, [place] [id number] 11:30:40 Akash [id number] [facility] 2021-03-14 Outpatient Pearson, [facility] [id number] 11:29:01 Akash [id number] [facility] 2021-03-14 Outpatient Pearson, [facility]ML[facility] [id number] 11:27:32 Akash [id number] [facility] 2020-07-19 2020-07-21 Emergency Reena Osman [facility] [id number] Univers 16:16:00 13:27:00 Agatha Ngo [id number] ity Basim Oates [id number] [facility] [id number] [facility] 081 Branch 2020-07-19 2020-07-19 Emergency X DAWSON [facility] ERT [id number] Univers 16:16:00 16:16:00 REENA ity [facility] 2020-07-19 2020-07-19 Orders Doctor PEPE [id number] Univers 00:00:00 00:00:00 Only Unassigned, STACY [id number] [facility] [id number] [place] as [id number] [facility] 009 Branch 2020-04-19 2020-04-19 [id number] 2020-04-07 2020-04-07 Transition Davida Stiles [id number] Univers 00:00:00 00:00:00 of Care Loretta Iglesias [id number] i [id number] [id number] [facility] 403 Branch 2020-04-07 2020-04-07 Transition Davida Stiles [id number] 00:00:00 00:00:00 of Care Loretta Iglesias [id number] [place] [id number] 2020-03-27 2020-04-05 [facility] Reena Osman Sylvie [id number] [facility] 12:27:00 11:30:00 Encounter Socrates Hobbs [id number] ity of [facility] [id number] [place] Socrates Hobbs [id number] [address] 2020-03-27 2020-04-05 [facility] [id number] 12:27:00 11:30:00 Encounter Socrates Hobbs Stacy [id number] [facility] [id number] Socrates Hobbs [id number] [facility] 2020-03-27 2020-03-27 Emergency X [facility] ERT [id number] Univers 12:11:00 12:11:00 ity [facility] 2020-03-15 2020-03-15 ambulatory [facility]MLC [facility] [id number] [facility]00 [facility] ent Clinics 2019-11-12 2019-11-12 Outpatient [facility] [id number] [facility] 00:[facility]:00 [facility] l [facility] ent Clinics 2019-10-19 2019-10-19 Letter PEPE Diamond [id number] Univers 00:00:00 00:00:00 (Out) Patient STACY [id number] [facility] [id number] [place] [id number] [address] 2019-10-19 2019-10-19 Letter PEPE Diamond 1.2.840.114 [id number] 00:00:00 00:00:00 (Out) Patient STACY 350.1.13.10 Does Not HOSPITAL 4.2.7.2.686 Have A [id number] 2019-09-20 2019-09-22 Emergency Lindsey Solano [facility] 1.2.840 .114 [id number] Univers 19:20:00 13:55:00 Tiny Ramos 350.1.13.10 ity of [place] 4.2.7.2.686 [facility] Ward [id number] [facility] [address] 2019-09-20 2019-09-22 Emergency CacLindsey cisneros [facility] 1.2.840 .114 [id number] 19:20:00 13:55:00 Tiny Ramos 350.1.13.10 [place] 4.2.7.2.686 Ward [id number] [facility] 2019-09-20 2019-09-20 Outpatient X RACHEL [facility] [id number] Univers 19:20:00 19:20:00 VERA ity of [facility] 2019-09-20 2019-09-20 Orders Doctor PEPE 1.2.840.114 [id number] Univers 00:00:00 00:00:00 Only Unassigned, STACY 350.1.13.10 [place]y of [place] [facility] 4.2.7.2.686 [facility] [id number] [facility] [address] 2019-09-20 2019-09-20 Orders Doctor PEPE 1.2.840.114 [id number] 00:00:00 00:00:00 Only Unassigned, STACY 350.1.13.10 [place] [facility] 4.2.7.2.686 [id number] 2019-09-16 2019-09-16 [facility] [id number] 13:28:00 13:28:00 [facility] Medicine Outpati ent Clinics 2019-09-14 2019-09-14 [facility] [id number] 15:48:00 15:48:00 [employer] [facility] Medicine Outpati ent Clinics 2019-08-27 2019-08-27 [facility] [id number] 13:17:00 13:17:00 [employer] [facility] Medicine Outpati ent Clinics 2019-08-27 2019-08-27 Outpatient Austin Caldwell [address] 10:45:00 10:45:[address] [facility] 2019-08-06 2019-08-06 Outpatient Austin Caldwell [address] 10:00:00 10:00:00 [facility] 2019-02-13 2019-02-13 Outpatient MELANIE DEL TORO [facility] [id number] Univers 00:34:24 13:28:00 [facility] Results Test Description Test Time Test Comments Results Result Comments Source BASIC METABOLIC PANEL (NA, K, CL, CO2, GLUCOSE, BUN, 2020-07 11:20:35 CREATININE, CA) Test Item Value Reference Range Interpretation Comme nts NA (test code = 6577085664) 140 mmol/L 135-145 K (test code = 7599604556) 3.7 mmol/L 3.5-5.0 CL (test code = 2819711329) 104 mmol/L 98-108 CO2 TOTAL (test code = 6010803073) 33 mmol/L 23-31 H AGAP (test code = 2926438331) 2-16 BUN (test code = 1084765342) 17 mg/dL 7-23 GLUCOSE (test code = 0029893276) 130 mg/dL 70-110 H CREATININE (test code = 1.10 mg/dL 0.60-1.25 3200034032) CALCIUM (test code = 7364499048) 9.5 mg/dL 8.6-10.6 eGFR (test code = 2594093522) mL/min/1.73m2 PAULIE (test code = PAULIE) Association [...] tests). Lab Interpretation (test code = Abnormal 50725-0) [facility] WITH [id number] 11:05:32 Test Item Value Reference Range Interpretation Comments WBC (test code = See_Comment [Automated message] 6690-2) The system [employer] generated this result transmitted ref erence range: 4.20 - 1 0.70 10*3/?L. The re ference range was not u sed to interpret this result as normal/abnor mal. RBC (test code = See_Comment [Automated message] 789-8) The system [employer] generated this result transmitted ref erence range: [...] RDW-SD (test code 40.5 fL 38.5-51.6 = 46758-0) RDW-CV (test code 13.5 % 12.1-15.4 = 788-0) PLT (test code = See_Comment [Automated message] 777-3) The system whic h generated this result transmitted ref erence range: 150 - 32 8 10*3/?L. The re ference range was not u sed to interpret this result as normal/abnor mal. MPV (test code = 11.8 fL 9.8-13.0 02756-8) NRBC/100 WBC (test See_Comment [Automat ed message] code = 6096111462) The syste m which generated this result transmitted ref erence range: 0.0 - 10 .0 /100 WBCs. The refer ence range was not u sed to interpret this result as normal/abnor mal. NRBC x10^3 (test <0.01 See_Comment [Automated message] code = 4836740804) The syste m which generated this result transmitted ref erence range: 10*3/?L. The reference range was not used to interpr et this result as normal/abnormal . GRAN MAT (NEUT) % 45.8 % (test code = 770-8) IMM GRAN % (test 0.30 % code = 7735639880) LYMPH % (test code 38.0 % = 736-9) MONO % (test code 11.4 % = 5905-5) EOS % (test code = 4.2 % 713-8) BASO % (test code 0.3 % = 706-2) GRAN MAT 2.73 10*3/uL 1.99-6.95 x10^3(ANC) (test code = 9736309705) IMM GRAN x10^3 <0.03 0.00-0.06 (test code = 2330766768) LYMPH x10^3 (test 2.27 10*3/uL 1.09-3.23 code = 731-0) MONO x10^3 (test 0.68 10*3/uL 0.36-1.02 code = 742-7) EOS x10^3 (test 0.25 10*3/uL 0.06-0.53 code = 711-2) BASO x10^3 (test <0.03 0.01-0.09 code = 704-7) [facility] (Total Cholesterol, Triglycerides, HDL)2020-07-20 10:59:54 Test Item Value Reference Range Interpretation Comments CHOL (test code = 221 mg/dL 120-200 H 5056462296) HDL (test code = 31 mg/dL >40 L 5578696553) HDLC RATIO (test code = See_Comment H [Au tomated message] 6217300393) The system [employer] generated this result transmit jordon reference range : <=5.0. The refe rence range was not u sed to interpret th is result as normal/abnormal . TRIG (test code = 224 mg/dL 30-170 H 2944311384) LDL CHOL (test code = 145 mg/dL See_Comment [Auto mated message] 63500-7) The system [employer] generated this result transmit jordon reference range : <=160. The refe rence range was not u sed to interpret th is result as normal/abnormal . VLDL (test code = 45 mg/dL 5-60 9841824426) Lab Interpretation (test Abnormal code = 56513-3) [facility] [id number] 08:11:00 Test Item Value Reference Range Interpretation Comments TROPONIN I (test 0.009 ng/mL See_Comment [Automated code = 0114452282) message] The system which generated this result [...] ? Lab Interpretation Normal (test code = 95562-5) [facility] (NA, K, CL, CO2, GLUCOSE, BUN, CREATININE, CA)2020-07-20 08:00:59 Test Item Value Reference Range Interpretation Comments NA (test code = 136 mmol/L 135-145 3445524524) K (test code = 4.4 mmol/L 3.5-5.0 6645653031) CL (test code = 104 mmol/L 98-108 6000824197) CO2 TOTAL (test code = 28 mmol/L 23-31 9489943053) AGAP (test code = 2-16 3132986125) BUN (test code = 17 mg/dL 7-23 1539522979) GLUCOSE (test code = 126 mg/dL 70-110 H 0637377825) CREATININE (test code = 0.91 mg/dL 0.60-1.25 2713009723) CALCIUM (test code = 9.2 mg/dL 8.6-10.6 4472856806) eGFR (test code = mL/min/1.73m2 4002931284) PAULIE (test code = PAULIE) Association of [...] tests). Lab Interpretation Abnormal (test code = 83574-8) [facility] with [id number] 07:31:36 Test Item Value Reference Range Interpretation Comments WBC (test code = See_Comment [Automated 6779-2) message] The sy stem which generated this result transmitted reference range : 4.20 - 10.70 10*3/?L. The reference range was not used to interpret this result as normal/abnormal . RBC (test code = See_Comment [Automated 419-8) message] The sy stem which generated this [...] RDW-SD (test code = 40.1 fL 38.5-51.6 72346-2) RDW-CV (test code = 13.7 % 12.1-15.4 788-0) PLT (test code = See_Comment [Automated 777-3) message] The sy stem which generated this result transmitted reference range : 150 - 328 10*3/ ?L. The reference r lorena was not used to interpret this result as normal/abnormal . MPV (test code = 12.2 fL 9.8-13.0 96504-9) NRBC/100 WBC (test See_Comment [Automat ed code = 5467540275) message] The system which generated this result transmitted reference range : 0.0 - 10.0 /100 WBCs. The refer ence range was not u sed to interpret th is result as normal/abnormal . NRBC x10^3 (test code <0.01 See_Comment [Auto mated = 5804857502) message] The s ystem which generated this result transmitted reference range : 10*3/?L. The reference range was not used to interpret this result as normal/abnormal . GRAN MAT (NEUT) % 46.2 % (test code = 770-8) IMM GRAN % (test code 0.30 % = 1571941653) LYMPH % (test code = 37.1 % 736-9) MONO % (test code = 11.5 % 5905-5) EOS % (test code = 4.5 % 713-8) BASO % (test code = 0.4 % 706-2) GRAN MAT x10^3(ANC) 3.38 10*3/uL 1.99-6.95 (test code = 4191218515) IMM GRAN x10^3 (test <0.03 0.00-0.06 code = 4969727428) LYMPH x10^3 (test code 2.71 10*3/uL 1.09-3.23 = 731-0) MONO x10^3 (test code 0.84 10*3/uL 0.36-1.02 = 742-7) EOS x10^3 (test code = 0.33 10*3/uL 0.06-0.53 711-2) BASO x10^3 (test code 0.03 10*3/uL 0.01-0.09 = 704-7) Lab Interpretation Abnormal (test code = 17557-5) [facility] 02:06:55 Test Item Value Reference Range Interpretation Comments APPEARANCE (test code = Clear Clear 5816905709) COLOR (test code = Yellow Yellow 0435492724) PH (test code = 4.8-8.0 1142245373) SP GRAVITY (test code = 1.003-1.030 0759131372) GLU U QUAL (test code = Normal Normal 8316697620) BLOOD (test code = Negative Negative 2421891914) KETONES (test code = Negative Negative 5701392766) PROTEIN (test code = 100 mg/dL Negative A 2887-8) UROBILIN (test code = Normal Normal 2075379234) BILIRUBIN (test code = Negative Negative 6138247605) NITRITE (test code = Negative Negative 9525731752) LEUK LACI (test code = Negative Negative 0365637501) RBC/HPF (test code = See_Comment [Autom ated message] 7524890952) The system [employer] generated this result transmit jordon reference range : 0 - 3 HPF. The refe rence range was not u sed to interpret th is result as normal/abnormal . WBC/HPF (test code = See_Comment [Autom ated message] 0504673491) The system [employer] generated this result transmit jordon reference range : 0 - 5 HPF. The refe rence range was not u sed to interpret th is result as normal/abnormal . BACTERIA (test code = Negative Negative 0139630602) MUCOUS (test code = Slight Negative LPF A 9984337585) AMORPHOUS (test code = Rare Rare HPF 1627209318) Lab Interpretation (test Abnormal code = 97376-1) [facility] 1 [id number] 23:50:24 No acute intrathoracic abnormality.PROCEDURE: XR CHEST 1 VW CLINICAL INDICATION: chest pain COMPARISON: 03/31/2020 FINDINGS: The lungs are poor expanded with perihilar vascular crowding. Previous seenbilateral airspace opacities have resolved. Lungs are relative clear.No pleural effusion or pneumothorax is seen. The cardiomediastinal silhouette is normal. No acute bony abnormality. [facility], Radiant Results Inft User - 07/19/2020 6:51 PM CDT PROCEDURE: XR CHEST 1 VWCLINICAL INDICATION: chest pain COMPARISON: 03/31/2020FINDINGS:The lungs are poor expanded with perihilar vascular crowding. Previous seenbilateral airspace opacities have resolved. Lungs are relative clear.No pleural effusion or pneumothorax is seen. The cardiomediastinal silhouette is normal. No acute bony abnormality.IMPRESSIONNo acute intrathoracic abnormality.[facility] 2020-07-19 22:38:45 Test Item Value Reference Range Interpretation Comments TROPONIN I (test 0.002 ng/mL See_Comment [Automated code = 4428361774) message] The system which generated this result [...] ? Lab Interpretation Normal (test code = 39886-3) [facility]MINAL [id number] 22:35:25 Test Item Value Reference Range Interpretation Comments NT-proBNP (test code 38 pg/mL See_Comment [Autom ated = 2589103394) message] The system which generated this result transmitted reference range : <=125. The reference range was not used to interpret this result as normal/abnormal . PAULIE (test code = PAULIE) Biotin has been reported to cause a negative bias, interpret results relative to patient's use of biotin. Lab Interpretation Normal (test code = 62692-1) [facility]. METABOLIC PANEL (87641)2020-07-19 22:27:43 Test Item Value Reference Range Interpretation Comments NA (test code = 140 mmol/L 135-145 0478588195) K (test code = 3.1 mmol/L 3.5-5.0 L 3150057417) CL (test code = 101 mmol/L 98-108 2793774674) CO2 TOTAL (test code = 32 mmol/L 23-31 H 2690888991) AGAP (test code = 2-16 2506918924) BUN (test code = 16 mg/dL 7-23 6131016876) GLUCOSE (test code = 105 mg/dL 70-110 3033882774) CREATININE (test code = 1.05 mg/dL 0.60-1.25 9278942387) TOTAL BILI (test code = 0.6 mg/dL 0.1-1.4 2967091116) CALCIUM (test code = 9.9 mg/dL 8.6-10.6 2128034071) T PROTEIN (test code = 7.7 g/dL 6.3-8.2 1821098566) ALBUMIN (test code = 4.3 g/dL 3.5-5.0 7615529855) ALK PHOS (test code = 59 U/L 34-122 6409689926) ALTv (test code = 28 U/L 5-50 1742-6) AST(SGOT) (test code = 29 U/L 13-40 8101052480) eGFR (test code = mL/min/1.73m2 4196172406) PAULIE (test code = PAULIE) Association of [...] tests). Lab Interpretation Abnormal (test code = 25903-3) [facility] (ID NOW RAPID TESTING)2020-07-19 22:22:01 Test Item Value Reference Range Interpretation Comments SARS-CoV-2 Rapid ID NOW Not Detected Not Detected (test code = 78506-1) PAULIE (test code = PAULIE) ID NOW COVID-19 Assay is an isothermal nucleic acid amplification test intended for the qualitative detection of nucleic acid from SARS-CoV-2 viral RNA in nasopharyngeal (BUTTON CUTTER) specimens. It is used under Emergency Use [...] indicated. Lab Interpretation Normal (test code = 88802-3) [facility] HospitalACT[facility] PARTIAL THRMPLAS [id number] 22:17:39 Test Item Value Reference Range Interpretation Comments APTT Patient (test See_Comment [Automat ed code = 3173-2) message] The system which generated this result transmitted reference range : 23 - 38 Seconds . The reference range was not used to interpr et this result as normal/abnormal . PAULIE (test code = PAULIE) The [facility] patient population mean normal value for aPTT is 30 seconds. Lab Interpretation Normal (test code = 96354-6) [facility] HospitalPROTHROMBIN TIME / [id number] 22:15:42 Test Item Value Reference Range Interpretation [...] tions. Lab Interpretation (test Normal code = 70394-5) [facility] WITH [id number] 22:11:00 Test Item Value Reference Range Interpretation Comments WBC (test code = See_Comment [Automated 2890-2) message] The sy stem which generated this result transmitted reference range : 4.20 - 10.70 10*3/?L. The reference range was not used to interpret this result as normal/abnormal . RBC (test code = See_Comment [Automated 589-8) message] The sy stem which generated this [...] RDW-SD (test code = 39.2 fL 38.5-51.6 51304-8) RDW-CV (test code = 13.6 % 12.1-15.4 788-0) PLT (test code = See_Comment [Automated 977-3) message] The sy stem which generated this result transmitted reference range : 150 - 328 10*3/ ?L. The reference r lorena was not used to interpret this result as normal/abnormal . MPV (test code = 11.7 fL 9.8-13.0 63116-2) NRBC/100 WBC (test See_Comment [Automat ed code = 2181637468) message] The system which generated this result transmitted reference range : 0.0 - 10.0 /100 WBCs. The refer ence range was not u sed to interpret th is result as normal/abnormal . NRBC x10^3 (test code <0.01 See_Comment [Auto mated = 5553199692) message] The s ystem which generated this result transmitted reference range : 10*3/?L. The reference range was not used to interpret this result as normal/abnormal . GRAN MAT (NEUT) % 51.1 % (test code = 770-8) IMM GRAN % (test code 0.20 % = 8745406229) LYMPH % (test code = 34.2 % 736-9) MONO % (test code = 10.2 % 5905-5) EOS % (test code = 4.1 % 713-8) BASO % (test code = 0.2 % 706-2) GRAN MAT x10^3(ANC) 4.47 10*3/uL 1.99-6.95 (test code = 2771919856) IMM GRAN x10^3 (test <0.03 0.00-0.06 code = 4493187476) LYMPH x10^3 (test code 3.00 10*3/uL 1.09-3.23 = 731-0) MONO x10^3 (test code 0.89 10*3/uL 0.36-1.02 = 742-7) EOS x10^3 (test code = 0.36 10*3/uL 0.06-0.53 711-2) BASO x10^3 (test code <0.03 0.01-0.09 = 704-7) Lab Interpretation Abnormal (test code = 26960-6) [facility] (AUTOMATED)2020-04-05 13:25:00 Test Item Value Reference Range Interpretation Comments POCT GLU (test code = 7394722359) 100 mg/dL 70-110 Lab Interpretation (test code = Normal 48573-8) [facility] METABOLIC PANEL (NA, K, CL, CO2, GLUCOSE, BUN, CREATININE, CA)2020-04-05 10:09:00 Test Item Value Reference Range Interpretation Comments NA (test code = 138 mmol/L 135-145 1157836634) K (test code = 4.4 mmol/L 3.5-5 2363723876) CL (test code = 105 mmol/L 98-108 2704593434) CO2 TOTAL (test code = 31 mmol/L 23-31 8369075445) AGAP (test code = 2-16 1435194320) BUN (test code = 20 mg/dL 7-23 7795246981) GLUCOSE (test code = 125 mg/dL 70-110 H 7320501265) CREATININE (test code = 1.13 mg/dL 0.6-1.25 3327191807) CALCIUM (test code = 8.9 mg/dL 8.6-10.6 5478299540) eGFR Calculation mL/min/1.73m2 (Non-) (test code = 6104407213) eGFR Calculation mL/min/1.73m2 () (test code = 0720928041) PAULIE (test code = PAULIE) Association of [...] tests). Lab Interpretation Abnormal (test code = 46380-7) [facility]2021-02-17 10:09:00 Test Item Value Reference Range Interpretation Comments MAGNESIUM (test code = 0253895641) 2.1 mg/dL 1.7-2.4 Lab Interpretation (test code = Normal 45344-2) [facility] GLUCOSE (AUTOMATED)2020-04-05 03:04:00 Test Item Value Reference Range Interpretation Comments POCT GLU (test code = 3898066936) 157 mg/dL 70-110 H Lab Interpretation (test code = Abnormal 71546-9) [facility] GLUCOSE (AUTOMATED)2020-04-04 23:48:00 Test Item Value Reference Range Interpretation Comments POCT GLU (test code = 8035353555) 151 mg/dL 70-110 H Lab Interpretation (test code = Abnormal 77931-5) [facility] GLUCOSE (AUTOMATED)2020-04-04 18:26:00 Test Item Value Reference Range Interpretation Comments POCT GLU (test code = 7275033317) 101 mg/dL 70-110 Lab Interpretation (test code = Normal 59064-7) [facility] GLUCOSE (AUTOMATED)2020-04-04 14:47:00 Test Item Value Reference Range Interpretation Comments POCT GLU (test code = 2107488797) 110 mg/dL 70-110 Lab Interpretation (test code = Normal 63955-6) [facility] METABOLIC PANEL (NA, K, CL, CO2, GLUCOSE, BUN, CREATININE, CA)2020-04-04 10:20:00 Test Item Value Reference Range Interpretation Comments NA (test code = 137 mmol/L 135-145 7412500573) K (test code = 4.3 mmol/L 3.5-5 Slight 7203343563) hemolysis CL (test code = 104 mmol/L 98-108 6602308587) CO2 TOTAL (test code 30 mmol/L 23-31 = 8376205128) AGAP (test code = 2-16 6461626781) BUN (test code = 18 mg/dL 7-23 Slight 7044766323) hemolysis GLUCOSE (test code = 117 mg/dL 70-110 H 7190643559) CREATININE (test code 0.97 mg/dL 0.6-1.25 = 7141207125) CALCIUM (test code = 8.8 mg/dL 8.6-10.6 4607381495) eGFR Calculation mL/min/1.73m2 (Non-) (test code = 7540891060) eGFR Calculation mL/min/1.73m2 () (test code = 5968081725) PAULIE (test code = PAULIE) Association of [...] tests). Lab Interpretation Abnormal (test code = 18485-7) [facility] Test Item Value Reference Range Interpretation Comments MAGNESIUM (test code = 0290049274) 2.0 mg/dL 1.7-2.4 Lab Interpretation (test code = Normal 83808-7) [facility] GLUCOSE (AUTOMATED)2020-04-04 02:09:00 Test Item Value Reference Range Interpretation Comments POCT GLU (test code = 6177886444) 141 mg/dL 70-110 H Lab Interpretation (test code = Abnormal 18223-2) [facility] GLUCOSE (AUTOMATED)2020-04-03 23:40:00 Test Item Value Reference Range Interpretation Comments POCT GLU (test code = 0865590100) 144 mg/dL 70-110 H Lab Interpretation (test code = Abnormal 92253-7) [facility] GLUCOSE (AUTOMATED)2020-04-03 17:51:00 Test Item Value Reference Range Interpretation Comments POCT GLU (test code = 2549758915) 93 mg/dL 70-110 Lab Interpretation (test code = Normal 14800-5) [facility] GLUCOSE (AUTOMATED)2020-04-03 13:06:00 Test Item Value Reference Range Interpretation Comments POCT GLU (test code = 7208503198) 102 mg/dL 70-110 Lab Interpretation (test code = Normal 30008-5) [facility] METABOLIC PANEL (NA, K, CL, CO2, GLUCOSE, BUN, CREATININE, CA)2020-04-03 10:58:00 Test Item Value Reference Range Interpretation Comments NA (test code = 138 mmol/L 135-145 8489739787) K (test code = 3.6 mmol/L 3.5-5 9337809725) CL (test code = 103 mmol/L 98-108 9389208133) CO2 TOTAL (test code = 31 mmol/L 23-31 0197759537) AGAP (test code = 2-16 6300945855) BUN (test code = 13 mg/dL 7-23 5053448696) GLUCOSE (test code = 110 mg/dL 70-110 4361771049) CREATININE (test code 0.99 mg/dL 0.6-1.25 = 1778524542) CALCIUM (test code = 8.7 mg/dL 8.6-10.6 8502907480) eGFR Calculation mL/min/1.73m2 (Non-) (test code = 4454699876) eGFR Calculation mL/min/1.73m2 () (test code = 2874672517) PAULIE (test code = PAULIE) Association of [...] or urine or abnormalities in imaging tests). [facility]58[facility] Test Item Value Reference Range Interpretation Comments MAGNESIUM (test code = 1418285395) 1.9 mg/dL 1.7-2.4 Lab Interpretation (test code = Normal 16555-7) [facility] GLUCOSE (AUTOMATED)2020-04-03 01:59:00 Test Item Value Reference Range Interpretation Comments POCT GLU (test code = 8134127948) 153 mg/dL 70-110 H Lab Interpretation (test code = Abnormal 80582-8) [facility] GLUCOSE (AUTOMATED)2020-04-02 23:34:00 Test Item Value Reference Range Interpretation Comments POCT GLU (test code = 1449921327) 155 mg/dL 70-110 H Lab Interpretation (test code = Abnormal 55172-4) [facility] GLUCOSE (AUTOMATED)2020-04-02 17:41:00 Test Item Value Reference Range Interpretation Comments POCT GLU (test code = 1482494555) 92 mg/dL 70-110 Lab Interpretation (test code = Normal 00305-8) [facility] GLUCOSE (AUTOMATED)2020-04-02 14:42:00 Test Item Value Reference Range Interpretation Comments POCT GLU (test code = 7952560161) 99 mg/dL 70-110 Lab Interpretation (test code = Normal 10392-0) [facility] METABOLIC PANEL (NA, K, CL, CO2, GLUCOSE, BUN, CREATININE, CA)2020-04-02 12:27:00 Test Item Value Reference Range Interpretation Comments NA (test code = 140 mmol/L 135-145 3677981714) K (test code = 3.6 mmol/L 3.5-5 4487450384) CL (test code = 103 mmol/L 98-108 6358405173) CO2 TOTAL (test code = 33 mmol/L 23-31 H 2979588474) AGAP (test code = 2-16 8025762518) BUN (test code = 15 mg/dL 7-23 2654498641) GLUCOSE (test code = 110 mg/dL 70-110 1102596909) CREATININE (test code = 1.04 mg/dL 0.6-1.25 5905118656) CALCIUM (test code = 8.6 mg/dL 8.6-10.6 6982971875) eGFR Calculation mL/min/1.73m2 (Non-) (test code = 0856145808) eGFR Calculation mL/min/1.73m2 () (test code = 0662915820) PAULIE (test code = PAULIE) Association of [...] tests). Lab Interpretation Abnormal (test code = 73347-9) [facility] 12:27:00 Test Item Value Reference Range Interpretation Comments MAGNESIUM (test code = 4251983800) 1.9 mg/dL 1.7-2.4 Lab Interpretation (test code = Normal 85735-9) [facility] GLUCOSE (AUTOMATED)2020-04-02 02:37:00 Test Item Value Reference Range Interpretation Comments POCT GLU (test code = 8474844817) 130 mg/dL 70-110 H Lab Interpretation (test code = Abnormal 21932-4) [facility] GLUCOSE (AUTOMATED)2020-04-01 23:45:00 Test Item Value Reference Range Interpretation Comments POCT GLU (test code = 2460439056) 133 mg/dL 70-110 H Lab Interpretation (test code = Abnormal 23786-8) [facility] GLUCOSE (AUTOMATED)2020-04-01 19:46:00 Test Item Value Reference Range Interpretation Comments POCT GLU (test code = 0051796825) 147 mg/dL 70-110 H Lab Interpretation (test code = Abnormal 98302-2) [facility] GLUCOSE (AUTOMATED)2020-04-01 14:45:00 Test Item Value Reference Range Interpretation Comments POCT GLU (test code = 4338698945) 101 mg/dL 70-110 Lab Interpretation (test code = Normal 51024-4) [facility] METABOLIC PANEL (NA, K, CL, CO2, GLUCOSE, BUN, CREATININE, [place])2020-04-01 10:30:00 Test Item Value Reference Range Interpretation Comments NA (test code = 138 mmol/L 135-145 2017421074) K (test code = 3.8 mmol/L 3.5-5 6773651862) CL (test code = 102 mmol/L 98-108 9838325924) CO2 TOTAL (test code = 32 mmol/L 23-31 H 7442920122) AGAP (test code = 2-16 6880646168) BUN (test code = 20 mg/dL 7-23 5979320965) GLUCOSE (test code = 111 mg/dL 70-110 H 0645151408) CREATININE (test code = 1.06 mg/dL 0.6-1.25 6746193108) CALCIUM (test code = 8.8 mg/dL 8.6-10.6 1327682512) eGFR Calculation mL/min/1.73m2 (Non-) (test code = 8214261345) eGFR Calculation mL/min/1.73m2 () (test code = 1892845624) PAULIE (test code = PAULIE) Association of [...] tests). Lab Interpretation Abnormal (test code = 07440-4) [facility] 10[facility]30:00 Test Item Value Reference Range Interpretation Comments MAGNESIUM (test code = 2355698104) 2.1 mg/dL 1.7-2.4 Lab Interpretation (test code = Normal 20601-2) [facility] GLUCOSE (AUTOMATED)2020-04-01 02:24:00 Test Item Value Reference Range Interpretation Comments POCT GLU (test code = 0350311857) 137 mg/dL 70-110 H Lab Interpretation (test code = Abnormal 80458-4) [facility] GLUCOSE (AUTOMATED)2020-03-31 23:21:00 Test Item Value Reference Range Interpretation Comments POCT GLU (test code = 4818940925) 158 mg/dL 70-110 H Lab Interpretation (test code = Abnormal 01565-1) [facility] GLUCOSE (AUTOMATED)2020-03-31 18:14:00 Test Item Value Reference Range Interpretation Comments POCT GLU (test code = 1329726712) 108 mg/dL 70-110 Lab Interpretation (test code = Normal 62177-7) [facility] [id number] 14:58:09EXAM: XR CHEST 1 VW HISTORY: worsened [...] clear otherwise. The heart is probably slightly enlarged.[facility]2020-03-31 14:11:00 Test Item Value Reference Range Interpretation Comments POCT GLU (test code = 2670097030) 98 mg/dL 70-110 Lab Interpretation (test code = Normal 99587-0) [facility]CREAT[facility] [id number] 13:53:00 Test Item Value Reference Range Interpretation Comments CK (test code = 9013335331) 723 U/L 33-194 H Lab Interpretation (test code = Abnormal 88314-1) [facility]ONIN2021-02-12 11:52:00 Test Item Value Reference Range Interpretation Comments Procalcitonin (test 0.06 ng/mL <0.07 code = 4561791981) PAULIE (test code = PAULIE) INTERPRETATION OF [...] lung abscess/empyema. For further information please refer to:[email or web address] Lab Interpretation Normal (test code = 86643-4) [facility] HospitalD-[id number] 10:23:00 Test Item Value Reference Interpretation Comments Range D-DIMER (test code = See_Comment H [Autom ated 6881062968) message] The system which generated this result [...] diagnosis. Lab Interpretation Abnormal (test code = 84538-3) [facility] METABOLIC PANEL (NA, K, CL, CO2, GLUCOSE, BUN, CREATININE, [place])2020-03-31 10:22:00 Test Item Value Reference Range Interpretation Comments NA (test code = 137 mmol/L 135-145 3114507891) K (test code = 3.7 mmol/L 3.5-5 5887980505) CL (test code = 102 mmol/L 98-108 5882541852) CO2 TOTAL (test code = 28 mmol/L 23-31 4497168735) AGAP (test code = 2-16 4323523819) BUN (test code = 18 mg/dL 7-23 2867801019) GLUCOSE (test code = 108 mg/dL 70-110 7208484242) CREATININE (test code 1.10 mg/dL 0.6-1.25 = 6725662441) CALCIUM (test code = 8.7 mg/dL 8.6-10.6 8896875767) eGFR Calculation mL/min/1.73m2 (Non-) (test code = 8504027677) eGFR Calculation mL/min/1.73m2 () (test code = 6473716517) PAULIE (test code = PAULIE) Association of [...] or urine or abnormalities in imaging tests). [facility] 10:22:00 Test Item Value Reference Range Interpretation Comments MAGNESIUM (test code = 8432629146) 2.1 mg/dL 1.7-2.4 Lab Interpretation (test code = Normal 20976-2) [facility] WITH [id number] 10:11:00 Test Item Value Reference Range Interpretation Comments WBC (test code = See_Comment [Automated 7990-2) message] The sy stem which generated this result transmitted reference range : 4.20 - 10.70 10*3/?L. The reference range was not used to interpret this result as normal/abnormal . RBC (test code = See_Comment [Automated 719-8) message] The sy stem which generated this [...] RDW-SD (test code = 38.7 fL 38.5-51.6 87677-8) RDW-CV (test code = 13.4 % 12.1-15.4 788-0) PLT (test code = See_Comment [Automated 777-3) message] The sy stem which generated this result transmitted reference range : 150 - 328 10*3/ ?L. The reference r lorena was not used to interpret this result as normal/abnormal . MPV (test code = 12.0 fL 9.8-13 30081-8) NRBC/100 WBC (test See_Comment [Automat ed code = 3599321259) message] The system which generated this result transmitted reference range : 0.0 - 10.0 /100 WBCs. The refer ence range was not u sed to interpret th is result as normal/abnormal . NRBC x10^3 (test code <0.01 See_Comment [Auto mated = 8221434096) message] The s ystem which generated this result transmitted reference range : 10*3/?L. The reference range was not used to interpret this result as normal/abnormal . GRAN MAT (NEUT) % 55.9 % (test code = 770-8) IMM GRAN % (test code 0.20 % = 0648103634) LYMPH % (test code = 36.0 % 736-9) MONO % (test code = 7.7 % 5905-5) EOS % (test code = 0.0 % 713-8) BASO % (test code = 0.2 % 706-2) GRAN MAT x10^3(ANC) 2.70 10*3/uL 1.99-6.95 (test code = 9725115710) IMM GRAN x10^3 (test <0.03 0-0.06 code = 6119942877) LYMPH x10^3 (test code 1.74 10*3/uL 1.09-3.23 = 731-0) MONO x10^3 (test code 0.37 10*3/uL 0.36-1.02 = 742-7) EOS x10^3 (test code = <0.03 0.06-0.53 L 711-2) BASO x10^3 (test code <0.03 0.01-0.09 = 704-7) Lab Interpretation Abnormal (test code = 76650-2) [facility] GLUCOSE (AUTOMATED)2020-03-31 01:46:00 Test Item Value Reference Range Interpretation Comments POCT GLU (test code = 3755922481) 126 mg/dL 70-110 H Lab Interpretation (test code = Abnormal 24603-1) [facility] GLUCOSE (AUTOMATED)2020-03-30 22:32:00 Test Item Value Reference Range Interpretation Comments POCT GLU (test code = 6208526234) 123 mg/dL 70-110 H Lab Interpretation (test code = Abnormal 13923-2) [facility] GLUCOSE (AUTOMATED)2020-03-30 18:04:00 Test Item Value Reference Range Interpretation Comments POCT GLU (test code = 9017570552) 137 mg/dL 70-110 H Lab Interpretation (test code = Abnormal 75234-3) [facility] GLUCOSE (AUTOMATED)2020-03-30 14:44:00 Test Item Value Reference Range Interpretation Comments POCT GLU (test code = 2909422495) 91 mg/dL 70-110 Lab Interpretation (test code = Normal 77483-5) [facility] METABOLIC PANEL (NA, K, CL, CO2, GLUCOSE, BUN, CREATININE, [place])2020-03-30 10:47:00 Test Item Value Reference Range Interpretation Comments NA (test code = 136 mmol/L 135-145 8228432561) K (test code = 3.8 mmol/L 3.5-5 8795167724) CL (test code = 101 mmol/L 98-108 3596127754) CO2 TOTAL (test code = 31 mmol/L 23-31 6570543244) AGAP (test code = 2-16 1463635918) BUN (test code = 20 mg/dL 7-23 9685827293) GLUCOSE (test code = 108 mg/dL 70-110 7361177415) CREATININE (test code = 1.11 mg/dL 0.6-1.25 1540886456) CALCIUM (test code = 8.5 mg/dL 8.6-10.6 L 4537898717) eGFR Calculation mL/min/1.73m2 (Non-) (test code = 1985575571) eGFR Calculation mL/min/1.73m2 () (test code = 4779126070) PAULIE (test code = PAULIE) Association of [...] tests). Lab Interpretation Abnormal (test code = 83962-4) [facility] Test Item Value Reference Range Interpretation Comments MAGNESIUM (test code = 4290859972) 2.1 mg/dL 1.7-2.4 Lab Interpretation (test code = Normal 43737-3) [facility] GLUCOSE (AUTOMATED)2020-03-30 02:27:00 Test Item Value Reference Range Interpretation Comments POCT GLU (test code = 6037186486) 124 mg/dL 70-110 H Lab Interpretation (test code = Abnormal 42488-6) [facility] GLUCOSE (AUTOMATED)2020-03-29 22:04:00 Test Item Value Reference Range Interpretation Comments POCT GLU (test code = 8984365790) 104 mg/dL 70-110 Lab Interpretation (test code = Normal 47346-4) [facility] GLUCOSE (AUTOMATED)2020-03-29 14:34:00 Test Item Value Reference Range Interpretation Comments POCT GLU (test code = 5820980170) 93 mg/dL 70-110 Lab Interpretation (test code = Normal 29506-4) [facility] [id number] 14:32:00 Test Item Value Reference Range Interpretation Comments CK (test code = 7547918384) 988 U/L 33-194 H Lab Interpretation (test code = Abnormal 22409-9) [facility] (NA, K, CL, CO2, GLUCOSE, BUN, CREATININE, [place])2020-03-29 08:44:00 Test Item Value Reference Range Interpretation Comments NA (test code = 135 mmol/L 135-145 4283821000) K (test code = 3.5 mmol/L 3.5-5 4162009421) CL (test code = 98 mmol/L 98-108 4893253608) CO2 TOTAL (test code = 33 mmol/L 23-31 H 9664184516) AGAP (test code = 2-16 8226347191) BUN (test code = 22 mg/dL 7-23 4324571472) GLUCOSE (test code = 101 mg/dL 70-110 2462525784) CREATININE (test code = 1.54 mg/dL 0.6-1.25 H 7174849401) CALCIUM (test code = 8.2 mg/dL 8.6-10.6 L 1160334643) eGFR Calculation mL/min/1.73m2 (Non-) (test code = 6728200469) eGFR Calculation mL/min/1.73m2 () (test code = 0295130667) PAULIE (test code = PAULIE) Association of [...] tests). Lab Interpretation Abnormal (test code = 58052-4) [facility]2021-[facility]-10 08:44:00 Test Item Value Reference Range Interpretation Comments MAGNESIUM (test code = 3718853330) 2.1 mg/dL 1.7-2.4 Lab Interpretation (test code = Normal 11315-8) [facility] GLUCOSE (AUTOMATED)2020-03-29 02:59:00 Test Item Value Reference Range Interpretation Comments POCT GLU (test code = 0674412529) 154 mg/dL 70-110 H Lab Interpretation (test code = Abnormal 26951-4) [facility] GLUCOSE (AUTOMATED)2020-03-28 23:37:00 Test Item Value Reference Range Interpretation Comments POCT GLU (test code = 8780476404) 103 mg/dL 70-110 Lab Interpretation (test code = Normal 71924-4) [facility] HospitalLAB ONLY COVID [id number] 22:34:00COVID DMT InterpretationInterpretation/Recommendations: Molecular NAAT Tests for [...] first 10 days after symptom onset in wlqk-ss-sihtncqr illness andwithin the first 20 days after [...] COVID-19 testing the patient has had at [facility], including molecularNAAT testing (more commonly known as PCR testing and Rapid ID Now testing) and antibody testing. It does not take into account any testing that a patient has had outside of the [facility] medical record. [facility] LABORATORY SERVICESCOVID IcrulpaQUIY-EeM-8 Rapid ID NOW (no units) ? ? Date ? Value ? 03/27/2020 ? Positive (A) ? ? ? 09/20/2019 ? Not Detected? [facility] LABORATORY SERVICESUnAdventHealthPOCT GLUCOSE (AUTOMATED) 2020-03-28 17:59:00 Test Item Value Reference Range Interpretation Comments POCT GLU (test code = 1100893329) 104 mg/dL 70-110 Lab Interpretation (test code = Normal 47910-9) [facility]-REACTIVE [id number] 16:44:00 Test Item Value Reference Range Interpretation Comments CRP (test code = 2518530209) 6.7 mg/dL <0.8 H Lab Interpretation (test code = Abnormal 27239-9) [facility] METABOLIC PANEL (NA, K, CL, CO2, GLUCOSE, BUN, CREATININE, CA)2020-03-28 15:04:00 Test Item Value Reference Range Interpretation Comments NA (test code = 135 mmol/L 135-145 2317328256) K (test code = 3.2 mmol/L 3.5-5 L 6474135340) CL (test code = 100 mmol/L 98-108 6383267771) CO2 TOTAL (test code = 30 mmol/L 23-31 8181169497) AGAP (test code = 2-16 8511824964) BUN (test code = 17 mg/dL 7-23 7155139642) GLUCOSE (test code = 109 mg/dL 70-110 9832387912) CREATININE (test code = 1.49 mg/dL 0.6-1.25 H 9586358538) CALCIUM (test code = 8.0 mg/dL 8.6-10.6 L 9318935870) eGFR Calculation mL/min/1.73m2 (Non-) (test code = 6055041897) eGFR Calculation mL/min/1.73m2 () (test code = 8811651773) PAULIE (test code = PAULIE) Association of [...] tests). Lab Interpretation Abnormal (test code = 71624-9) [facility]2021-[facility]-09 15:04:00 Test Item Value Reference Range Interpretation Comments MAGNESIUM (test code = 5608571859) 1.8 mg/dL 1.7-2.4 Lab Interpretation (test code = Normal 80393-2) [facility] HospitalCREATINE [id number] 15:04:00 Test Item Value Reference Range Interpretation Comments CK (test code = 6053075611) 874 U/L 33-194 H Lab Interpretation (test code = Abnormal 65560-9) [facility]PO[facility])2020-03-28 14:24:00 Test Item Value Reference Range Interpretation Comments POCT GLU (test code = 6458030100) 112 mg/dL 70-110 H Lab Interpretation (test code = Abnormal 03778-9) [facility] HospitalBAC METABOLIC PANEL (NA, K, CL, CO2, GLUCOSE, BUN, CREATININE, CA)2020-03-28 12:21:00 Test Item Value Reference Range Interpretation Comments NA (test code = 137 mmol/L 135-145 9673576659) K (test code = 3.3 mmol/L 3.5-5 L 3035652778) CL (test code = 98 mmol/L 98-108 0377808288) CO2 TOTAL (test code = 33 mmol/L 23-31 H 5644041100) AGAP (test code = 2-16 3600393270) BUN (test code = 20 mg/dL 7-23 8159565773) GLUCOSE (test code = 94 mg/dL 70-110 6835025995) CREATININE (test code = 2.00 mg/dL 0.6-1.25 H 4245599086) CALCIUM (test code = 8.4 mg/dL 8.6-10.6 L 3975416658) eGFR Calculation mL/min/1.73m2 (Non-) (test code = 4417849310) eGFR Calculation mL/min/1.73m2 () (test code = 8380405055) PAULIE (test code = PAULIE) Association of [...] tests). Lab Interpretation Abnormal (test code = 23487-0) [facility] WITH [id number] 11:26:00 Test Item Value Reference Range Interpretation Comments WBC (test code = See_Comment [Automated 4989-2) message] The sy stem which generated this result transmitted reference range : 4.20 - 10.70 10*3/?L. The reference range was not used to interpret this result as normal/abnormal . RBC (test code = See_Comment [Automated 511-0) message] The sy stem which generated this result transmitted reference range : 4.26 - 5.52 10*6/?L. The reference range was not used to interpret this result as normal/abnormal . HGB (test code = 13.4 g/dL 12.2-16.4 758-7) HCT (test code = 41.6 % 38.4-49.3 4544-3) MCV (test code = 80.8 fL 81.7-95.6 L 787-2) MCH (test code = 26.0 pg 26.1-32.7 L 785-6) MCHC (test code = 32.2 g/dL 31.2-35 786-4) RDW-SD (test code = 40.6 fL 38.5-51.6 79712-4) RDW-CV (test code = 13.8 % 12.1-15.4 788-0) PLT (test code = See_Comment L [Automated 777-3) message] The sy stem which generated this result transmitted reference range : 150 - 328 10*3/ ?L. The reference r lorena was not used to interpret this result as normal/abnormal . MPV (test code = 12.1 fL 9.8-13 84004-3) NRBC/100 WBC (test See_Comment [Automat ed code = 8465318094) message] The system which generated this result transmitted reference range : 0.0 - 10.0 /100 WBCs. The refer ence range was not u sed to interpret th is result as normal/abnormal . NRBC x10^3 (test code <0.01 See_Comment [Auto mated = 5529842298) message] The s ystem which generated this result transmitted reference range : 10*3/?L. The reference range was not used to interpret this result as normal/abnormal . GRAN MAT (NEUT) % 71.0 % (test code = 770-8) IMM GRAN % (test code 0.30 % = 4398115405) LYMPH % (test code = 19.4 % 736-9) MONO % (test code = 9.3 % 5905-5) EOS % (test code = 0.0 % 713-8) BASO % (test code = 0.0 % 706-2) GRAN MAT x10^3(ANC) 5.06 10*3/uL 1.99-6.95 (test code = 9032192454) IMM GRAN x10^3 (test <0.03 0-0.06 code = 6949767875) LYMPH x10^3 (test code 1.38 10*3/uL 1.09-3.23 = 731-0) MONO x10^3 (test code 0.66 10*3/uL 0.36-1.02 = 742-7) EOS x10^3 (test code = <0.03 0.06-0.53 L 711-2) BASO x10^3 (test code <0.03 0.01-0.09 = 704-7) Lab Interpretation Abnormal (test code = 55729-9) [facility]IN[facility]IS[facility] 08:58:00 Test Item Value Reference Range Interpretation Comments APPEARANCE (test code = Clear Clear 8180387935) COLOR (test code = Yellow Yellow 1473253642) PH (test code = 4.8-8.0 8764323957) SP GRAVITY (test code = 1.003-1.030 6068052682) GLU U QUAL (test code = Normal Normal 1501586035) BLOOD (test code = 1+ Negative A 0331911510) KETONES (test code = Negative Negative 2508942775) PROTEIN (test code = 100 mg/dL Negative A 2887-8) UROBILIN (test code = Normal Normal 8409904264) BILIRUBIN (test code = Negative Negative 6958711077) NITRITE (test code = Negative Negative 6829504731) LEUK LACI (test code = Negative Negative 4719166755) RBC/HPF (test code = See_Comment [Autom ated message] 6957989702) The system [employer] generated this result transmit jordon reference range : 0 - 3 HPF. The refe rence range was not u sed to interpret th is result as normal/abnormal . WBC/HPF (test code = See_Comment [Autom ated message] 5016530970) The system [employer] generated this result transmit jordon reference range : 0 - 5 HPF. The refe rence range was not u sed to interpret th is result as normal/abnormal . BACTERIA (test code = Negative Negative 0466403129) MUCOUS (test code = Slight Negative LPF A 6124468698) HYAL CAST (test code = See_Comment [Aut omated message] 8092670438) The system [employer] generated this result transmit jordon reference range : <=2 LPF. The refere nce range was not u sed to interpret th is result as normal/abnormal . ASCORBIC ACID (test code Negative = 2493967186) Lab Interpretation (test Abnormal code = 54208-3) [facility] HospitalSODIUM, URINE [id number] 08:57:00 Test Item Value Reference Range Interpretation Comments NA URINE (test code = 9614236827) 5 mmol/L [facility] HospitalCREATININE, URINE [id number] 08:57:00 Test Item Value Reference Range Interpretation Comments CREAT U (test code = 7208174763) 84.3 mg/dL [facility]UM2021-02-09 03:03:00 Test Item Value Reference Range Interpretation Comments MAGNESIUM (test code = 5440554719) 1.7 mg/dL 1.7-2.4 Lab Interpretation (test code = Normal 23262-6) [facility] HospitalPOMN GLUCOSE (AUTOMATED)2020-03-28 02:39:00 Test Item Value Reference Range Interpretation Comments POCT GLU (test code = 101 mg/dL 70-110 Notifi ed Provider 9702047475) Lab Interpretation (test Normal code = 28396-2) [facility] HospitalPROCALCITONIN2021-02-09 02:26:00 Test Item Value Reference Range Interpretation Comments Procalcitonin (test 0.11 ng/mL <0.07 H code = 8171636657) PAULIE (test code = PAULIE) INTERPRETATION OF [...] lung abscess/empyema. For further information please refer to:[email or web address] Lab Interpretation Abnormal (test code = 38689-3) [facility] HospitalGLYCOSYLATED HEMOGLOBIN (A1C)2020-03-28 01:52:00 Test Item Value Reference Range Interpretation Comments HGB A1C (test code = 6.3 % 4-6 H 4548-4) PAULIE (test code = PAULIE) %A1C (NGSP) Interpretation (ADA)4.8-5.6 ? ? Normal or (Non-Diabetic Range)5.7-6.4 ? ? Increased Risk (Pre-Diabetic)>6.5 ?Diabetes Indicated Lab Interpretation Abnormal (test code = 68123-0) [facility] HospitalD-[id number] 01:19:00 Test Item Value Reference Interpretation Comments Range D-DIMER (test code = See_Comment [Autom ated 6675639668) message] The system which generated this result [...] diagnosis. Lab Interpretation Normal (test code = 64661-5) [facility] HospitalLACTATE [id number] 01:17:00 Test Item Value Reference Range Interpretation Comments LDH (test code = 1439025371) 893 U/L 300-600 H Lab Interpretation (test code = Abnormal 27832-5) [facility] HospitalCREATINE [id number] 00:59:00 Test Item Value Reference Range Interpretation Comments CK (test code = 8593021059) 795 U/L 33-194 H Lab Interpretation (test code = Abnormal 07764-7) [facility] HospitalXR CHEST 1 [id number] 20:09:13Findings and Impression: ?Suboptimal inspiratory volumes resulting [...] exaggerated by suboptimal inspiratory volumes). Noacute osseous abnormality.[facility] HospitalTROPONIN [id number] 19:58:00 Test Item Value Reference Range Interpretation Comments TROPONIN I (test <0.012 See_Comment [Automated code = 9926766697) message] The system which generated this result [...] ? Lab Interpretation Normal (test code = 81330-1) [facility] WITH [id number] 19:54:00 Test Item Value Reference Range Interpretation [...] RDW-SD (test code = 39.2 fL 38.5-51.6 01302-7) RDW-CV (test code = 13.7 % 12.1-15.4 788-0) PLT (test code = See_Comment [Automated 777-3) message] The sy stem which generated this result transmitted reference range : 150 - 328 10*3/ ?L. The reference r lorena was not used to interpret this result as normal/abnormal . MPV (test code = 12.3 fL 9.8-13 65303-5) NRBC/100 WBC (test See_Comment [Automat ed code = 6066383957) message] The system which generated this result transmitted reference range : 0.0 - 10.0 /100 WBCs. The refer ence range was not u sed to interpret th is result as normal/abnormal . NRBC x10^3 (test code <0.01 See_Comment [Auto mated = 3956012264) message] The s ystem which generated this result transmitted reference range : 10*3/?L. The reference range was not used to interpret this result as normal/abnormal . GRAN MAT (NEUT) % 56.7 % (test code = 770-8) IMM GRAN % (test code 0.30 % = 5027163546) LYMPH % (test code = 28.8 % 736-9) MONO % (test code = 14.1 % 5905-5) EOS % (test code = 0.0 % 713-8) BASO % (test code = 0.1 % 706-2) GRAN MAT x10^3(ANC) 3.82 10*3/uL 1.99-6.95 (test code = 6851333683) IMM GRAN x10^3 (test <0.03 0-0.06 code = 2632596170) LYMPH x10^3 (test code 1.94 10*3/uL 1.09-3.23 = 731-0) MONO x10^3 (test code 0.95 10*3/uL 0.36-1.02 = 742-7) EOS x10^3 (test code = <0.03 0.06-0.53 L 711-2) BASO x10^3 (test code <0.03 0.01-0.09 = 704-7) Lab Interpretation Abnormal (test code = 59162-6) [facility]OL[facility] (64861)2020-03-27 19:49:00 Test Item Value Reference Range Interpretation Comments NA (test code = 136 mmol/L 135-145 7883790093) K (test code = 3.4 mmol/L 3.5-5 L 5707551775) CL (test code = 96 mmol/L 98-108 L 5778273653) CO2 TOTAL (test code = 30 mmol/L 23-31 7084163031) AGAP (test code = 2-16 6659736592) BUN (test code = 15 mg/dL 7-23 1004747074) GLUCOSE (test code = 101 mg/dL 70-110 1201851576) CREATININE (test code = 1.68 mg/dL 0.6-1.25 H 3471804806) TOTAL BILI (test code = 0.6 mg/dL 0.1-1.9 9476796141) CALCIUM (test code = 8.7 mg/dL 8.6-10.6 9795633952) T PROTEIN (test code = 7.4 g/dL 6.3-8.2 4193333128) ALBUMIN (test code = 4.2 g/dL 3.5-5 4671164398) ALK PHOS (test code = 49 U/L 34-122 4603198005) ALTv (test code = 41 U/L 5-50 1742-6) AST(SGOT) (test code = 47 U/L 13-40 H 1851349263) eGFR Calculation mL/min/1.73m2 (Non-) (test code = 2196937783) eGFR Calculation mL/min/1.73m2 () (test code = 6393511925) PAULIE (test code = PAULIE) Association of [...] tests). Lab Interpretation Abnormal (test code = 28344-0) [facility] BranchLIP[facility], [id number] 19:49:00 Test Item Value Reference Range Interpretation Comments LIPASE (test code = 2380880535) 218 U/L 0-220 Lab Interpretation (test code = Normal 58615-6) [facility] HospitalaPTT2021-02-08 19:41:00 Test Item Value Reference Range Interpretation Comments APTT Patient (test See_Comment [Automat ed code = 3173-2) message] The system which generated this result transmitted reference range : 23 - 38 Seconds . The reference range was not used to interpr et this result as normal/abnormal . PAULIE (test code = PAULIE) The [facility] patient population mean normal value for aPTT is 30 seconds. Lab Interpretation Normal (test code = 95290-1) [facility] HospitalPROTHROMBIN TIME / [id number] 19:39:00 Test Item Value Reference Range Interpretation [...] tions. Lab Interpretation (test Normal code = 17989-7) [facility]OVID[facility] (ID NOW RAPID TESTING)2020-03-27 19:34:00 Test Item Value Reference Range Interpretation Comments SARS-CoV-2 Rapid ID NOW Positive Not Detected A (test code = 37862-6) PAULIE (test code = PAULIE) ID NOW COVID-19 Assay is an isothermal nucleic acid amplification test intended for the qualitative detection of nucleic acid from SARS-CoV-2 viral RNA in nasopharyngeal (BUTTON CUTTER) specimens. It is used under Emergency Use [...] indicated. Lab Interpretation Abnormal (test code = 94267-3) [facility] GLUCOSE (AUTOMATED)2019-09-22 17:21:00 Test Item Value Reference Range Interpretation Comments POCT GLU (test code = 1947171297) 413 mg/dL 70-110 H Lab Interpretation (test code = Abnormal 61942-2) [facility] GLUCOSE (AUTOMATED)2019-09-22 13:12:00 Test Item Value Reference Range Interpretation Comments POCT GLU (test code = 5507587566) 276 mg/dL 70-110 H Lab Interpretation (test code = Abnormal 05558-4) [facility] WITH [id number] 11:26:00 Test Item Value Reference Range Interpretation Comments WBC (test code = See_Comment [Automated 8590-2) message] The sy stem which generated this result transmitted reference range : 4.20 - 10.70 10*3/?L. The reference range was not used to interpret this result as normal/abnormal . RBC (test code = See_Comment [Automated 554-8) message] The sy stem which generated this [...] RDW-SD (test code = 40.0 fL 38.5-51.6 74798-3) RDW-CV (test code = 14.1 % 12.1-15.4 788-0) PLT (test code = See_Comment [Automated 967-3) message] The sy stem which generated this result transmitted reference range : 150 - 328 10*3/ ?L. The reference r lroena was not used to interpret this result as normal/abnormal . MPV (test code = 13.8 fL 9.8-13 H 58327-6) IPF % (test code = 16.4 % 1.2-10.7 H Platelet count 9500656780) measured by fluorescence method. NRBC/100 WBC (test See_Comment [Automat ed code = 0601022738) message] The system which generated this result transmitted reference range : 0.0 - 10.0 /100 WBCs. The refer ence range was not u sed to interpret th is result as normal/abnormal . NRBC x10^3 (test code <0.01 See_Comment [Auto mated = 7382785632) message] The s ystem which generated this result transmitted reference range : 10*3/?L. The reference range was not used to interpret this result as normal/abnormal . GRAN MAT (NEUT) % 38.2 % (test code = 770-8) IMM GRAN % (test code 0.20 % = 9749007262) LYMPH % (test code = 46.8 % 736-9) MONO % (test code = 11.6 % 5905-5) EOS % (test code = 2.9 % 713-8) BASO % (test code = 0.3 % 706-2) GRAN MAT x10^3(ANC) 2.20 10*3/uL 1.99-6.95 (test code = 6231046601) IMM GRAN x10^3 (test <0.03 0-0.06 code = 6511073433) LYMPH x10^3 (test code 2.70 10*3/uL 1.09-3.23 = 731-0) MONO x10^3 (test code 0.67 10*3/uL 0.36-1.02 = 742-7) EOS x10^3 (test code = 0.17 10*3/uL 0.06-0.53 711-2) BASO x10^3 (test code <0.03 0.01-0.09 = 704-7) Lab Interpretation Abnormal (test code = 88558-8) [facility]. METABOLIC PANEL (06789)2019-09-22 11:26:00 Test Item Value Reference Range Interpretation Comments NA (test code = 134 mmol/L 135-145 L 4313474320) K (test code = 3.5 mmol/L 3.5-5 3187808369) CL (test code = 101 mmol/L 98-108 6707041241) CO2 TOTAL (test code = 24 mmol/L 23-31 1398558031) AGAP (test code = 2-16 9141392399) BUN (test code = 11 mg/dL 7-23 6170897447) GLUCOSE (test code = 310 mg/dL 70-110 H 5079486148) CREATININE (test code = 0.91 mg/dL 0.6-1.25 2158762585) TOTAL BILI (test code = 0.5 mg/dL 0.1-1.0 8170571369) CALCIUM (test code = 9.0 mg/dL 8.6-10.6 9973071713) T PROTEIN (test code = 6.1 g/dL 6.3-8.2 L 3430554767) ALBUMIN (test code = 3.5 g/dL 3.5-5 6575288516) ALK PHOS (test code = 70 U/L 34-122 2818390791) ALTv (test code = 40 U/L 5-50 1742-6) AST(SGOT) (test code = 27 U/L 13-40 4114544100) eGFR Calculation mL/min/1.73m2 (Non-) (test code = 4957272462) eGFR Calculation mL/min/1.73m2 () (test code = 3575554421) PAULIE (test code = PAULIE) Association of [...] tests). Lab Interpretation Abnormal (test code = 98702-1) [facility]2019-09-22 01:47:00 Test Item Value Reference Range Interpretation Comments POCT GLU (test code = 2944817358) 387 mg/dL 70-110 H Lab Interpretation (test code = Abnormal 94613-3) [facility] HospitalTROPONIN [id number] 22:32:00 Test Item Value Reference Range Interpretation Comments TROPONIN I (test <0.012 See_Comment [Automated code = 5724697852) message] The system which generated this result [...] ? Lab Interpretation Normal (test code = 89366-6) [facility] HospitalEBV-MONONUCLEOSIS [id number] 22:25:00 Test Item Value Reference Range Interpretation Comments EBV Mononucleosis Screen (test code Negative Negative = 2282753254) Lab Interpretation (test code = Normal 92988-6) [facility] acute hospital STREP SCREEN FOR GROUP [id number] 22:13:00 Test Item Value Reference Range Interpretation Comments Streptococcus pyogenes (group A) Negative Negative antigen (test code = 94346-9) Lab Interpretation (test code = Normal 26820-2) [facility] GLUCOSE (AUTOMATED)2019-09-21 21:12:00 Test Item Value Reference Range Interpretation Comments POCT GLU (test code = 5296869927) 390 mg/dL 70-110 H Lab Interpretation (test code = Abnormal 25299-7) [facility] GLUCOSE (AUTOMATED)2019-09-21 17:30:00 Test Item Value Reference Range Interpretation Comments POCT GLU (test code = 5329588076) 369 mg/dL 70-110 H Lab Interpretation (test code = Abnormal 07176-3) [facility] GLUCOSE (AUTOMATED)2019-09-21 13:21:00 Test Item Value Reference Range Interpretation Comments POCT GLU (test code = 6031937510) 394 mg/dL 70-110 H Lab Interpretation (test code = Abnormal 27914-3) [facility] HospitalTROPONIN [id number] 12:22:00 Test Item Value Reference Range Interpretation Comments TROPONIN I (test <0.012 See_Comment [Automated code = 2418010206) message] The system which generated this result [...] ? Lab Interpretation Normal (test code = 17322-7) [facility] HospitalGlycosylated Hemoglobin (A1C)2019-09-21 07:33:00 Test Item Value Reference Range Interpretation Comments HGB A1C (test code = 12.1 % 4-6 H 4548-4) PAULIE (test code = PAULIE) %A1C (NGSP) Interpretation (ADA)4.8-5.6 ? ? Normal or (Non-Diabetic Range)5.7-6.4 ? ? Increased Risk (Pre-Diabetic)>6.5 ?Diabetes Indicated Lab Interpretation Abnormal (test code = 48394-2) [facility])2019-09-21 06:54:00 Test Item Value Reference Range Interpretation Comments POCT GLU (test code = 7930576647) 364 mg/dL 70-110 H Lab Interpretation (test code = Abnormal 58162-6) [facility] HospitalUS GALL [id number] 03:58:29 Suboptimal evaluation due to patient's body habitus. Suspected cholelithiasis without sonographic evidence of acutecholecystitis. Diffuse hepatic steatosis. Preliminary Report Dictated by Resident: Shaylee Cardozo MD., have reviewed this study and agree with the abovereport. RIGHT UPPER QUADRANT ULTRASOUND HISTORY: RUQ pain COMPARISON: None. NOTE: The examination was performed by the lead medical technologist. I wasnot directly involved in the [...] visualized portion of the right kidney is unremarkable.[facility] Results Inft User - 09/20/2019 10:59 PM CDTRIGHT UPPER QUADRANT ULTRASOUND HISTORY: RUQ pain COMPARISON: None.NOTE: The examination was performed by the lead medical technologist. I wasnot directly involved in the [...] reviewed this study and agree with the abovereport.[facility] HospitalPOMN GLUCOSE (AUTOMATED)2019-09-21 03:44:00 Test Item Value Reference Range Interpretation Comments POCT GLU (test code = 9466513519) 355 mg/dL 70-110 H Lab Interpretation (test code = Abnormal 35597-6) [facility] HospitalCOVID[facility] (ID NOW RAPID TESTING)2019-09-21 01:51:00 Test Item Value Reference Range Interpretation Comments SARS-CoV-2 Rapid ID NOW Not Detected Not Detected (test code = 67589-1) PAULIE (test code = PAULIE) ID NOW COVID-19 Assay is an isothermal nucleic acid amplification test intended for the qualitative detection of nucleic acid from SARS-CoV-2 viral RNA in nasopharyngeal (BUTTON CUTTER) specimens. It is used under Emergency Use [...] indicated. Lab Interpretation Normal (test code = 46042-0) [facility] HospitalDuarteliza [id number] 01:41:00 Test Item Value Reference Range Interpretation Comments TROPONIN I (test <0.012 See_Comment [Automated code = 5473516556) message] The system which generated this result [...] ? Lab Interpretation Normal (test code = 44618-3) [facility] (NA, K, CL, CO2, GLUCOSE, BUN, CREATININE, CA)2019-09-21 01:37:00 Test Item Value Reference Range Interpretation Comments NA (test code = 132 mmol/L 135-145 L 9264667532) K (test code = 4.1 mmol/L 3.5-5 1885478170) CL (test code = 95 mmol/L 98-108 L 6134140926) CO2 TOTAL (test code = 23 mmol/L 23-31 9479662664) AGAP (test code = 2-16 8787080928) BUN (test code = 15 mg/dL 7-23 1505215632) GLUCOSE (test code = 526 mg/dL 70-110 HH 6622476593) CREATININE (test code = 1.13 mg/dL 0.6-1.25 6354774138) CALCIUM (test code = 9.9 mg/dL 8.6-10.6 6175786863) eGFR Calculation mL/min/1.73m2 (Non-) (test code = 9514750411) eGFR Calculation mL/min/1.73m2 () (test code = 2622378441) PAULIE (test code = PAULIE) Association of [...] tests). Lab Interpretation Abnormal (test code = 61670-9) [facility] HospitalD-[id number] 01:37:00 Test Item Value Reference Interpretation Comments Range D-DIMER (test code = See_Comment [Autom ated 3165362771) message] The system which generated this result [...] diagnosis. Lab Interpretation Normal (test code = 12995-5) [facility] HospitalProthrombin Time (PT) / [id number] 01:33:00 Test Item Value Reference Range Interpretation Comments PROTIME PATIENT (test See_Comment [Auto mated message] code = 5964-2) The system [employer] ich generated this result transmitted ref erence range: 12.0 - 1 4.7 Seconds. The re ference range was not u sed to interpret this result as normal/abnor mal. INR (test code = 6301-6) Nor mal INR <1.1; Warfarin Therap eutic range 2.0 to 3. 0 or 2.5 to 3.5, dep ending upon the indica tions. Lab Interpretation (test Normal code = 86236-2) [facility] HospitalHepatic Function Panel (ALB, T.PRO, BILI T, BU/BC, ALT, AST, ALK PHOS)2019-09-21 01:30:00 Test Item Value Reference Range Interpretation Comments TOTAL BILI (test code = 6984205361) 0.5 mg/dL 0.1-1.1 BILI UNCON (test code = 0257912271) 0.5 mg/dL 0.1-1.1 BILI CONJ (test code = 8395241525) 0.0 mg/dL 0-0.3 T PROTEIN (test code = 1272298699) 7.1 g/dL 6.3-8.2 ALBUMIN (test code = 3319928375) 4.2 g/dL 3.5-5 ALK PHOS (test code = 3122728593) 88 U/L 34-122 ALTv (test code = 1742-6) 44 U/L 5-50 AST(SGOT) (test code = 4839888304) 37 U/L 13-40 Lab Interpretation (test code = Normal 19263-9) [facility] HospitalLIPASE2020-08-04 01:30:00 Test Item Value Reference Range Interpretation Comments LIPASE (test code = 2970017262) 175 U/L 0-220 Lab Interpretation (test code = Normal 54620-4) [facility] HospitalaPTT2020-08-04 01:29:00 Test Item Value Reference Range Interpretation Comments APTT Patient (test See_Comment L [Automat ed code = 3173-2) message] The system which generated this result transmitted reference range : 23 - 38 Seconds . The reference range was not used to interpr et this result as normal/abnormal . PAULIE (test code = PAULIE) The [facility] patient population mean normal value for aPTT is 30 seconds. Lab Interpretation Abnormal (test code = 61333-7) [facility] HospitalUrinalysis2020-08-04 01:25:00 Test Item Value Reference Range Interpretation Comments APPEARANCE (test code = Clear Clear 2021897469) COLOR (test code = Straw Yellow A 7851680667) PH (test code = 4.8-8.0 9078394204) SP GRAVITY (test code = 1.003-1.030 4632829123) GLU U QUAL (test code = 500 mg/dL Normal A 0683991751) BLOOD (test code = 1+ Negative A 5244979400) KETONES (test code = 80 mg/dL Negative A 6908678175) PROTEIN (test code = 100 mg/dL Negative A 2887-8) UROBILIN (test code = Normal Normal 4206317544) BILIRUBIN (test code = Negative Negative 2403511346) NITRITE (test code = Negative Negative 9260026808) LEUK LACI (test code = Negative Negative 4832083609) RBC/HPF (test code = See_Comment [Autom ated message] 9272791273) The system [employer] generated this result transmit jordon reference range : 0 - 3 HPF. The refe rence range was not u sed to interpret th is result as normal/abnormal . WBC/HPF (test code = <1 See_Comment [Autom ated message] 8674745185) The system [employer] generated this result transmit jordon reference range : 0 - 5 HPF. The refe rence range was not u sed to interpret th is result as normal/abnormal . BACTERIA (test code = Negative Negative 2424712234) MUCOUS (test code = Slight Negative LPF A 2094198124) Lab Interpretation (test Abnormal code = 22069-9) [facility] HospitalXR CHEST 1 VW [id number] 01:22:15 No acute intrathoracic abnormality, specifically no detectable radiographicfindings to suggest COVID-19 pneumonia. Disclaimer: Generally, the findings on chest imaging in COVID-19 are notspecific, and overlap with other infections, including influenza, H1N1,SARS and MERS.According to the Centers forDisease Control (CDC) and recent statement ofthe [employer], viral testing remains the [...] Disease Control (CDC) and recent statement ofthe [employer], viral testing remains the only specificmethod of diagnosis. Confirmation with the viral test is required, even ifradiologic findings are suggestive of COVID-[address]Preliminary Report Dictated by Resident: Jose Antonio Mary, Shaylee Manning MD., have reviewed this study and agree with the abovereport.[facility] with [id number] 01:22:00 Test Item Value Reference Range Interpretation Comments WBC (test code = See_Comment [Automated 3290-2) message] The sy stem which generated this [...] RDW-SD (test code = 39.2 fL 38.5-51.6 46267-6) RDW-CV (test code = 13.8 % 12.1-15.4 788-0) PLT (test code = See_Comment [Automated 777-3) message] The sy stem which generated this result transmitted reference range : 150 - 328 10*3/ ?L. The reference r lorena was not used to interpret this result as normal/abnormal . MPV (test code = 13.4 fL 9.8-13 H 59036-7) IPF % (test code = 16.6 % 1.2-10.7 H Platelet count 2337856784) measured by fluorescence method. NRBC/100 WBC (test See_Comment [Automat ed code = 6443011557) message] The system which generated this result transmitted reference range : 0.0 - 10.0 /100 WBCs. The refer ence range was not u sed to interpret th is result as normal/abnormal . NRBC x10^3 (test code <0.01 See_Comment [Auto mated = 1170169661) message] The s ystem which generated this result transmitted reference range : 10*3/?L. The reference range was not used to interpret this result as normal/abnormal . GRAN MAT (NEUT) % 43.7 % (test code = 770-8) IMM GRAN % (test code 0.50 % = 4688095097) LYMPH % (test code = 43.1 % 736-9) MONO % (test code = 10.4 % 5905-5) EOS % (test code = 1.8 % 713-8) BASO % (test code = 0.5 % 706-2) GRAN MAT x10^3(ANC) 2.64 10*3/uL 1.99-6.95 (test code = 9809103601) IMM GRAN x10^3 (test 0.03 10*3/uL 0-0.06 code = 3693019057) LYMPH x10^3 (test code 2.61 10*3/uL 1.09-3.23 = 731-0) MONO x10^3 (test code 0.63 10*3/uL 0.36-1.02 = 742-7) EOS x10^3 (test code = 0.11 10*3/uL 0.06-0.53 711-2) BASO x10^3 (test code 0.03 10*3/uL 0.01-0.09 = 704-7) Lab Interpretation Abnormal (test code = 00562-7) [facility]
[2021-05-22 17:29] LABS: Urine Blood 1+ (Negative); Urine Glucose Negative (Negative); Urine Protein 2+ (Negative); Urine Specific Gravity 1.025 (1.005-1.030)
[2021-05-22] MEDS ORDERED: CEFTRIAXONE 500 MG/VIAL ONE (17:35)
--- NOTE | 2021-05-22 17:35 | EDPHYS ---
Physician Documentation [facility] Name: Huber Field Age: 30 yrs Sex: Male : 1990 Arrival Date: 05/22/2021 Time: 16:40 Bed 30 Private MD: ED Physician Jessica Pearson HPI: 05/22 17:30 This 30 yrs old Black Male presents to ER via Ambulatory with complaints of Pain With sp3 Urination, Itching. 17:30 30-year-old male presents with chief complaint urinary burning and penile discharge for sp3 the last 48 hours. Patient has 2 sexual partners and does not know if either one of them has been positive for STI or any other infection. One of the partners is with an unknown length of . Patient has no testicular pain, back pain, abdominal pain, flank pain, fever, nausea, vomiting, diarrhea, rash or any other symptoms on ROS at this time.. Historical: - Allergies: 17:06 Fish Containing Products; ap3 - Home Meds: 17:06 amlodipine oral [Active]; Metoprolol Tartrate Oral [Active]; ap3 - PMHx: 17:06 diabetes mellitus; Hypertensive disorder; ap3 - PSHx: 17:06 vertical sleeve; ap3 - Immunization history:: Client reports receiving the 2nd dose of the Covid vaccine, Flu vaccine is not up to date. - Social history:: Smoking status: Patient denies any tobacco usage or history of. Patient uses street drugs, marijuana. ROS: 17:32 Constitutional: Negative for fever, chills, and weight loss, Eyes: Negative for injury, sp3 pain, redness, and discharge, ENT: Negative for injury, pain, and discharge, Neck: Negative for injury, pain, and swelling, Cardiovascular: Negative for chest pain, palpitations, and edema, Respiratory: Negative for shortness of breath, cough, wheezing, and pleuritic chest pain, Abdomen/GI: Negative for abdominal pain, nausea, vomiting, diarrhea, and constipation, Back: Negative for injury and pain, MS/Extremity: Negative for injury and deformity, Skin: Negative for injury, rash, and discoloration, Neuro: Negative for headache, weakness, numbness, tingling, and seizure. 17:32 All other systems are negative. Exam: 17:32 Constitutional: This is a well developed, well nourished patient who is awake, alert, sp3 and in no acute distress. Abdomen/GI: Soft, non-tender, with normal bowel sounds. No distension or tympany. No guarding or rebound. No evidence of tenderness throughout. Back: No spinal tenderness. No costovertebral tenderness. Full range of motion. Skin: Warm, dry with normal turgor. Normal color with no rashes, no lesions, and no evidence of cellulitis. MS/ Extremity: Pulses equal, no cyanosis. Neurovascular intact. Full, normal range of motion. 17:32 : Normal external anatomy. Patient is circumcised. He has mild discharge noted on expression. No rash noted. Testicular exam is normal.. Vital Signs: 17:04 Pulse 72; Resp 18; Temp 98.8; Pulse Ox 100% ; Weight 161.48 kg; Height 6 ft. 2 in. ap3 (187.96 cm); Pain 9/10; 17:04 Body Mass Index 45.71 (161.48 kg, 187.96 cm) ap3 MDM: 17:21 Patient medically screened. sp3 17:33 Data reviewed: vital signs, nurses notes. ED course: Test patient for gonorrhea and sp3 chlamydia as well as UTI. Will place patient on doxycycline for home and administer 500 mg of Rocephin intramuscularly in the ED. Patient was extensively educated on sexual health and STI prevention as well as signs and symptoms. Patient was also told to notify partners particularly the one for any positive findings. Proper phone number was ensured on registration. Patient will be discharged with STI results pending.. 05/22 17:25 Order name: UA MICROSCOPIC sp3 05/22 17:27 Order name: GC (Monico/Chl) Probe URINE EDMS 05/22 17:25 Order name: Urine Dipstick-Ancillary (obtain specimen); Complete Time: 17:27 sp3 05/22 17:29 Order name: Urine Dipstick-Ancillary EDMS 05/22 17:31 Order name: Urine Dipstick-Ancillary EDMS Administered Medications: 17:38 Drug: Rocephin (cefTRIAXone) 500 mg Route: IM; Site: left deltoid; jd3 17:55 Follow up: Response: No adverse reaction jd3 Disposition Summary: 05/22/21 17:35 Discharge Ordered Location: Home sp3 Condition: Stable sp3 Diagnosis - Dysuria sp3 Followup: sp3 - With: Steven Marie MD - When: Upon discharge from the Emergency Department - Reason: Continuance of care Discharge Instructions: - Discharge Summary Sheet sp3 - Dysuria sp3 - Preventing Sexually Transmitted Infections, Adult sp3 Forms: - Medication Reconciliation Form sp3 - Thank You Letter sp3 - Antibiotic Education sp3 - Prescription Opioid Use sp3 Prescriptions: - Doxycycline Hyclate 100 mg Oral Tablet - take 1 tablet by ORAL route every 12 hours; 20 tablet; Refills: 0, Product sp3 Selection Permitted Signatures: Dispatcher [employer] Deniz Zaidi RN RN jd3 [place] Muniz RN RN ap3 Jessica Pearson MD MD sp3
--- NOTE | 2021-05-22 17:35 | ER ---
Nurse's Notes [facility] Name: Huber Field Age: 30 yrs Sex: Male : 1990 Arrival Date: 05/22/2021 Time: 16:40 Bed 30 Private MD: Diagnosis: Dysuria Presentation: 05/22 17:04 Chief complaint: Patient states: he is having pain and itching around the head of his ap3 penis. Patient reports having a recent sexual encounter, and he is worried he may have gotten something. Coronavirus screen: At this time, the client does not indicate any symptoms associated with coronavirus-19. Ebola Screen: No symptoms or risks identified at this time. Onset: The symptoms/episode began/occurred gradually, 2 day(s) ago. Anaphylaxis evaluation, no signs or symptoms of anaphylaxis were noted. Initial Sepsis Screen: Does the patient meet any 2 criteria? No. Patient's initial sepsis screen is negative. Does the patient have a suspected source of infection? No. Patient's initial sepsis screen is negative. Risk Assessment: Do you want to hurt yourself or someone else? Patient reports no desire to harm self or others. Onset of symptoms was May 20, 2021. 17:04 Method Of Arrival: Ambulatory ap3 17:04 Acuity: DARCY 3 ap3 Triage Assessment: 17:06 General: Appears uncomfortable, Behavior is calm, cooperative, appropriate for age. ap3 Pain: Complains of pain in head of penis Pain currently is 9 out of 10 on a pain scale. Quality of pain is described as burning. Neuro: Level of Consciousness is awake, alert, obeys commands, Oriented to person, place, time, situation, Appropriate for age. Cardiovascular: Patient's skin is warm and dry. Respiratory: Airway is patent Respiratory effort is even, unlabored. : Reports burning with urination, pain. Historical: - Allergies: 17:06 Fish Containing Products; ap3 - Home Meds: 17:06 amlodipine oral [Active]; Metoprolol Tartrate Oral [Active]; ap3 - PMHx: 17:06 diabetes mellitus; Hypertensive disorder; ap3 - PSHx: 17:06 vertical sleeve; ap3 - Immunization history:: Client reports receiving the 2nd dose of the Covid vaccine, Flu vaccine is not up to date. - Social history:: Smoking status: Patient denies any tobacco usage or history of. Patient uses street drugs, marijuana. Screenin:08 Abuse screen: Denies threats or abuse. Nutritional screening: No deficits noted. ap3 Tuberculosis screening: No symptoms or risk factors identified. Fall Risk None identified. No fall in past 12 months (0 pts). Assessment: 17:40 General: Appears in no apparent distress. comfortable, Behavior is calm, cooperative, jd3 appropriate for age. Pain: Complains of pain in head of penis Quality of pain is described as burning. Neuro: Level of Consciousness is awake, alert, obeys commands, Oriented to person, place, time, situation. Cardiovascular: Denies chest pain, Capillary refill < 3 seconds Patient's skin is warm and dry. Respiratory: Airway is patent Respiratory effort is even, unlabored, Respiratory pattern is regular, symmetrical, Denies cough, shortness of breath. GI: No signs and/or symptoms were reported involving the gastrointestinal system. : Reports burning with urination. EENT: No signs and/or symptoms were reported regarding the EENT system. Derm: Skin is intact, Skin is dry, Skin is normal, Skin temperature is warm. Musculoskeletal: Circulation, motion, and sensation intact. Range of motion:. Vital Signs: 17:04 Pulse 72; Resp 18; Temp 98.8; Pulse Ox 100% ; Weight 161.48 kg; Height 6 ft. 2 in. ap3 (187.96 cm); Pain 9/10; 17:04 Body Mass Index 45.71 (161.48 kg, 187.96 cm) ap3 ED Course: 16:40 Patient arrived in ED. as 17:06 Triage completed. ap3 17:08 Arm band placed on left wrist. ap3 17:11 Jessica Pearson MD is Attending Physician. sp3 17:13 Deniz Solano RN is Primary Nurse. jd3 17:34 Steven Marie MD is Referral Physician. sp3 17:42 Patient has correct armband on for positive identification. Placed in gown. Bed in low jd3 position. Call light in reach. Side rails up X 1. Pulse ox on. NIBP on. 17:42 No provider procedures requiring assistance completed. Patient did not have IV access jd3 during this emergency room visit. Administered Medications: 17:38 Drug: Rocephin (cefTRIAXone) 500 mg Route: IM; Site: left deltoid; jd3 17:55 Follow up: Response: No adverse reaction jd3 Outcome: 17:35 Discharge ordered by . sp3 17:42 Condition: stable jd3 17:42 Discharge instructions given to patient, Instructed on discharge instructions, follow up and referral plans. medication usage, Demonstrated understanding of instructions, follow-up care, medications, Prescriptions given X 1. 17:55 Discharged to home ambulatory. jd3 17:55 Patient left the ED. jd3 Signatures: Shanti Cisneros Jonathon, RN RN jd3 [place] Muniz RN RN ap3 Jessica Pearson MD MD sp3
[2021-05-22 17:47] LABS: Urine Bacteria <20 /HPF (NONE SEEN); Urine Mucus 1+ /HPF (NONE SEEN); Urine RBC <5 /HPF (NONE SEEN)
[2021-05-23 07:53] VITALS: TEMP 98.8; O2SAT 100
[2021-05-26 07:51] LABS: C.trachomatis RNA,TMA Detected (Not Detected)
== END 2021-05-22 17:55 | disposition home or self-care (01) ==
LOC: ER 16:39
DX: R30.0 Dysuria (principal); E11.9 Type 2 diabetes mellitus without complications; I10 Essential (primary) hypertension; Z91.013 Allergy to seafood
CPT/HCPCS: 81003; 81015; 87490; 87590; 96372; 99283; J0696